=== PATIENT | male | born 1985 | race African-American/Black ===

== ENCOUNTER 2017-03-30 09:20 | Inpatient (IN) | payer OTHER ==
[2017-03-30] MEDS ORDERED: RAPID SEQUENCE INTUBATION KIT NR ONE (09:27)
[2017-03-30] MEDS ORDERED: DEXTROSE 50%-WATER - 25 GM/50 ML VIAL ONE (09:41)
[2017-03-30] MEDS ORDERED: SODIUM CHLORIDE 0.9% 1000 ML INFUS.BAG IV ONE (09:42)
--- NOTE | 2017-03-30 09:54 | PDOC ---
History of Present Illness <Varun Marie - Last Filed: 03/30/17 10:02> <Oral Colmenares - Last Filed: 03/30/17 11:32> <Shannon Bond - Last Filed: 03/30/17 12:14> - History of Present Illness Initial Comments: 03/30/17 09:51 Chief complaint cardiac arrest/altered mental status History of present illness: This is a 31-year-old gentleman known past medical history of diabetes, alcohol abuse depression last seen normal yesterday evening history received from EMS states patient had fallen twice yesterday was drinking in the evening and had to be carried to bed. This was his last seen normal. This morning at approximately 8 AM he was found unresponsive by his girlfriend. 911 was called. Upon arrival patient found to be in PE a arrest and CPR started. 2 rounds of epinephrine given. Patient difficult to intubate in the field. A fingerstick in the field showed a serum glucose of 17 he was given D10. Patient had briefly spontaneous return of circulation followed by a period of asystole and CPR was continued. Upon arrival to the emergency department at 919. Patient with good pulse and blood pressure 80 systolic agonal respirations repeat fingerstick 82. Decision made to intubate patient. <Jose Lpoez - Last Filed: 03/30/17 18:05> - General Chief Complaint: Altered Mental Status Stated Complaint: UNCONSCIOUS Time Seen by Provider: 03/30/17 09:40 Past History <Varun Marie - Last Filed: 03/30/17 10:02> <Oral Colmenares - Last Filed: 03/30/17 11:32> <Shannon Bond - Last Filed: 03/30/17 12:14> - Past Medical History Psychiatric Problems: Yes (depression on zoloft.) Other medical history: alcohol abuse - Suicide/Smoking/Psychosocial Hx Smoking Status: No Smoking History: Current every day smoker Have you smoked in the past 12 months: Yes Number of Cigarettes Smoked Daily: 20 Information on smoking cessation initiated: No Hx Alcohol Use: Yes (lots of it) Drug/Substance Use Hx: No Substance Use Type: Alcohol <Jose Lopez - Last Filed: 03/30/17 18:05> - Past Medical History Allergies/Adverse Reactions: Allergies Allergy/AdvReac Type Severity Reaction Status Date / Time No Known Allergies Allergy Verified 03/30/17 09:38 Home Medications: Ambulatory Orders NK [No Known Home Medication] 11/20/14 Review of Systems - Review of Systems Able to Perform ROS?: No (Unable to perform review ) Comments:: 03/30/17 09:52 Unable to perform review of systems secondary to altered mental status. <Jose Lopez - Last Filed: 03/30/17 18:05> *Physical Exam - Vital Signs Last Vital Signs Temp Pulse Resp BP Pulse Ox 55 L 12 69/53 100 03/30/17 09:20 03/30/17 09:20 03/30/17 09:20 03/30/17 09:20 <Varun Marie - Last Filed: 03/30/17 10:02> - Vital Signs Last Vital Signs Temp Pulse Resp BP Pulse Ox 79 15 72/50 96 03/30/17 11:30 03/30/17 11:30 03/30/17 11:30 03/30/17 11:30 <Oral Colmenares - Last Filed: 03/30/17 11:32> - Vital Signs Last Vital Signs Temp Pulse Resp BP Pulse Ox 55 L 12 69/53 100 03/30/17 09:20 03/30/17 09:35 03/30/17 09:20 03/30/17 09:20 <Shannon Bond - Last Filed: 03/30/17 12:14> - Vital Signs Last Vital Signs Temp Pulse Resp BP Pulse Ox 55 L 12 69/53 100 03/30/17 09:20 03/30/17 09:20 03/30/17 09:20 03/30/17 09:20 - Physical Exam Comments: 03/30/17 09:52 Vitals: Triage Vital signs reviewed General Appearance: Unresponsive thin Head: Atraumatic, Eyes: Fixed and pinpoint Throat: Posterior oropharynx without erythema, mucous membranes moist, Neck: Supple;No Nucal rigidity Chest Wall: Nontender, no trauma Cardiac: Regular rate and rhythym, no murmurs, no rubs, no gallops, Lungs: Coarse breath sounds bilaterally Abdomen: Soft, non distended, normal bowel sounds, non tender to palpation Skin: Warm and dry, no rashes or lesions, no rash, no petechiae Neuro: Intubated, agonal respirations, no significant response to painful stimuli <Jose Lopez - Last Filed: 03/30/17 18:05> Procedures - Intubation Intubation Method: orotracheal Blade used: Mac Tube Size (Fr): 7.0 Medications: Succinylcholine Tube position @ lip (cm): 22 Tube position confirmed by: Direct visualization, CO2 detector, Chest x-ray, Breath sounds Breath Sounds after Intubation: equal Intubation Complications: no complications Post Intubation Xray: Yes <Varun Marie - Last Filed: 03/30/17 10:02> - Consent Consent obtained: Verbal, From Guardians - Central Line Central Line Lumen: triple Central Line Position: internal jugular (R) Complications: none Post Central Line Insertion: sutured, good blood return, position confirmed w/ CXR <Oral Colmenares - Last Filed: 03/30/17 11:32> - Intubation Time of Intubation: 09:35 Intubation Method: nasotracheal Blade used: Mac Tube Size (Fr): 7.0 Medications: Succinylcholine Tube position @ lip (cm): 22 Tube position confirmed by: Direct visualization, CO2 detector, Chest x-ray, Breath sounds Breath Sounds after Intubation: equal Intubation Complications: no complications Post Intubation Xray: Yes <Jose Lopez - Last Filed: 03/30/17 18:05> ED Treatment Course - LABORATORY CBC & Chemistry Diagram: 03/30/17 09:30 03/30/17 09:30 - Medications Given in the ED: ED Medications Discontinued Medications Generic Name Dose Route Start Last Admin Trade Name Freq PRN Reason Stop Dose Admin Sodium Chloride 3,000 ml 03/30/17 09:42 03/30/17 09:56 Normal Saline - IV 03/30/17 09:43 3,000 ml ONCE ONE Administration <Varun Marie - Last Filed: 03/30/17 10:02> - LABORATORY CBC & Chemistry Diagram: 03/30/17 09:30 03/30/17 09:30 - ADDITIONAL ORDERS Additional order review: Laboratory Results 03/30/17 03/30/17 03/30/17 10:30 10:30 10:22 PT with INR INR Puncture Site Right radial ABG pH 6.91 L* ABG pCO2 at Pt Temp 79.4 H* ABG pO2 at Pt Temp 81.9 ABG HCO3 14.9 L* ABG O2 Sat (Measured) 92.0 ABG O2 Content 14.7 L ABG Base Excess -19.4 L* Phillip Test Positive Carboxyhemoglobin 6.2 H Methemoglobin 0.8 O2 Delivery Device Mec.vent Oxygen Flow Rate 100% Vent Mode A/c Vent Rate 12 Mechanical Rate Yes PEEP 5.0 Pressure Support Vent 350 Sodium Potassium Chloride Carbon Dioxide Anion Gap BUN Creatinine Creat Clearance w eGFR Random Glucose Lactic Acid Calcium Albumin Urine Color Straw Urine Appearance Clear Urine pH 6.0 Urine Protein Negative Urine Glucose (UA) Negative Urine Ketones Negative Urine Blood Negative Urine Nitrite Negative Urine Bilirubin Negative Urine Urobilinogen Negative Opiates Screen Negative Methadone Screen Negative Barbiturate Screen Negative Phencyclidine Screen Negative Ur Amphetamines Screen Negative MDMA (Ecstasy) Screen Negative Benzodiazepines Screen Negative Cocaine Screen Negative U Marijuana (THC) Screen Negative 03/30/17 03/30/17 03/30/17 09:30 09:30 09:30 PT with INR 13.30 H INR 1.18 H Puncture Site ABG pH ABG pCO2 at Pt Temp ABG pO2 at Pt Temp ABG HCO3 ABG O2 Sat (Measured) ABG O2 Content ABG Base Excess Phillip Test Carboxyhemoglobin Methemoglobin O2 Delivery Device Oxygen Flow Rate Vent Mode Vent Rate Mechanical Rate PEEP Pressure Support Vent Sodium 140 Potassium 4.6 Chloride 100 Carbon Dioxide 19 L Anion Gap 21 H BUN 9 Creatinine 2.6 H Creat Clearance w eGFR 28.57 Random Glucose 50 L Lactic Acid 12.6 H* Calcium 8.0 L Albumin 3.5 Urine Color Urine Appearance Urine pH Urine Protein Urine Glucose (UA) Urine Ketones Urine Blood Urine Nitrite Urine Bilirubin Urine Urobilinogen Opiates Screen Methadone Screen Barbiturate Screen Phencyclidine Screen Ur Amphetamines Screen MDMA (Ecstasy) Screen Benzodiazepines Screen Cocaine Screen U Marijuana (THC) Screen 03/30/17 09:30 RBC 4.91 MCV 92.3 MCHC 30.7 L RDW 16.2 H MPV 8.4 Neutrophils % No Result Required. Lymphocytes % No Result Required. - Medications Given in the ED: ED Medications Discontinued Medications Generic Name Dose Route Start Last Admin Trade Name Freq PRN Reason Stop Dose Admin Vancomycin HCl 1,000 mg/ 250 mls @ 250 mls/hr 03/30/17 10:08 03/30/17 11:29 Dextrose IVPB 03/30/17 11:07 250 mls/hr ONCE ONE Administration Protocol Piperacillin Sod/Tazobactam Sod 4.5 gm 03/30/17 10:08 03/30/17 10:28 Zosyn 4.5gm Ivpb (Pre-Docked) IVPB 03/30/17 10:09 4.5 gm ONCE ONE Administration Sodium Bicarbonate 4.2 meq 03/30/17 10:50 03/30/17 10:57 Sodium Bicarbonate 4.2% - IVPUSH 03/30/17 10:51 4.2 meq ONCE ONE Administration Sodium Chloride 3,000 ml 03/30/17 09:42 03/30/17 09:56 Normal Saline - IV 03/30/17 09:43 3,000 ml ONCE ONE Administration <Oral Colmenares - Last Filed: 03/30/17 11:32> - LABORATORY CBC & Chemistry Diagram: 03/30/17 09:30 03/30/17 09:30 - Medications Given in the ED: ED Medications Discontinued Medications Generic Name Dose Route Start Last Admin Trade Name Yawq PRN Reason Stop Dose Admin Sodium Chloride 3,000 ml 03/30/17 09:42 03/30/17 09:56 Normal Saline - IV 03/30/17 09:43 3,000 ml ONCE ONE Administration <Shannon Bond - Last Filed: 03/30/17 12:14> - LABORATORY CBC & Chemistry Diagram: 03/30/17 09:30 03/30/17 09:30 - RADIOLOGY Radiology Studies Ordered: Category Date Time Status HEAD CT WITHOUT CONTRAST [CT] Stat CT Scan 03/30/17 09:41 Ordered CXRPORT [CHEST X-RAY PORTABLE*] [RAD] Stat Radiology 03/30/17 09:41 Ordered <Jose Lopez - Last Filed: 03/30/17 18:05> Medical Decision Making - Medical Decision Making 03/30/17 10:00 Discussed case with ICU attending- Kajal at 10:00 Case accepted to ICU. 03/30/17 10:[address] Turk, covering for Daljit Abrams. Awaiting call back. 03/30/17 10:10 Burke returned the page and the patient's case was discussed. 03/30/17 10:14 Patient to be admitted under Burke service. 03/30/17 11:06 Central Line placed by Resident- Oral Colmenares 03/30/17 11:10 Kajal garza overhead. Patient's case updated. 03/30/17 11:37 CXR reviewed and patient re-evaluated. 03/30/17 11:43 Updated present family on patient's current clinical condition. 03/30/17 12:14 Patient transported from ER to ICU bed. <Shannon Bond - Last Filed: 03/30/17 12:14> - Critical Care Time Total Critical Care Time (minutes): 65 Critical Care Statement: The care of this patient involved high complexity decision making to prevent further life threatening deterioration of the patient 's condition and/or to evaluate & treat vital organ system(s) failure or risk of failure. - Medical Decision Making 03/30/17 09:54 31 years old last seen normal last night history of alcohol abuse diabetes depression found in cardiac arrest this morning. CPR initiated in the field upon arrival to the emergency Department patient with ROSC. Intubated in the emergency department Plan head CT chest x-ray labs ICU admission Reevaluation: No acute findings on head CT Patient persistently hypotensive despite 3 L normal saline decision made to place central line and start patient on norepinephrine. Chest x-ray with evidence of right lower lobe infiltrate. Given the possibility of aspiration pneumonia and patient started vancomycin and Zosyn After being intubated for CBG demonstrate marked acidosis. Vent rate increased 1 amp bicarbonate given Patient to be transferred to ICU for definitive management. <Jose Lopez - Last Filed: 03/30/17 18:05> *DC/Admit/Observation/Transfer <Varun Marie - Last Filed: 03/30/17 10:02> <Oral Colmenares - Last Filed: 03/30/17 11:32> - Attestations Scribe Attestion: 03/30/17 10:12 Documentation prepared by Shannon Bond, acting as certified medical assistant for Jose Lopez MD <Shannon Bond - Last Filed: 03/30/17 12:14> - Discharge Dispostion Admit: Yes <Jose Lopez - Last Filed: 03/30/17 18:05> Diagnosis at time of Disposition: Altered mental status Qualifiers: Altered mental status type: unspecified Qualified Code(s): R41.82 - Altered mental status, unspecified - Referrals
[2017-03-30 09:57] LABS: MCH 28.3 pg (25.7-33.7); MCHC 30.7 g/dl (32.0-35.9); MEAN CELL VOLUME 92.3 fl (80-96); MEAN PLT VOLUME 8.4 fl (7.5-11.1); PLATELET COUNT 130 K/MM3 (134-434); RDW 16.2 % (11.9-15.9); WHITE BLOOD COUNT 12.8 K/mm3 (4.0-10.0)
[2017-03-30] MEDS ORDERED: VANCOMYCIN 1,000 MG in DEXTROSE 5%-WATER - 250 ML IVPB ONE (10:08)
[2017-03-30] MEDS ORDERED: PIPERACILLIN/TAZOB 4.5 GM/100 ML PRE-DOCKED IVPB ONE (10:08)
[2017-03-30 10:13] LABS: INR 1.18 (0.82-1.09); PROTHROMBIN TIME (PATIENT) 13.3 SEC (9.98-11.88)
[2017-03-30] MEDS: MIDAZOLAM 100 MG in SODIUM CHLORIDE 100 ML IVPB SCH ×2 (10:15→23:47)
[2017-03-30] MEDS ORDERED: VANCOMYCIN 1 GRAM (PRE-DOCKED) 250 ML IVPB ONE (10:24)
[2017-03-30] MEDS ORDERED: PIPERACILLIN/TAZOB 3.375 GM 50 ML IVPB ONE (10:24)
[2017-03-30] MEDS ORDERED: PIPERACILLIN/TAZOB 4.5 GM 100 ML IVPB ONE (10:28)
[2017-03-30] MEDS ORDERED: MIDAZOLAM HCL 2 MG/2 ML SINGLE DOSE VIAL ONE (10:29)
[2017-03-30] MEDS ORDERED: MIDAZOLAM HCL 2 MG/2 ML SINGLE DOSE VIAL IVPUSH ONE (10:30)
[2017-03-30 10:34] LABS: ARTERIAL BLOOD GAS BASE EXCESS -19.4 meq/l (-2-2); ARTERIAL BLOOD GAS PO2 81.9 mmHg (80-100)
[2017-03-30 10:36] LABS: URINE APPEARANCE CLEAR; URINE BILIRUBIN NEGATIVE (NEGATIVE); URINE BLOOD NEGATIVE (NEGATIVE); URINE COLOR STRAW; URINE GLUCOSE (UA) NEGATIVE (NEGATIVE); URINE KETONE NEGATIVE (NEGATIVE); URINE NITRITE NEGATIVE (NEGATIVE); URINE PROTEIN NEGATIVE (NEGATIVE); URINE UROBILINOGEN NEGATIVE mg/dL (0.2-1.0)
[2017-03-30 10:40] LABS: METHEMOGLOBIN 0.8 % (0.4-1.5)
[2017-03-30 10:41] LABS: ALLENS TEST POSITIVE; PT. ON O2? YES
[2017-03-30 10:42] LABS: LPM/O2% 100%; MECH. VENT. YES; TYPE OF O2 MEC.VENT
[2017-03-30 10:43] LABS: VENT RATE 12; VT/PRESS 350
[2017-03-30 10:44] LABS: ARTERIAL BLOOD GAS pH 6.91 (7.35-7.45)
[2017-03-30 10:45] LABS: ARTERIAL BLOOD GAS HCO3 14.9 meq/L (22-26)
[2017-03-30] MEDS ORDERED: SODIUM BICARBONATE 4.2% 5 MEQ/10 ML DISP.SYRIN IVPUSH ONE (10:50)
[2017-03-30 10:58] LABS: ART PUNCT SITE RIGHT RADIAL
[2017-03-30] MEDS ORDERED: NOREPINEPHRINE BITARTRATE 4 MG/4 ML ML IV ONE ×3 (10:59→23:00)
[2017-03-30] MEDS: NOREPINEPHRINE BITARTRATE 4,000 MCG in DEXTROSE 5%-WATER - 496 ML IV SCH (11:09)
[2017-03-30 11:20] LABS: ALBUMIN 3.5 g/dl (3.4-5.0); ANION GAP 21 (8-16); CO2 19 mmol/L (21-32); CREATININE 2.6 mg/dL (0.7-1.3); GLUCOSE,RANDOM 50 mg/dL (74-106)
[2017-03-30 11:21] LABS: URINE MARIJUANA THC NEGATIVE ng/ml (CUTOFF=50)
[2017-03-30 11:37] LABS: ALK PHOS 100 U/L (45-117); BILIRUBIN,TOTAL 0.6 mg/dL (0.2-1.0); CPK 688 IU/L (39-308); TOT PROT 7.7 g/dl (6.4-8.2)
[2017-03-30 11:42] LABS: PLATELET ESTIMATE ADEQUATE (NORMAL); TOTAL CELLS COUNTED 100
[2017-03-30 11:43] LABS: METAMYELOCYTE 2 % (0-2); MYELOCYTE 2 % (0-2); NUCLEATED RED BLOOD CELL 1 % (0-0)
[2017-03-30 11:50] LABS: SGOT/AST 2615 U/L (15-37); SGPT/ALT 1775 U/L (12-78); TROPONIN I 1.47 ng/ml (0.00-0.05)
--- NOTE | 2017-03-30 12:53 | CONSULT ---
Consult Consult Specialty:: PULM/CCM Referred by:: ER Reason for Consultation:: cardiac arrest - History of Present Illness Chief Complaint: found unresponsive History of Present Illness: 31 M, diabetes, alcohol abuse, and depression. According to EMS reports, they were called after the patient was found unresponsive by his girlfriend around 8 AM. Patient was apparently out drinking the night before and had fallen twice and had to be carried to his bed. This was the last he was seen. Upon EMS arrival, the patient found to be in PEA arrest and CPR started. Documented 2 rounds of epinephrine given. Apparently he was a difficult intubation in the field and could not be intubated. A fingerstick in the field revealed a serum glucose of 17 and he was given D10. Patient apparently had a brief ROSC followed by asystole and CPR was continued. Patient arrived to the ER around 9:19 AM with a pulse and SBP of 80 mmHg. Repeat fingerstick at that time was 82. He was subsequently intubated in the ER. Now seen in the ICU. Intubated and unresponsive. AC Mode of vent, 100% FiO2. 10 mcq NE infusing for hemodynamic support. CXR: Bibasilar atelectasis CT Head: no acute pathology - History Source History Provided By: Medical Record Limitations to Obtaining History: Clinical Condition - Alcohol/Substance Use Hx Alcohol Use: Yes (lots of it) - Smoking History Smoking history: Current every day smoker Have you smoked in the past 12 months: Yes Aproximately how many cigarettes per day: 20 Home Medications - Allergies Allergies/Adverse Reactions: Allergies Allergy/AdvReac Type Severity Reaction Status Date / Time No Known Allergies Allergy Verified 03/30/17 09:38 - Home Medications Home Medications: Ambulatory Orders NK [No Known Home Medication] 11/20/14 Review of Systems Unable to obtain ROS, reason: cannot provide Physical Exam Vital Signs: Vital Signs Temperature 90.3 F L 03/30/17 11:57 Pulse Rate 85 03/30/17 11:57 Respiratory Rate 14 03/30/17 11:57 Blood Pressure 85/40 03/30/17 11:57 O2 Sat by Pulse Oximetry (%) 97 03/30/17 11:57 Constitutional: Yes: Thin Eyes: Yes: Other (pinpoint fixed pupils). No: Sclera Icterus Neck: Yes: Supple, Trachea Midline Cardiovascular: Yes: Regular Rate and Rhythm Respiratory: Yes: CTA Bilaterally, Mechanically Ventilated Gastrointestinal: Yes: Soft Musculoskeletal: Yes: WNL Extremities: Yes: WNL Edema: No Peripheral Pulses WNL: Yes Integumentary: Yes: WNL Neurological: Yes: Unresponsive Imaging - Results Chest X-ray: Report Reviewed, Image Reviewed Cat Scan: Report Reviewed, Image Reviewed Problem List - Problems (1) Cardiac arrest Code(s): I46.9 - CARDIAC ARREST, CAUSE UNSPECIFIED (2) Alcohol intoxication Code(s): F10.929 - ALCOHOL USE, UNSPECIFIED WITH INTOXICATION, UNSPECIFIED (3) Atelectasis of both lungs Code(s): J98.11 - ATELECTASIS (4) Pneumonitis due to food and vomit Code(s): J69.0 - PNEUMONITIS DUE TO INHALATION OF FOOD AND VOMIT (5) Seizure Code(s): R56.9 - UNSPECIFIED CONVULSIONS Assessment/Plan Repeat ABG after vent setting adjustments Check CVP IVF resuscitation Follow blood sugar Noted Zosyn was given Versed NE for hemodynamic support Collect sputum Unfortunately, due to a likely very prolonged time for ROSC and evidence of early seizure activity -> Outcome appears grave. TTE in AM As the patient's temperature is 32.4, there is no indication for TTM. Goal should be a temperature between [address] Rdz Critical care time spent in reviewing chart, evaluating patient and formulating plan - 40 minutes.
--- NOTE | 2017-03-30 12:53 | HP ---
Admitting History and Physical - Smoking History Smoking history: Current every day smoker Have you smoked in the past 12 months: Yes Aproximately how many cigarettes per day: 20 - Alcohol/Substance Use Hx Alcohol Use: Yes (lots of it) <Destin Turk - Last Filed: 03/30/17 12:53> Home Medications <Destin Turk - Last Filed: 03/30/17 12:53> <Poncho Rdz - Last Filed: 03/30/17 12:58> - Allergies Allergies/Adverse Reactions: Allergies Allergy/AdvReac Type Severity Reaction Status Date / Time No Known Allergies Allergy Verified 03/30/17 09:38 - Home Medications Home Medications: Ambulatory Orders NK [No Known Home Medication] 11/20/14 Physical Examination Vital Signs: Vital Signs Temperature 90.3 F L 03/30/17 11:57 Pulse Rate 85 03/30/17 11:57 Respiratory Rate 14 03/30/17 11:57 Blood Pressure 85/40 03/30/17 11:57 O2 Sat by Pulse Oximetry (%) 97 03/30/17 11:57 <Destin Turk - Last Filed: 03/30/17 12:53> Vital Signs: Vital Signs Temperature 90.3 F L 03/30/17 11:57 Pulse Rate 85 03/30/17 11:57 Respiratory Rate 18 03/30/17 12:54 Blood Pressure 85/40 03/30/17 11:57 O2 Sat by Pulse Oximetry (%) 97 03/30/17 11:57 <Poncho Rdz - Last Filed: 03/30/17 12:58> Problem List - Problems (1) Cardiac arrest Code(s): I46.9 - CARDIAC ARREST, CAUSE UNSPECIFIED (2) Alcohol intoxication Code(s): F10.929 - ALCOHOL USE, UNSPECIFIED WITH INTOXICATION, UNSPECIFIED (3) Atelectasis of both lungs Code(s): J98.11 - ATELECTASIS (4) Pneumonitis due to food and vomit Code(s): J69.0 - PNEUMONITIS DUE TO INHALATION OF FOOD AND VOMIT (5) Seizure Code(s): R56.9 - UNSPECIFIED CONVULSIONS <Poncho Rdz - Last Filed: 03/30/17 12:58>
[2017-03-30] MEDS: DOPAMINE 400 MG/D5W - 250 ML IVPB SCH (12:55)
[2017-03-30] MEDS ORDERED: ONDANSETRON 4 MG/2 ML VIAL IVPUSH PRN (12:56)
[2017-03-30] MEDS ORDERED: morphine CARPU-JECT 8 MG/1 ML DISP.SYRIN IVPUSH PRN (12:56)
[2017-03-30] MEDS ORDERED: LORazepam 2 MG/ML SDV VIAL ONE (12:58)
[2017-03-30] MEDS: DEXTROSE 10%-WATER - 1,000 ML IV SCH (13:00)
[2017-03-30] MEDS: LORazepam 2 MG/ML SDV VIAL IVPUSH PRN ×2 (13:10→17:30)
[2017-03-30 14:08] LABS: ARTERIAL BLD GAS O2 SATURATION 95.2 % (90-98.9); ARTERIAL BLOOD GAS BASE EXCESS -16.2 meq/l (-2-2); ARTERIAL BLOOD GAS HCO3 14.3 meq/L (22-26); ARTERIAL BLOOD GAS PO2 87.7 mmHg (80-100)
[2017-03-30 14:10] LABS: ALLENS TEST POSITIVE; ART PUNCT SITE RIGHT RADIAL; LPM/O2% 100%; PT. ON O2? YES; TYPE OF O2 MEC.VENT
[2017-03-30 14:11] LABS: MECH. VENT. YES; VENT RATE 16; VT/PRESS 450
[2017-03-30 14:13] LABS: ARTERIAL BLOOD GAS pH 7.05 (7.35-7.45)
[2017-03-30 14:35] LABS: URINE LEUK ESTERASE Negative (NEGATIVE)
[2017-03-30 15:20] VITALS: BMI 22.2
[2017-03-30] MEDS: PANTOPRAZOLE SODIUM 40 MG VIAL IVPUSH SCH (15:48)
--- NOTE | 2017-03-30 16:06 | PN ---
Progress Note (short form) - Note Progress Note: ID consult s/p code difficult intubation possible aspiration ESTELA etoh use vanco/zosyn in ED decreased zosyn dose due to estela f/u cultures overall prognosis is poor Problem List - Problems (1) Cardiac arrest Code(s): I46.9 - CARDIAC ARREST, CAUSE UNSPECIFIED (2) Alcohol intoxication Code(s): F10.929 - ALCOHOL USE, UNSPECIFIED WITH INTOXICATION, UNSPECIFIED (3) Pneumonitis due to food and vomit Code(s): J69.0 - PNEUMONITIS DUE TO INHALATION OF FOOD AND VOMIT
[2017-03-30] MEDS ORDERED: PIPERACILLIN/TAZOB 3.375 GM/50 ML PRE-DOCKED IVPB SCH (16:15)
[2017-03-30 16:16] LABS: ARTERIAL BLD GAS O2 SATURATION 87.4 % (90-98.9); ARTERIAL BLOOD GAS BASE EXCESS -15.1 meq/l (-2-2); ARTERIAL BLOOD GAS HCO3 14.5 meq/L (22-26); ARTERIAL BLOOD GAS PO2 60.3 mmHg (80-100)
[2017-03-30 16:18] LABS: ALLENS TEST POSITIVE; ART PUNCT SITE RIGHT RADIAL; LPM/O2% 100%; PT. ON O2? YES
[2017-03-30 16:19] LABS: MECH. VENT. YES; TYPE OF O2 MEC.VENT; VENT RATE 22; VT/PRESS 500
[2017-03-30] MEDS ORDERED: PROPOFOL 100 ML ONE ×2 (17:00→22:59)
--- NOTE | 2017-03-30 17:32 | CON.CARD ---
Consult Consult Specialty:: Cardiology Referred by:: Dr. Turk Reason for Consultation:: S/p CARDIAC ARREST - History of Present Illness Chief Complaint: S/p Cardiac arrest and CPR History of Present Illness: 31 year-old man with a PMHx of diabetes, alcohol abuse, and depression admitted 03/29/2017 after cardiac arrest and CPR. The patient was drunk and fell one night before admission. He was found unresponsive by his girlfriend. PEA arrest and CPR started as per EMS. Documented 2 rounds of epinephrine given. He had severe hypoglycemia with FS of 17 and D10W given. He was difficult to intubate in the field. He was intubated in ED. The patient was found to have severe acidosis, hypotension, ESTELA and elevated cardiac markers. He is current sedated and on Levophed and dopamine. Tele shows sinus tachycardia. CXR: Bibasilar atelectasis CT Head: no acute pathology - Alcohol/Substance Use Hx Alcohol Use: Yes (lots of it) - Smoking History Smoking history: Current every day smoker Have you smoked in the past 12 months: Yes Aproximately how many cigarettes per day: 20 Home Medications - Allergies Allergies/Adverse Reactions: Allergies Allergy/AdvReac Type Severity Reaction Status Date / Time No Known Allergies Allergy Verified 03/30/17 09:38 - Home Medications Home Medications: Ambulatory Orders NK [No Known Home Medication] 11/20/14 Review of Systems - Review of Systems Cardiovascular: reports: Other (S/p PEA and CPR) Respiratory: reports: Other (Intubated) Neurological: reports: Other (Sedated) - Risk Factors Known Risk Factors: Yes: Diabetes Mellitus Vital Signs: Vital Signs Temperature 91.4 F L 03/30/17 14:00 Pulse Rate 96 H 03/30/17 14:00 Respiratory Rate 22 03/30/17 15:46 Blood Pressure 148/88 03/30/17 14:00 O2 Sat by Pulse Oximetry (%) 97 03/30/17 12:30 Constitutional: Yes: Well Nourished, Other (Sedated and intubated.) HENT: Yes: Atraumatic, Normocephalic Neck: Yes: Supple, Trachea Midline Respiratory: Yes: Regular, Other (Coarse vent breath sound.) Gastrointestinal: Yes: Normal Bowel Sounds, Soft Cardiovascular: Yes: Regular Rate and Rhythm, Tachycardia JVD: No Carotid Bruit: No PMI: Non-Displaced Heart Sounds: Yes: S1, S2 Edema: No Peripheral Pulses WNL: Yes Neurological: Yes: Seizure, Unresponsive - Other Data Labs, Other Data: CBC, BMP 03/30/17 16:00 INR, PTT INR 1.18 (0.82-1.09) H 03/30/17 09:30 Imaging - Results EKG: Pending Assessment/Plan 31 year-old man with a PMHx of diabetes, alcohol abuse, and depression admitted 03/29/2017 after cardiac arrest and CPR. He had severe hypoglycemia with FS of 17 and D10W given. He was difficult to intubate in the field. He was intubated in ED. The patient was found to have severe acidosis, hypotension, ESTELA and elevated cardiac markers. He is current sedated and on Levophed and dopamine. Tele shows sinus tachycardia. Cardiac arrest of unclear etiology. Tele monitor for possible cardiac arrhythmia. Obtain echocardiogram to evaluate cardiac dimension and function. Obtain 12-lead ECG. Continue hemodynamic support. Correct metabolic abnormalities as per ICU team. We will follow with you.
[2017-03-30 17:38] LABS: TROPONIN I 7.43 ng/ml (0.00-0.05)
[2017-03-30] MEDS ORDERED: PIPERACILLIN/TAZOB 4.5 GM/100 ML PREMIX BAG IVPB SCH (18:00)
[2017-03-30] MEDS ORDERED: PIPERACILLIN/TAZOB 4.5 GM 100 ML IVPB SCH (18:00)
[2017-03-30] MEDS: PROPOFOL 100 ML IVPB SCH ×2 (18:00→23:43)
[2017-03-30 18:08] LABS: ARTERIAL BLD GAS O2 SATURATION 84.8 % (90-98.9); ARTERIAL BLOOD GAS BASE EXCESS -13.6 meq/l (-2-2); ARTERIAL BLOOD GAS HCO3 13.8 meq/L (22-26); ARTERIAL BLOOD GAS PO2 50.5 mmHg (80-100)
[2017-03-30 18:09] LABS: ALLENS TEST POSITIVE; ART PUNCT SITE RIGHT RADIAL; LPM/O2% 100%; MECH. VENT. YES; PT. ON O2? YES; TYPE OF O2 MEC.VENT; VENT RATE 28; VT/PRESS 550
[2017-03-30 18:10] LABS: ARTERIAL BLOOD GAS pH 7.19 (7.35-7.45)
[2017-03-30 18:17] LABS: MCH 28.1 pg (25.7-33.7); MEAN CELL VOLUME 87.8 fl (80-96); MEAN PLT VOLUME 8.5 fl (7.5-11.1); PLATELET COUNT 104 K/MM3 (134-434); WHITE BLOOD COUNT 13.3 K/mm3 (4.0-10.0)
--- NOTE | 2017-03-30 18:20 | CONS ---
DATE OF CONSULTATION: 03/30/2017 This is a 31-year-old male with a history of alcohol use and depression. He apparently yesterday evening was drinking, had to be carried to bed. At 8 a.m., he was found unresponsive by his girlfriend, 911 was called. He was found to be in PEA arrest and CPR was started. He was difficult to intubate in the field. A fingerstick showed a glucose of 17. He was given D10. He had a brief return of circulation, followed by a period of asystole. He was brought to the emergency room and had a pulse and blood pressure of 80. He was not intubated. Decision was to make intubated in the ER. He was intubated in the emergency room. Asked to see him for possible aspiration, as he was a difficult intubation in the field. He is now in the ICU. He remains unresponsive. He is on pressors. He received a dose of vancomycin and Zosyn in the emergency room. Per his family, the past medical history is known for history of alcohol use and depression. He is currently not working. He was taking Zoloft at home. He has no known drug allergies. SOCIAL HISTORY: He lives with his girlfriend. Unemployed. He smokes. REVIEW OF SYSTEMS: Per the family member who was present, was that he was well yesterday evening and he had no complaints of fevers, chills, or any chest pain or any other symptoms. PHYSICAL EXAMINATION: General: He is unresponsive, he is cold. Vital Signs: Temperature is 91.4 rectally. Pulse is 96. Blood pressure is 148/88. Respiratory rate is 16. He is saturating 100%. He is unresponsive. Currently he is on Levophed for blood pressure control. He is on Ativan and Versed and dopamine. HEENT: He is orally intubated. He is normocephalic. Lungs: Diminished breath sounds at the bases. Heart: Regular rate and rhythm. Abdomen: Firm, nontender. Extremities: Without edema. White count is 12.8, hemoglobin 13.9, platelets of 130. BUN 9, creatinine 2.6, lactic acid of 12.6. Troponin 1.47. Urinalysis is negative. His alcohol level was 193 and his urine toxicology is negative. Cultures are pending. Chest x-ray reveals a question of an increased atelectasis and changes at the bases, right greater than left. In summary, this is an unfortunate 31-year-old young man status post arrest at home, history of alcohol use, questionable of aspiration pneumonia. He is in acute renal failure as well. He was given a dose of vancomycin and started on Zosyn. I would adjust his Zosyn doses for his acute kidney injury, and continue him on antibiotics while we are fluid resuscitating him and waiting to see what mental status is left. It is unclear how long the patient was asystolic prior to resuscitation. KINGSTON CLAYTON M.D. [id number]
[2017-03-30 18:48] LABS: INR 1.8 (0.82-1.09); PROTHROMBIN TIME (PATIENT) 20.3 SEC (9.98-11.88)
[2017-03-30 18:55] LABS: ALBUMIN 2.5 g/dl (3.4-5.0); BILIRUBIN,TOTAL 0.8 mg/dL (0.2-1.0); CO2 17 mmol/L (21-32); GLUCOSE,RANDOM 189 mg/dL (74-106); TOT PROT 5.6 g/dl (6.4-8.2)
[2017-03-30 19:09] LABS: ALK PHOS 119 U/L (45-117)
[2017-03-30 19:16] LABS: ANION GAP 11 (8-16)
[2017-03-30] MEDS ORDERED: CALCIUM GLUCONATE 10% - 1,000 MG/10 ML VIAL IVPB ONE ×2 (19:30→20:00)
[2017-03-30 19:47] LABS: SGOT/AST 6516 U/L (15-37); SGPT/ALT 3676 U/L (12-78)
[2017-03-30] MEDS: PIPERACILLIN/TAZOB 3.375 GM 50 ML IVPB SCH (19:48)
[2017-03-30 19:49] LABS: CALCIUM 5.2 mg/dL (8.5-10.1)
--- NOTE | 2017-03-30 20:13 | CON.NEP ---
Consult Consult Specialty:: Nephrology Referred by:: Dr Turk - History of Present Illness Chief Complaint: s/p code, renal failure History of Present Illness: seen in ICU s/p being found unresponsive found with cardiac arrest by ems pea s/p code fingerstick 17 at first difficult intubation possible aspiration given vanco/zosyn in ED zosyn dose adjusted by ID due to renal function cultures done PMhx Prior Chronic Renal Insufficiency Etoh use DM - History Source History Provided By: Family Member, Medical Record Limitations to Obtaining History: Intubated - Past Medical History Renal/: Yes: Renal Inusuff Psych: Yes: Depression Endocrine: Yes: Diabetes Mellitus - Alcohol/Substance Use Hx Alcohol Use: Yes (lots of it) - Smoking History Smoking history: Current every day smoker Have you smoked in the past 12 months: Yes Aproximately how many cigarettes per day: 20 Home Medications - Allergies Allergies/Adverse Reactions: Allergies Allergy/AdvReac Type Severity Reaction Status Date / Time No Known Allergies Allergy Verified 03/30/17 09:38 - Home Medications Home Medications: Ambulatory Orders NK [No Known Home Medication] 11/20/14 Nephrology Consult - Height Height: 5 ft 7 in - Weight Weight: 141 lb 15.643 oz - BMI Body Mass Index (BMI): 22.2 - Lab Results CBC,BMP: CBC, BMP 03/30/17 17:45 03/30/17 17:45 Anion Gap: Anion Gap Anion Gap 11 (8-16) 03/30/17 17:45 - Physical Examination Vital Signs: Vital Signs Temperature 92 F L 03/30/17 17:00 Pulse Rate 93 H 03/30/17 18:00 Respiratory Rate 28 H 03/30/17 19:11 Blood Pressure 174/102 03/30/17 18:00 O2 Sat by Pulse Oximetry (%) 97 03/30/17 12:30 Constitutional: Yes: Well Nourished Cardiovascular: Yes: Regular Rate and Rhythm Respiratory: Yes: Mechanically Ventilated Gastrointestinal: Yes: Soft Assessment/Plan s/p cardiac arrest hypotensive dependent on pressors severe metabolic acidosis hyperkalemia last pH 7.19 on iv bicarb anoxic and hypoglycemic brain injury acute resp failure on vent non-oliguric so far Plan - continue pressors IVF IV bicarb Kayexalate Per rectum will need ngt for med and nutrition
[2017-03-30] MEDS ORDERED: SODIUM POLYSTYRENE SULFONATE 15 GM/60 ML BOTTLE RC ONE (21:00)
[2017-03-30 23:50] LABS: ANION GAP 9 (8-16); CO2 19 mmol/L (21-32); GLUCOSE,RANDOM 200 mg/dL (74-106)
[2017-03-30 23:51] LABS: CREATININE 2.4 mg/dL (0.7-1.3)
[2017-03-30 23:52] LABS: CALCIUM 6.4 mg/dL (8.5-10.1)
[2017-03-31] MEDS ORDERED: SODIUM POLYSTYRENE SULFONATE 15 GM/60 ML BOTTLE RC ONE (00:15)
[2017-03-31] MEDS ORDERED: PT OWN MED DRAWER 7, Y5N ONE ×2 (00:21→19:11)
[2017-03-31] MEDS: PIPERACILLIN/TAZOB 3.375 GM 50 ML IVPB SCH ×3 (01:11→19:15)
[2017-03-31] MEDS ORDERED: NOREPINEPHRINE BITARTRATE 4 MG/4 ML ML IV ONE (02:02)
[2017-03-31] MEDS: LORazepam 2 MG/ML SDV VIAL IVPUSH PRN ×2 (02:28→12:45)
[2017-03-31] MEDS: NOREPINEPHRINE BITARTRATE 4,000 MCG in DEXTROSE 5%-WATER - 496 ML IV SCH ×2 (02:29→13:15)
[2017-03-31 06:45] LABS: ALBUMIN 2.4 g/dl (3.4-5.0); ANION GAP 9 (8-16); BILIRUBIN,TOTAL 1.3 mg/dL (0.2-1.0); CO2 19 mmol/L (21-32); CREATININE 3.1 mg/dL (0.7-1.3); GLUCOSE,RANDOM 136 mg/dL (74-106); TOT PROT 5.3 g/dl (6.4-8.2)
[2017-03-31 07:04] LABS: ALK PHOS 80 U/L (45-117)
--- NOTE | 2017-03-31 07:47 | PN ---
Progress Note, Physician Chief Complaint: ID Chart reviewed Intubated post cardiac arrest Empiric therapy for ? sepsis ( Vancomycin and Pip Tazo day 1 Rx) - Current Medication List Current Medications: Active Medications Midazolam HCl 100 mg/ Sodium (Chloride) 100 mls @ 1 mls/hr IVPB TITR SEN; 1 MG/ HR PRN Reason: Protocol Last Admin: 03/30/17 23:47 Dose: 5 mls/hr Norepinephrine Bitartrate 4, (000 mcg/ Dextrose) 500 mls @ 37.5 mls/hr IV TITR SEN; 5 MCG/MIN PRN Reason: Protocol Last Admin: 03/31/17 02:29 Dose: 120 mls/hr Dextrose (D10w -) 1,000 mls @ 100 mls/hr IV ASDIR SEN Last Admin: 03/30/17 13:00 Dose: Not Given Dopamine HCl/Dextrose (Dopamine 400 Mg/D5w -) 250 mls @ 11.056 mls/hr IVPB TITR SEN; 5 MCG/KG/MIN PRN Reason: Protocol Last Admin: 03/30/17 12:55 Dose: 11.056 mls/hr Piperacillin/Tazobactam/Dextrose (Zosyn 3.375gm Ivpb (Premix)) 50 mls @ 100 mls /hr IVPB Q8H-IV SEN Last Admin: 03/31/17 01:11 Dose: 100 mls/hr Propofol (Diprivan -) 100 mls @ 1.932 mls/hr IVPB TITR SEN; 5 MCG/KG/MIN PRN Reason: Protocol Last Admin: 03/30/17 23:43 Dose: 1.932 mls/hr Lorazepam (Ativan Injection -) 2 mg IVPUSH Q4H PRN PRN Reason: ANXIETY Last Admin: 03/31/17 02:28 Dose: 2 mg Morphine Sulfate (Morphine Sulfate) 2 mg IVPUSH Q4H PRN PRN Reason: PAIN Ondansetron HCl (Zofran Injection) 4 mg IVPUSH Q6H PRN PRN Reason: NAUSEA Pantoprazole Sodium (Protonix Iv) 40 mg IVPUSH DAILY SEN Last Admin: 03/30/17 15:48 Dose: 40 mg - Objective Vital Signs: Vital Signs Temperature 96.6 F L 03/31/17 06:35 Pulse Rate 118 H 03/31/17 02:45 Respiratory Rate 26 H 03/31/17 06:35 Blood Pressure 149/96 03/31/17 06:35 O2 Sat by Pulse Oximetry (%) 97 03/30/17 12:30 Constitutional: Yes: Other (Unresponsive) Cardiovascular: Yes: S1, S2 Respiratory: Yes: WNL, Regular, CTA Bilaterally Gastrointestinal: Yes: WNL, Normal Bowel Sounds, Soft. No: Tenderness Extremities: No: Cold, Cool, Cyanosis Edema: No Labs: CBC, BMP 03/30/17 17:45 INR, PTT INR 1.80 (0.82-1.09) H D 03/30/17 17:45 Problem List - Problems (1) Alcohol intoxication Code(s): F10.929 - ALCOHOL USE, UNSPECIFIED WITH INTOXICATION, UNSPECIFIED (2) Cardiac arrest Code(s): I46.9 - CARDIAC ARREST, CAUSE UNSPECIFIED (3) Sepsis Code(s): A41.9 - SEPSIS, UNSPECIFIED ORGANISM Assessment/Plan Laboratory Tests 03/30/17 03/30/17 03/30/17 11:58 16:00 16:00 WBC Hgb Plt Count BUN Creatinine Lactic Acid 5.0 H* Calcium Troponin I 7.43 H* D Alcohol, Quantitative 193.0 H* 03/30/17 03/30/17 17:45 23:00 WBC 13.3 H Hgb 12.8 Plt Count 104 L BUN 16 D Creatinine 2.4 H Lactic Acid Calcium 6.4 L* D Troponin I Alcohol, Quantitative Assessment Post cardiac arrest Respiratory failure Alcohol intoxication Acute renal failure Lactic acidosis Sepsis considered and treated Plan Empiric antibiotic Cultures pending Roland MEDRANO
--- NOTE | 2017-03-31 07:57 | HP ---
Admitting History and Physical - Primary Care Physician PCP: Destin Turk - Admission Chief Complaint: FOUND UNRESPONSIVE/CARDIAC ARREST History of Present Illness: History of present illness: This is a 31-year-old gentleman known past medical history of diabetes, alcohol abuse depression last seen normal yesterday evening history received from EMS states patient had fallen twice yesterday was drinking in the evening and had to be carried to bed. This was his last seen normal. This morning at approximately 8 AM he was found unresponsive by his girlfriend. 911 was called. Upon arrival patient found to be in PE a arrest and CPR started. 2 rounds of epinephrine given. Patient difficult to intubate in the field. A fingerstick in the field showed a serum glucose of 17 he was given D10. Patient had briefly spontaneous return of circulation followed by a period of asystole and CPR was continued. Upon arrival to the emergency department at 919. Patient with good pulse and blood pressure 80 systolic agonal respirations repeat fingerstick 82. Decision made to intubate patient. History Source: Medical Record - Past Medical History Renal/: Yes: Renal Inusuff Psych: Yes: Depression Endocrine: Yes: Diabetes Mellitus - Smoking History Smoking history: Current every day smoker Have you smoked in the past 12 months: Yes Aproximately how many cigarettes per day: 20 - Alcohol/Substance Use Hx Alcohol Use: Yes (lots of it) Home Medications - Allergies Allergies/Adverse Reactions: Allergies Allergy/AdvReac Type Severity Reaction Status Date / Time No Known Allergies Allergy Verified 03/30/17 09:38 - Home Medications Home Medications: Ambulatory Orders NK [No Known Home Medication] 11/20/14 Review of Systems Findings/Remarks: PATIENT UNRESPONSIVE IN ICU INTUBATED - Review of Systems Constitutional: reports: Other Eyes: reports: Other Neck: reports: No Symptoms Cardiovascular: reports: Other Respiratory: reports: SOB Genitourinary: reports: No Symptoms Neurological: reports: Weakness Endocrine: reports: No Symptoms Hematology/Lymphatic: reports: No Symptoms Psychiatric: reports: Other Physical Examination Vital Signs: Vital Signs Temperature 96.6 F L 03/31/17 06:35 Pulse Rate 118 H 03/31/17 02:45 Respiratory Rate 26 H 03/31/17 06:35 Blood Pressure 149/96 03/31/17 06:35 O2 Sat by Pulse Oximetry (%) 97 03/30/17 12:30 Findings/Remarks: UNRESPONSIVE/INTUBATED Constitutional: Yes: Severe Distress Eyes: Yes: Other (PINPOINT PUPILS) HENT: Yes: Other Neck: Yes: Other Cardiovascular: Yes: Tachycardia Respiratory: Yes: Mechanically Ventilated, Rhonchi Gastrointestinal: Yes: WNL Renal/: Yes: Other Musculoskeletal: Yes: Muscle Weakness Extremities: Yes: Other Edema: No Peripheral Pulses WNL: Yes Integumentary: Yes: Other Wound/Incision: Yes: Other Neurological: Yes: Unresponsive Labs: CBC, BMP 03/30/17 17:45 Imaging - Results Cat Scan: Report Reviewed Problem List - Problems (1) Alcohol intoxication Code(s): F10.929 - ALCOHOL USE, UNSPECIFIED WITH INTOXICATION, UNSPECIFIED (2) Altered mental status Code(s): R41.82 - ALTERED MENTAL STATUS, UNSPECIFIED Qualifiers: Altered mental status type: unspecified Qualified Code(s): R41.82 - Altered mental status, unspecified; R41.82 - Altered mental status, unspecified (3) Cardiac arrest Code(s): I46.9 - CARDIAC ARREST, CAUSE UNSPECIFIED (4) Pneumonitis due to food and vomit Code(s): J69.0 - PNEUMONITIS DUE TO INHALATION OF FOOD AND VOMIT (5) Seizure Code(s): R56.9 - UNSPECIFIED CONVULSIONS (6) Sepsis Code(s): A41.9 - SEPSIS, UNSPECIFIED ORGANISM Qualifiers: Sepsis type: sepsis due to unspecified organism Qualified Code(s): A41.9 - Sepsis, unspecified organism; A41.9 - Sepsis, unspecified organism; A41.9 - Sepsis, unspecified organism Assessment/Plan INTUBATION AIRWAY SUPPORT IV ABX NEURO EVALUATION FOR BRAIN ACTIVITY POOR OVERALL PROGNOSIS UNKNOWN TIME OF BEING UNCONCIOUS MAY BE SEVERAL HOURS DISCUSSED WITH HIS MOTHER OVER THE PHONE
[2017-03-31 08:23] LABS: SGOT/AST 9723 U/L (15-37); SGPT/ALT 3964 U/L (12-78)
[2017-03-31 08:26] LABS: CALCIUM 6.6 mg/dL (8.5-10.1)
[2017-03-31 08:38] LABS: ALLENS TEST POSITIVE; ARTERIAL BLOOD GAS BASE EXCESS -7.3 meq/l (-2-2); ARTERIAL BLOOD GAS HCO3 15.7 meq/L (22-26); ARTERIAL BLOOD GAS pH 7.39 (7.35-7.45)
[2017-03-31 08:39] LABS: ART PUNCT SITE LEFT BRACHIAL; LPM/O2% 100%; MECH. VENT. YES; PT. ON O2? YES; TYPE OF O2 MECH VENT; VENT RATE 28; VT/PRESS 550
[2017-03-31] MEDS ORDERED: CALCIUM GLUCONATE 10% - 1,000 MG/10 ML VIAL ONE (10:02)
[2017-03-31] MEDS: PANTOPRAZOLE SODIUM 40 MG VIAL IVPUSH SCH (10:33)
[2017-03-31] MEDS: MIDAZOLAM 100 MG in SODIUM CHLORIDE 100 ML IVPB SCH (11:43)
[2017-03-31] MEDS: PROPOFOL 100 ML IVPB SCH (11:44)
[2017-03-31] MEDS ORDERED: SODIUM POLYSTYRENE SULFONATE 15 GM/60 ML BOTTLE PO ONE (12:00)
[2017-03-31] MEDS ORDERED: CALCIUM GLUCONATE 10% - 1,000 MG/10 ML VIAL IVPB ONE (12:45)
--- NOTE | 2017-03-31 13:06 | PN ---
Teaching Attending Note Name of Resident: Bryce Rodas ATTENDING PHYSICIAN STATEMENT I saw and evaluated the patient. I reviewed the resident's note and discussed the case with the resident. I agree with the resident's findings and plan as documented. SUBJECTIVE: Patient seen and examined in the ICU. Intubated and fully sedated. AC Mode of vent. Remains on 12 mcq NE and 5 mg Dopamine for hemodynamic support. Intake & Output 03/28/17 03/29/17 03/30/17 03/31/17 23:59 23:59 23:59 23:59 Intake Total 50 954 Output Total 1999 Balance -1950 954 Weight 141 lb 15.643 oz Last Vital Signs Temp Pulse Resp BP Pulse Ox 96.8 F L 96 H 26 H 132/92 97 03/31/17 10:00 03/31/17 12:00 03/31/17 12:00 03/31/17 12:00 03/31/17 09:00 Active Medications Midazolam HCl 100 mg/ Sodium (Chloride) 100 mls @ 1 mls/hr IVPB TITR SEN; 1 MG/ HR PRN Reason: Protocol Last Admin: 03/31/17 11:43 Dose: 5 mls/hr Norepinephrine Bitartrate 4, (000 mcg/ Dextrose) 500 mls @ 37.5 mls/hr IV TITR SEN; 5 MCG/MIN PRN Reason: Protocol Last Admin: 03/31/17 02:29 Dose: 120 mls/hr Dextrose (D10w -) 1,000 mls @ 100 mls/hr IV ASDIR SEN Last Admin: 03/30/17 13:00 Dose: Not Given Dopamine HCl/Dextrose (Dopamine 400 Mg/D5w -) 250 mls @ 11.056 mls/hr IVPB TITR SEN; 5 MCG/KG/MIN PRN Reason: Protocol Last Admin: 03/30/17 12:55 Dose: 11.056 mls/hr Piperacillin/Tazobactam/Dextrose (Zosyn 3.375gm Ivpb (Premix)) 50 mls @ 100 mls /hr IVPB Q8H-IV SEN Last Admin: 03/31/17 10:31 Dose: 100 mls/hr Propofol (Diprivan -) 100 mls @ 1.932 mls/hr IVPB TITR SEN; 5 MCG/KG/MIN PRN Reason: Protocol Last Admin: 03/31/17 11:44 Dose: 19.32 mls/hr Dextrose/Sodium Chloride (D5-Ns -) 1,000 mls @ 125 mls/hr IV ASDIR SEN Lorazepam (Ativan Injection -) 2 mg IVPUSH Q4H PRN PRN Reason: ANXIETY Last Admin: 03/31/17 02:28 Dose: 2 mg Morphine Sulfate (Morphine Sulfate) 2 mg IVPUSH Q4H PRN PRN Reason: PAIN Ondansetron HCl (Zofran Injection) 4 mg IVPUSH Q6H PRN PRN Reason: NAUSEA Pantoprazole Sodium (Protonix Iv) 40 mg IVPUSH DAILY SEN Last Admin: 03/31/17 10:33 Dose: 40 mg Thiamine HCl (Vitamin B1 Injection -) 200 mg IVPB DAILY SEN Constitutional: Yes: Intubated, sedated Eyes: Yes: Other (pinpoint fixed pupils). No: Sclera Icterus Neck: Yes: Supple, Trachea Midline Cardiovascular: Yes: Regular Rate and Rhythm Respiratory: Yes: CTA Bilaterally, Mechanically Ventilated Gastrointestinal: Yes: Soft Musculoskeletal: Yes: WNL Extremities: Yes: WNL Edema: No Peripheral Pulses WNL: Yes Integumentary: Yes: WNL Neurological: Yes: Unresponsive Laboratory Results - last 24 hr 03/30/17 03/30/17 03/30/17 09:25 10:30 12:30 WBC Corrected WBC (auto) RBC Hgb Hct MCV MCH MCHC RDW Plt Count MPV Add Manual Diff Differential Comment Platelet Estimate Platelet Comment Normal RBC Morphology RBC Morphology PT with INR INR Puncture Site ABG pH ABG pCO2 at Pt Temp ABG pO2 at Pt Temp ABG HCO3 ABG O2 Sat (Measured) ABG O2 Content ABG Base Excess Phillip Test O2 Delivery Device Oxygen Flow Rate Vent Mode Vent Rate Mechanical Rate PEEP Pressure Support Vent Sodium Potassium Chloride Carbon Dioxide Anion Gap BUN Creatinine Creat Clearance w eGFR POC Glucometer 82.96772 74.01967 Random Glucose Lactic Acid Calcium Total Bilirubin AST ALT Alkaline Phosphatase Creatine Kinase Creatine Kinase Index CK-MB (CK-2) Troponin I Total Protein Albumin Urine Color Straw Urine Appearance Clear Urine pH 6.0 Ur Specific [place] <= 1.005 Urine Protein Negative Urine Glucose (UA) Negative Urine Ketones Negative Urine Blood Negative Urine Nitrite Negative Urine Bilirubin Negative Urine Urobilinogen Negative Ur Leukocyte Esterase Negative Blood Type Antibody Screen 03/30/17 03/30/17 03/30/17 14:02 14:28 15:50 WBC Corrected WBC (auto) RBC Hgb Hct MCV MCH MCHC RDW Plt Count MPV Add Manual Diff Differential Comment Platelet Estimate Platelet Comment Normal RBC Morphology RBC Morphology PT with INR INR Puncture Site Right radial Right radial ABG pH 7.05 L* D 7.10 L* ABG pCO2 at Pt Temp 53.6 H D 49.6 H ABG pO2 at Pt Temp 87.7 60.3 L D ABG HCO3 14.3 L* 14.5 L* ABG O2 Sat (Measured) 95.2 87.4 L ABG O2 Content 16.3 15.4 ABG Base Excess -16.2 L* -15.1 L* Phillip Test Positive Positive O2 Delivery Device Mec.vent Mec.vent Oxygen Flow Rate 100% 100% Vent Mode A/c A/c Vent Rate 16 22 Mechanical Rate Yes Yes PEEP 5.0 5.0 Pressure Support Vent 450 500 Sodium Potassium Chloride Carbon Dioxide Anion Gap BUN Creatinine Creat Clearance w eGFR POC Glucometer 134.29221 Random Glucose Lactic Acid Calcium Total Bilirubin AST ALT Alkaline Phosphatase Creatine Kinase Creatine Kinase Index CK-MB (CK-2) Troponin I Total Protein Albumin Urine Color Urine Appearance Urine pH Ur Specific [place] Urine Protein Urine Glucose (UA) Urine Ketones Urine Blood Urine Nitrite Urine Bilirubin Urine Urobilinogen Ur Leukocyte Esterase Blood Type Antibody Screen 03/30/17 03/30/17 03/30/17 16:00 16:00 16:00 WBC Cancelled Corrected WBC (auto) Cancelled RBC Cancelled Hgb Cancelled Hct Cancelled MCV Cancelled MCH Cancelled MCHC Cancelled RDW Cancelled Plt Count Cancelled MPV Cancelled Add Manual Diff Cancelled Differential Comment Cancelled Platelet Estimate Cancelled Platelet Comment Cancelled Normal RBC Morphology Cancelled RBC Morphology Cancelled PT with INR INR Puncture Site ABG pH ABG pCO2 at Pt Temp ABG pO2 at Pt Temp ABG HCO3 ABG O2 Sat (Measured) ABG O2 Content ABG Base Excess Phillip Test O2 Delivery Device Oxygen Flow Rate Vent Mode Vent Rate Mechanical Rate PEEP Pressure Support Vent Sodium Cancelled Potassium Cancelled Chloride Cancelled Carbon Dioxide Cancelled Anion Gap Cancelled BUN Cancelled Creatinine Cancelled Creat Clearance w eGFR Cancelled POC Glucometer Random Glucose Cancelled Lactic Acid 5.0 H* Calcium Cancelled Total Bilirubin Cancelled AST Cancelled ALT Cancelled Alkaline Phosphatase Cancelled Creatine Kinase Creatine Kinase Index CK-MB (CK-2) Troponin I Total Protein Cancelled Albumin Cancelled Urine Color Urine Appearance Urine pH Ur Specific [place] Urine Protein Urine Glucose (UA) Urine Ketones Urine Blood Urine Nitrite Urine Bilirubin Urine Urobilinogen Ur Leukocyte Esterase Blood Type Antibody Screen 03/30/17 03/30/17 03/30/17 16:00 17:45 17:45 WBC 13.3 H Corrected WBC (auto) RBC 4.55 Hgb 12.8 Hct 40.0 MCV 87.8 MCH 28.1 MCHC 32.0 RDW 15.0 Plt Count 104 L MPV 8.5 Add Manual Diff Differential Comment Platelet Estimate Platelet Comment Normal RBC Morphology RBC Morphology PT with INR INR Puncture Site ABG pH ABG pCO2 at Pt Temp ABG pO2 at Pt Temp ABG HCO3 ABG O2 Sat (Measured) ABG O2 Content ABG Base Excess Phillip Test O2 Delivery Device Oxygen Flow Rate Vent Mode Vent Rate Mechanical Rate PEEP Pressure Support Vent Sodium Potassium Chloride Carbon Dioxide Anion Gap BUN Creatinine Creat Clearance w eGFR POC Glucometer Random Glucose Lactic Acid Calcium Total Bilirubin AST ALT Alkaline Phosphatase Creatine Kinase 3240 H Creatine Kinase Index 2.5 CK-MB (CK-2) 82.971 H Troponin I 7.43 H* D Total Protein Albumin Urine Color Urine Appearance Urine pH Ur Specific [place] Urine Protein Urine Glucose (UA) Urine Ketones Urine Blood Urine Nitrite Urine Bilirubin Urine Urobilinogen Ur Leukocyte Esterase Blood Type A POSITIVE Antibody Screen Negative 03/30/17 03/30/17 03/30/17 17:45 17:45 17:50 WBC Corrected WBC (auto) RBC Hgb Hct MCV MCH MCHC RDW Plt Count MPV Add Manual Diff Differential Comment Platelet Estimate Platelet Comment Normal RBC Morphology RBC Morphology PT with INR 20.30 H INR 1.80 H D Puncture Site Right radial ABG pH 7.19 L* ABG pCO2 at Pt Temp 37.7 D ABG pO2 at Pt Temp 50.5 L ABG HCO3 13.8 L* ABG O2 Sat (Measured) 84.8 L ABG O2 Content 15.4 ABG Base Excess -13.6 L* Phillip Test Positive O2 Delivery Device Mec.vent Oxygen Flow Rate 100% Vent Mode A/c Vent Rate 28 Mechanical Rate Yes PEEP 8.0 Pressure Support Vent 550 Sodium 137 Potassium 6.1 H* D Chloride 109 H Carbon Dioxide 17 L Anion Gap 11 BUN 13 D Creatinine 2.0 H D Creat Clearance w eGFR 38.67 POC Glucometer Random Glucose 189 H D Lactic Acid Calcium 5.2 L* D Total Bilirubin 0.8 D AST 6516 H ALT 3676 H D Alkaline Phosphatase 119 H Creatine Kinase Creatine Kinase Index CK-MB (CK-2) Troponin I Total Protein 5.6 L D Albumin 2.5 L D Urine Color Urine Appearance Urine pH Ur Specific [place] Urine Protein Urine Glucose (UA) Urine Ketones Urine Blood Urine Nitrite Urine Bilirubin Urine Urobilinogen Ur Leukocyte Esterase Blood Type Antibody Screen 03/30/17 03/31/17 03/31/17 23:00 05:00 08:35 WBC Corrected WBC (auto) RBC Hgb Hct MCV MCH MCHC RDW Plt Count MPV Add Manual Diff Differential Comment Platelet Estimate Platelet Comment Normal RBC Morphology RBC Morphology PT with INR INR Puncture Site Left brachial ABG pH 7.39 D ABG pCO2 at Pt Temp 26.3 L D ABG pO2 at Pt Temp 485.0 H* ABG HCO3 15.7 L ABG O2 Sat (Measured) 100.0 H* ABG O2 Content 19.9 ABG Base Excess -7.3 L Phillip Test Positive O2 Delivery Device Mec vent Oxygen Flow Rate 100% Vent Mode A/c Vent Rate 28 Mechanical Rate Yes PEEP 10.0 Pressure Support Vent 550 Sodium 138 138 Potassium 5.0 5.6 H Chloride 110 H 110 H Carbon Dioxide 19 L 19 L Anion Gap 9 9 BUN 16 D 16 Creatinine 2.4 H 3.1 H D Creat Clearance w eGFR 23.32 POC Glucometer Random Glucose 200 H 136 H D Lactic Acid Calcium 6.4 L* D 6.6 L* Total Bilirubin 1.3 H D AST 9723 H ALT 3964 H Alkaline Phosphatase 80 D Creatine Kinase Creatine Kinase Index CK-MB (CK-2) Troponin I Total Protein 5.3 L Albumin 2.4 L Urine Color Urine Appearance Urine pH Ur Specific [place] Urine Protein Urine Glucose (UA) Urine Ketones Urine Blood Urine Nitrite Urine Bilirubin Urine Urobilinogen Ur Leukocyte Esterase Blood Type Antibody Screen Problem List - Problems (1) Cardiac arrest Code(s): I46.9 - CARDIAC ARREST, CAUSE UNSPECIFIED (2) Alcohol intoxication Code(s): F10.929 - ALCOHOL USE, UNSPECIFIED WITH INTOXICATION, UNSPECIFIED (3) Atelectasis of both lungs Code(s): J98.11 - ATELECTASIS (4) Pneumonitis due to food and vomit Code(s): J69.0 - PNEUMONITIS DUE TO INHALATION OF FOOD AND VOMIT (5) Seizure Code(s): R56.9 - UNSPECIFIED CONVULSIONS Assessment/Plan Taper FiO2 IVF Glycemic control ABX per ID Versed / propofol NE/Dopamine for hemodynamic support Follow cultures TTE Neurology evaluation TTM protocol Dr Rdz Critical care time spent in reviewing chart, evaluating patient and formulating plan - 40 minutes. Problem List - Problems (1) Cardiac arrest Code(s): I46.9 - CARDIAC ARREST, CAUSE UNSPECIFIED (2) Alcohol intoxication Code(s): F10.929 - ALCOHOL USE, UNSPECIFIED WITH INTOXICATION, UNSPECIFIED (3) Atelectasis of both lungs Code(s): J98.11 - ATELECTASIS (4) Pneumonitis due to food and vomit Code(s): J69.0 - PNEUMONITIS DUE TO INHALATION OF FOOD AND VOMIT (5) Seizure Code(s): R56.9 - UNSPECIFIED CONVULSIONS
--- NOTE | 2017-03-31 13:08 | PN ---
Progress Note, Physician History of Present Illness: Pt seen and examined at bedside. He remains in the ICU. He remains intubated. His father is at bedside and care was discussed with him. Pt had gone to a constitution party where he was drinking and taking drugs such as percocet. They are not sure what else he took. He was found to be cold and pulseless by his girlfriend who had started CPR. It is not clear for how long he was pulseless. - Current Medication List Current Medications: Active Medications Midazolam HCl 100 mg/ Sodium (Chloride) 100 mls @ 1 mls/hr IVPB TITR SEN; 1 MG/ HR PRN Reason: Protocol Last Admin: 03/31/17 11:43 Dose: 5 mls/hr Norepinephrine Bitartrate 4, (000 mcg/ Dextrose) 500 mls @ 37.5 mls/hr IV TITR SEN; 5 MCG/MIN PRN Reason: Protocol Last Admin: 03/31/17 02:29 Dose: 120 mls/hr Dextrose (D10w -) 1,000 mls @ 100 mls/hr IV ASDIR SEN Last Admin: 03/30/17 13:00 Dose: Not Given Dopamine HCl/Dextrose (Dopamine 400 Mg/D5w -) 250 mls @ 11.056 mls/hr IVPB TITR SEN; 5 MCG/KG/MIN PRN Reason: Protocol Last Admin: 03/30/17 12:55 Dose: 11.056 mls/hr Piperacillin/Tazobactam/Dextrose (Zosyn 3.375gm Ivpb (Premix)) 50 mls @ 100 mls /hr IVPB Q8H-IV SEN Last Admin: 03/31/17 10:31 Dose: 100 mls/hr Propofol (Diprivan -) 100 mls @ 1.932 mls/hr IVPB TITR SEN; 5 MCG/KG/MIN PRN Reason: Protocol Last Admin: 03/31/17 11:44 Dose: 19.32 mls/hr Dextrose/Sodium Chloride (D5-Ns -) 1,000 mls @ 125 mls/hr IV ASDIR SEN Lorazepam (Ativan Injection -) 2 mg IVPUSH Q4H PRN PRN Reason: ANXIETY Last Admin: 03/31/17 02:28 Dose: 2 mg Morphine Sulfate (Morphine Sulfate) 2 mg IVPUSH Q4H PRN PRN Reason: PAIN Ondansetron HCl (Zofran Injection) 4 mg IVPUSH Q6H PRN PRN Reason: NAUSEA Pantoprazole Sodium (Protonix Iv) 40 mg IVPUSH DAILY SEN Last Admin: 03/31/17 10:33 Dose: 40 mg Thiamine HCl (Vitamin B1 Injection -) 200 mg IVPB DAILY [facility] - Objective Vital Signs: Vital Signs Temperature 96.8 F L 03/31/17 10:00 Pulse Rate 96 H 03/31/17 12:00 Respiratory Rate 26 H 03/31/17 12:00 Blood Pressure 132/92 03/31/17 12:00 O2 Sat by Pulse Oximetry (%) 97 03/31/17 09:00 Constitutional: Yes: Calm Eyes: Yes: Conjunctiva Clear HENT: Yes: Atraumatic Neck: Yes: Supple Cardiovascular: Yes: S1, S2 Respiratory: Yes: Mechanically Ventilated Gastrointestinal: Yes: Soft Genitourinary: Yes: Bhatti Present Musculoskeletal: Yes: Muscle Weakness Edema: No Integumentary: Yes: Tattoos Neurological: Yes: Other (sedated) Labs: CBC, BMP 03/30/17 17:45 03/31/17 05:00 INR, PTT INR 1.80 (0.82-1.09) H D 03/30/17 17:45 - ....Imaging Chest X-ray: Report Reviewed Assessment/Plan Current Medications Generic Name Dose Route Start Last Admin Trade Name Freq PRN Reason Stop Dose Admin Midazolam HCl 100 mg/ Sodium 100 mls @ 1 mls/hr 03/30/17 10:30 03/31/17 11:43 Chloride IVPB 5 mls/hr TITR SEN Administration Protocol 1 MG/HR Norepinephrine Bitartrate 4, 500 mls @ 37.5 mls/hr 03/30/17 11:00 03/31/17 02: 29 000 mcg/ Dextrose IV 120 mls/hr TITR SEN Administration Protocol 5 MCG/MIN Dextrose 1,000 mls @ 100 mls/hr 03/30/17 12:00 03/30/17 13:00 D10w - IV Not Given ASDIR SEN Dopamine HCl/Dextrose 250 mls @ 11.056 mls/hr 03/30/17 13:15 03/30/17 12:55 Dopamine 400 Mg/D5w - IVPB 11.056 mls/hr TITR SEN Administration Protocol 5 MCG/KG/MIN Piperacillin/Tazobactam/Dextrose 50 mls @ 100 mls/hr 03/30/17 18:00 03/31/17 10 :31 Zosyn 3.375gm Ivpb (Premix) IVPB 100 mls/hr Q8H-IV SEN Administration Propofol 100 mls @ 1.932 mls/hr 03/30/17 18:00 03/31/17 11:44 Diprivan - IVPB 19.32 mls/hr TITR SEN Administration Protocol 5 MCG/KG/MIN Dextrose/Sodium Chloride 1,000 mls @ 125 mls/hr 03/31/17 09:15 D5-Ns - IV ASDIR SEN Lorazepam 2 mg 03/30/17 13:03 03/31/17 02:28 Ativan Injection - IVPUSH 2 mg Q4H PRN Administration ANXIETY Morphine Sulfate 2 mg 03/30/17 12:56 Morphine Sulfate IVPUSH Q4H PRN PAIN Ondansetron HCl 4 mg 03/30/17 12:56 Zofran Injection IVPUSH Q6H PRN NAUSEA Pantoprazole Sodium 40 mg 03/30/17 13:00 03/31/17 10:33 Protonix Iv IVPUSH 40 mg DAILY SEN Administration Thiamine HCl 200 mg 04/01/17 10:00 Vitamin B1 Injection - IVPB DAILY [facility] Laboratory Tests 03/30/17 03/30/17 10:30 11:58 Urine Color Straw Urine Appearance Clear Urine pH 6.0 Ur Specific [place] <= 1.005 Urine Protein Negative Urine Glucose (UA) Negative Urine Ketones Negative Urine Blood Negative Urine Nitrite Negative Urine Bilirubin Negative Urine Urobilinogen Negative Ur Leukocyte Esterase Negative Alcohol, Quantitative 193.0 H* Impression 1. cardiac arrest 2. respiratory failure 3. ESTELA 4. hyperkalemia 5. multi-drug abuse 6. rhabdo Plan - cont to monitor renal function, which is worsening - likely developing atn - monitor potassium levels - consider changing fluids to 1/2 ns - neuro evaluation - monitor urine output - discussed care at length with pts father - repeat ck level - vent support - monitor bp closely - taper pressors to a map of 65 - will follow Dr Solis
[2017-03-31] MEDS: DEXTROSE 5%-NORMAL SALINE 1,000 ML IV SCH (13:15)
[2017-03-31] MEDS ORDERED: THIAMINE HCL 200 MG/2 ML VIAL IVPB SCH (13:15)
[2017-03-31] MEDS: DEXTROSE 10%-WATER - 1,000 ML IV SCH (13:15)
[2017-03-31] MEDS ORDERED: INSULIN REGULAR HUMAN 100 UNITS/ML *VIAL IVPUSH ONE (13:16)
[2017-03-31] MEDS: DOPAMINE 400 MG/D5W - 250 ML IVPB SCH (13:16)
[2017-03-31] MEDS ORDERED: DEXTROSE 50%-WATER - 25 GM/50 ML VIAL IVPUSH ONE (13:17)
--- NOTE | 2017-03-31 13:26 | PN ---
Physical Exam: SUBJECTIVE: Patient seen and examined at bed side. Patient intubated, on ventilator support, Sedated. On pressor support NE 12, and Dopamine 5. Family at bed side. IO removed. will start him on thiamine. Continue with hypothermia protocol till 24hr are done. Taper pressor support. Replace electrolytes OBJECTIVE: Vital Signs Period Temp Pulse Resp BP Sys/[place] Pulse Ox Last 24 Hr 91 F-99.9 F 93-133 14-28 94-174/63-102 97 GENERAL: intubated sedated. NECK: et in situ, LUNGS: B/l air entry present, no wheez, no crackels. . HEART: Regular rate and rhythm, S1, S2 without murmur, rub or gallop. ABDOMEN: Soft, nontender, nondistended, normoactive bowel sounds, no guarding, EXTREMITIES: no edema. SKIN: Warm, dry, Neurological: unresponsive. Laboratory Results - last 24 hr 03/30/17 03/30/17 03/30/17 10:30 12:30 14:02 WBC Corrected WBC (auto) RBC Hgb Hct MCV MCH MCHC RDW Plt Count MPV Add Manual Diff Differential Comment Platelet Estimate Platelet Comment Normal RBC Morphology RBC Morphology PT with INR INR Puncture Site Right radial ABG pH 7.05 L* D ABG pCO2 at Pt Temp 53.6 H D ABG pO2 at Pt Temp 87.7 ABG HCO3 14.3 L* ABG O2 Sat (Measured) 95.2 ABG O2 Content 16.3 ABG Base Excess -16.2 L* Phillip Test Positive O2 Delivery Device [facility].vent Oxygen Flow Rate 100% Vent Mode A/c Vent Rate 16 Mechanical Rate Yes PEEP 5.0 Pressure Support Vent 450 Sodium Potassium Chloride Carbon Dioxide Anion Gap BUN Creatinine Creat Clearance w eGFR POC Glucometer [id number] Random Glucose Lactic Acid Calcium Total Bilirubin AST ALT Alkaline Phosphatase Creatine Kinase Creatine Kinase Index CK-MB (CK-2) Troponin I Total Protein Albumin Urine Color Straw Urine Appearance Clear Urine pH 6.0 Ur Specific [place] <= 1.005 Urine Protein Negative Urine Glucose (UA) Negative Urine Ketones Negative Urine Blood Negative Urine Nitrite Negative Urine Bilirubin Negative Urine Urobilinogen Negative Ur Leukocyte Esterase Negative Blood Type Antibody Screen 03/30/17 03/30/17 03/30/17 14:28 15:50 16:00 WBC Cancelled Corrected WBC (auto) Cancelled RBC Cancelled Hgb Cancelled Hct Cancelled MCV Cancelled MCH Cancelled MCHC Cancelled RDW Cancelled Plt Count Cancelled MPV Cancelled Add Manual Diff Cancelled Differential Comment Cancelled Platelet Estimate Cancelled Platelet Comment Cancelled Normal RBC Morphology Cancelled RBC Morphology Cancelled PT with INR INR Puncture Site Right radial ABG pH 7.10 L* ABG pCO2 at Pt Temp 49.6 H ABG pO2 at Pt Temp 60.3 L D ABG HCO3 14.5 L* ABG O2 Sat (Measured) 87.4 L ABG O2 Content 15.4 ABG Base Excess -15.1 L* Phillip Test Positive O2 Delivery Device [facility].vent Oxygen Flow Rate 100% Vent Mode A/c Vent Rate 22 Mechanical Rate Yes PEEP 5.0 Pressure Support Vent 500 Sodium Potassium Chloride Carbon Dioxide Anion Gap BUN Creatinine Creat Clearance w eGFR POC Glucometer 134.07515 Random Glucose Lactic Acid Calcium Total Bilirubin AST ALT Alkaline Phosphatase Creatine Kinase Creatine Kinase Index CK-MB (CK-2) Troponin I Total Protein Albumin Urine Color Urine Appearance Urine pH Ur Specific [place] Urine Protein Urine Glucose (UA) Urine Ketones Urine Blood Urine Nitrite Urine Bilirubin Urine Urobilinogen Ur Leukocyte Esterase Blood Type Antibody Screen 03/30/17 03/30/17 03/30/17 16:00 16:00 16:00 WBC Corrected WBC (auto) RBC Hgb Hct MCV MCH MCHC RDW Plt Count MPV Add Manual Diff Differential Comment Platelet Estimate Platelet Comment Normal RBC Morphology RBC Morphology PT with INR INR Puncture Site ABG pH ABG pCO2 at Pt Temp ABG pO2 at Pt Temp ABG HCO3 ABG O2 Sat (Measured) ABG O2 Content ABG Base Excess Phillip Test O2 Delivery Device Oxygen Flow Rate Vent Mode Vent Rate Mechanical Rate PEEP Pressure Support Vent Sodium Cancelled Potassium Cancelled Chloride Cancelled Carbon Dioxide Cancelled Anion Gap Cancelled BUN Cancelled Creatinine Cancelled Creat Clearance w eGFR Cancelled POC Glucometer Random Glucose Cancelled Lactic Acid 5.0 H* Calcium Cancelled Total Bilirubin Cancelled AST Cancelled ALT Cancelled Alkaline Phosphatase Cancelled Creatine Kinase 3240 H Creatine Kinase Index 2.5 CK-MB (CK-2) 82.971 H Troponin I 7.43 H* D Total Protein Cancelled Albumin Cancelled Urine Color Urine Appearance Urine pH Ur Specific [place] Urine Protein Urine Glucose (UA) Urine Ketones Urine Blood Urine Nitrite Urine Bilirubin Urine Urobilinogen Ur Leukocyte Esterase Blood Type Antibody Screen 03/30/17 03/30/17 03/30/17 17:45 17:45 17:45 WBC 13.3 H Corrected WBC (auto) RBC 4.55 Hgb 12.8 Hct 40.0 MCV 87.8 MCH 28.1 MCHC 32.0 RDW 15.0 Plt Count 104 L MPV 8.5 Add Manual Diff Differential Comment Platelet Estimate Platelet Comment Normal RBC Morphology RBC Morphology PT with INR 20.30 H INR 1.80 H D Puncture Site ABG pH ABG pCO2 at Pt Temp ABG pO2 at Pt Temp ABG HCO3 ABG O2 Sat (Measured) ABG O2 Content ABG Base Excess Phillip Test O2 Delivery Device Oxygen Flow Rate Vent Mode Vent Rate Mechanical Rate PEEP Pressure Support Vent Sodium Potassium Chloride Carbon Dioxide Anion Gap BUN Creatinine Creat Clearance w eGFR POC Glucometer Random Glucose Lactic Acid Calcium Total Bilirubin AST ALT Alkaline Phosphatase Creatine Kinase Creatine Kinase Index CK-MB (CK-2) Troponin I Total Protein Albumin Urine Color Urine Appearance Urine pH Ur Specific [place] Urine Protein Urine Glucose (UA) Urine Ketones Urine Blood Urine Nitrite Urine Bilirubin Urine Urobilinogen Ur Leukocyte Esterase Blood Type A POSITIVE Antibody Screen Negative 03/30/17 03/30/17 03/30/17 17:45 17:50 23:00 WBC Corrected WBC (auto) RBC Hgb Hct MCV MCH MCHC RDW Plt Count MPV Add Manual Diff Differential Comment Platelet Estimate Platelet Comment Normal RBC Morphology RBC Morphology PT with INR INR Puncture Site Right radial ABG pH 7.19 L* ABG pCO2 at Pt Temp 37.7 D ABG pO2 at Pt Temp 50.5 L ABG HCO3 13.8 L* ABG O2 Sat (Measured) 84.8 L ABG O2 Content 15.4 ABG Base Excess -13.6 L* Phillip Test Positive O2 Delivery Device [facility].vent Oxygen Flow Rate 100% Vent Mode A/c Vent Rate 28 Mechanical Rate Yes PEEP 8.0 Pressure Support Vent 550 Sodium 137 138 Potassium 6.1 H* D 5.0 Chloride 109 H 110 H Carbon Dioxide 17 L 19 L Anion Gap 11 9 BUN 13 D 16 D Creatinine 2.0 H D 2.4 H Creat Clearance w eGFR 38.67 POC Glucometer Random Glucose 189 H D 200 H Lactic Acid Calcium 5.2 L* D 6.4 L* D Total Bilirubin 0.8 D AST 6516 H ALT 3676 H D Alkaline Phosphatase 119 H Creatine Kinase Creatine Kinase Index CK-MB (CK-2) Troponin I Total Protein 5.6 L D Albumin 2.5 L D Urine Color Urine Appearance Urine pH Ur Specific [place] Urine Protein Urine Glucose (UA) Urine Ketones Urine Blood Urine Nitrite Urine Bilirubin Urine Urobilinogen Ur Leukocyte Esterase Blood Type Antibody Screen 03/31/17 03/31/17 05:00 08:35 WBC Corrected WBC (auto) RBC Hgb Hct MCV MCH MCHC RDW Plt Count MPV Add Manual Diff Differential Comment Platelet Estimate Platelet Comment Normal RBC Morphology RBC Morphology PT with INR INR Puncture Site Left brachial ABG pH 7.39 D ABG pCO2 at Pt Temp 26.3 L D ABG pO2 at Pt Temp 485.0 H* ABG HCO3 15.7 L ABG O2 Sat (Measured) 100.0 H* ABG O2 Content 19.9 ABG Base Excess -7.3 L Phillip Test Positive O2 Delivery Device Mech vent Oxygen Flow Rate 100% Vent Mode A/c Vent Rate 28 Mechanical Rate Yes PEEP 10.0 Pressure Support Vent 550 Sodium 138 Potassium 5.6 H Chloride 110 H Carbon Dioxide 19 L Anion Gap 9 BUN 16 Creatinine 3.1 H D Creat Clearance w eGFR 23.32 POC Glucometer Random Glucose 136 H D Lactic Acid Calcium 6.6 L* Total Bilirubin 1.3 H D AST 9723 H ALT 3964 H Alkaline Phosphatase 80 D Creatine Kinase Creatine Kinase Index CK-MB (CK-2) Troponin I Total Protein 5.3 L Albumin 2.4 L Urine Color Urine Appearance Urine pH Ur Specific [place] Urine Protein Urine Glucose (UA) Urine Ketones Urine Blood Urine Nitrite Urine Bilirubin Urine Urobilinogen Ur Leukocyte Esterase Blood Type Antibody Screen Active Medications Generic Name Dose Route Start Last Admin Trade Name Lena PRN Reason Stop Dose Admin Dextrose 25 gm 03/31/17 13:17 D50w (Vial) - IVPUSH 03/31/17 13:18 NOW ONE Midazolam HCl 100 mg/ Sodium 100 mls @ 1 mls/hr 03/30/17 10:30 03/31/17 11:43 Chloride IVPB 5 mls/hr TITR SEN Administration Protocol 1 MG/HR Norepinephrine Bitartrate 4, 500 mls @ 37.5 mls/hr 03/30/17 11:00 03/31/17 13: 15 000 mcg/ Dextrose IV Not Given TITR SEN Protocol 5 MCG/MIN Dextrose 1,000 mls @ 100 mls/hr 03/30/17 12:00 03/31/17 13:15 D10w - IV Not Given ASDIR SEN Dopamine HCl/Dextrose 250 mls @ 11.056 mls/hr 03/30/17 13:15 03/31/17 13:16 Dopamine 400 Mg/D5w - IVPB 11.056 mls/hr TITR SEN Administration Protocol 5 MCG/KG/MIN Piperacillin/Tazobactam/Dextrose 50 mls @ 100 mls/hr 03/30/17 18:00 03/31/17 10 :31 Zosyn 3.375gm Ivpb (Premix) IVPB 100 mls/hr Q8H-IV SEN Administration Propofol 100 mls @ 1.932 mls/hr 03/30/17 18:00 03/31/17 11:44 Diprivan - IVPB 19.32 mls/hr TITR SEN Administration Protocol 5 MCG/KG/MIN Dextrose/Sodium Chloride 1,000 mls @ 125 mls/hr 03/31/17 09:15 03/31/17 13:15 D5-Ns - IV Not Given ASDIR SEN Insulin Human Regular 10 units 03/31/17 13:16 Novolin R Vial *For Ivpush Or Iv Drip Only* IVPUSH 03/31/17 13:17 ONCE ONE Lorazepam 2 mg 03/30/17 13:03 03/31/17 12:45 Ativan Injection - IVPUSH 2 mg Q4H PRN Administration ANXIETY Morphine Sulfate 2 mg 03/30/17 12:56 Morphine Sulfate IVPUSH Q4H PRN PAIN Ondansetron HCl 4 mg 03/30/17 12:56 Zofran Injection IVPUSH Q6H PRN NAUSEA Pantoprazole Sodium 40 mg 03/30/17 13:00 03/31/17 10:33 Protonix Iv IVPUSH 40 mg DAILY SEN Administration Thiamine HCl 200 mg 03/31/17 13:15 Vitamin B1 Injection - IVPB DAILY SEN ASSESSMENT/PLAN: 1. cardiac arrest on pressor support get ECHO monitor vitals monitor intake/ output glycemic control. Neuro evaluation 2. respiratory failure could be from aspiration pneumonitis on ventilator support taper fio2 patient sedated. with propofol and midazolam antibiotics as per ID 3. ESTELA could be prerenal monitor creatnine 4. hyperkalemia monitor potassium kaxylate and insulin with d50 given monitor potassium 5. Alcohal intoxication on ativan prn started on thiamine 6. rhabdo on IV fluid repeat ck electrolyte correct hyperkalemia and hypocalcemia ( cagluconate given) Nutrition: NPO for now GI pro: on protonix DVT pro heparin sq Dispo: in icu. Visit type - Emergency Visit Emergency Visit: Yes ED Registration Date: 03/30/17 Care time: The patient presented to the Emergency Department on the above date and was hospitalized for further evaluation of their emergent condition. - New Patient This patient is new to me today: Yes Date on this admission: 03/31/17 - Critical Care Critical Care patient: Yes Total Critical Care Time (in minutes): 45 Critical Care Statement: The care of this patient involved high complexity decision making to prevent further life threatening deterioration of the patient 's condition and/or to evaluate & treat vital organ system(s) failure or risk of failure.
--- NOTE | 2017-03-31 13:43 | PN ---
Progress Note, Physician Chief Complaint: Cardiac arrest History of Present Illness: Cardiac arrest - Current Medication List Current Medications: Active Medications Midazolam HCl 100 mg/ Sodium (Chloride) 100 mls @ 1 mls/hr IVPB TITR SEN; 1 MG/ HR PRN Reason: Protocol Last Admin: 03/31/17 11:43 Dose: 5 mls/hr Norepinephrine Bitartrate 4, (000 mcg/ Dextrose) 500 mls @ 37.5 mls/hr IV TITR SEN; 5 MCG/MIN PRN Reason: Protocol Last Admin: 03/31/17 13:15 Dose: Not Given Dextrose (D10w -) 1,000 mls @ 100 mls/hr IV ASDIR SEN Last Admin: 03/31/17 13:15 Dose: Not Given Dopamine HCl/Dextrose (Dopamine 400 Mg/D5w -) 250 mls @ 11.056 mls/hr IVPB TITR SEN; 5 MCG/KG/MIN PRN Reason: Protocol Last Admin: 03/31/17 13:16 Dose: 11.056 mls/hr Piperacillin/Tazobactam/Dextrose (Zosyn 3.375gm Ivpb (Premix)) 50 mls @ 100 mls /hr IVPB Q8H-IV SEN Last Admin: 03/31/17 10:31 Dose: 100 mls/hr Propofol (Diprivan -) 100 mls @ 1.932 mls/hr IVPB TITR SEN; 5 MCG/KG/MIN PRN Reason: Protocol Last Admin: 03/31/17 11:44 Dose: 19.32 mls/hr Dextrose/Sodium Chloride (D5-Ns -) 1,000 mls @ 125 mls/hr IV ASDIR SEN Last Admin: 03/31/17 13:15 Dose: Not Given Lorazepam (Ativan Injection -) 2 mg IVPUSH Q4H PRN PRN Reason: ANXIETY Last Admin: 03/31/17 12:45 Dose: 2 mg Morphine Sulfate (Morphine Sulfate) 2 mg IVPUSH Q4H PRN PRN Reason: PAIN Ondansetron HCl (Zofran Injection) 4 mg IVPUSH Q6H PRN PRN Reason: NAUSEA Pantoprazole Sodium (Protonix Iv) 40 mg IVPUSH DAILY SEN Last Admin: 03/31/17 10:33 Dose: 40 mg Thiamine HCl (Vitamin B1 Injection -) 200 mg IVPB DAILY SEN - Objective Vital Signs: Vital Signs Temperature 96.8 F L 03/31/17 10:00 Pulse Rate 96 H 03/31/17 12:00 Respiratory Rate 26 H 03/31/17 12:00 Blood Pressure 132/92 03/31/17 12:00 O2 Sat by Pulse Oximetry (%) 97 03/31/17 09:00 Constitutional: Yes: No Distress, Other (Sedated) HENT: Yes: Atraumatic, Normocephalic Neck: Yes: Other (Intubated) Cardiovascular: Yes: Regular Rate and Rhythm, Tachycardia Respiratory: Yes: Other (Intubated) Gastrointestinal: Yes: Normal Bowel Sounds, Soft ...Rectal Exam: Yes: Deferred Musculoskeletal: Yes: WNL Extremities: Yes: WNL Edema: No Edema: LUE: 2+, RUE: 2+, LLE: 2+, RLE: 2+ Peripheral Pulses WNL: Yes Labs: CBC, BMP 03/30/17 17:45 03/31/17 05:00 INR, PTT INR 1.80 (0.82-1.09) H D 03/30/17 17:45 Assessment/Plan The patient remains intubated and sedated. Hemodynamically stable. In sinus rhythm. Continue present care. Watch for alcohol withdrawal symptoms, and treat accordingly. Echocardiogram is pending. We will follow results.
[2017-03-31] MEDS ORDERED: DEXTROSE 50%-WATER 25 GM/50 ML DISP.SYRIN ONE (14:25)
--- NOTE | 2017-03-31 14:50 | EKG ---
Test Reason : Blood Pressure : / mmHG Vent. Rate : 076 BPM Atrial Rate : 076 BPM P-R Int : 134 ms QRS Dur : 098 ms QT Int : 442 ms P-R-T Axes : 074 049 042 degrees QTc Int : 497 ms NORMAL SINUS RHYTHM PROLONGED QT ABNORMAL ECG NO PREVIOUS ECGS AVAILABLE Confirmed by MARY BLANKENSHIP MD ([id number]) on 03/31/2017 2:49:53 PM Referred By: Confirmed By:MARY BLANKENSHIP MD
[2017-03-31] MEDS ORDERED: VANCOMYCIN 1,000 MG in DEXTROSE 5%-WATER - 250 ML IVPB ONE (15:30)
[2017-03-31 17:41] LABS: ALBUMIN 2.5 g/dl (3.4-5.0); ANION GAP 16 (8-16); BILIRUBIN,TOTAL 1.5 mg/dL (0.2-1.0); CALCIUM 7.3 mg/dL (8.5-10.1); CO2 17 mmol/L (21-32); CREATININE 3.8 mg/dL (0.7-1.3); GLUCOSE,RANDOM 98 mg/dL (74-106); TOT PROT 5.3 g/dl (6.4-8.2)
--- NOTE | 2017-03-31 17:42 | PN ---
Progress Note, Physician Chief Complaint: SEEN WITH FAMILY BEDSIDE PATIENT INTUBATED AND SEDATED - Current Medication List Current Medications: Active Medications Heparin Sodium (Porcine) (Heparin -) 5,000 unit SQ TID SEN Midazolam HCl 100 mg/ Sodium (Chloride) 100 mls @ 1 mls/hr IVPB TITR SEN; 1 MG/ HR PRN Reason: Protocol Last Admin: 03/31/17 11:43 Dose: 5 mls/hr Norepinephrine Bitartrate 4, (000 mcg/ Dextrose) 500 mls @ 37.5 mls/hr IV TITR SEN; 5 MCG/MIN PRN Reason: Protocol Last Admin: 03/31/17 13:15 Dose: Not Given Dextrose (D10w -) 1,000 mls @ 100 mls/hr IV ASDIR SEN Last Admin: 03/31/17 13:15 Dose: Not Given Dopamine HCl/Dextrose (Dopamine 400 Mg/D5w -) 250 mls @ 11.056 mls/hr IVPB TITR SEN; 5 MCG/KG/MIN PRN Reason: Protocol Last Admin: 03/31/17 13:16 Dose: 11.056 mls/hr Piperacillin/Tazobactam/Dextrose (Zosyn 3.375gm Ivpb (Premix)) 50 mls @ 100 mls /hr IVPB Q8H-IV SEN Last Admin: 03/31/17 10:31 Dose: 100 mls/hr Propofol (Diprivan -) 100 mls @ 1.932 mls/hr IVPB TITR SEN; 5 MCG/KG/MIN PRN Reason: Protocol Last Admin: 03/31/17 11:44 Dose: 19.32 mls/hr Dextrose/Sodium Chloride (D5-Ns -) 1,000 mls @ 125 mls/hr IV ASDIR SEN Last Admin: 03/31/17 13:15 Dose: Not Given Lorazepam (Ativan Injection -) 2 mg IVPUSH Q4H PRN PRN Reason: ANXIETY Last Admin: 03/31/17 12:45 Dose: 2 mg Morphine Sulfate (Morphine Sulfate) 2 mg IVPUSH Q4H PRN PRN Reason: PAIN Ondansetron HCl (Zofran Injection) 4 mg IVPUSH Q6H PRN PRN Reason: NAUSEA Pantoprazole Sodium (Protonix Iv) 40 mg IVPUSH DAILY SEN Last Admin: 03/31/17 10:33 Dose: 40 mg Thiamine HCl (Vitamin B1 Injection -) 200 mg IVPB DAILY SEN - Objective Vital Signs: Vital Signs Temperature 96.8 F L 03/31/17 10:00 Pulse Rate 97 H 03/31/17 15:09 Respiratory Rate 28 H 03/31/17 17:22 Blood Pressure 150/83 03/31/17 15:09 O2 Sat by Pulse Oximetry (%) 97 03/31/17 14:18 Constitutional: Yes: Severe Distress Eyes: Yes: Other Cardiovascular: Yes: Regular Rate and Rhythm Respiratory: Yes: Mechanically Ventilated Gastrointestinal: Yes: WNL Genitourinary: Yes: Bhatti Present Musculoskeletal: Yes: Muscle Weakness Edema: Yes Integumentary: Yes: Other Neurological: Yes: Unresponsive, Other ...Motor Strength: LUE, LLE, RUE, RLE Labs: CBC, BMP 03/30/17 17:45 INR, PTT INR 1.80 (0.82-1.09) H D 03/30/17 17:45 Problem List - Problems (1) Alcohol intoxication Code(s): F10.929 - ALCOHOL USE, UNSPECIFIED WITH INTOXICATION, UNSPECIFIED (2) Altered mental status Code(s): R41.82 - ALTERED MENTAL STATUS, UNSPECIFIED Qualifiers: Altered mental status type: unspecified Qualified Code(s): R41.82 - Altered mental status, unspecified; R41.82 - Altered mental status, unspecified (3) Cardiac arrest Code(s): I46.9 - CARDIAC ARREST, CAUSE UNSPECIFIED (4) Pneumonitis due to food and vomit Code(s): J69.0 - PNEUMONITIS DUE TO INHALATION OF FOOD AND VOMIT (5) Seizure Code(s): R56.9 - UNSPECIFIED CONVULSIONS (6) Sepsis Code(s): A41.9 - SEPSIS, UNSPECIFIED ORGANISM Qualifiers: Sepsis type: sepsis due to unspecified organism Qualified Code(s): A41.9 - Sepsis, unspecified organism; A41.9 - Sepsis, unspecified organism; A41.9 - Sepsis, unspecified organism Assessment/Plan WORKUP CONTINUED FOR RULE OUT OF ANOXIC ENCEPHALOPATHY INTUBATED ON VENT SEDATED NEUROLOGY EVAL PENDING WILL NEED APNEA TEST POOR PROGNOSIS D/W FAMILY BEDSIDE LONG HISTORY OF ETOH ABUSE, UNKNOWN FOR HOW MANY HOURS PATIENT WAS UNRESPONSIVE
[2017-03-31 17:54] LABS: ALK PHOS 63 U/L (45-117); SGPT/ALT 3290 U/L (12-78)
[2017-03-31 17:55] LABS: SGOT/AST 8708 U/L (15-37)
[2017-03-31] MEDS: HEPARIN NA (PORCINE) 5,000 UNITS/ML 1ML VIAL SQ SCH ×2 (19:15→22:14)
[2017-04-01] MEDS: PIPERACILLIN/TAZOB 3.375 GM 50 ML IVPB SCH ×2 (02:18→11:06)
[2017-04-01] MEDS: PROPOFOL 100 ML IVPB SCH ×3 (02:18→21:48)
[2017-04-01 06:12] LABS: BASOPHIL 0.5 % (0-2.0); EOSINOPHIL 0.1 % (0-4.5); MCH 28.9 pg (25.7-33.7); MCHC 34.3 g/dl (32.0-35.9); MEAN CELL VOLUME 84.4 fl (80-96); NEUTROPHILS 89.7 % (42.8-82.8); RDW 14.5 % (11.9-15.9); WHITE BLOOD COUNT 9.7 K/mm3 (4.0-10.0)
[2017-04-01] MEDS: HEPARIN NA (PORCINE) 5,000 UNITS/ML 1ML VIAL SQ SCH ×3 (06:14→21:51)
[2017-04-01 06:49] LABS: ALBUMIN 2.3 g/dl (3.4-5.0); ANION GAP 12 (8-16); BILIRUBIN,TOTAL 1.3 mg/dL (0.2-1.0); CALCIUM 7.2 mg/dL (8.5-10.1); CO2 17 mmol/L (21-32); CREATININE 5.2 mg/dL (0.7-1.3); GLUCOSE,RANDOM 110 mg/dL (74-106); TOT PROT 5.1 g/dl (6.4-8.2)
[2017-04-01 07:03] LABS: ALK PHOS 57 U/L (45-117)
[2017-04-01 07:26] LABS: ALLENS TEST POSITIVE; ARTERIAL BLD GAS O2 SATURATION 98.8 % (90-98.9); ARTERIAL BLOOD GAS BASE EXCESS -8.1 meq/l (-2-2); ARTERIAL BLOOD GAS HCO3 14.8 meq/L (22-26)
[2017-04-01 07:26] LABS: SGOT/AST 5535 U/L (15-37); SGPT/ALT 2937 U/L (12-78)
[2017-04-01 07:27] LABS: ART PUNCT SITE RIGHT RADIAL; LPM/O2% 60%; MECH. VENT. ESPRIT; PT. ON O2? YES; TYPE OF O2 MEC.VENT; VENT RATE 28; VT/PRESS 550
[2017-04-01 07:34] LABS: MEAN PLT VOLUME 9.3 fl (7.5-11.1); PLATELET COMMENT2 NO CLOTTING DETECTED; PLATELET COUNT 62 K/MM3 (134-434); PLATELET ESTIMATE MOD DECREASED (NORMAL)
[2017-04-01] MEDS: LORazepam 2 MG/ML SDV VIAL IVPUSH PRN ×4 (09:16→21:51)
[2017-04-01] MEDS ORDERED: PHENYTOIN SODIUM 100 MG/2 ML VIAL IVPB SCH (10:00)
[2017-04-01] MEDS ORDERED: THIAMINE HCL 200 MG/2 ML VIAL IVPB SCH (10:00)
[2017-04-01] MEDS: NOREPINEPHRINE BITARTRATE 4,000 MCG in DEXTROSE 5%-WATER - 496 ML IV SCH (10:35)
--- NOTE | 2017-04-01 10:53 | CON.GI ---
Consult Consult Specialty:: GI Referred by:: Dr. Turk Reason for Consultation:: Abnormal liver chemistries - History of Present Illness Chief Complaint: Patient intubated: cannot give CC History of Present Illness: History obtained from chart. 31 M, EDILMA this past Friday when they were called after the patient was found unresponsive by his girlfriend around 8 AM Friday morning. Patient had apparently been out drinking the night before and had fallen twice and had to be carried to his bed. Upon EMS arrival, the patient found to be hypoglycemic in PEA arrest and CPR started. Documented 2 rounds of epinephrine given. Apparently he was a difficult intubation in the field and could not be intubated. Fingerstick in the field revealed a serum glucose of 17 and he was given D10. Patient arrived to the ER around 9:19 AM Friday with a pulse and SBP of 80 mmHg. Repeat fingerstick at that time was 82. He was subsequently intubated in the ER and admitted to the ICU. He has been hypotensive on pressors (now off pressors) and has been having continued seizures. He has a history of percocet use, zoloft for deprerssion and has used cocaine as well. Called to evaluate abnormal liver chemistries now. In ER: blood alcohol level was 193, AST: 2615 ALT: 1775, CPK 3240. There are no previous LFTs for comparison. There is no known hepatitis history / travel history that can currently be obtained from the patient. No tylenol level for review. No abdominal imaging as of yet. 03/31 it appears as though transaminases peaked at AST: 9723 and ALT: 3964 - History Source History Provided By: Medical Record Limitations to Obtaining History: Intubated - Past Medical History Renal/: Yes: Renal Inusuff Psych: Yes: Depression Endocrine: Yes: Diabetes Mellitus (? this history is per the chart but patient not on treatment as an outpatient) - Alcohol/Substance Use Hx Alcohol Use: Yes (lots of it) - Smoking History Smoking history: Current every day smoker Have you smoked in the past 12 months: Yes Aproximately how many cigarettes per day: 20 - Social History Usual Living Arrangement: With Significant Other Place of : [facility] History of Recent Travel: No Home Medications - Allergies Allergies/Adverse Reactions: Allergies Allergy/AdvReac Type Severity Reaction Status Date / Time No Known Allergies Allergy Verified 03/30/17 09:38 - Home Medications Home Medications: Ambulatory Orders NK [No Known Home Medication] 11/20/14 Family Disease History - Family Disease History Family History: Unable to Obtain Review of Systems Unable to obtain ROS, reason: Patient intubated Physical Exam-GI Vital Signs: Vital Signs Temperature 98.8 F 04/01/17 10:00 Pulse Rate 111 H 04/01/17 10:00 Respiratory Rate 28 H 04/01/17 10:00 Blood Pressure 124/60 04/01/17 10:00 O2 Sat by Pulse Oximetry (%) 97 03/31/17 21:00 Constitutional: Yes: Calm Eyes: No: Sclera Icterus Cardiovascular: Yes: Tachycardia. No: Murmur Respiratory: Yes: Diminished (at bases bilaterally, poor insp. effort) Gastrointestinal Inspection: No: Distention ...Auscultate: Yes: Normoactive Bowel Sounds ...Palpate: No: Guarding, Tenderness (No grimacing upon palpation), Tenderness, Rebound ...Percussion: No: Tympanitic Edema: No (No LE edema) Neurological: Yes: Other (Intubated, sedated) Labs: CBC, BMP 04/01/17 05:00 04/01/17 05:00 INR, PTT INR 1.80 (0.82-1.09) H D 03/30/17 17:45 03/30/17 03/30/17 10:30 11:58 Opiates Screen Negative Methadone Screen Negative Barbiturate Screen Negative Phencyclidine Screen Negative Ur Amphetamines Screen Negative MDMA (Ecstasy) Screen Negative Benzodiazepines Screen Negative Cocaine Screen Negative U Marijuana (THC) Screen Negative Alcohol, Quantitative 193.0 H* Problem List - Problems (1) Transaminitis Assessment/Plan: From history, liver chemistry abnormality likely reflecting ischemic hepatopathy from prolonged hypoxia / hypotension along with component of rhabdomyolysis. Cannot exclude concomitant underlying liver pathology. Benign abdominal exam Continue supportive measures Avoid hepatotoxic agents Avoid vasoconstriction as feasible Ordered: Hepatitis A/B/C serologies, CPK. Treatment of rhabdo per PMD Ordered: Abdominal US along with doppler of portal vein Monitor liver chemistries Suspect poor porgnosis with slim chances for meaningful recovery and quality of life. Critical care/neuro following Code(s): R74.0 - NONSPEC ELEV OF LEVELS OF TRANSAMNS & LACTIC ACID DEHYDRGNSE
[2017-04-01] MEDS: PANTOPRAZOLE SODIUM 40 MG VIAL IVPUSH SCH (10:56)
[2017-04-01] MEDS ORDERED: FOSPHENYTOIN SODIUM 1,000 MG in SODIUM CHLORIDE 100 ML IVPB ONE (11:00)
--- NOTE | 2017-04-01 11:38 | PN ---
Progress Note (short form) - Note Progress Note: s/p code difficult intubation possible aspiration ESTELA etoh use seizing unresponsive Vital Signs Period Temp Pulse Resp BP Sys/Keating Pulse Ox Last 24 Hr 96.7 F-99.1 F 82-119 22-28 124-155/60-97 97-100 cor-rrr lungs decreased bs at bases abd soft,nt ext no edema CBC, BMP 04/01/17 05:00 04/01/17 05:00 Laboratory Tests 04/01/17 05:00 Calcium 7.2 L Total Bilirubin 1.3 H AST 5535 H ALT 2937 H Alkaline Phosphatase 57 Microbiology 03/30/17 16:30 Sputum - Endotrachea Suction/Ventilator Gram Stain - Final 03/30/17 16:30 Sputum - Endotrachea Suction/Ventilator Sputum Culture - Preliminary NORMAL RESPIRATORY BRUCE 03/30/17 09:30 Blood - Peripheral Venous Blood Culture - Preliminary NO GROWTH OBTAINED AFTER 48 HOURS, INCUBATION TO CONTINUE FOR 3 DAYS. 03/30/17 09:30 Blood - Peripheral Venous Blood Culture - Preliminary Staphylococcus Coagulase Neg 03/30/17 18:56 Stool Clostridium difficile Antigen (CINDY) - Final 03/30/17 18:56 Stool Clostridium difficile Toxin Assay - Final 03/30/17 10:30 Urine - Urine - Catheterized Urine Culture - Final NO GROWTH OBTAINED a/p doing poorly s/p code-off pressors possible aspiration probable shock liver rhabdomyolysis blood culture is contaminant continue zosyn for now d/w ICU service overall prognosis is poor Problem List - Problems (1) Cardiac arrest Code(s): I46.9 - CARDIAC ARREST, CAUSE UNSPECIFIED (2) Alcohol intoxication Code(s): F10.929 - ALCOHOL USE, UNSPECIFIED WITH INTOXICATION, UNSPECIFIED (3) Pneumonitis due to food and vomit Code(s): J69.0 - PNEUMONITIS DUE TO INHALATION OF FOOD AND VOMIT
--- NOTE | 2017-04-01 11:53 | CONSULT ---
Consult - text type - Consultation Consultation Note: NEUROLOGY CONSULTATION is greatly appreciated: Events reviewed and discussed with Dr. Rdz. Patient examined. This 31 yo RH m man with h/o DM and Alcoholism was apparently drinking heavily with family on Friday night and was noted to have fallen twice. He had to be carried to bed and was found unresponsive on Friday AM by his . EMS found him in cardiorespiratory arrest with BG= 17 mg%. Apparently he did have some response to D50. Could not be intubated in the field due to "clenched jaw." Later, tongue biting was noted. On arrival to ER his core temp was [address] of head (reviewed): Probable, diffuse, brain edema with small ventricles and effacement of the gyral/sulcal markings. CXRays with bibasilar infiltrates c/w aspiration pneumonia. In the ICU: Intubated. Attempts to reduce versed and propofol unmask seizure activity. Laboratories are sig for severe hepatocellular dysfunction and progressive renal failure (ATN +/- hepatorenal syndrome?). GAYLE: Intubated. bleeding from the mouth. Neck supple. Cor reg. NEURO: Unresponsive to name and sternal pressure. + shallow spontaneous respirations. PE 2mm R and probably sluggishly reactive. No corneals. Full horizontal EOM's to doll's head. Flaccid tetraplegia but reflexes are preserved. Silent plantars. No withdrawal to pain. IMP: Severe B/L cerebral dysfunction with brainstem function intact. Consistent with prolonged hypoxic and/or hypoglycemic encephalopathy. Possibly complicated by status epilepticus and hepatorenal failure. SUGGEST: Load with Cerebyx (fosphenytoin) 1000 PE over 1 hr then 200 PE slow IV q 12 hrs. Phenytoin levels sent stat each 6 AM until stable. Follow, lytes, Ca++, Mg++ and Ammonia levels. Once loaded on fosphenytoin, can again attempt slow taper of versed and propofol. Will follow with you. Prognosis guarded. Thank you very much, Elmo Vogel MD
[2017-04-01] MEDS: DEXTROSE 5%-NORMAL SALINE 1,000 ML IV SCH (12:00)
--- NOTE | 2017-04-01 12:19 | PN ---
Teaching Attending Note Name of Resident: Bryce Rodas ATTENDING PHYSICIAN STATEMENT I saw and evaluated the patient. I reviewed the resident's note and discussed the case with the resident. I agree with the resident's findings and plan as documented. SUBJECTIVE: Patient seen and examined in the ICU. Intubated. When sedation was lowered today to assess mental status, he developed seizure activity. Currently off pressors. AC Mode of vent 50% FiO2. CXR: Improving infiltrates / ETT in place. Intake & Output 03/29/17 03/30/17 03/31/17 04/01/17 23:59 23:59 23:59 23:59 Intake Total 50 3607.4 1845.5 Output Total 2000 1000 300 Balance -1950 2607.4 1545.5 Weight 141 lb 15.643 oz 146 lb 6.191 oz Last Vital Signs Temp Pulse Resp BP Pulse Ox 98.8 F 114 H 28 H 124/60 100 04/01/17 10:00 04/01/17 11:25 04/01/17 11:23 04/01/17 10:00 04/01/17 11:25 Active Medications Heparin Sodium (Porcine) (Heparin -) 5,000 unit SQ TID SEN Last Admin: 04/01/17 06:14 Dose: 5,000 unit Midazolam HCl 100 mg/ Sodium (Chloride) 100 mls @ 1 mls/hr IVPB TITR SEN; 1 MG/ HR PRN Reason: Protocol Last Admin: 03/31/17 11:43 Dose: 5 mls/hr Norepinephrine Bitartrate 4, (000 mcg/ Dextrose) 500 mls @ 37.5 mls/hr IV TITR SEN; 5 MCG/MIN PRN Reason: Protocol Last Admin: 03/31/17 13:15 Dose: Not Given Dextrose (D10w -) 1,000 mls @ 100 mls/hr IV ASDIR SEN Last Admin: 03/31/17 13:15 Dose: Not Given Dopamine HCl/Dextrose (Dopamine 400 Mg/D5w -) 250 mls @ 11.056 mls/hr IVPB TITR SEN; 5 MCG/KG/MIN PRN Reason: Protocol Last Admin: 03/31/17 13:16 Dose: 11.056 mls/hr Piperacillin/Tazobactam/Dextrose (Zosyn 3.375gm Ivpb (Premix)) 50 mls @ 100 mls /hr IVPB Q8H-IV SEN Last Admin: 04/01/17 11:06 Dose: 100 mls/hr Propofol (Diprivan -) 100 mls @ 1.932 mls/hr IVPB TITR SEN; 5 MCG/KG/MIN PRN Reason: Protocol Last Admin: 04/01/17 11:09 Dose: 19.32 mls/hr Dextrose/Sodium Chloride (D5-Ns -) 1,000 mls @ 125 mls/hr IV ASDIR SEN Last Admin: 03/31/17 13:15 Dose: Not Given Lorazepam (Ativan Injection -) 2 mg IVPUSH Q4H PRN PRN Reason: ANXIETY Last Admin: 04/01/17 09:16 Dose: 2 mg Morphine Sulfate (Morphine Sulfate) 2 mg IVPUSH Q4H PRN PRN Reason: PAIN Ondansetron HCl (Zofran Injection) 4 mg IVPUSH Q6H PRN PRN Reason: NAUSEA Pantoprazole Sodium (Protonix Iv) 40 mg IVPUSH DAILY SEN Last Admin: 04/01/17 10:56 Dose: 40 mg Phenytoin Sodium (Dilantin Injection -) 200 mg IVPB Q12H SEN Thiamine HCl (Vitamin B1 Injection -) 200 mg IVPB DAILY SEN Last Admin: 04/01/17 10:56 Dose: 200 mg Constitutional: Yes: Intubated, sedated Eyes: Yes: Fixed pupils. No: Sclera Icterus Neck: Yes: Supple, Trachea Midline Cardiovascular: Yes: Regular Rate and Rhythm Respiratory: Yes: CTA Bilaterally, Mechanically Ventilated Gastrointestinal: Yes: Soft Musculoskeletal: Yes: WNL Extremities: Yes: WNL Edema: No Peripheral Pulses WNL: Yes Integumentary: Yes: WNL Neurological: Yes: Unresponsive Laboratory Results - last 24 hr 03/31/17 03/31/17 04/01/17 14:21 16:16 05:00 WBC 9.7 RBC 4.23 Hgb 12.2 Hct 35.7 MCV 84.4 MCH 28.9 MCHC 34.3 RDW 14.5 Plt Count 62 L D MPV 9.3 Neutrophils % 89.7 H Lymphocytes % 4.7 L Monocytes % 5.0 Eosinophils % 0.1 Basophils % 0.5 Platelet Estimate Mod decreased Platelet Comment No clotting detected Puncture Site ABG pH ABG pCO2 at Pt Temp ABG pO2 at Pt Temp ABG HCO3 ABG O2 Sat (Measured) ABG O2 Content ABG Base Excess Phillip Test O2 Delivery Device Oxygen Flow Rate Vent Mode Vent Rate Mechanical Rate PEEP Pressure Support Vent Sodium 141 Potassium 4.8 Chloride 108 H Carbon Dioxide 17 L Anion Gap 16 BUN 20 H D Creatinine 3.8 H D Creat Clearance w eGFR 18.44 POC Glucometer 138.53592 Random Glucose 98 D Calcium 7.3 L Total Bilirubin 1.5 H AST 8708 H ALT 3290 H Alkaline Phosphatase 63 D Total Protein 5.3 L Albumin 2.5 L 04/01/17 04/01/17 05:00 07:20 WBC RBC Hgb Hct MCV MCH MCHC RDW Plt Count MPV Neutrophils % Lymphocytes % Monocytes % Eosinophils % Basophils % Platelet Estimate Platelet Comment Puncture Site Right radial ABG pH 7.40 ABG pCO2 at Pt Temp 24.2 L ABG pO2 at Pt Temp 118.0 H D ABG HCO3 14.8 L* ABG O2 Sat (Measured) 98.8 ABG O2 Content 16.3 ABG Base Excess -8.1 L Phillip Test Positive O2 Delivery Device Mec.vent Oxygen Flow Rate 60% Vent Mode A/c Vent Rate 28 Mechanical Rate Esprit PEEP 8.0 Pressure Support Vent 550 Sodium 141 Potassium 4.7 Chloride 112 H Carbon Dioxide 17 L Anion Gap 12 BUN 29 H D Creatinine 5.2 H D Creat Clearance w eGFR 12.84 POC Glucometer Random Glucose 110 H Calcium 7.2 L Total Bilirubin 1.3 H AST 5535 H ALT 2937 H Alkaline Phosphatase 57 Total Protein 5.1 L Albumin 2.3 L Problem List - Problems (1) Cardiac arrest Code(s): I46.9 - CARDIAC ARREST, CAUSE UNSPECIFIED (2) Alcohol intoxication Code(s): F10.929 - ALCOHOL USE, UNSPECIFIED WITH INTOXICATION, UNSPECIFIED (3) Atelectasis of both lungs Code(s): J98.11 - ATELECTASIS (4) Pneumonitis due to food and vomit Code(s): J69.0 - PNEUMONITIS DUE TO INHALATION OF FOOD AND VOMIT (5) Seizure Code(s): R56.9 - UNSPECIFIED CONVULSIONS Assessment/Plan Taper FiO2 as tolerated Decrease RR to 24 IVF Glycemic control Eneteral feeds ABX per ID Titrate Versed / propofol AEDs started Overall prognosis appears poor for meaningful recovery. Dr Rdz Critical care time spent in reviewing chart, evaluating patient and formulating plan - 40 minutes. Problem List - Problems (1) Cardiac arrest Code(s): I46.9 - CARDIAC ARREST, CAUSE UNSPECIFIED (2) Alcohol intoxication Code(s): F10.929 - ALCOHOL USE, UNSPECIFIED WITH INTOXICATION, UNSPECIFIED (3) Atelectasis of both lungs Code(s): J98.11 - ATELECTASIS (4) Pneumonitis due to food and vomit Code(s): J69.0 - PNEUMONITIS DUE TO INHALATION OF FOOD AND VOMIT (5) Seizure Code(s): R56.9 - UNSPECIFIED CONVULSIONS
[2017-04-01] MEDS: MIDAZOLAM 100 MG in SODIUM CHLORIDE 100 ML IVPB SCH (12:26)
[2017-04-01] MEDS ORDERED: cefTRIAXone 2 GM/100 ML BAG (PRE-DOCKED) IVPB SCH (12:30)
--- NOTE | 2017-04-01 13:25 | PN ---
Progress Note, Physician History of Present Illness: The patient remains intubated and sedated. - Current Medication List Current Medications: Active Medications Heparin Sodium (Porcine) (Heparin -) 5,000 unit SQ TID SEN Last Admin: 04/01/17 06:14 Dose: 5,000 unit Midazolam HCl 100 mg/ Sodium (Chloride) 100 mls @ 1 mls/hr IVPB TITR SEN; 1 MG/ HR PRN Reason: Protocol Last Admin: 04/01/17 12:26 Dose: 10 mls/hr Norepinephrine Bitartrate 4, (000 mcg/ Dextrose) 500 mls @ 37.5 mls/hr IV TITR SEN; 5 MCG/MIN PRN Reason: Protocol Last Admin: 03/31/17 13:15 Dose: Not Given Dextrose (D10w -) 1,000 mls @ 100 mls/hr IV ASDIR SEN Last Admin: 03/31/17 13:15 Dose: Not Given Dopamine HCl/Dextrose (Dopamine 400 Mg/D5w -) 250 mls @ 11.056 mls/hr IVPB TITR SEN; 5 MCG/KG/MIN PRN Reason: Protocol Last Admin: 03/31/17 13:16 Dose: 11.056 mls/hr Propofol (Diprivan -) 100 mls @ 1.932 mls/hr IVPB TITR SEN; 5 MCG/KG/MIN PRN Reason: Protocol Last Admin: 04/01/17 11:09 Dose: 19.32 mls/hr Dextrose/Sodium Chloride (D5-Ns -) 1,000 mls @ 125 mls/hr IV ASDIR SEN Last Admin: 03/31/17 13:15 Dose: Not Given Clindamycin Phosphate (Cleocin 600 Mg Premix Ivpb -) 50 mls @ 100 mls/hr IVPB Q8H-IV SEN Ceftriaxone Sodium 2 gm/ (Dextrose) 100 mls @ 2,000 mls/hr IVPB DAILY SEN Lorazepam (Ativan Injection -) 2 mg IVPUSH Q4H PRN PRN Reason: ANXIETY Last Admin: 04/01/17 09:16 Dose: 2 mg Morphine Sulfate (Morphine Sulfate) 2 mg IVPUSH Q4H PRN PRN Reason: PAIN Ondansetron HCl (Zofran Injection) 4 mg IVPUSH Q6H PRN PRN Reason: NAUSEA Pantoprazole Sodium (Protonix Iv) 40 mg IVPUSH DAILY [facility] Last Admin: 04/01/17 10:56 Dose: 40 mg Phenytoin Sodium (Dilantin Injection -) 200 mg IVPB Q12H [facility] Last Admin: 04/01/17 12:26 Dose: 200 mg Thiamine HCl (Vitamin B1 Injection -) 200 mg IVPB DAILY [facility] Last Admin: 04/01/17 10:56 Dose: 200 mg - Objective Vital Signs: Vital Signs Temperature 98.8 F 04/01/17 10:00 Pulse Rate 104 H 04/01/17 12:00 Respiratory Rate 28 H 04/01/17 12:00 Blood Pressure 126/81 04/01/17 12:00 O2 Sat by Pulse Oximetry (%) 100 04/01/17 11:25 Constitutional: Yes: No Distress, Thin Eyes: Yes: Other (Sedated) HENT: Yes: WNL, Atraumatic, Normocephalic Neck: Yes: Other (Intubated, no JVD/bruits.) Cardiovascular: Yes: WNL, Regular Rate and Rhythm Respiratory: Yes: Mechanically Ventilated Gastrointestinal: Yes: WNL, Normal Bowel Sounds, Soft ...Rectal Exam: Yes: Deferred Extremities: Yes: WNL Edema: No Peripheral Pulses WNL: Yes Neurological: Yes: Other (Sedated) Labs: CBC, BMP 04/01/17 05:00 04/01/17 05:00 INR, PTT INR 1.80 (0.82-1.09) H D 03/30/17 17:45 Assessment/Plan The patient has been stable from the cardiac standpoint. He has been maintaining sinus rhythm. The echocardiogram was completely normal. Both ventricles are functioning normally. No evidence of right ventricular strain. Continue supportive care. There is no need for further cardiac workup nor testing in this setting. Please do not hesitate to call us PRN.
[2017-04-01] MEDS ORDERED: LORazepam 2 MG/ML SDV VIAL IVPUSH ONE (13:48)
[2017-04-01] MEDS: DEXTROSE 10%-WATER - 1,000 ML IV SCH (13:56)
[2017-04-01] MEDS: DOPAMINE 400 MG/D5W - 250 ML IVPB SCH (13:56)
[2017-04-01] MEDS: CEFTRIAXONE 2 GM in DEXTROSE 5%-WATER - 100 ML IVPB SCH (13:57)
--- NOTE | 2017-04-01 14:11 | PN ---
Progress Note, Physician History of Present Illness: Pt seen and examined at bedside. He remains in the ICU. Pt remains intubated. His is at bedside and care was discussed with her. She says he took 30 mg of percocet along with a dose of zoloft. He was also drinking heavily that night. - Current Medication List Current Medications: Active Medications Heparin Sodium (Porcine) (Heparin -) 5,000 unit SQ TID SEN Last Admin: 04/01/17 06:14 Dose: 5,000 unit Midazolam HCl 100 mg/ Sodium (Chloride) 100 mls @ 1 mls/hr IVPB TITR SEN; 1 MG/ HR PRN Reason: Protocol Last Admin: 04/01/17 12:26 Dose: 10 mls/hr Norepinephrine Bitartrate 4, (000 mcg/ Dextrose) 500 mls @ 37.5 mls/hr IV TITR SEN; 5 MCG/MIN PRN Reason: Protocol Last Admin: 03/31/17 13:15 Dose: Not Given Dextrose (D10w -) 1,000 mls @ 100 mls/hr IV ASDIR SEN Last Admin: 04/01/17 13:56 Dose: Not Given Dopamine HCl/Dextrose (Dopamine 400 Mg/D5w -) 250 mls @ 11.056 mls/hr IVPB TITR SEN; 5 MCG/KG/MIN PRN Reason: Protocol Last Admin: 04/01/17 13:56 Dose: 11.056 mls/hr Propofol (Diprivan -) 100 mls @ 1.932 mls/hr IVPB TITR SEN; 5 MCG/KG/MIN PRN Reason: Protocol Last Admin: 04/01/17 11:09 Dose: 19.32 mls/hr Dextrose/Sodium Chloride (D5-Ns -) 1,000 mls @ 125 mls/hr IV ASDIR SEN Last Admin: 03/31/17 13:15 Dose: Not Given Clindamycin Phosphate (Cleocin 600 Mg Premix Ivpb -) 50 mls @ 100 mls/hr IVPB Q8H-IV SEN Ceftriaxone Sodium 2 gm/ (Dextrose) 100 mls @ 2,000 mls/hr IVPB DAILY SEN Last Admin: 04/01/17 13:57 Dose: 2,000 mls/hr Lorazepam (Ativan Injection -) 2 mg IVPUSH Q4H PRN PRN Reason: ANXIETY Last Admin: 04/01/17 13:55 Dose: 2 mg Lorazepam (Ativan Injection -) 2 mg IVPUSH ONCE ONE Stop: 04/01/17 13:49 Morphine Sulfate (Morphine Sulfate) 2 mg IVPUSH Q4H PRN PRN Reason: PAIN Ondansetron HCl (Zofran Injection) 4 mg IVPUSH Q6H PRN PRN Reason: NAUSEA Pantoprazole Sodium (Protonix Iv) 40 mg IVPUSH DAILY [facility] Last Admin: 04/01/17 10:56 Dose: 40 mg Phenytoin Sodium (Dilantin Injection -) 200 mg IVPB Q12H [facility] Last Admin: 04/01/17 12:26 Dose: 200 mg Thiamine HCl (Vitamin B1 Injection -) 200 mg IVPB DAILY [facility] Last Admin: 04/01/17 10:56 Dose: 200 mg - Objective Vital Signs: Vital Signs Temperature 98.8 F 04/01/17 10:00 Pulse Rate 105 H 04/01/17 13:56 Respiratory Rate 28 H 04/01/17 13:15 Blood Pressure 80/40 04/01/17 13:56 O2 Sat by Pulse Oximetry (%) 100 04/01/17 11:25 Constitutional: Yes: Calm Eyes: Yes: Conjunctiva Clear HENT: Yes: Atraumatic Cardiovascular: Yes: S1, S2 Respiratory: Yes: Mechanically Ventilated Gastrointestinal: Yes: Soft Genitourinary: Yes: Bhatti Present Musculoskeletal: Yes: Muscle Weakness Edema: No Neurological: Yes: Lethargy Labs: CBC, BMP 04/01/17 05:00 04/01/17 05:00 INR, PTT INR 1.80 (0.82-1.09) H D 03/30/17 17:45 - ....Imaging Chest X-ray: Report Reviewed Problem List - Problems (1) Alcohol intoxication Code(s): F10.929 - ALCOHOL USE, UNSPECIFIED WITH INTOXICATION, UNSPECIFIED (2) Cardiac arrest Code(s): I46.9 - CARDIAC ARREST, CAUSE UNSPECIFIED (3) Seizure Code(s): R56.9 - UNSPECIFIED CONVULSIONS (4) Transaminitis Code(s): R74.0 - NONSPEC ELEV OF LEVELS OF TRANSAMNS & LACTIC ACID DEHYDRGNSE (5) Rhabdomyolysis Code(s): M62.82 - RHABDOMYOLYSIS (6) ESTELA (acute kidney injury) Code(s): N17.9 - ACUTE KIDNEY FAILURE, UNSPECIFIED Assessment/Plan Current Medications Generic Name Dose Route Start Last Admin Trade Name Freq PRN Reason Stop Dose Admin Heparin Sodium (Porcine) 5,000 unit 03/31/17 18:00 04/01/17 06:14 Heparin - SQ 5,000 unit TID SEN Administration Midazolam HCl 100 mg/ Sodium 100 mls @ 1 mls/hr 03/30/17 10:30 04/01/17 12:26 Chloride IVPB 10 mls/hr TITR SEN Administration Protocol 1 MG/HR Norepinephrine Bitartrate 4, 500 mls @ 37.5 mls/hr 03/30/17 11:00 03/31/17 13: 15 000 mcg/ Dextrose IV Not Given TITR SEN Protocol 5 MCG/MIN Dextrose 1,000 mls @ 100 mls/hr 03/30/17 12:00 04/01/17 13:56 D10w - IV Not Given ASDIR SEN Dopamine HCl/Dextrose 250 mls @ 11.056 mls/hr 03/30/17 13:15 04/01/17 13:56 Dopamine 400 Mg/D5w - IVPB 11.056 mls/hr TITR SEN Administration Protocol 5 MCG/KG/MIN Propofol 100 mls @ 1.932 mls/hr 03/30/17 18:00 04/01/17 11:09 Diprivan - IVPB 19.32 mls/hr TITR SEN Administration Protocol 5 MCG/KG/MIN Dextrose/Sodium Chloride 1,000 mls @ 125 mls/hr 03/31/17 09:15 03/31/17 13:15 D5-Ns - IV Not Given ASDIR SEN Clindamycin Phosphate 50 mls @ 100 mls/hr 04/01/17 18:00 Cleocin 600 Mg Premix Ivpb - IVPB Q8H-IV SEN Ceftriaxone Sodium 2 gm/ 100 mls @ 2,000 mls/hr 04/01/17 13:00 04/01/17 13:57 Dextrose IVPB 2,000 mls/hr DAILY SEN Administration Lorazepam 2 mg 03/30/17 13:03 04/01/17 13:55 Ativan Injection - IVPUSH 2 mg Q4H PRN Administration ANXIETY Morphine Sulfate 2 mg 03/30/17 12:56 Morphine Sulfate IVPUSH Q4H PRN PAIN Ondansetron HCl 4 mg 03/30/17 12:56 Zofran Injection IVPUSH Q6H PRN NAUSEA Pantoprazole Sodium 40 mg 03/30/17 13:00 04/01/17 10:56 Protonix Iv IVPUSH 40 mg DAILY SEN Administration Phenytoin Sodium 200 mg 04/01/17 10:00 04/01/17 12:26 Dilantin Injection - IVPB 200 mg Q12H SEN Administration Thiamine HCl 200 mg 03/31/17 13:15 04/01/17 10:56 Vitamin B1 Injection - IVPB 200 mg DAILY SEN Administration Impression 1. cardiac arrest 2. respiratory failure 3. ESTELA 4. hyperkalemia 5. multi-drug abuse 6. rhabdo 7. seizure Plan - renal function is worsening - monitor lytes - cont fluids - monitor urine output - likely atn from prolonged hypotension during arrest - spoke to pts she says he was pulseless for at least 15 min after she found him - monitor potassium levels - neuro evaluation appreciated - monitor cpk level - vent support - monitor bp closely - taper pressors to a map of 65 - will follow Dr Solis
--- NOTE | 2017-04-01 15:44 | PN ---
Progress Note, Physician Chief Complaint: sedated/intubated family bedside - Current Medication List Current Medications: Active Medications Heparin Sodium (Porcine) (Heparin -) 5,000 unit SQ TID SEN Last Admin: 04/01/17 06:14 Dose: 5,000 unit Midazolam HCl 100 mg/ Sodium (Chloride) 100 mls @ 1 mls/hr IVPB TITR SEN; 1 MG/ HR PRN Reason: Protocol Last Admin: 04/01/17 12:26 Dose: 10 mls/hr Norepinephrine Bitartrate 4, (000 mcg/ Dextrose) 500 mls @ 37.5 mls/hr IV TITR SEN; 5 MCG/MIN PRN Reason: Protocol Last Admin: 03/31/17 13:15 Dose: Not Given Dextrose (D10w -) 1,000 mls @ 100 mls/hr IV ASDIR SEN Last Admin: 04/01/17 13:56 Dose: Not Given Dopamine HCl/Dextrose (Dopamine 400 Mg/D5w -) 250 mls @ 11.056 mls/hr IVPB TITR SEN; 5 MCG/KG/MIN PRN Reason: Protocol Last Admin: 04/01/17 13:56 Dose: 11.056 mls/hr Propofol (Diprivan -) 100 mls @ 1.932 mls/hr IVPB TITR SEN; 5 MCG/KG/MIN PRN Reason: Protocol Last Admin: 04/01/17 11:09 Dose: 19.32 mls/hr Dextrose/Sodium Chloride (D5-Ns -) 1,000 mls @ 125 mls/hr IV ASDIR SEN Last Admin: 03/31/17 13:15 Dose: Not Given Clindamycin Phosphate (Cleocin 600 Mg Premix Ivpb -) 50 mls @ 100 mls/hr IVPB Q8H-IV SEN Ceftriaxone Sodium 2 gm/ (Dextrose) 100 mls @ 2,000 mls/hr IVPB DAILY SEN Last Admin: 04/01/17 13:57 Dose: 2,000 mls/hr Lorazepam (Ativan Injection -) 2 mg IVPUSH Q4H PRN PRN Reason: ANXIETY Last Admin: 04/01/17 13:55 Dose: 2 mg Morphine Sulfate (Morphine Sulfate) 2 mg IVPUSH Q4H PRN PRN Reason: PAIN Ondansetron HCl (Zofran Injection) 4 mg IVPUSH Q6H PRN PRN Reason: NAUSEA Pantoprazole Sodium (Protonix Iv) 40 mg IVPUSH DAILY [facility] Last Admin: 04/01/17 10:56 Dose: 40 mg Phenytoin Sodium (Dilantin Injection -) 200 mg IVPB Q12H [facility] Last Admin: 04/01/17 12:26 Dose: 200 mg Thiamine HCl (Vitamin B1 Injection -) 200 mg IVPB DAILY [facility] Last Admin: 04/01/17 10:56 Dose: 200 mg - Objective Vital Signs: Vital Signs Temperature 98.8 F 04/01/17 10:00 Pulse Rate 105 H 04/01/17 13:56 Respiratory Rate 28 H 04/01/17 13:15 Blood Pressure 80/40 04/01/17 13:56 O2 Sat by Pulse Oximetry (%) 100 04/01/17 11:25 Constitutional: Yes: Severe Distress Eyes: Yes: Other HENT: Yes: Other Neck: Yes: Other Cardiovascular: Yes: Regular Rate and Rhythm Respiratory: Yes: Diminished, Mechanically Ventilated Genitourinary: Yes: Bhatti Present Musculoskeletal: Yes: Muscle Weakness Extremities: Yes: Other Edema: Yes Edema: LLE: Trace, RLE: Trace Peripheral Pulses WNL: Yes Integumentary: Yes: Other Wound/Incision: Yes: Clean/Dry Neurological: Yes: Pre-Existing Deficit ...Motor Strength: LLE, RLE Psychiatric: Yes: Other Labs: CBC, BMP 04/01/17 05:00 04/01/17 05:00 INR, PTT INR 1.80 (0.82-1.09) H D 03/30/17 17:45 Problem List - Problems (1) Alcohol intoxication Code(s): F10.929 - ALCOHOL USE, UNSPECIFIED WITH INTOXICATION, UNSPECIFIED (2) Altered mental status Code(s): R41.82 - ALTERED MENTAL STATUS, UNSPECIFIED Qualifiers: Altered mental status type: unspecified Qualified Code(s): R41.82 - Altered mental status, unspecified; R41.82 - Altered mental status, unspecified (3) Cardiac arrest Code(s): I46.9 - CARDIAC ARREST, CAUSE UNSPECIFIED (4) Pneumonitis due to food and vomit Code(s): J69.0 - PNEUMONITIS DUE TO INHALATION OF FOOD AND VOMIT (5) Seizure Code(s): R56.9 - UNSPECIFIED CONVULSIONS (6) Sepsis Code(s): A41.9 - SEPSIS, UNSPECIFIED ORGANISM Qualifiers: Sepsis type: sepsis due to unspecified organism Qualified Code(s): A41.9 - Sepsis, unspecified organism; A41.9 - Sepsis, unspecified organism; A41.9 - Sepsis, unspecified organism Assessment/Plan DISCUSSED WITH MOTHER MRS. WATERS WHO STATED HER SON THE PATIENT HAS BEEN A LONG TIME ABUSER OF ETOH AND WAS RECENTLY DISCHARGED FROM DETOX PROGRAM. PATIENT HAS ATTENDED MULTIPLE STINTS OF DETOX REHAB IN PAST 10 YEARS. PATIENT IS INTUBATED, SEDATED, PULMONARY AND GI EVAL TRANSAMINITIS IMPROVING. IV ABX ASPIRATION LIKELY FULL CODE
[2017-04-01] MEDS ORDERED: LORazepam 2 MG/ML SDV VIAL IM ONE ×2 (16:22→17:35)
[2017-04-01] MEDS ORDERED: LORazepam 2 MG/ML SDV VIAL ONE (16:45)
[2017-04-01] MEDS: PHENYTOIN SODIUM 100 MG/2 ML VIAL IVPB SCH (17:30)
[2017-04-01] MEDS ORDERED: FOSPHENYTOIN SODIUM 500 MG in SODIUM CHLORIDE 100 ML IVPB ONE (17:50)
[2017-04-01] MEDS: CLINDAMYCIN 600MG PREMIX IVPB 50 ML IVPB SCH (18:00)
--- NOTE | 2017-04-01 18:37 | PN ---
Progress Note (short form) - Note Progress Note: NEUROLOGY FOLLOW-UP: Events reviewed and discussed with mother, sister and Resident physicians. Pt remains unresponsive with recurrent, brief, jerk-like seizures. On midazolam 10 ml/hr. Pt received Fosphenytoin 1000PE and phenytoin 200mg so far with additional 200 mg being infused now. Exam unchanged. IMP: Status epilepticus due to multiple brain insults likely including ischemia , prolonged hypoglycemia and ongoing hepatic and renal failure. SUGGEST: Complete Dilantin infusion. Stat phenytoin level, BMP, Ca++, Mg++, CMP, Ammonia level (30 mins after Dilantin infusion). Empirically infuse additional 500 PE of fosphenytoin after levels are sent. Can increase midazolam infusion to 12 mg/hr. May need EEG monitoring and addition of levetiracetam if seizures persist. Grave prognosis explained to family. Thank you very much, Elmo Vogel MD
[2017-04-01 19:22] LABS: ALBUMIN 2.1 g/dl (3.4-5.0); ANION GAP 13 (8-16); BILIRUBIN,TOTAL 0.9 mg/dL (0.2-1.0); CO2 16 mmol/L (21-32); CREATININE 6.2 mg/dL (0.7-1.3); GLUCOSE,RANDOM 151 mg/dL (74-106); MAGNESIUM 1.5 mg/dL (1.8-2.4); TOT PROT 4.9 g/dl (6.4-8.2)
[2017-04-01 19:36] LABS: ALK PHOS 44 U/L (45-117)
[2017-04-01 19:39] LABS: SGOT/AST 2965 U/L (15-37); SGPT/ALT 2273 U/L (12-78)
[2017-04-01 19:41] LABS: CALCIUM 6.7 mg/dL (8.5-10.1)
[2017-04-01] MEDS: THIAMINE HCL 200 MG/2 ML VIAL IVPB SCH (21:51)
[2017-04-02] MEDS: PHENYTOIN SODIUM 100 MG/2 ML VIAL IVPB SCH ×3 (01:12→17:58)
[2017-04-02] MEDS: CLINDAMYCIN 600MG PREMIX IVPB 50 ML IVPB SCH ×3 (01:14→17:58)
[2017-04-02] MEDS: DEXTROSE 5%-NORMAL SALINE 1,000 ML IV SCH ×4 (02:00→14:32)
[2017-04-02] MEDS: HEPARIN NA (PORCINE) 5,000 UNITS/ML 1ML VIAL SQ SCH ×3 (06:04→20:59)
[2017-04-02] MEDS: THIAMINE HCL 200 MG/2 ML VIAL IVPB SCH ×3 (06:04→20:59)
[2017-04-02 06:11] LABS: BASOPHIL 0.7 % (0-2.0); MCH 28.8 pg (25.7-33.7); MCHC 33.9 g/dl (32.0-35.9); MEAN CELL VOLUME 85.1 fl (80-96); NEUTROPHILS 84.2 % (42.8-82.8); PLATELET COUNT 76 K/MM3 (134-434); RDW 15.5 % (11.9-15.9)
[2017-04-02 06:40] LABS: ANION GAP 13 (8-16); CO2 15 mmol/L (21-32); CREATININE 6.9 mg/dL (0.7-1.3); GLUCOSE,RANDOM 166 mg/dL (74-106)
[2017-04-02 06:59] LABS: CALCIUM 6.7 mg/dL (8.5-10.1)
[2017-04-02] MEDS: NOREPINEPHRINE BITARTRATE 4,000 MCG in DEXTROSE 5%-WATER - 496 ML IV SCH (07:00)
--- NOTE | 2017-04-02 07:49 | PN ---
Progress Note (short form) - Note Progress Note: ID Clindamycin Ceftriaxone day 3 therapy Unsresponsive on the vent Selected Entries 04/02/17 04/02/17 06:05 07:38 Temperature 99.1 F Pulse Rate 83 Respiratory 28 H Rate Blood Pressure 137/77 Microbiology 03/30/17 18:56 Stool Clostridium difficile Antigen (CINDY) - Final 03/30/17 18:56 Stool Clostridium difficile Toxin Assay - Final 03/30/17 16:30 Sputum - Endotrachea Suction/Ventilator Gram Stain - Final 03/30/17 10:30 Urine - Urine - Catheterized Urine Culture - Final NO GROWTH OBTAINED 03/31/17 16:16 Blood - Peripheral Venous Blood Culture - Preliminary NO GROWTH OBTAINED AFTER 24 HOURS, INCUBATION TO CONTINUE FOR 4 DAYS. 03/31/17 16:16 Blood - Peripheral Venous Blood Culture - Preliminary NO GROWTH OBTAINED AFTER 24 HOURS, INCUBATION TO CONTINUE FOR 4 DAYS. 03/30/17 16:30 Sputum - Endotrachea Suction/Ventilator Sputum Culture - Preliminary NORMAL RESPIRATORY BRUCE Laboratory Tests 03/30/17 04/01/17 04/02/17 11:58 17:00 05:50 WBC 12.0 H Hgb 11.2 L Hct 33.0 L Plt Count 76 L D BUN Creatinine Total Bilirubin 0.9 D Alkaline Phosphatase 44 L D Alcohol, Quantitative 193.0 H* 04/02/17 05:50 WBC Hgb Hct Plt Count BUN 40 H Creatinine 6.9 H Total Bilirubin Alkaline Phosphatase Alcohol, Quantitative Assessment Cardiac arrest Alcohol intoxication ? Aspiration though cultures negative and chest xray with no clear infiltrate Acute renal failure Shock liver Hypoxic brain injury Status epilepticus Plan Continue current antibiotic through today HIV test Roland MEDRANO Problem List - Problems (1) Alcohol intoxication Code(s): F10.929 - ALCOHOL USE, UNSPECIFIED WITH INTOXICATION, UNSPECIFIED (2) Cardiac arrest Code(s): I46.9 - CARDIAC ARREST, CAUSE UNSPECIFIED (3) Sepsis Code(s): A41.9 - SEPSIS, UNSPECIFIED ORGANISM Qualifiers: Sepsis type: sepsis due to unspecified organism Qualified Code(s): A41.9 - Sepsis, unspecified organism; A41.9 - Sepsis, unspecified organism; A41.9 - Sepsis, unspecified organism
[2017-04-02 07:52] LABS: MAGNESIUM 1.5 mg/dL (1.8-2.4)
[2017-04-02] MEDS ORDERED: MAGNESIUM SULF 50% (8.12 MEQ/2 ML-1 GM VIAL) IVPB ONE (09:00)
[2017-04-02] MEDS: CEFTRIAXONE 2 GM in DEXTROSE 5%-WATER - 100 ML IVPB SCH (09:12)
[2017-04-02] MEDS: PANTOPRAZOLE SODIUM 40 MG VIAL IVPUSH SCH (09:14)
[2017-04-02] MEDS: MIDAZOLAM 100 MG in SODIUM CHLORIDE 100 ML IVPB SCH (10:21)
[2017-04-02] MEDS: DEXTROSE 10%-WATER - 1,000 ML IV SCH (11:16)
--- NOTE | 2017-04-02 11:26 | PN ---
Progress Note, Physician Chief Complaint: intubated unresponsive family bedside neurology exam was poor and family labile and sad - Current Medication List Current Medications: Active Medications Heparin Sodium (Porcine) (Heparin -) 5,000 unit SQ TID SEN Last Admin: 04/02/17 06:04 Dose: 5,000 unit Midazolam HCl 100 mg/ Sodium (Chloride) 100 mls @ 1 mls/hr IVPB TITR SEN; 1 MG/ HR PRN Reason: Protocol Last Admin: 04/02/17 10:21 Dose: 10 mls/hr Norepinephrine Bitartrate 4, (000 mcg/ Dextrose) 500 mls @ 37.5 mls/hr IV TITR SEN; 5 MCG/MIN PRN Reason: Protocol Last Admin: 04/02/17 07:00 Dose: Not Given Dextrose (D10w -) 1,000 mls @ 100 mls/hr IV ASDIR SEN Last Admin: 04/02/17 11:16 Dose: Not Given Dopamine HCl/Dextrose (Dopamine 400 Mg/D5w -) 250 mls @ 11.056 mls/hr IVPB TITR SNE; 5 MCG/KG/MIN PRN Reason: Protocol Last Titration: 04/02/17 06:54 Dose: 5 mcg/kg/min Propofol (Diprivan -) 100 mls @ 1.932 mls/hr IVPB TITR SEN; 5 MCG/KG/MIN PRN Reason: Protocol Last Titration: 04/02/17 00:00 Dose: 50 mcg/kg/min Dextrose/Sodium Chloride (D5-Ns -) 1,000 mls @ 125 mls/hr IV ASDIR SEN Last Admin: 04/02/17 09:15 Dose: Not Given Clindamycin Phosphate (Cleocin 600 Mg Premix Ivpb -) 50 mls @ 100 mls/hr IVPB Q8H-IV ESN Last Admin: 04/02/17 09:04 Dose: 100 mls/hr Ceftriaxone Sodium 2 gm/ (Dextrose) 100 mls @ 2,000 mls/hr IVPB DAILY [facility] Last Admin: 04/02/17 09:12 Dose: 2,000 mls/hr Lorazepam (Ativan Injection -) 2 mg IVPUSH Q4H PRN PRN Reason: ANXIETY Last Admin: 04/01/17 21:51 Dose: 2 mg Magnesium Sulfate (Magnesium Sulfate) 2 gm IVPB ONCE ONE Stop: 04/02/17 09:01 Morphine Sulfate (Morphine Sulfate) 2 mg IVPUSH Q4H PRN PRN Reason: PAIN Ondansetron HCl (Zofran Injection) 4 mg IVPUSH Q6H PRN PRN Reason: NAUSEA Pantoprazole Sodium (Protonix Iv) 40 mg IVPUSH DAILY [facility] Last Admin: 04/02/17 09:14 Dose: 40 mg Phenytoin Sodium (Dilantin Injection -) 200 mg IVPB Q8H-IV [facility] Last Admin: 04/02/17 09:07 Dose: 200 mg Thiamine HCl (Vitamin B1 Injection -) 200 mg IVPB TID [facility] Last Admin: 04/02/17 06:04 Dose: 200 mg - Objective Vital Signs: Vital Signs Temperature 98.9 F 04/02/17 10:00 Pulse Rate 88 04/02/17 10:00 Respiratory Rate 29 H 04/02/17 10:00 Blood Pressure 96/54 04/02/17 10:00 O2 Sat by Pulse Oximetry (%) 100 04/02/17 09:00 Constitutional: Yes: Severe Distress Eyes: Yes: Other HENT: Yes: Other Neck: Yes: Other Cardiovascular: Yes: S1, S2 Respiratory: Yes: Diminished, Mechanically Ventilated Gastrointestinal: Yes: WNL Genitourinary: Yes: Bhatti Present Musculoskeletal: Yes: Muscle Weakness Extremities: Yes: Other Edema: Yes Edema: LLE: 1+, RLE: 1+ Peripheral Pulses WNL: Yes Integumentary: Yes: WNL Wound/Incision: Yes: Clean/Dry Neurological: Yes: Unresponsive ...Motor Strength: LUE, LLE, RUE, RLE (unresponsive to physical and verbal stimuli) Psychiatric: Yes: Other Labs: CBC, BMP 04/02/17 05:50 04/02/17 05:50 INR, PTT INR 1.80 (0.82-1.09) H D 03/30/17 17:45 Problem List - Problems (1) Alcohol intoxication Code(s): F10.929 - ALCOHOL USE, UNSPECIFIED WITH INTOXICATION, UNSPECIFIED (2) Altered mental status Code(s): R41.82 - ALTERED MENTAL STATUS, UNSPECIFIED Qualifiers: Altered mental status type: unspecified Qualified Code(s): R41.82 - Altered mental status, unspecified; R41.82 - Altered mental status, unspecified (3) Cardiac arrest Code(s): I46.9 - CARDIAC ARREST, CAUSE UNSPECIFIED (4) Pneumonitis due to food and vomit Code(s): J69.0 - PNEUMONITIS DUE TO INHALATION OF FOOD AND VOMIT (5) Seizure Code(s): R56.9 - UNSPECIFIED CONVULSIONS (6) Sepsis Code(s): A41.9 - SEPSIS, UNSPECIFIED ORGANISM Qualifiers: Sepsis type: sepsis due to unspecified organism Qualified Code(s): A41.9 - Sepsis, unspecified organism; A41.9 - Sepsis, unspecified organism; A41.9 - Sepsis, unspecified organism (7) Anoxia Code(s): R09.02 - HYPOXEMIA Assessment/Plan POOR PROGNOSIS PER NEUROLOGY AND ICU TEAM ALREADY DISCUSSED WITH THE FAMILY. ANY ARRANGEMENTS NEED WAS DISCUSSED WITH FAMIL DISCUSSED WITH FAMILY FOR 30 MINUTES THEY ARE THINKING OF ORGAN DONATION CONTINUE VENT SUPPORT FOR NOW. COMFORT MEASURES
[2017-04-02] MEDS: PROPOFOL 100 ML IVPB SCH ×3 (12:14→18:03)
[2017-04-02] MEDS: LORazepam 2 MG/ML SDV VIAL IVPUSH PRN (12:17)
--- NOTE | 2017-04-02 13:08 | PN ---
Progress Note, Physician History of Present Illness: Pt seen and examined at bedside. He remains in the ICU. He remains intubated. Pt was having seizures overnight. Case discussed with family at length. - Current Medication List Current Medications: Active Medications Heparin Sodium (Porcine) (Heparin -) 5,000 unit SQ TID SEN Last Admin: 04/02/17 06:04 Dose: 5,000 unit Midazolam HCl 100 mg/ Sodium (Chloride) 100 mls @ 1 mls/hr IVPB TITR SEN; 1 MG/ HR PRN Reason: Protocol Last Admin: 04/02/17 10:21 Dose: 10 mls/hr Dextrose (D10w -) 1,000 mls @ 100 mls/hr IV ASDIR SEN Last Admin: 04/02/17 11:16 Dose: Not Given Dopamine HCl/Dextrose (Dopamine 400 Mg/D5w -) 250 mls @ 11.056 mls/hr IVPB TITR SEN; 5 MCG/KG/MIN PRN Reason: Protocol Last Titration: 04/02/17 06:54 Dose: 5 mcg/kg/min Propofol (Diprivan -) 100 mls @ 1.932 mls/hr IVPB TITR SEN; 5 MCG/KG/MIN PRN Reason: Protocol Last Admin: 04/02/17 12:14 Dose: 19.3 mls/hr Dextrose/Sodium Chloride (D5-Ns -) 1,000 mls @ 125 mls/hr IV ASDIR SEN Last Admin: 04/02/17 09:15 Dose: Not Given Clindamycin Phosphate (Cleocin 600 Mg Premix Ivpb -) 50 mls @ 100 mls/hr IVPB Q8H-IV [facility] Last Admin: 04/02/17 09:04 Dose: 100 mls/hr Ceftriaxone Sodium 2 gm/ (Dextrose) 100 mls @ 2,000 mls/hr IVPB DAILY [facility] Last Admin: 04/02/17 09:12 Dose: 2,000 mls/hr Norepinephrine Bitartrate 16, (000 mcg/ Dextrose) 1,016 mls @ 19.05 mls/hr IV TITR SEN; 5 MCG/MIN PRN Reason: Protocol Lorazepam (Ativan Injection -) 2 mg IVPUSH Q4H PRN PRN Reason: ANXIETY Last Admin: 04/02/17 12:17 Dose: 2 mg Morphine Sulfate (Morphine Sulfate) 2 mg IVPUSH Q4H PRN PRN Reason: PAIN Ondansetron HCl (Zofran Injection) 4 mg IVPUSH Q6H PRN PRN Reason: NAUSEA Pantoprazole Sodium (Protonix Iv) 40 mg IVPUSH DAILY [facility] Last Admin: 04/02/17 09:14 Dose: 40 mg Phenytoin Sodium (Dilantin Injection -) 200 mg IVPB Q8H-IV [facility] Last Admin: 04/02/17 09:07 Dose: 200 mg Thiamine HCl (Vitamin B1 Injection -) 200 mg IVPB TID [facility] Last Admin: 04/02/17 06:04 Dose: 200 mg - Objective Vital Signs: Vital Signs Temperature 98.9 F 04/02/17 12:00 Pulse Rate 87 04/02/17 12:00 Respiratory Rate 28 H 04/02/17 12:00 Blood Pressure 95/59 04/02/17 12:00 O2 Sat by Pulse Oximetry (%) 100 04/02/17 09:00 Neck: Yes: Supple Cardiovascular: Yes: S1, S2 Respiratory: Yes: Mechanically Ventilated Gastrointestinal: Yes: Soft Genitourinary: Yes: Bhatti Present Musculoskeletal: Yes: Muscle Weakness Edema: Yes Edema: LUE: Trace, RUE: Trace, LLE: Trace, RLE: Trace Neurological: Yes: Lethargy, Seizure Labs: CBC, BMP 04/02/17 05:50 04/02/17 05:50 INR, PTT INR 1.80 (0.82-1.09) H D 03/30/17 17:45 - ....Imaging Chest X-ray: Report Reviewed Problem List - Problems (1) Alcohol intoxication Code(s): F10.929 - ALCOHOL USE, UNSPECIFIED WITH INTOXICATION, UNSPECIFIED (2) Cardiac arrest Code(s): I46.9 - CARDIAC ARREST, CAUSE UNSPECIFIED (3) Seizure Code(s): R56.9 - UNSPECIFIED CONVULSIONS (4) Transaminitis Code(s): R74.0 - NONSPEC ELEV OF LEVELS OF TRANSAMNS & LACTIC ACID DEHYDRGNSE (5) Rhabdomyolysis Code(s): M62.82 - RHABDOMYOLYSIS (6) ESTELA (acute kidney injury) Code(s): N17.9 - ACUTE KIDNEY FAILURE, UNSPECIFIED Assessment/Plan Current Medications Generic Name Dose Route Start Last Admin Trade Name Freq PRN Reason Stop Dose Admin Heparin Sodium (Porcine) 5,000 unit 03/31/17 18:00 04/02/17 06:04 Heparin - SQ 5,000 unit TID SEN Administration Midazolam HCl 100 mg/ Sodium 100 mls @ 1 mls/hr 03/30/17 10:30 04/02/17 10:21 Chloride IVPB 10 mls/hr TITR SEN Administration Protocol 1 MG/HR Dextrose 1,000 mls @ 100 mls/hr 03/30/17 12:00 04/02/17 11:16 D10w - IV Not Given ASDIR SEN Dopamine HCl/Dextrose 250 mls @ 11.056 mls/hr 03/30/17 13:15 04/02/17 06:54 Dopamine 400 Mg/D5w - IVPB 5 mcg/kg/min TITR SEN Titration Protocol 5 MCG/KG/MIN Propofol 100 mls @ 1.932 mls/hr 03/30/17 18:00 04/02/17 12:14 Diprivan - IVPB 19.3 mls/hr TITR SEN Administration Protocol 5 MCG/KG/MIN Dextrose/Sodium Chloride 1,000 mls @ 125 mls/hr 03/31/17 09:15 04/02/17 09:15 D5-Ns - IV Not Given ASDIR SEN Clindamycin Phosphate 50 mls @ 100 mls/hr 04/01/17 18:00 04/02/17 09:04 Cleocin 600 Mg Premix Ivpb - IVPB 100 mls/hr Q8H-IV SEN Administration Ceftriaxone Sodium 2 gm/ 100 mls @ 2,000 mls/hr 04/01/17 13:00 04/02/17 09:12 Dextrose IVPB 2,000 mls/hr DAILY [facility]EN Administration Norepinephrine Bitartrate 16, 1,016 mls @ 19.05 mls/hr 04/02/17 12:45 000 mcg/ Dextrose IV TITR SEN Protocol 5 MCG/MIN Lorazepam 2 mg 03/30/17 13:03 04/02/17 12:17 Ativan Injection - IVPUSH 2 mg Q4H PRN Administration ANXIETY Morphine Sulfate 2 mg 03/30/17 12:56 Morphine Sulfate IVPUSH Q4H PRN PAIN Ondansetron HCl 4 mg 03/30/17 12:56 Zofran Injection IVPUSH Q6H PRN NAUSEA Pantoprazole Sodium 40 mg 03/30/17 13:00 04/02/17 09:14 Protonix Iv IVPUSH 40 mg DAILY SEN Administration Phenytoin Sodium 200 mg 04/01/17 16:15 04/02/17 09:07 Dilantin Injection - IVPB 200 mg Q8H-IV SEN Administration Thiamine HCl 200 mg 04/01/17 22:00 04/02/17 06:04 Vitamin B1 Injection - IVPB 200 mg TID SEN Administration Impression 1. cardiac arrest 2. respiratory failure 3. ESTELA 4. hyperkalemia 5. multi-drug abuse 6. rhabdo 7. seizure Plan - renal function is worse and urine output is decreasing - neurology input appreciated - discussed case with all family members at length - family will discuss GOC with ICU team - replace lytes - pressors for a map of 65 - likely atn from prolonged hypotension during arrest - spoke to pts she says he was pulseless for at least 15 min after she found him - monitor cpk level - vent support - monitor bp closely - will follow Dr Solis
[2017-04-02] MEDS: DEXTROSE 5% IV SCH (13:13)
[2017-04-02] MEDS: WATER IV SCH (13:13)
[2017-04-02] MEDS: NOREPINEPHRINE BITARTRATE IV SCH (13:13)
--- NOTE | 2017-04-02 13:54 | PN ---
Physical Exam: SUBJECTIVE: Patient seen and examined OBJECTIVE: Vital Signs Period Temp Pulse Resp BP Sys/[place] Pulse Ox Last 24 Hr 97.7 F-99.1 F 81-105 28-30 80-154/40-88 90-100 GENERAL: The patient is awake, alert, and fully oriented, in no acute distress. HEAD: Normal with no signs of trauma. EYES: PERRL, extraocular movements intact, sclera anicteric, conjunctiva clear. No ptosis. ENT: Ears normal, nares patent, oropharynx clear without exudates, moist mucous membranes. NECK: Trachea midline, full range of motion, supple. LUNGS: Breath sounds equal, clear to auscultation bilaterally, no wheezes, no crackles, no accessory muscle use. HEART: Regular rate and rhythm, S1, S2 without murmur, rub or gallop. ABDOMEN: Soft, nontender, nondistended, normoactive bowel sounds, no guarding, no rebound, no hepatosplenomegaly, no masses. EXTREMITIES: 2+ pulses, warm, well-perfused, no edema. NEUROLOGICAL: Cranial nerves II through XII grossly intact. Normal speech, gait not observed. PSYCH: Normal mood, normal affect. SKIN: Warm, dry, normal turgor, no rashes or lesions noted Laboratory Results - last 24 hr 04/01/17 04/01/17 04/01/17 13:00 13:00 17:00 WBC RBC Hgb Hct MCV MCH MCHC RDW Plt Count MPV Neutrophils % Lymphocytes % Monocytes % Eosinophils % Basophils % Sodium Potassium Chloride Carbon Dioxide Anion Gap BUN Creatinine Creat Clearance w eGFR Random Glucose Calcium Magnesium Total Bilirubin AST ALT Alkaline Phosphatase Ammonia Creatine Kinase 7386 H Creatine Kinase Index 0.7 CK-MB (CK-2) 55.730 H Total Protein Albumin Phenytoin 12.0 Hepatitis C Antibody 0.1 04/01/17 04/02/17 04/02/17 17:00 05:50 05:50 WBC 12.0 H RBC 3.88 L Hgb 11.2 L Hct 33.0 L MCV 85.1 MCH 28.8 MCHC 33.9 RDW 15.5 Plt Count 76 L D MPV 10.0 Neutrophils % 84.2 H Lymphocytes % 6.7 L D Monocytes % 7.4 Eosinophils % 1.0 D Basophils % 0.7 Sodium 142 140 Potassium 4.5 4.5 Chloride 113 H 112 H Carbon Dioxide 16 L 15 L Anion Gap 13 13 BUN 35 H D 40 H Creatinine 6.2 H 6.9 H Creat Clearance w eGFR 10.48 Random Glucose 151 H D 166 H Calcium 6.7 L* 6.7 L* Magnesium 1.5 L 1.5 L Total Bilirubin 0.9 D AST 2965 H ALT 2273 H D Alkaline Phosphatase 44 L D Ammonia Creatine Kinase Creatine Kinase Index CK-MB (CK-2) Total Protein 4.9 L Albumin 2.1 L Phenytoin Hepatitis C Antibody 04/02/17 04/02/17 05:50 05:50 WBC RBC Hgb Hct MCV MCH MCHC RDW Plt Count MPV Neutrophils % Lymphocytes % Monocytes % Eosinophils % Basophils % Sodium Potassium Chloride Carbon Dioxide Anion Gap BUN Creatinine Creat Clearance w eGFR Random Glucose Calcium Magnesium Total Bilirubin AST ALT Alkaline Phosphatase Ammonia 30.85 Creatine Kinase Creatine Kinase Index CK-MB (CK-2) Total Protein Albumin Phenytoin 14.6 D Hepatitis C Antibody Active Medications Generic Name Dose Route Start Last Admin Trade Name Freq PRN Reason Stop Dose Admin Heparin Sodium (Porcine) 5,000 unit 03/31/17 18:00 04/02/17 06:04 Heparin - SQ 5,000 unit TID SEN Administration Midazolam HCl 100 mg/ Sodium 100 mls @ 1 mls/hr 03/30/17 10:30 04/02/17 10:21 Chloride IVPB 10 mls/hr TITR SEN Administration Protocol 1 MG/HR Dopamine HCl/Dextrose 250 mls @ 11.056 mls/hr 03/30/17 13:15 04/02/17 06:54 Dopamine 400 Mg/D5w - IVPB 5 mcg/kg/min TITR SEN Titration Protocol 5 MCG/KG/MIN Propofol 100 mls @ 1.932 mls/hr 03/30/17 18:00 04/02/17 12:14 Diprivan - IVPB 19.3 mls/hr TITR SEN Administration Protocol 5 MCG/KG/MIN Dextrose/Sodium Chloride 1,000 mls @ 125 mls/hr 03/31/17 09:15 04/02/17 09:15 D5-Ns - IV Not Given ASDIR SEN Clindamycin Phosphate 50 mls @ 100 mls/hr 04/01/17 18:00 04/02/17 09:04 Cleocin 600 Mg Premix Ivpb - IVPB 100 mls/hr Q8H-IV SEN Administration Ceftriaxone Sodium 2 gm/ 100 mls @ 2,000 mls/hr 04/01/17 13:00 04/02/17 09:12 Dextrose IVPB 2,000 mls/hr DAILY [facility] Administration Norepinephrine Bitartrate 16, 1,016 mls @ 19.05 mls/hr 04/02/17 12:45 04/02/17 13:13 000 mcg/ Dextrose IV 26.67 mls/hr TITR SEN Administration Protocol 5 MCG/MIN Dextrose/Sodium Chloride 1,000 mls @ 125 mls/hr 04/02/17 14:00 D5-Ns - IV ASDIR SEN Levetiracetam 500 mg 04/02/17 13:45 Keppra Injection - IVPB BID SEN Lorazepam 2 mg 03/30/17 13:03 04/02/17 12:17 Ativan Injection - IVPUSH 2 mg Q4H PRN Administration ANXIETY Morphine Sulfate 2 mg 03/30/17 12:56 Morphine Sulfate IVPUSH Q4H PRN PAIN Ondansetron HCl 4 mg 03/30/17 12:56 Zofran Injection IVPUSH Q6H PRN NAUSEA Pantoprazole Sodium 40 mg 03/30/17 13:00 04/02/17 09:14 Protonix Iv IVPUSH 40 mg DAILY SEN Administration Phenytoin Sodium 200 mg 04/01/17 16:15 04/02/17 09:07 Dilantin Injection - IVPB 200 mg Q8H-IV SEN Administration Thiamine HCl 200 mg 04/01/17 22:00 04/02/17 06:04 Vitamin B1 Injection - IVPB 200 mg TID SEN Administration ASSESSMENT/PLAN: 1. cardiac arrest 2. respiratory failure 3. ESTELA 4. hyperkalemia 5. multi-drug abuse 6. rhabdo 7. seizure Plan - renal function is worse and urine output is decreasing - discussed case with all family members at length - replace lytes - on pressors keep map> 65 - monittor vitals - monitor intake output - on ventilator support fio2 65, RR decreased to 20 - on proppofol, midazolam drip. - on phenyoin for seizure - started on keppra, as patient still have myoclonus. - on heparin sq tid -Family at bed side, patinet condition discussed, they agreed for DNR initially but later on they said they need time to think. Visit type - Emergency Visit Emergency Visit: Yes ED Registration Date: 03/30/17 Care time: The patient presented to the Emergency Department on the above date and was hospitalized for further evaluation of their emergent condition. - New Patient This patient is new to me today: Yes Date on this admission: 04/02/17 - Critical Care Critical Care patient: Yes Total Critical Care Time (in minutes): 45 Critical Care Statement: The care of this patient involved high complexity decision making to prevent further life threatening deterioration of the patient 's condition and/or to evaluate & treat vital organ system(s) failure or risk of failure.
[2017-04-02] MEDS ORDERED: levETIRAcetam 500 MG/5 ML INJECTION VIAL IVPB ONE (14:00)
[2017-04-02] MEDS: levETIRAcetam 500 MG/5 ML INJECTION VIAL IVPB SCH ×2 (14:16→20:59)
[2017-04-02] MEDS: DOPAMINE 400 MG/D5W - 250 ML IVPB SCH ×2 (14:16→18:04)
--- NOTE | 2017-04-02 14:54 | PN ---
GI Progress Note Subjective: No acute events overnight per nursing Remains intubated on vent - Objective Vital Signs: Vital Signs Temperature 98.9 F 04/02/17 12:00 Pulse Rate 86 04/02/17 13:13 Respiratory Rate 28 H 04/02/17 14:25 Blood Pressure 88/53 04/02/17 13:13 O2 Sat by Pulse Oximetry (%) 100 04/02/17 09:00 Constitutional: Calm Eyes: No: Sclera Icterus Cardiovascular: Yes: Regular Rate and Rhythm. No: Murmur Respiratory: Yes: Diminished (at bases b/l) Gastrointestinal Inspection: No: Scars ...Auscultate: Yes: Normoactive Bowel Sounds ...Palpate: No: Hepatomegaly, Splenomegaly, Tenderness Labs: CBC, BMP 04/02/17 05:50 04/02/17 05:50 INR, PTT INR 1.80 (0.82-1.09) H D 03/30/17 17:45 Laboratory Tests 04/01/17 13:00 Creatine Kinase 7386 H - ....Imaging Ultrasound: Report Reviewed (Ascites, fatty infiltration of liver,patent portal vein, echogenic right kidney) Problem List - Problems (1) Transaminitis Assessment/Plan: Continued improving trend Suspect multifactorial: ischemic hepatopathy compounded by rhabdo Continue supportive measures Eval of rhabdo per PMD/Renal Avoid hepatotoxic agents Code(s): R74.0 - NONSPEC ELEV OF LEVELS OF TRANSAMNS & LACTIC ACID DEHYDRGNSE
--- NOTE | 2017-04-02 15:07 | PN ---
Teaching Attending Note Name of Resident: Bryce Rodas ATTENDING PHYSICIAN STATEMENT I saw and evaluated the patient. I reviewed the resident's note and discussed the case with the resident. I agree with the resident's findings and plan as documented. SUBJECTIVE: Pt seen and examined in the ICU. Remains intubated, sedated with seizure like activity. On levophed and dopamine gtts. OBJECTIVE: Last Vital Signs Temp Pulse Resp BP Pulse Ox 98.3 F 88 18 93/51 100 04/02/17 14:51 04/02/17 14:51 04/02/17 14:51 04/02/17 14:51 04/02/17 09:00 Intake & Output 03/30/17 03/31/17 04/01/17 04/02/17 23:59 23:59 23:59 23:59 Intake Total 50 3607.4 4335.7 4330 Output Total 2000 1000 300 500 Balance -1950 2607.4 4035.7 3830 Weight 141 lb 15.643 oz 146 lb 6.191 oz 155 lb 13.869 oz Gen: intubated, sedated Heart: RRR Lung: decreased breath sounds at the bases Abd: soft, nontender Ext: trace UE edema CBC, BMP 04/02/17 05:50 04/02/17 05:50 Active Medications Heparin Sodium (Porcine) (Heparin -) 5,000 unit SQ TID SEN Last Admin: 04/02/17 14:31 Dose: 5,000 unit Midazolam HCl 100 mg/ Sodium (Chloride) 100 mls @ 1 mls/hr IVPB TITR SEN; 1 MG/ HR PRN Reason: Protocol Last Admin: 04/02/17 10:21 Dose: 10 mls/hr Dopamine HCl/Dextrose (Dopamine 400 Mg/D5w -) 250 mls @ 11.056 mls/hr IVPB TITR SEN; 5 MCG/KG/MIN PRN Reason: Protocol Last Admin: 04/02/17 14:16 Dose: Not Given Propofol (Diprivan -) 100 mls @ 1.932 mls/hr IVPB TITR SEN; 5 MCG/KG/MIN PRN Reason: Protocol Last Admin: 04/02/17 12:14 Dose: 19.3 mls/hr Dextrose/Sodium Chloride (D5-Ns -) 1,000 mls @ 125 mls/hr IV ASDIR S[facility] Last Admin: 04/02/17 14:19 Dose: 125 mls/hr Clindamycin Phosphate (Cleocin 600 Mg Premix Ivpb -) 50 mls @ 100 mls/hr IVPB Q8H-IV [facility] Last Admin: 04/02/17 09:04 Dose: 100 mls/hr Ceftriaxone Sodium 2 gm/ (Dextrose) 100 mls @ 2,000 mls/hr IVPB DAILY [facility] Last Admin: 04/02/17 09:12 Dose: 2,000 mls/hr Norepinephrine Bitartrate 16, (000 mcg/ Dextrose) 1,016 mls @ 19.05 mls/hr IV TITR SEN; 5 MCG/MIN PRN Reason: Protocol Last Admin: 04/02/17 13:13 Dose: 26.67 mls/hr Dextrose/Sodium Chloride (D5-Ns -) 1,000 mls @ 125 mls/hr IV ASDIR [facility] Last Admin: 04/02/17 14:32 Dose: Not Given Levetiracetam (Keppra Injection -) 500 mg IVPB BID [facility] Last Admin: 04/02/17 14:16 Dose: 500 mg Lorazepam (Ativan Injection -) 2 mg IVPUSH Q4H PRN PRN Reason: ANXIETY Last Admin: 04/02/17 12:17 Dose: 2 mg Morphine Sulfate (Morphine Sulfate) 2 mg IVPUSH Q4H PRN PRN Reason: PAIN Ondansetron HCl (Zofran Injection) 4 mg IVPUSH Q6H PRN PRN Reason: NAUSEA Pantoprazole Sodium (Protonix Iv) 40 mg IVPUSH DAILY [facility] Last Admin: 04/02/17 09:14 Dose: 40 mg Phenytoin Sodium (Dilantin Injection -) 200 mg IVPB Q8H-IV [facility] Last Admin: 04/02/17 09:07 Dose: 200 mg Thiamine HCl (Vitamin B1 Injection -) 200 mg IVPB TID [facility] Last Admin: 04/02/17 14:28 Dose: 200 mg ASSESSMENT AND PLAN: s/p Cardiopulmonary Arrest Pneumonia Septic Shock Multiorgan Failure Acute Kidney Injury Elevated LFTs likely ischemic injury +Troponins Rhabdomyolysis Seizures Likely Anoxic Encephalopathy - continue antibiotics - continue dilantin, versed gtt - add keppra - EEG - IVF to keep CVP 8-12 - titrate pressors to maintain MAP >65 - monitor urine output, creatinine - monitor ABG - enteral feeds - not a candidate for weaning at this time - DVT/GI prophylaxis - discussed at length with multiple family members condition and poor prognosis for meaningful recovery, they understand and are leaning towards DNR and compassionate extubation but were not ready to sign today - continue ICU monitoring critical care time spent in reviewing chart, evaluating plan and formulating plan 45 min
--- NOTE | 2017-04-02 17:37 | PN ---
Progress Note (short form) - Note Progress Note: NEUROLOGY FOLLOW-UP: Patient examined and discussed with RN,mother, father and this morning. No seizures noted overnight after additional 500 PE of fosphenytoin given. No change in versed dose (10 mg/hr). Dilantin level this morning is 14.6 mg %. Hepatocellular function improving slightly but renal function continues to worsen. Hypocalcemia and hypomagnesemia again noted. Ammonia 30 mg%. Dropping platelet count and coagulopathy noted. EXAM: No response to pain. rare, stertorous, diaphragmatic contractions. Pupils 5 mm unreactive to light. Absent corneals. No EOM's to Doll's head Flaccid, areflexic, tetraplegia IMP: Seizures under better control, but the exam has deteriorated with loss of previously present brainstem functions (without increased sedation). SUGGEST: Continue cerebyx 200 PE q 12 hrs. Follow dilantin level if seizures recur. Correct Ca++ and Mg++ if necessary. CT of head (C-) if desired. Deterioration in neuro status (and hence, prognosis) was explained to his family. Thank you very much, Elmo Vogel MD
[2017-04-02] MEDS ORDERED: NOREPINEPHRINE BITARTRATE 4 MG/4 ML ML IV ONE (23:59)
[2017-04-03] MEDS: PHENYTOIN SODIUM 100 MG/2 ML VIAL IVPB SCH ×3 (02:15→18:01)
[2017-04-03] MEDS: CLINDAMYCIN 600MG PREMIX IVPB 50 ML IVPB SCH ×3 (02:30→18:01)
[2017-04-03] MEDS: HEPARIN NA (PORCINE) 5,000 UNITS/ML 1ML VIAL SQ SCH ×3 (06:42→21:55)
[2017-04-03] MEDS: THIAMINE HCL 200 MG/2 ML VIAL IVPB SCH ×3 (06:43→21:55)
[2017-04-03 07:10] LABS: BASOPHIL 0.7 % (0-2.0); EOSINOPHIL 2.1 % (0-4.5); MCH 28.1 pg (25.7-33.7); MEAN CELL VOLUME 85.1 fl (80-96); MEAN PLT VOLUME 9.7 fl (7.5-11.1); NEUTROPHILS 77.4 % (42.8-82.8); PLATELET COUNT 70 K/MM3 (134-434); RDW 15.4 % (11.9-15.9); WHITE BLOOD COUNT 12.2 K/mm3 (4.0-10.0)
--- NOTE | 2017-04-03 07:29 | PN ---
Progress Note, Physician Chief Complaint: ID Remains unresponsive including pain stimuli Clindamycin and Ceftriaxone day 5 after arrest Temps low grade only for first time - Current Medication List Current Medications: Active Medications Heparin Sodium (Porcine) (Heparin -) 5,000 unit SQ TID [facility] Last Admin: 04/03/17 06:42 Dose: 5,000 unit Midazolam HCl 100 mg/ Sodium (Chloride) 100 mls @ 1 mls/hr IVPB TITR SEN; 1 MG/ HR PRN Reason: Protocol Last Admin: 04/02/17 10:21 Dose: 10 mls/hr Dopamine HCl/Dextrose (Dopamine 400 Mg/D5w -) 250 mls @ 11.056 mls/hr IVPB TITR SEN; 5 MCG/KG/MIN PRN Reason: Protocol Last Admin: 04/02/17 18:04 Dose: 11.056 mls/hr Propofol (Diprivan -) 100 mls @ 1.932 mls/hr IVPB TITR SEN; 5 MCG/KG/MIN PRN Reason: Protocol Last Admin: 04/02/17 18:03 Dose: Not Given Dextrose/Sodium Chloride (D5-Ns -) 1,000 mls @ 125 mls/hr IV ASDIR [facility] Last Admin: 04/02/17 14:19 Dose: 125 mls/hr Clindamycin Phosphate (Cleocin 600 Mg Premix Ivpb -) 50 mls @ 100 mls/hr IVPB Q8H-IV [facility] Last Admin: 04/03/17 02:30 Dose: 100 mls/hr Ceftriaxone Sodium 2 gm/ (Dextrose) 100 mls @ 2,000 mls/hr IVPB DAILY [facility] Last Admin: 04/02/17 09:12 Dose: 2,000 mls/hr Norepinephrine Bitartrate 16, (000 mcg/ Dextrose) 1,016 mls @ 19.05 mls/hr IV TITR SEN; 5 MCG/MIN PRN Reason: Protocol Last Titration: 04/02/17 20:59 Dose: 10 mcg/min Dextrose/Sodium Chloride (D5-Ns -) 1,000 mls @ 125 mls/hr IV ASDIR [facility] Last Admin: 04/02/17 14:32 Dose: Not Given Levetiracetam (Keppra Injection -) 500 mg IVPB BID [facility] Last Admin: 04/02/17 20:59 Dose: 500 mg Lorazepam (Ativan Injection -) 2 mg IVPUSH Q4H PRN PRN Reason: ANXIETY Last Admin: 04/02/17 12:17 Dose: 2 mg Morphine Sulfate (Morphine Sulfate) 2 mg IVPUSH Q4H PRN PRN Reason: PAIN Ondansetron HCl (Zofran Injection) 4 mg IVPUSH Q6H PRN PRN Reason: NAUSEA Pantoprazole Sodium (Protonix Iv) 40 mg IVPUSH DAILY [facility] Last Admin: 04/02/17 09:14 Dose: 40 mg Phenytoin Sodium (Dilantin Injection -) 200 mg IVPB Q8H-IV [facility] Last Admin: 04/03/17 02:15 Dose: 200 mg Thiamine HCl (Vitamin B1 Injection -) 200 mg IVPB TID [facility] Last Admin: 04/03/17 06:43 Dose: 200 mg - Objective Vital Signs: Vital Signs Temperature 99.7 F H 04/03/17 06:00 Pulse Rate 88 04/03/17 06:00 Respiratory Rate 22 04/03/17 06:00 Blood Pressure 103/55 04/03/17 06:00 O2 Sat by Pulse Oximetry (%) 100 04/02/17 19:50 Constitutional: Yes: Other (INtubated) Cardiovascular: Yes: Regular Rate and Rhythm, S1, S2 Respiratory: Yes: WNL, Regular, CTA Bilaterally Gastrointestinal: Yes: Soft. No: Tenderness Extremities: No: Cold, Cool, Cyanosis Edema: No Labs: CBC, BMP 04/03/17 05:30 INR, PTT INR 1.80 (0.82-1.09) H D 03/30/17 17:45 Problem List - Problems (1) Alcohol intoxication Code(s): F10.929 - ALCOHOL USE, UNSPECIFIED WITH INTOXICATION, UNSPECIFIED (2) Cardiac arrest Code(s): I46.9 - CARDIAC ARREST, CAUSE UNSPECIFIED (3) Sepsis Code(s): A41.9 - SEPSIS, UNSPECIFIED ORGANISM Qualifiers: Sepsis type: sepsis due to unspecified organism Qualified Code(s): A41.9 - Sepsis, unspecified organism; A41.9 - Sepsis, unspecified organism; A41.9 - Sepsis, unspecified organism Assessment/Plan Microbiology 03/30/17 18:56 Stool Clostridium difficile Antigen (CINDY) - Final 03/30/17 18:56 Stool Clostridium difficile Toxin Assay - Final 03/30/17 16:30 Sputum - Endotrachea Suction/Ventilator Gram Stain - Final 03/30/17 16:30 Sputum - Endotrachea Suction/Ventilator Sputum Culture - Final NORMAL RESPIRATORY BRUCE 03/30/17 10:30 Urine - Urine - Catheterized Urine Culture - Final NO GROWTH OBTAINED 03/31/17 16:16 Blood - Peripheral Venous Blood Culture - Preliminary NO GROWTH OBTAINED AFTER 48 HOURS, INCUBATION TO CONTINUE FOR 3 DAYS. 03/31/17 16:16 Blood - Peripheral Venous Blood Culture - Preliminary NO GROWTH OBTAINED AFTER 48 HOURS, INCUBATION TO CONTINUE FOR 3 DAYS. 03/30/17 09:30 Blood - Peripheral Venous Blood Culture - Preliminary Staphylococcus Coagulase Neg 03/30/17 09:30 Blood - Peripheral Venous Blood Culture - Preliminary NO GROWTH OBTAINED AFTER 72 HOURS, INCUBATION TO CONTINUE FOR 2 DAYS. Laboratory Tests 03/30/17 03/30/17 04/01/17 11:58 17:45 17:00 WBC Plt Count INR 1.80 H D BUN Creatinine AST 2965 H ALT 2273 H D Alkaline Phosphatase 44 L D Alcohol, Quantitative 193.0 H* 04/02/17 04/03/17 05:50 05:30 WBC 12.2 H Plt Count 70 L INR BUN 40 H Creatinine 6.9 H AST ALT Alkaline Phosphatase Alcohol, Quantitative Assessment Cardiopulmonary arrest Coma with loss brain stem function per neurology Multiorgan failure Alcohol abuse overdose Plan See no indication for antibiotic at this time based on chest xray and culstures End of life decisions re family to follow for this obviously tragic circumstance Roland MEDRANO
[2017-04-03 07:33] LABS: ARTERIAL BLOOD GAS PO2 80.1 mmHg (80-100)
[2017-04-03 07:34] LABS: ALLENS TEST POSITIVE; ART PUNCT SITE RIGHT RADIAL
[2017-04-03 07:35] LABS: LPM/O2% 60; MECH. VENT. YES; PT. ON O2? YES; TYPE OF O2 VENT
[2017-04-03 07:36] LABS: VENT RATE 20; VT/PRESS 550
[2017-04-03 07:38] LABS: ARTERIAL BLOOD GAS BASE EXCESS -13.2 meq/l (-2-2); ARTERIAL BLOOD GAS pH 7.23 (7.35-7.45)
[2017-04-03 07:39] LABS: ARTERIAL BLOOD GAS HCO3 13.1 meq/L (22-26)
[2017-04-03 07:49] LABS: ALBUMIN 1.8 g/dl (3.4-5.0); ANION GAP 13 (8-16); CO2 16 mmol/L (21-32); GLUCOSE,RANDOM 161 mg/dL (74-106)
[2017-04-03 07:57] LABS: ALK PHOS 35 U/L (45-117); BILIRUBIN,TOTAL 1.1 mg/dL (0.2-1.0); TOT PROT 4.6 g/dl (6.4-8.2)
[2017-04-03] MEDS: DEXTROSE 5%-NORMAL SALINE 1,000 ML IV SCH (08:12)
[2017-04-03 08:18] LABS: SGOT/AST 858 U/L (15-37); SGPT/ALT 1274 U/L (12-78)
[2017-04-03] MEDS ORDERED: BENZOIN/ALOE VERA/STORAX/TOLU 58 ML BOTTLE ONE (08:47)
[2017-04-03 08:53] LABS: CALCIUM 6.5 mg/dL (8.5-10.1)
[2017-04-03] MEDS ORDERED: PT OWN MED DRAWER 7, Y5N ONE (09:34)
[2017-04-03] MEDS: CEFTRIAXONE 2 GM in DEXTROSE 5%-WATER - 100 ML IVPB SCH (09:36)
[2017-04-03] MEDS: levETIRAcetam 500 MG/5 ML INJECTION VIAL IVPB SCH ×2 (09:37→21:55)
[2017-04-03] MEDS: PANTOPRAZOLE SODIUM 40 MG VIAL IVPUSH SCH (09:40)
--- NOTE | 2017-04-03 11:20 | PN ---
Teaching Attending Note Name of Resident: Bryce Rodas ATTENDING PHYSICIAN STATEMENT I saw and evaluated the patient. I reviewed the resident's note and discussed the case with the resident. I agree with the resident's findings and plan as documented. SUBJECTIVE: Patient seen and examined in the ICU. Remains intubated. Worsening of Neuro status. Escalating doses of NE for hemodynamic support (currently on 10 meq). AC Mode of vent. Intake & Output 03/31/17 04/01/17 04/02/17 04/03/17 23:59 23:59 23:59 23:59 Intake Total 3607.4 4335.7 7004 3012 Output Total 1000 300 700 100 Balance 2607.4 4035.7 6304 2912 Weight 146 lb 6.191 oz 155 lb 13.869 oz 163 lb 12.855 oz Last Vital Signs Temp Pulse Resp BP Pulse Ox 99.7 F H 85 20 112/63 100 04/03/17 10:00 04/03/17 10:00 04/03/17 10:00 04/03/17 10:00 04/02/17 19:50 Active Medications Heparin Sodium (Porcine) (Heparin -) 5,000 unit SQ TID [facility] Last Admin: 04/03/17 06:42 Dose: 5,000 unit Midazolam HCl 100 mg/ Sodium (Chloride) 100 mls @ 1 mls/hr IVPB TITR SEN; 1 MG/ HR PRN Reason: Protocol Last Admin: 04/02/17 10:21 Dose: 10 mls/hr Dopamine HCl/Dextrose (Dopamine 400 Mg/D5w -) 250 mls @ 11.056 mls/hr IVPB TITR [facility]EN; 5 MCG/KG/MIN PRN Reason: Protocol Last Admin: 04/02/17 18:04 Dose: 11.056 mls/hr Propofol (Diprivan -) 100 mls @ 1.932 mls/hr IVPB TITR S[facility]; 5 MCG/KG/MIN PRN Reason: Protocol Last Admin: 04/02/17 18:03 Dose: Not Given Clindamycin Phosphate (Cleocin 600 Mg Premix Ivpb -) 50 mls @ 100 mls/hr IVPB Q8H-IV [facility] Last Admin: 04/03/17 09:36 Dose: 100 mls/hr Ceftriaxone Sodium 2 gm/ (Dextrose) 100 mls @ 2,000 mls/hr IVPB DAILY [facility] Last Admin: 04/03/17 09:36 Dose: 2,000 mls/hr Norepinephrine Bitartrate 16, (000 mcg/ Dextrose) 1,016 mls @ 19.05 mls/hr IV TITR SEN; 5 MCG/MIN PRN Reason: Protocol Last Titration: 04/03/17 09:13 Dose: 8 mcg/min Dextrose/Sodium Chloride (D5-Ns -) 1,000 mls @ 125 mls/hr IV ASDIR [facility] Last Admin: 04/03/17 08:12 Dose: 125 mls/hr Levetiracetam (Keppra Injection -) 500 mg IVPB BID [facility] Last Admin: 04/03/17 09:37 Dose: 500 mg Lorazepam (Ativan Injection -) 2 mg IVPUSH Q4H PRN PRN Reason: ANXIETY Last Admin: 04/02/17 12:17 Dose: 2 mg Morphine Sulfate (Morphine Sulfate) 2 mg IVPUSH Q4H PRN PRN Reason: PAIN Ondansetron HCl (Zofran Injection) 4 mg IVPUSH Q6H PRN PRN Reason: NAUSEA Pantoprazole Sodium (Protonix Iv) 40 mg IVPUSH DAILY [facility] Last Admin: 04/03/17 09:40 Dose: 40 mg Phenytoin Sodium (Dilantin Injection -) 200 mg IVPB Q8H-IV [facility] Last Admin: 04/03/17 09:48 Dose: 200 mg Thiamine HCl (Vitamin B1 Injection -) 200 mg IVPB TID [facility] Last Admin: 04/03/17 06:43 Dose: 200 mg Gen: intubated, sedated Heart: RRR Lung: decreased breath sounds at the bases Abd: soft, nontender Ext: trace UE edema Laboratory Results - last 24 hr 04/02/17 04/03/17 04/03/17 05:50 05:30 05:30 WBC 12.2 H RBC 3.51 L Hgb 9.9 L D Hct 29.9 L MCV 85.1 MCH 28.1 MCHC 33.0 RDW 15.4 Plt Count 70 L MPV 9.7 Neutrophils % 77.4 Lymphocytes % 7.4 L Monocytes % 12.4 H Eosinophils % 2.1 D Basophils % 0.7 Puncture Site ABG pH ABG pCO2 at Pt Temp ABG pO2 at Pt Temp ABG HCO3 ABG O2 Sat (Measured) ABG O2 Content ABG Base Excess Phillip Test O2 Delivery Device Oxygen Flow Rate Vent Mode Vent Rate Mechanical Rate PEEP Pressure Support Vent Sodium 139 Potassium 4.8 Chloride 110 H Carbon Dioxide 16 L Anion Gap 13 BUN 48 H Creatinine 8.0 H* Creat Clearance w eGFR 7.81 Random Glucose 161 H Calcium 6.5 L* Total Bilirubin 1.1 H D AST 858 H D ALT 1274 H D Alkaline Phosphatase 35 L D Total Protein 4.6 L Albumin 1.8 L Hepatitis A Ab Total Negative Hep Bs Antigen Negative Hep Bs Antibody Reactive Hep B Core Total Ab Negative 04/03/17 07:22 WBC RBC Hgb Hct MCV MCH MCHC RDW Plt Count MPV Neutrophils % Lymphocytes % Monocytes % Eosinophils % Basophils % Puncture Site Right radial ABG pH 7.23 L* D ABG pCO2 at Pt Temp 32.9 L D ABG pO2 at Pt Temp 80.1 D ABG HCO3 13.1 L* ABG O2 Sat (Measured) 95.0 ABG O2 Content 13.3 L ABG Base Excess -13.2 L* Phillip Test Positive O2 Delivery Device Vent Oxygen Flow Rate 60 Vent Mode A/c Vent Rate 20 Mechanical Rate Yes PEEP 7.0 Pressure Support Vent 550 Sodium Potassium Chloride Carbon Dioxide Anion Gap BUN Creatinine Creat Clearance w eGFR Random Glucose Calcium Total Bilirubin AST ALT Alkaline Phosphatase Total Protein Albumin Hepatitis A Ab Total Hep Bs Antigen Hep Bs Antibody Hep B Core Total Ab ASSESSMENT AND PLAN: S/P Prolonged Cardiopulmonary Arrest Anoxic Brain Injury Pneumonia Septic Shock Multiorgan Failure Acute Kidney Injury Elevated LFTs likely ischemic injury +Troponins Rhabdomyolysis Seizures Likely Anoxic Encephalopathy - ABX per ID - continue dilantin, versed gtt - Keppra - EEG - IVF to keep CVP 8-12 - titrate pressors to maintain MAP >65 - monitor urine output, creatinine - enteral feeds - not a candidate for weaning at this time - DVT/GI prophylaxis - continue ICU monitoring Dr Rdz Critical Care Time spent in reviewing chart, evaluating plan and formulating plan 45 min Problem List - Problems (1) Cardiac arrest Code(s): I46.9 - CARDIAC ARREST, CAUSE UNSPECIFIED (2) Alcohol intoxication Code(s): F10.929 - ALCOHOL USE, UNSPECIFIED WITH INTOXICATION, UNSPECIFIED (3) Atelectasis of both lungs Code(s): J98.11 - ATELECTASIS (4) Pneumonitis due to food and vomit Code(s): J69.0 - PNEUMONITIS DUE TO INHALATION OF FOOD AND VOMIT (5) Seizure Code(s): R56.9 - UNSPECIFIED CONVULSIONS
--- NOTE | 2017-04-03 11:38 | PN ---
Progress Note, Physician Chief Complaint: STILL UNRESPONSIVE CHART AND NOTES REVIEWED INTUBATED FAMILY BEDSIDE - Current Medication List Current Medications: Active Medications Heparin Sodium (Porcine) (Heparin -) 5,000 unit SQ TID [facility] Last Admin: 04/03/17 06:42 Dose: 5,000 unit Midazolam HCl 100 mg/ Sodium (Chloride) 100 mls @ 1 mls/hr IVPB TITR [facility]; 1 MG/ HR PRN Reason: Protocol Last Admin: 04/02/17 10:21 Dose: 10 mls/hr Dopamine HCl/Dextrose (Dopamine 400 Mg/D5w -) 250 mls @ 11.056 mls/hr IVPB TITR [facility]; 5 MCG/KG/MIN PRN Reason: Protocol Last Admin: 04/02/17 18:04 Dose: 11.056 mls/hr Propofol (Diprivan -) 100 mls @ 1.932 mls/hr IVPB TITR [facility]; 5 MCG/KG/MIN PRN Reason: Protocol Last Admin: 04/02/17 18:03 Dose: Not Given Clindamycin Phosphate (Cleocin 600 Mg Premix Ivpb -) 50 mls @ 100 mls/hr IVPB Q8H-IV [facility] Last Admin: 04/03/17 09:36 Dose: 100 mls/hr Ceftriaxone Sodium 2 gm/ (Dextrose) 100 mls @ 2,000 mls/hr IVPB DAILY [facility] Last Admin: 04/03/17 09:36 Dose: 2,000 mls/hr Norepinephrine Bitartrate 16, (000 mcg/ Dextrose) 1,016 mls @ 19.05 mls/hr IV TITR SEN; 5 MCG/MIN PRN Reason: Protocol Last Titration: 04/03/17 09:13 Dose: 8 mcg/min Dextrose/Sodium Chloride (D5-Ns -) 1,000 mls @ 125 mls/hr IV ASDIR [facility] Last Admin: 04/03/17 08:12 Dose: 125 mls/hr Levetiracetam (Keppra Injection -) 500 mg IVPB BID [facility] Last Admin: 04/03/17 09:37 Dose: 500 mg Lorazepam (Ativan Injection -) 2 mg IVPUSH Q4H PRN PRN Reason: ANXIETY Last Admin: 04/02/17 12:17 Dose: 2 mg Morphine Sulfate (Morphine Sulfate) 2 mg IVPUSH Q4H PRN PRN Reason: PAIN Ondansetron HCl (Zofran Injection) 4 mg IVPUSH Q6H PRN PRN Reason: NAUSEA Pantoprazole Sodium (Protonix Iv) 40 mg IVPUSH DAILY [facility] Last Admin: 04/03/17 09:40 Dose: 40 mg Phenytoin Sodium (Dilantin Injection -) 200 mg IVPB Q8H-IV [facility] Last Admin: 04/03/17 09:48 Dose: 200 mg Thiamine HCl (Vitamin B1 Injection -) 200 mg IVPB TID [facility] Last Admin: 04/03/17 06:43 Dose: 200 mg - Objective Vital Signs: Vital Signs Temperature 99.7 F H 04/03/17 10:00 Pulse Rate 85 04/03/17 10:00 Respiratory Rate 20 04/03/17 10:00 Blood Pressure 112/63 04/03/17 10:00 O2 Sat by Pulse Oximetry (%) 100 04/02/17 19:50 Constitutional: Yes: Severe Distress Eyes: Yes: Other Cardiovascular: Yes: Regular Rate and Rhythm Respiratory: Yes: Intubated, Mechanically Ventilated Gastrointestinal: Yes: WNL Genitourinary: Yes: Bhatti Present Musculoskeletal: Yes: Muscle Weakness Extremities: Yes: Other Edema: Yes Peripheral Pulses WNL: Yes Integumentary: Yes: Other Wound/Incision: Yes: Clean/Dry Neurological: Yes: Unresponsive Labs: CBC, BMP 04/03/17 05:30 04/03/17 05:30 INR, PTT INR 1.80 (0.82-1.09) H D 03/30/17 17:45 Problem List - Problems (1) Alcohol intoxication Code(s): F10.929 - ALCOHOL USE, UNSPECIFIED WITH INTOXICATION, UNSPECIFIED (2) Altered mental status Code(s): R41.82 - ALTERED MENTAL STATUS, UNSPECIFIED Qualifiers: Altered mental status type: unspecified Qualified Code(s): R41.82 - Altered mental status, unspecified; R41.82 - Altered mental status, unspecified (3) Cardiac arrest Code(s): I46.9 - CARDIAC ARREST, CAUSE UNSPECIFIED (4) Pneumonitis due to food and vomit Code(s): J69.0 - PNEUMONITIS DUE TO INHALATION OF FOOD AND VOMIT (5) Seizure Code(s): R56.9 - UNSPECIFIED CONVULSIONS (6) Sepsis Code(s): A41.9 - SEPSIS, UNSPECIFIED ORGANISM Qualifiers: Sepsis type: sepsis due to unspecified organism Qualified Code(s): A41.9 - Sepsis, unspecified organism; A41.9 - Sepsis, unspecified organism; A41.9 - Sepsis, unspecified organism (7) Anoxia Code(s): R09.02 - HYPOXEMIA Assessment/Plan ADVANCED DIRECTIVES DISCUSSED WITH SIGNIFICANT OTHER AND MOTHER NEUROLOGY EVAL APPRECIATED FAMILY WAITING ON NEUROLOGY BEFORE MAKING DECISION POOR OVER PROGNOSIS FOR GOOD QUALITY OF LIFE PALLIAITVE CARE CONSULT RESP SUPPORT IV ABX
--- NOTE | 2017-04-03 11:58 | PN ---
Physical Exam: SUBJECTIVE: Patient seen and examined intubated, fio2 60 on presser support NE 10, dopa 5. Urine output 700 OBJECTIVE: Vital Signs Period Temp Pulse Resp BP Sys/Keating Pulse Ox Last 24 Hr 98.2 F-99.8 F 67-88 18-28 87-112/51-64 100 GENERAL: intubated sedated. NECK: et in situ, LUNGS: B/l air entry present, no wheez, no crackels. . HEART: Regular rate and rhythm, S1, S2 normal ABDOMEN: Soft, nontender, nondistended, normoactive bowel sounds, no guarding, EXTREMITIES: no edema. SKIN: Warm, dry, Neurological: unresponsive. Laboratory Results - last 24 hr 04/02/17 04/03/17 04/03/17 05:50 05:30 05:30 WBC 12.2 H RBC 3.51 L Hgb 9.9 L D Hct 29.9 L MCV 85.1 MCH 28.1 MCHC 33.0 RDW 15.4 Plt Count 70 L MPV 9.7 Neutrophils % 77.4 Lymphocytes % 7.4 L Monocytes % 12.4 H Eosinophils % 2.1 D Basophils % 0.7 Puncture Site ABG pH ABG pCO2 at Pt Temp ABG pO2 at Pt Temp ABG HCO3 ABG O2 Sat (Measured) ABG O2 Content ABG Base Excess Phillip Test O2 Delivery Device Oxygen Flow Rate Vent Mode Vent Rate Mechanical Rate PEEP Pressure Support Vent Sodium 139 Potassium 4.8 Chloride 110 H Carbon Dioxide 16 L Anion Gap 13 BUN 48 H Creatinine 8.0 H* Creat Clearance w eGFR 7.81 Random Glucose 161 H Calcium 6.5 L* Total Bilirubin 1.1 H D AST 858 H D ALT 1274 H D Alkaline Phosphatase 35 L D Total Protein 4.6 L Albumin 1.8 L Hepatitis A Ab Total Negative Hep Bs Antigen Negative Hep Bs Antibody Reactive Hep B Core Total Ab Negative 04/03/17 07:22 WBC RBC Hgb Hct MCV MCH MCHC RDW Plt Count MPV Neutrophils % Lymphocytes % Monocytes % Eosinophils % Basophils % Puncture Site Right radial ABG pH 7.23 L* D ABG pCO2 at Pt Temp 32.9 L D ABG pO2 at Pt Temp 80.1 D ABG HCO3 13.1 L* ABG O2 Sat (Measured) 95.0 ABG O2 Content 13.3 L ABG Base Excess -13.2 L* Phillip Test Positive O2 Delivery Device Vent Oxygen Flow Rate 60 Vent Mode A/c Vent Rate 20 Mechanical Rate Yes PEEP 7.0 Pressure Support Vent 550 Sodium Potassium Chloride Carbon Dioxide Anion Gap BUN Creatinine Creat Clearance w eGFR Random Glucose Calcium Total Bilirubin AST ALT Alkaline Phosphatase Total Protein Albumin Hepatitis A Ab Total Hep Bs Antigen Hep Bs Antibody Hep B Core Total Ab Active Medications Generic Name Dose Route Start Last Admin Trade Name Freq PRN Reason Stop Dose Admin Heparin Sodium (Porcine) 5,000 unit 03/31/17 18:00 04/03/17 06:42 Heparin - SQ 5,000 unit TID SEN Administration Midazolam HCl 100 mg/ Sodium 100 mls @ 1 mls/hr 03/30/17 10:30 04/02/17 10:21 Chloride IVPB 10 mls/hr TITR SEN Administration Protocol 1 MG/HR Dopamine HCl/Dextrose 250 mls @ 11.056 mls/hr 03/30/17 13:15 04/02/17 18:04 Dopamine 400 Mg/D5w - IVPB 11.056 mls/hr TITR SEN Administration Protocol 5 MCG/KG/MIN Propofol 100 mls @ 1.932 mls/hr 03/30/17 18:00 04/02/17 18:03 Diprivan - IVPB Not Given TITR SEN Protocol 5 MCG/KG/MIN Clindamycin Phosphate 50 mls @ 100 mls/hr 04/01/17 18:00 04/03/17 09:36 Cleocin 600 Mg Premix Ivpb - IVPB 100 mls/hr Q8H-IV SEN Administration Ceftriaxone Sodium 2 gm/ 100 mls @ 2,000 mls/hr 04/01/17 13:00 04/03/17 09:36 Dextrose IVPB 2,000 mls/hr DAILY SEN Administration Norepinephrine Bitartrate 16, 1,016 mls @ 19.05 mls/hr 04/02/17 12:45 04/03/17 09:13 000 mcg/ Dextrose IV 8 mcg/min TITR SEN Titration Protocol 5 MCG/MIN Dextrose/Sodium Chloride 1,000 mls @ 125 mls/hr 04/02/17 14:00 04/03/17 08:12 D5-Ns - IV 125 mls/hr ASDIR SEN Administration Levetiracetam 500 mg 04/02/17 13:45 04/03/17 09:37 Keppra Injection - IVPB 500 mg BID SEN Administration Lorazepam 2 mg 03/30/17 13:03 04/02/17 12:17 Ativan Injection - IVPUSH 2 mg Q4H PRN Administration ANXIETY Morphine Sulfate 2 mg 03/30/17 12:56 Morphine Sulfate IVPUSH Q4H PRN PAIN Ondansetron HCl 4 mg 03/30/17 12:56 Zofran Injection IVPUSH Q6H PRN NAUSEA Pantoprazole Sodium 40 mg 03/30/17 13:00 04/03/17 09:40 Protonix Iv IVPUSH 40 mg DAILY SEN Administration Phenytoin Sodium 200 mg 04/01/17 16:15 04/03/17 09:48 Dilantin Injection - IVPB 200 mg Q8H-IV SEN Administration Thiamine HCl 200 mg 04/01/17 22:00 04/03/17 06:43 Vitamin B1 Injection - IVPB 200 mg TID SEN Administration ASSESSMENT/PLAN: 1. cardiac arrest 2. respiratory failure 3. ESTELA 4. hyperkalemia 5. multi-drug abuse 6. rhabdo 7. seizure Plan - urine output 700 - replace lytes - on pressors NE 10 and dopa 5 keep map> 65 - monittor vitals - monitor intake output, keep cvp around 10-12 - on ventilator support fio2 60, RR decreased to 20 - on proppofol, midazolam drip. - on phenyoin and keppra for seizure - on heparin sq tid - on thiamine Visit type - Emergency Visit Emergency Visit: Yes ED Registration Date: 03/30/17 Care time: The patient presented to the Emergency Department on the above date and was hospitalized for further evaluation of their emergent condition. - New Patient This patient is new to me today: No - Critical Care Critical Care patient: Yes Total Critical Care Time (in minutes): 45 Critical Care Statement: The care of this patient involved high complexity decision making to prevent further life threatening deterioration of the patient 's condition and/or to evaluate & treat vital organ system(s) failure or risk of failure.
[2017-04-03] MEDS: PROPOFOL 100 ML IVPB SCH ×2 (12:06→17:00)
--- NOTE | 2017-04-03 12:25 | PN ---
Progress Note (short form) - Note Progress Note: NEUROLOGY f/U: Events reviewed and discussed with RN. No seizures noted on DPH 200 mg q 12 hrs Even with decreasing midazolam (now 1 mg/hr). Still on Propofol. LFT's continue to improve as renal function worsens. CK elevated (7386 IU) No spontanous respiration. Pupils sluggishly reactive No corneals N response to pain. IMP: Severe B/L cerebral and brainstem dysfunction. SUGGEST: Continue dilantin 200 q12 hrs. Taper and D/C midazolam and observe. Taper and D/C propofol and observe. Prognosis grave. Thank you very much, Elmo Vogel MD
--- NOTE | 2017-04-03 12:49 | PN ---
Progress Note, Physician History of Present Illness: Pt seen and examined at bedside. He remains in the ICU. He remains on pressors and is intubated. - Current Medication List Current Medications: Active Medications Heparin Sodium (Porcine) (Heparin -) 5,000 unit SQ TID SEN Last Admin: 04/03/17 06:42 Dose: 5,000 unit Midazolam HCl 100 mg/ Sodium (Chloride) 100 mls @ 1 mls/hr IVPB TITR SEN; 1 MG/ HR PRN Reason: Protocol Last Admin: 04/02/17 10:21 Dose: 10 mls/hr Dopamine HCl/Dextrose (Dopamine 400 Mg/D5w -) 250 mls @ 11.056 mls/hr IVPB TITR SEN; 5 MCG/KG/MIN PRN Reason: Protocol Last Admin: 04/02/17 18:04 Dose: 11.056 mls/hr Propofol (Diprivan -) 100 mls @ 1.932 mls/hr IVPB TITR SEN; 5 MCG/KG/MIN PRN Reason: Protocol Last Admin: 04/03/17 12:06 Dose: 19.3 mls/hr Clindamycin Phosphate (Cleocin 600 Mg Premix Ivpb -) 50 mls @ 100 mls/hr IVPB Q8H-IV SEN Last Admin: 04/03/17 09:36 Dose: 100 mls/hr Ceftriaxone Sodium 2 gm/ (Dextrose) 100 mls @ 2,000 mls/hr IVPB DAILY SEN Last Admin: 04/03/17 09:36 Dose: 2,000 mls/hr Norepinephrine Bitartrate 16, (000 mcg/ Dextrose) 1,016 mls @ 19.05 mls/hr IV TITR SEN; 5 MCG/MIN PRN Reason: Protocol Last Titration: 04/03/17 09:13 Dose: 8 mcg/min Dextrose/Sodium Chloride (D5-Ns -) 1,000 mls @ 125 mls/hr IV ASDIR SEN Last Admin: 04/03/17 08:12 Dose: 125 mls/hr Levetiracetam (Keppra Injection -) 500 mg IVPB BID SEN Last Admin: 04/03/17 09:37 Dose: 500 mg Lorazepam (Ativan Injection -) 2 mg IVPUSH Q4H PRN PRN Reason: ANXIETY Last Admin: 04/02/17 12:17 Dose: 2 mg Morphine Sulfate (Morphine Sulfate) 2 mg IVPUSH Q4H PRN PRN Reason: PAIN Ondansetron HCl (Zofran Injection) 4 mg IVPUSH Q6H PRN PRN Reason: NAUSEA Pantoprazole Sodium (Protonix Iv) 40 mg IVPUSH DAILY [facility] Last Admin: 04/03/17 09:40 Dose: 40 mg Phenytoin Sodium (Dilantin Injection -) 200 mg IVPB Q8H-IV [facility] Last Admin: 04/03/17 09:48 Dose: 200 mg Thiamine HCl (Vitamin B1 Injection -) 200 mg IVPB TID [facility] Last Admin: 04/03/17 06:43 Dose: 200 mg - Objective Vital Signs: Vital Signs Temperature 99.5 F 04/03/17 12:00 Pulse Rate 85 04/03/17 12:00 Respiratory Rate 20 04/03/17 12:00 Blood Pressure 106/62 04/03/17 12:00 O2 Sat by Pulse Oximetry (%) 98 04/03/17 10:00 Constitutional: Yes: Calm HENT: Yes: Atraumatic Cardiovascular: Yes: S1, S2 Respiratory: Yes: Mechanically Ventilated Gastrointestinal: Yes: Soft Genitourinary: Yes: Bhatti Present Musculoskeletal: Yes: Muscle Weakness Edema: Yes Integumentary: Yes: Tattoos Neurological: Yes: Lethargy Labs: CBC, BMP 04/03/17 05:30 04/03/17 05:30 INR, PTT INR 1.80 (0.82-1.09) H D 03/30/17 17:45 - ....Imaging Chest X-ray: Report Reviewed Problem List - Problems (1) Alcohol intoxication Code(s): F10.929 - ALCOHOL USE, UNSPECIFIED WITH INTOXICATION, UNSPECIFIED (2) Cardiac arrest Code(s): I46.9 - CARDIAC ARREST, CAUSE UNSPECIFIED (3) Seizure Code(s): R56.9 - UNSPECIFIED CONVULSIONS (4) Transaminitis Code(s): R74.0 - NONSPEC ELEV OF LEVELS OF TRANSAMNS & LACTIC ACID DEHYDRGNSE (5) Rhabdomyolysis Code(s): M62.82 - RHABDOMYOLYSIS (6) ESTELA (acute kidney injury) Code(s): N17.9 - ACUTE KIDNEY FAILURE, UNSPECIFIED Assessment/Plan Current Medications Generic Name Dose Route Start Last Admin Trade Name Freq PRN Reason Stop Dose Admin Heparin Sodium (Porcine) 5,000 unit 03/31/17 18:00 04/03/17 06:42 Heparin - SQ 5,000 unit TID SEN Administration Midazolam HCl 100 mg/ Sodium 100 mls @ 1 mls/hr 03/30/17 10:30 04/02/17 10:21 Chloride IVPB 10 mls/hr TITR SEN Administration Protocol 1 MG/HR Dopamine HCl/Dextrose 250 mls @ 11.056 mls/hr 03/30/17 13:15 04/02/17 18:04 Dopamine 400 Mg/D5w - IVPB 11.056 mls/hr TITR SEN Administration Protocol 5 MCG/KG/MIN Propofol 100 mls @ 1.932 mls/hr 03/30/17 18:00 04/03/17 12:06 Diprivan - IVPB 19.3 mls/hr TITR SEN Administration Protocol 5 MCG/KG/MIN Clindamycin Phosphate 50 mls @ 100 mls/hr 04/01/17 18:00 04/03/17 09:36 Cleocin 600 Mg Premix Ivpb - IVPB 100 mls/hr Q8H-IV SEN Administration Ceftriaxone Sodium 2 gm/ 100 mls @ 2,000 mls/hr 04/01/17 13:00 04/03/17 09:36 Dextrose IVPB 2,000 mls/hr DAILY SEN Administration Norepinephrine Bitartrate 16, 1,016 mls @ 19.05 mls/hr 04/02/17 12:45 04/03/17 09:13 000 mcg/ Dextrose IV 8 mcg/min TITR SEN Titration Protocol 5 MCG/MIN Dextrose/Sodium Chloride 1,000 mls @ 125 mls/hr 04/02/17 14:00 04/03/17 08:12 D5-Ns - IV 125 mls/hr ASDIR SEN Administration Levetiracetam 500 mg 04/02/17 13:45 04/03/17 09:37 Keppra Injection - IVPB 500 mg BID SEN Administration Lorazepam 2 mg 03/30/17 13:03 04/02/17 12:17 Ativan Injection - IVPUSH 2 mg Q4H PRN Administration ANXIETY Morphine Sulfate 2 mg 03/30/17 12:56 Morphine Sulfate IVPUSH Q4H PRN PAIN Ondansetron HCl 4 mg 03/30/17 12:56 Zofran Injection IVPUSH Q6H PRN NAUSEA Pantoprazole Sodium 40 mg 03/30/17 13:00 04/03/17 09:40 Protonix Iv IVPUSH 40 mg DAILY SEN Administration Phenytoin Sodium 200 mg 04/01/17 16:15 04/03/17 09:48 Dilantin Injection - IVPB 200 mg Q8H-IV SEN Administration Thiamine HCl 200 mg 04/01/17 22:00 04/03/17 06:43 Vitamin B1 Injection - IVPB 200 mg TID SEN Administration Impression 1. cardiac arrest 2. respiratory failure 3. ESTELA 4. hyperkalemia 5. multi-drug abuse 6. rhabdo 7. seizure Plan - renal function worsening - spoke to family and discussed HD however they would like to hold off for now as they have not made a decision as far as GOC - can stop fluids - monitor urine output - monitor volume status - discussed with ICU team - pressors for a map of 65 - likely atn from prolonged hypotension during arrest - monitor cpk level - vent support - monitor bp closely - will follow Dr Solis
[2017-04-03] MEDS: DOPAMINE 400 MG/D5W - 250 ML IVPB SCH ×2 (13:15→18:40)
[2017-04-03] MEDS: MIDAZOLAM 100 MG in SODIUM CHLORIDE 100 ML IVPB SCH ×2 (16:30→18:35)
[2017-04-03] MEDS ORDERED: NOREPINEPHRINE BITARTRATE 4 MG/4 ML ML IV ONE (18:14)
[2017-04-03] MEDS: DEXTROSE 5% IV SCH (18:22)
[2017-04-03] MEDS: WATER IV SCH (18:22)
[2017-04-03] MEDS: NOREPINEPHRINE BITARTRATE IV SCH (18:22)
[2017-04-04] MEDS: PHENYTOIN SODIUM 100 MG/2 ML VIAL IVPB SCH ×3 (01:00→18:01)
[2017-04-04] MEDS: CLINDAMYCIN 600MG PREMIX IVPB 50 ML IVPB SCH (02:30)
[2017-04-04] MEDS: THIAMINE HCL 200 MG/2 ML VIAL IVPB SCH ×3 (06:20→21:46)
[2017-04-04] MEDS: HEPARIN NA (PORCINE) 5,000 UNITS/ML 1ML VIAL SQ SCH ×3 (06:20→21:46)
--- NOTE | 2017-04-04 07:12 | PN ---
Progress Note, Physician Chief Complaint: ID Overall still comatose with brain stem dysfunction Prognosis poor per neurology Day 5 antibiotics Clinda and Ceftriaxone but no documented infection - Current Medication List Current Medications: Active Medications Heparin Sodium (Porcine) (Heparin -) 5,000 unit SQ TID [facility] Last Admin: 04/04/17 06:20 Dose: 5,000 unit Midazolam HCl 100 mg/ Sodium (Chloride) 100 mls @ 1 mls/hr IVPB TITR SEN; 1 MG/ HR PRN Reason: Protocol Last Titration: 04/04/17 06:00 Dose: 10 mg/hr Dopamine HCl/Dextrose (Dopamine 400 Mg/D5w -) 250 mls @ 11.056 mls/hr IVPB TITR SEN; 5 MCG/KG/MIN PRN Reason: Protocol Last Titration: 04/04/17 00:00 Dose: 0 mcg/kg/min Propofol (Diprivan -) 100 mls @ 1.932 mls/hr IVPB TITR SEN; 5 MCG/KG/MIN PRN Reason: Protocol Last Titration: 04/03/17 15:20 Dose: 0 mcg/kg/min Norepinephrine Bitartrate 16, (000 mcg/ Dextrose) 1,016 mls @ 19.05 mls/hr IV TITR SEN; 5 MCG/MIN PRN Reason: Protocol Last Titration: 04/04/17 06:00 Dose: 2 mcg/min Levetiracetam (Keppra Injection -) 500 mg IVPB BID [facility] Last Admin: 04/03/17 21:55 Dose: 500 mg Lorazepam (Ativan Injection -) 2 mg IVPUSH Q4H PRN PRN Reason: ANXIETY Last Admin: 04/02/17 12:17 Dose: 2 mg Morphine Sulfate (Morphine Sulfate) 2 mg IVPUSH Q4H PRN PRN Reason: PAIN Ondansetron HCl (Zofran Injection) 4 mg IVPUSH Q6H PRN PRN Reason: NAUSEA Pantoprazole Sodium (Protonix Iv) 40 mg IVPUSH DAILY [facility] Last Admin: 04/03/17 09:40 Dose: 40 mg Phenytoin Sodium (Dilantin Injection -) 200 mg IVPB Q8H-IV SEN Last Admin: 04/04/17 01:00 Dose: 200 mg Thiamine HCl (Vitamin B1 Injection -) 200 mg IVPB TID [facility] Last Admin: 04/04/17 06:20 Dose: 200 mg - Objective Vital Signs: Vital Signs Temperature 99.7 F H 04/04/17 06:00 Pulse Rate 90 04/04/17 06:00 Respiratory Rate 20 04/04/17 06:00 Blood Pressure 131/71 04/04/17 06:00 O2 Sat by Pulse Oximetry (%) 94 L 04/03/17 20:11 Constitutional: Yes: Other (unrsponsive) Cardiovascular: Yes: S1, S2 Respiratory: Yes: WNL, Regular, CTA Bilaterally Gastrointestinal: Yes: WNL, Normal Bowel Sounds, Soft. No: Tenderness Extremities: No: Cold, Cool, Cyanosis Edema: No Labs: CBC, BMP 04/03/17 05:30 04/03/17 05:30 INR, PTT INR 1.80 (0.82-1.09) H D 03/30/17 17:45 Problem List - Problems (1) Alcohol intoxication Code(s): F10.929 - ALCOHOL USE, UNSPECIFIED WITH INTOXICATION, UNSPECIFIED (2) Cardiac arrest Code(s): I46.9 - CARDIAC ARREST, CAUSE UNSPECIFIED (3) Sepsis Code(s): A41.9 - SEPSIS, UNSPECIFIED ORGANISM Qualifiers: Sepsis type: sepsis due to unspecified organism Qualified Code(s): A41.9 - Sepsis, unspecified organism; A41.9 - Sepsis, unspecified organism; A41.9 - Sepsis, unspecified organism Assessment/Plan Microbiology 03/30/17 18:56 Stool Clostridium difficile Antigen (CINDY) - Final 03/30/17 18:56 Stool Clostridium difficile Toxin Assay - Final 03/30/17 16:30 Sputum - Endotrachea Suction/Ventilator Gram Stain - Final 03/30/17 16:30 Sputum - Endotrachea Suction/Ventilator Sputum Culture - Final NORMAL RESPIRATORY BRUCE 03/30/17 10:30 Urine - Urine - Catheterized Urine Culture - Final NO GROWTH OBTAINED 03/30/17 09:30 Blood - Peripheral Venous Blood Culture - Final Staphylococcus Epidermidis 03/31/17 16:16 Blood - Peripheral Venous Blood Culture - Preliminary NO GROWTH OBTAINED AFTER 72 HOURS, INCUBATION TO CONTINUE FOR 2 DAYS. 03/31/17 16:16 Blood - Peripheral Venous Blood Culture - Preliminary NO GROWTH OBTAINED AFTER 72 HOURS, INCUBATION TO CONTINUE FOR 2 DAYS. 03/30/17 09:30 Blood - Peripheral Venous Blood Culture - Preliminary NO GROWTH OBTAINED AFTER 96 HOURS, INCUBATION TO CONTINUE FOR 1 DAYS. Laboratory Tests 04/03/17 04/03/17 05:30 05:30 WBC 12.2 H Hgb 9.9 L D Hct 29.9 L Plt Count 70 L Neutrophils % 77.4 Lymphocytes % 7.4 L Monocytes % 12.4 H Eosinophils % 2.1 D BUN 48 H Creatinine 8.0 H* Creat Clearance w eGFR 7.81 Calcium 6.5 L* Total Bilirubin 1.1 H D AST 858 H D ALT 1274 H D Alkaline Phosphatase 35 L D Assessment S/P cardiac arrest Brains stem dysfunction anoxic encephalopathy Multiorgan failure Alcohol intoxication overdose Acute reanl failure Plan At this point will stop antibiotics Prognosis poor Issue of dialysis under consideration Roland MEDRANO
[2017-04-04 07:35] LABS: MCH 27.7 pg (25.7-33.7); MCHC 32.7 g/dl (32.0-35.9); MEAN CELL VOLUME 84.6 fl (80-96); PLATELET COUNT 84 K/MM3 (134-434); RDW 15.9 % (11.9-15.9); WHITE BLOOD COUNT 15.7 K/mm3 (4.0-10.0)
[2017-04-04 07:59] LABS: ALBUMIN 2.1 g/dl (3.4-5.0); ANION GAP 18 (8-16); BILIRUBIN,TOTAL 1.1 mg/dL (0.2-1.0); CALCIUM 7.2 mg/dL (8.5-10.1); CO2 11 mmol/L (21-32); GLUCOSE,RANDOM 177 mg/dL (74-106); TOT PROT 5.4 g/dl (6.4-8.2)
[2017-04-04 08:04] LABS: ALK PHOS 47 U/L (45-117)
[2017-04-04 08:12] LABS: SGOT/AST 505 U/L (15-37); SGPT/ALT 997 U/L (12-78)
[2017-04-04 08:14] LABS: CREATININE 9.4 mg/dL (0.7-1.3)
[2017-04-04] MEDS ORDERED: PT OWN MED DRAWER 7, Y5N ONE (09:40)
[2017-04-04] MEDS ORDERED: SODIUM POLYSTYRENE SULFONATE 15 GM/60 ML BOTTLE PO ONE (09:45)
[2017-04-04] MEDS ORDERED: DEXTROSE 50%-WATER - 25 GM/50 ML VIAL IVPUSH ONE (09:45)
[2017-04-04] MEDS ORDERED: INSULIN REGULAR HUMAN 100 UNITS/ML *VIAL IVPUSH ONE (09:45)
[2017-04-04] MEDS ORDERED: INSULIN (NOVOLOG) ASPART 100 UNITS/ML 10ML VIAL ONE (09:54)
[2017-04-04] MEDS ORDERED: DEXTROSE 50%-WATER 25 GM/50 ML DISP.SYRIN ONE (09:54)
[2017-04-04] MEDS ORDERED: INSULIN REGULAR HUMAN 100 UNITS/ML *VIAL ONE (09:59)
[2017-04-04] MEDS ORDERED: CALCIUM GLUCONATE 10% - 1,000 MG/10 ML VIAL IVPB ONE (10:00)
[2017-04-04 10:04] LABS: ARTERIAL BLD GAS O2 SATURATION 99.1 % (90-98.9); ARTERIAL BLOOD GAS HCO3 10.7 meq/L (22-26); ARTERIAL BLOOD GAS pH 7.25 (7.35-7.45)
[2017-04-04 10:07] LABS: ALLENS TEST POSITIVE; ART PUNCT SITE RIGHT RADIAL; LPM/O2% 60; MECH. VENT. Y; PT. ON O2? YES; TYPE OF O2 MECH VENT
[2017-04-04 10:08] LABS: VENT RATE 20; VT/PRESS 550
[2017-04-04] MEDS: PANTOPRAZOLE SODIUM 40 MG VIAL IVPUSH SCH (10:15)
[2017-04-04] MEDS: levETIRAcetam 500 MG/5 ML INJECTION VIAL IVPB SCH ×2 (10:15→21:46)
[2017-04-04] MEDS: MIDAZOLAM 100 MG in SODIUM CHLORIDE 100 ML IVPB SCH (10:30)
[2017-04-04 10:44] LABS: ANION GAP 16 (8-16); CALCIUM 7.1 mg/dL (8.5-10.1); CO2 12 mmol/L (21-32); GLUCOSE,RANDOM 196 mg/dL (74-106)
--- NOTE | 2017-04-04 11:07 | PN ---
Teaching Attending Note Name of Resident: Bryce Rodas ATTENDING PHYSICIAN STATEMENT I saw and evaluated the patient. I reviewed the resident's note and discussed the case with the resident. I agree with the resident's findings and plan as documented. SUBJECTIVE: Patient seen and examined in the ICU. Remains intubated. No improvement in Neuro status. Remains on NE for hemodynamic support (currently on 2 meq). AC Mode of vent. CXR: no improvement Intake & Output 04/01/17 04/02/17 04/03/17 04/04/17 23:59 23:59 23:59 23:59 Intake Total 4335.7 7004 5149 1170 Output Total 300 700 300 100 Balance 4035.7 6304 4849 1070 Weight 146 lb 6.191 oz 155 lb 13.869 oz 163 lb 12.855 oz 171 lb 15.369 oz Last Vital Signs Temp Pulse Resp BP Pulse Ox 99.4 F 93 H 21 127/69 99 04/04/17 08:00 04/04/17 09:25 04/04/17 09:20 04/04/17 08:00 04/04/17 09:25 Active Medications Heparin Sodium (Porcine) (Heparin -) 5,000 unit SQ TID [facility] Last Admin: 04/04/17 06:20 Dose: 5,000 unit Midazolam HCl 100 mg/ Sodium (Chloride) 100 mls @ 1 mls/hr IVPB TITR SEN; 1 MG/ HR PRN Reason: Protocol Last Titration: 04/04/17 06:00 Dose: 10 mg/hr Dopamine HCl/Dextrose (Dopamine 400 Mg/D5w -) 250 mls @ 11.056 mls/hr IVPB TITR SEN; 5 MCG/KG/MIN PRN Reason: Protocol Last Titration: 04/04/17 00:00 Dose: 0 mcg/kg/min Propofol (Diprivan -) 100 mls @ 1.932 mls/hr IVPB TITR SEN; 5 MCG/KG/MIN PRN Reason: Protocol Last Admin: 04/03/17 17:00 Dose: Not Given Norepinephrine Bitartrate 16, (000 mcg/ Dextrose) 1,016 mls @ 19.05 mls/hr IV TITR SEN; 5 MCG/MIN PRN Reason: Protocol Last Titration: 04/04/17 06:00 Dose: 2 mcg/min Levetiracetam (Keppra Injection -) 500 mg IVPB BID [facility] Last Admin: 04/04/17 10:15 Dose: 500 mg Lorazepam (Ativan Injection -) 2 mg IVPUSH Q4H PRN PRN Reason: ANXIETY Last Admin: 04/02/17 12:17 Dose: 2 mg Morphine Sulfate (Morphine Sulfate) 2 mg IVPUSH Q4H PRN PRN Reason: PAIN Ondansetron HCl (Zofran Injection) 4 mg IVPUSH Q6H PRN PRN Reason: NAUSEA Pantoprazole Sodium (Protonix Iv) 40 mg IVPUSH DAILY [facility] Last Admin: 04/04/17 10:15 Dose: 40 mg Phenytoin Sodium (Dilantin Injection -) 200 mg IVPB Q8H-IV [facility] Last Admin: 04/04/17 10:15 Dose: 200 mg Thiamine HCl (Vitamin B1 Injection -) 200 mg IVPB TID [facility] Last Admin: 04/04/17 06:20 Dose: 200 mg Gen: intubated, sedated Heart: RRR Lung: decreased breath sounds at the bases Abd: soft, nontender Ext: trace UE edema Laboratory Results - last 24 hr 04/02/17 04/04/17 04/04/17 05:50 07:00 07:00 WBC 15.7 H RBC 3.68 L Hgb 10.2 L Hct 31.1 L MCV 84.6 MCH 27.7 MCHC 32.7 RDW 15.9 Plt Count 84 L MPV 10.0 Neutrophils % No Result Required. Lymphocytes % No Result Required. Monocytes % Software Engineering Supervisor Eosinophils % Software Engineering Supervisor Basophils % Software Engineering Supervisor Puncture Site ABG pH ABG pCO2 at Pt Temp ABG pO2 at Pt Temp ABG HCO3 ABG O2 Sat (Measured) ABG O2 Content ABG Base Excess Phillip Test O2 Delivery Device Oxygen Flow Rate Vent Mode Vent Rate Mechanical Rate PEEP Pressure Support Vent Sodium 137 Potassium 5.7 H Chloride 108 H Carbon Dioxide 11 L D Anion Gap 18 H BUN 57 H Creatinine 9.4 H* Creat Clearance w eGFR 6.48 Random Glucose 177 H Calcium 7.2 L Total Bilirubin 1.1 H AST 505 H D ALT 997 H D Alkaline Phosphatase 47 D Total Protein 5.4 L Albumin 2.1 L EKTA Screen Negative 04/04/17 04/04/17 09:50 10:04 WBC RBC Hgb Hct MCV MCH MCHC RDW Plt Count MPV Neutrophils % Lymphocytes % Monocytes % Eosinophils % Basophils % Puncture Site Right radial ABG pH 7.25 L ABG pCO2 at Pt Temp 25.4 L D ABG pO2 at Pt Temp 149.0 H D ABG HCO3 10.7 L* ABG O2 Sat (Measured) 99.1 H ABG O2 Content 14.4 L ABG Base Excess -15.0 L* Phillip Test Positive O2 Delivery Device Mech vent Oxygen Flow Rate 60 Vent Mode A/c Vent Rate 20 Mechanical Rate Y PEEP 7.0 Pressure Support Vent 550 Sodium 137 Potassium 5.8 H Chloride 109 H Carbon Dioxide 12 L Anion Gap 16 BUN 66 H Creatinine Creat Clearance w eGFR Random Glucose 196 H Calcium 7.1 L Total Bilirubin AST ALT Alkaline Phosphatase Total Protein Albumin EKTA Screen ASSESSMENT AND PLAN: S/P Prolonged Cardiopulmonary Arrest Anoxic Brain Injury Pneumonia Septic Shock Multiorgan Failure Acute Kidney Injury Elevated LFTs likely ischemic injury +Troponins Rhabdomyolysis Seizures Likely Anoxic Encephalopathy - ABX per ID - continue dilantin, versed gtt - Keppra - IVF to keep CVP 8-12 - titrate pressors to maintain MAP >65 - monitor urine output, creatinine - enteral feeds - Not a candidate for weaning at this time - DVT/GI prophylaxis - DNR - Further family discussions for [facility] Dr Rdz Critical Care Time spent in reviewing chart, evaluating plan and formulating plan 45 min Problem List - Problems (1) Cardiac arrest Code(s): I46.9 - CARDIAC ARREST, CAUSE UNSPECIFIED (2) Alcohol intoxication Code(s): F10.929 - ALCOHOL USE, UNSPECIFIED WITH INTOXICATION, UNSPECIFIED (3) Atelectasis of both lungs Code(s): J98.11 - ATELECTASIS (4) Pneumonitis due to food and vomit Code(s): J69.0 - PNEUMONITIS DUE TO INHALATION OF FOOD AND VOMIT (5) Seizure Code(s): R56.9 - UNSPECIFIED CONVULSIONS
--- NOTE | 2017-04-04 11:15 | PN ---
Physical Exam: SUBJECTIVE: Patient seen and examined patinet intubated on ventilator support. on presser support. on midazolam drip. urine output decreased. creatinine increasing. OBJECTIVE: Vital Signs Period Temp Pulse Resp BP Sys/Keating Pulse Ox Last 24 Hr 99.4 F-100.4 F 77-95 16-22 86-131/45-74 92-99 GENERAL: intubated on ventilator support. NECK: et in situ, LUNGS: B/l air entry present, no wheez, no crackels. . HEART: Regular rate and rhythm, S1, S2 normal ABDOMEN: Soft, nontender, nondistended, normoactive bowel sounds, no guarding, SKIN: Warm, dry, Neurological: unresponsive. Laboratory Results - last 24 hr 04/02/17 04/04/17 04/04/17 05:50 07:00 07:00 WBC 15.7 H RBC 3.68 L Hgb 10.2 L Hct 31.1 L MCV 84.6 MCH 27.7 MCHC 32.7 RDW 15.9 Plt Count 84 L MPV 10.0 Neutrophils % No Result Required. Lymphocytes % No Result Required. Monocytes % [employer] Eosinophils % [employer] Manager Basophils % [employer] Manager Puncture Site ABG pH ABG pCO2 at Pt Temp ABG pO2 at Pt Temp ABG HCO3 ABG O2 Sat (Measured) ABG O2 Content ABG Base Excess Phillip Test O2 Delivery Device Oxygen Flow Rate Vent Mode Vent Rate Mechanical Rate PEEP Pressure Support Vent Sodium 137 Potassium 5.7 H Chloride 108 H Carbon Dioxide 11 L D Anion Gap 18 H BUN 57 H Creatinine 9.4 H* Creat Clearance w eGFR 6.48 Random Glucose 177 H Calcium 7.2 L Total Bilirubin 1.1 H AST 505 H D ALT 997 H D Alkaline Phosphatase 47 D Total Protein 5.4 L Albumin 2.1 L EKTA Screen Negative 04/04/17 04/04/17 09:50 10:04 WBC RBC Hgb Hct MCV MCH MCHC RDW Plt Count MPV Neutrophils % Lymphocytes % Monocytes % Eosinophils % Basophils % Puncture Site Right radial ABG pH 7.25 L ABG pCO2 at Pt Temp 25.4 L D ABG pO2 at Pt Temp 149.0 H D ABG HCO3 10.7 L* ABG O2 Sat (Measured) 99.1 H ABG O2 Content 14.4 L ABG Base Excess -15.0 L* Phillip Test Positive O2 Delivery Device Mech vent Oxygen Flow Rate 60 Vent Mode A/c Vent Rate 20 Mechanical Rate Y PEEP 7.0 Pressure Support Vent 550 Sodium 137 Potassium 5.8 H Chloride 109 H Carbon Dioxide 12 L Anion Gap 16 BUN 66 H Creatinine Creat Clearance w eGFR Random Glucose 196 H Calcium 7.1 L Total Bilirubin AST ALT Alkaline Phosphatase Total Protein Albumin EKTA Screen Active Medications Generic Name Dose Route Start Last Admin Trade Name Freq PRN Reason Stop Dose Admin Heparin Sodium (Porcine) 5,000 unit 03/31/17 18:00 04/04/17 06:20 Heparin - SQ 5,000 unit TID SEN Administration Midazolam HCl 100 mg/ Sodium 100 mls @ 1 mls/hr 03/30/17 10:30 04/04/17 06:00 Chloride IVPB 10 mg/hr TITR SEN Titration Protocol 1 MG/HR Dopamine HCl/Dextrose 250 mls @ 11.056 mls/hr 03/30/17 13:15 04/04/17 00:00 Dopamine 400 Mg/D5w - IVPB 0 mcg/kg/min TITR SEN Titration Protocol 5 MCG/KG/MIN Propofol 100 mls @ 1.932 mls/hr 03/30/17 18:00 04/03/17 17:00 Diprivan - IVPB Not Given TITR SEN Protocol 5 MCG/KG/MIN Norepinephrine Bitartrate 16, 1,016 mls @ 19.05 mls/hr 04/02/17 12:45 04/04/17 06:00 000 mcg/ Dextrose IV 2 mcg/min TITR SEN Titration Protocol 5 MCG/MIN Levetiracetam 500 mg 04/02/17 13:45 04/04/17 10:15 Keppra Injection - IVPB 500 mg BID SEN Administration Lorazepam 2 mg 03/30/17 13:03 04/02/17 12:17 Ativan Injection - IVPUSH 2 mg Q4H PRN Administration ANXIETY Morphine Sulfate 2 mg 03/30/17 12:56 Morphine Sulfate IVPUSH Q4H PRN PAIN Ondansetron HCl 4 mg 03/30/17 12:56 Zofran Injection IVPUSH Q6H PRN NAUSEA Pantoprazole Sodium 40 mg 03/30/17 13:00 04/04/17 10:15 Protonix Iv IVPUSH 40 mg DAILY SEN Administration Phenytoin Sodium 200 mg 04/01/17 16:15 04/04/17 10:15 Dilantin Injection - IVPB 200 mg Q8H-IV SEN Administration Thiamine HCl 200 mg 04/01/17 22:00 04/04/17 06:20 Vitamin B1 Injection - IVPB 200 mg TID SEN Administration ASSESSMENT/PLAN: ASSESSMENT/PLAN: 1. cardiac arrest 2. respiratory failure 3. ESTELA 4. hyperkalemia 5. multi-drug abuse 6. rhabdo 7. seizure Plan - urine output 100, creatinine increasing. - insulin 10unit, calcium gluconate and kaxylate given. Repeat bmp after treatment - on pressors NE keep map> 65 - monittor vitals - monitor intake output, keep cvp around 10-12 - on ventilator support fio2 60, RR 20 - on midazolam drip. - on phenyoin and keppra for seizure - on heparin sq tid - on thiamine - on protonix for gi prophylaxis - heparin 5000 sq for dvt prophylaxis Visit type - Emergency Visit Emergency Visit: Yes ED Registration Date: 03/30/17 Care time: The patient presented to the Emergency Department on the above date and was hospitalized for further evaluation of their emergent condition. - New Patient This patient is new to me today: No - Critical Care Critical Care patient: Yes Total Critical Care Time (in minutes): 45 Critical Care Statement: The care of this patient involved high complexity decision making to prevent further life threatening deterioration of the patient 's condition and/or to evaluate & treat vital organ system(s) failure or risk of failure.
[2017-04-04 11:17] LABS: CREATININE 9.7 mg/dL (0.7-1.3)
--- NOTE | 2017-04-04 12:17 | PN ---
Progress Note, Physician Chief Complaint: FAMILY BEDSIDE PATIENT INTUBATED ON VENT SUPPORT - Current Medication List Current Medications: Active Medications Heparin Sodium (Porcine) (Heparin -) 5,000 unit SQ TID [facility] Last Admin: 04/04/17 06:20 Dose: 5,000 unit Midazolam HCl 100 mg/ Sodium (Chloride) 100 mls @ 1 mls/hr IVPB TITR SEN; 1 MG/ HR PRN Reason: Protocol Last Titration: 04/04/17 12:16 Dose: 0 mg/hr Dopamine HCl/Dextrose (Dopamine 400 Mg/D5w -) 250 mls @ 11.056 mls/hr IVPB TITR SEN; 5 MCG/KG/MIN PRN Reason: Protocol Last Titration: 04/04/17 00:00 Dose: 0 mcg/kg/min Propofol (Diprivan -) 100 mls @ 1.932 mls/hr IVPB TITR SEN; 5 MCG/KG/MIN PRN Reason: Protocol Last Admin: 04/03/17 17:00 Dose: Not Given Norepinephrine Bitartrate 16, (000 mcg/ Dextrose) 1,016 mls @ 19.05 mls/hr IV TITR SEN; 5 MCG/MIN PRN Reason: Protocol Last Titration: 04/04/17 06:00 Dose: 2 mcg/min Levetiracetam (Keppra Injection -) 500 mg IVPB BID [facility] Last Admin: 04/04/17 10:15 Dose: 500 mg Morphine Sulfate (Morphine Sulfate) 2 mg IVPUSH Q4H PRN PRN Reason: PAIN Ondansetron HCl (Zofran Injection) 4 mg IVPUSH Q6H PRN PRN Reason: NAUSEA Pantoprazole Sodium (Protonix Iv) 40 mg IVPUSH DAILY [facility] Last Admin: 04/04/17 10:15 Dose: 40 mg Phenytoin Sodium (Dilantin Injection -) 200 mg IVPB Q8H-IV [facility] Last Admin: 04/04/17 10:15 Dose: 200 mg Thiamine HCl (Vitamin B1 Injection -) 200 mg IVPB TID [facility] Last Admin: 04/04/17 06:20 Dose: 200 mg - Objective Vital Signs: Vital Signs Temperature 99.5 F 04/04/17 10:00 Pulse Rate 91 H 04/04/17 12:00 Respiratory Rate 21 04/04/17 12:00 Blood Pressure 112/60 04/04/17 12:00 O2 Sat by Pulse Oximetry (%) 97 04/04/17 10:00 Constitutional: Yes: Severe Distress Eyes: Yes: Other HENT: Yes: Other Neck: Yes: Other Cardiovascular: Yes: S1 Respiratory: Yes: Intubated, Mechanically Ventilated Gastrointestinal: Yes: Other Genitourinary: Yes: Bhatti Present Musculoskeletal: Yes: Muscle Weakness Edema: Yes Integumentary: Yes: Other Wound/Incision: Yes: Open to air Neurological: Yes: Unresponsive ...Motor Strength: LLE, RLE Labs: CBC, BMP 04/04/17 07:00 04/04/17 10:04 INR, PTT INR 1.80 (0.82-1.09) H D 03/30/17 17:45 Problem List - Problems (1) Alcohol intoxication Code(s): F10.929 - ALCOHOL USE, UNSPECIFIED WITH INTOXICATION, UNSPECIFIED (2) Altered mental status Code(s): R41.82 - ALTERED MENTAL STATUS, UNSPECIFIED Qualifiers: Altered mental status type: unspecified Qualified Code(s): R41.82 - Altered mental status, unspecified; R41.82 - Altered mental status, unspecified (3) Cardiac arrest Code(s): I46.9 - CARDIAC ARREST, CAUSE UNSPECIFIED (4) Pneumonitis due to food and vomit Code(s): J69.0 - PNEUMONITIS DUE TO INHALATION OF FOOD AND VOMIT (5) Seizure Code(s): R56.9 - UNSPECIFIED CONVULSIONS (6) Sepsis Code(s): A41.9 - SEPSIS, UNSPECIFIED ORGANISM Qualifiers: Sepsis type: sepsis due to unspecified organism Qualified Code(s): A41.9 - Sepsis, unspecified organism; A41.9 - Sepsis, unspecified organism; A41.9 - Sepsis, unspecified organism (7) Anoxia Code(s): R09.02 - HYPOXEMIA Assessment/Plan ADVANCED DIRECTIVES DISCUSSED WITH SIGNIFICANT OTHER AND MOTHER NEUROLOGY EVAL APPRECIATED FAMILY WAITING ON NEUROLOGY BEFORE MAKING DECISION POOR OVER PROGNOSIS FOR GOOD QUALITY OF LIFE PALLIAITVE CARE CONSULT RESP SUPPORT IV ABX
[2017-04-04 12:29] LABS: PLATELET ESTIMATE DECREASED (NORMAL); TOTAL CELLS COUNTED 100
[2017-04-04 13:37] LABS: ANION GAP 15 (8-16); CALCIUM 7.1 mg/dL (8.5-10.1); CO2 14 mmol/L (21-32); GLUCOSE,RANDOM 193 mg/dL (74-106)
[2017-04-04 13:44] LABS: CREATININE 9.9 mg/dL (0.7-1.3)
--- NOTE | 2017-04-04 14:26 | CONSULT ---
Consult - text type - Consultation Consultation Note: Neurology - History of Present Illness Chief complaint cardiac arrest/altered mental status History of present illness: This is a 31-year-old gentleman known past medical history of diabetes, alcohol abuse depression last seen normal evening before admission history received from EMS states patient had fallen twice yesterday was drinking in the evening and had to be carried to bed. On morning of admission at approximately 8 AM he was found unresponsive by his girlfriend. 911 was called. Upon arrival patient found to be in PE a arrest and CPR started. 2 rounds of epinephrine given. Patient difficult to intubate in the field. A fingerstick in the field showed a serum glucose of 17 he was given D10. Patient had briefly spontaneous return of circulation followed by a period of asystole and CPR was continued. patient was resuscitated. admitted to the hospital and was seen by neurologist Dr. Vogel. Clinically, his absence of any higher cortical functioning but does have a gag and pupillary reflex. he does not respond to pain and Babinski was negative. He remains on cardiac pressure support. He is not overbreathing ventilator and is on close monitoring in the ICU. I had an extensive conversation with the family regarding poor prognosis. We discussed his ongoing multiorgan along with no significant improvement. They do believe the visualized spontaneous movement of his mouth. He is getting an EEG at the bedside during my evaluation. Past History - Past Medical History Psychiatric Problems: Yes (depression on zoloft.) Other medical history: alcohol abuse - Suicide/Smoking/Psychosocial Hx Smoking Status: No Smoking History: Current every day smoker Have you smoked in the past 12 months: Yes Number of Cigarettes Smoked Daily: 20 Information on smoking cessation initiated: No Hx Alcohol Use: Yes (lots of it) Drug/Substance Use Hx: No Substance Use Type: Alcohol - Past Medical History Allergies/Adverse Reactions: Allergies Allergy/AdvReac Type Severity Reaction Status Date / Time No Known Allergies Allergy Verified 03/30/17 09:38 Home Medications: Ambulatory Orders NK [No Known Home Medication] Review of Systems - Review of Systems Able to Perform ROS?: No (Unable to perform review ) Unable to perform review of systems secondary to altered mental status. *Physical Exam Vital Signs Period Temp Pulse Resp BP Sys/Keating Pulse Ox Last 24 Hr 99.4 F-100.4 F 77-95 20-22 101-131/50-74 92-99 General Appearance: Unresponsive thin, intuabted and not overbreathing vent Head: Atraumatic, Eyes: Fixed and pinpoint Throat: Posterior oropharynx without erythema, mucous membranes moist, Neck: Supple;No Nucal rigidity Chest Wall: Nontender, no trauma Cardiac: Regular rate and rhythym, no murmurs, no rubs, no gallops, Lungs: Coarse breath sounds bilaterally Abdomen: Soft, non distended, normal bowel sounds, non tender to palpation Skin: Warm and dry, no rashes or lesions, no rash, no petechiae Neuro: Intubated, agonal respirations, no significant response to painful stimuli, pupil response intact, no gag noted, corneal intact, CBCD WBC 15.7 K/mm3 (4.0-10.0) H 04/04/17 07:00 RBC 3.68 M/mm3 (4.00-5.60) L 04/04/17 07:00 Hgb 10.2 GM/dL (11.7-16.9) L 04/04/17 07:00 Hct 31.1 % (35.4-49) L 04/04/17 07:00 MCV 84.6 fl (80-96) 04/04/17 07:00 MCHC 32.7 g/dl (32.0-35.9) 04/04/17 07:00 RDW 15.9 % (11.9-15.9) 04/04/17 07:00 Plt Count 84 K/MM3 (134-434) L 04/04/17 07:00 MPV 10.0 fl (7.5-11.1) 04/04/17 07:00 CMP Sodium 138 mmol/L (136-145) 04/04/17 12:50 Potassium 5.4 mmol/L (3.5-5.1) H 04/04/17 12:50 Chloride 109 mmol/L (98-107) H 04/04/17 12:50 Carbon Dioxide 14 mmol/L (21-32) L 04/04/17 12:50 Anion Gap 15 (8-16) 04/04/17 12:50 BUN 62 mg/dL (7-18) H 04/04/17 12:50 Creatinine 9.9 mg/dL (0.7-1.3) H* 04/04/17 12:50 Creat Clearance w eGFR 6.48 (>60) 04/04/17 07:00 Calcium 7.1 mg/dL (8.5-10.1) L 04/04/17 12:50 Total Bilirubin 1.1 mg/dL (0.2-1.0) H 04/04/17 07:00 AST 505 U/L (15-37) H D 04/04/17 07:00 ALT 997 U/L (12-78) H D 04/04/17 07:00 Alkaline Phosphatase 47 U/L (45-117) D 04/04/17 07:00 Total Protein 5.4 g/dl (6.4-8.2) L 04/04/17 07:00 Albumin 2.1 g/dl (3.4-5.0) L 04/04/17 07:00 Medical Decision Making 31-year-old gentleman known past medical history of diabetes, alcohol abuse depression last seen normal evening before admission history received from EMS states patient had fallen twice yesterday was drinking in the evening and had to be carried to bed. On morning of admission at approximately 8 AM he was found unresponsive by his girlfriend. 911 was called. Upon arrival patient found to be in PE a arrest and CPR started. 2 rounds of epinephrine given. Patient difficult to intubate in the field. A fingerstick in the field showed a serum glucose of 17 he was given D10. Patient had briefly spontaneous return of circulation followed by a period of asystole and CPR was continued. patient was resuscitated. admitted to the hospital and was seen by neurologist Dr. Vogel. Clinically, his absence of any higher cortical functioning but does have a gag and pupillary reflex. he does not respond to pain and Babinski was negative. He remains on cardiac pressure support. He is not overbreathing ventilator and is on close monitoring in the ICU. We discussed his ongoing multiorgan along with no significant improvement. He is getting an EEG at the bedside during my evaluation. Recommend follow up regarding result Medical care depends on family wishes If further measures needed, Hemodialysis can be considered, renal to manage I had an extensive conversation with the family regarding poor prognosis. They are to speak further regarding goals of care Critical care time 40mins including conversation with family
[2017-04-04] MEDS ORDERED: LIDOCAINE HCL 1%, 10 MG/ML (20ML VIAL) ONE (14:51)
--- NOTE | 2017-04-04 15:09 | PN ---
Progress Note, Physician History of Present Illness: Pt seen and examined at bedside. He remain in the ICU. Pt is getting and EEG. - Current Medication List Current Medications: Active Medications Heparin Sodium (Porcine) (Heparin -) 5,000 unit SQ TID [facility] Last Admin: 04/04/17 14:35 Dose: 5,000 unit Midazolam HCl 100 mg/ Sodium (Chloride) 100 mls @ 1 mls/hr IVPB TITR SEN; 1 MG/ HR PRN Reason: Protocol Last Titration: 04/04/17 12:16 Dose: 0 mg/hr Dopamine HCl/Dextrose (Dopamine 400 Mg/D5w -) 250 mls @ 11.056 mls/hr IVPB TITR SEN; 5 MCG/KG/MIN PRN Reason: Protocol Last Titration: 04/04/17 00:00 Dose: 0 mcg/kg/min Propofol (Diprivan -) 100 mls @ 1.932 mls/hr IVPB TITR SEN; 5 MCG/KG/MIN PRN Reason: Protocol Last Admin: 04/03/17 17:00 Dose: Not Given Norepinephrine Bitartrate 16, (000 mcg/ Dextrose) 1,016 mls @ 19.05 mls/hr IV TITR SEN; 5 MCG/MIN PRN Reason: Protocol Last Titration: 04/04/17 06:00 Dose: 2 mcg/min Levetiracetam (Keppra Injection -) 500 mg IVPB BID [facility] Last Admin: 04/04/17 10:15 Dose: 500 mg Morphine Sulfate (Morphine Sulfate) 2 mg IVPUSH Q4H PRN PRN Reason: PAIN Ondansetron HCl (Zofran Injection) 4 mg IVPUSH Q6H PRN PRN Reason: NAUSEA Pantoprazole Sodium (Protonix Iv) 40 mg IVPUSH DAILY [facility] Last Admin: 04/04/17 10:15 Dose: 40 mg Phenytoin Sodium (Dilantin Injection -) 200 mg IVPB Q8H-IV [facility] Last Admin: 04/04/17 10:15 Dose: 200 mg Thiamine HCl (Vitamin B1 Injection -) 200 mg IVPB TID [facility] Last Admin: 04/04/17 14:35 Dose: 200 mg - Objective Vital Signs: Vital Signs Temperature 97.8 F 04/04/17 14:00 Pulse Rate 86 04/04/17 14:00 Respiratory Rate 20 04/04/17 14:15 Blood Pressure 125/57 04/04/17 14:00 O2 Sat by Pulse Oximetry (%) 97 04/04/17 10:00 Constitutional: Yes: Calm Neck: Yes: Supple Cardiovascular: Yes: S1, S2 Respiratory: Yes: Mechanically Ventilated Gastrointestinal: Yes: Soft Genitourinary: Yes: Bhatti Present Musculoskeletal: Yes: Muscle Weakness Edema: Yes Edema: LUE: 1+, RUE: 1+, LLE: 1+, RLE: 1+ Integumentary: Yes: Tattoos Neurological: Yes: Lethargy Labs: CBC, BMP 04/04/17 07:00 04/04/17 12:50 INR, PTT INR 1.80 (0.82-1.09) H D 03/30/17 17:45 - ....Imaging Chest X-ray: Report Reviewed Problem List - Problems (1) Alcohol intoxication Code(s): F10.929 - ALCOHOL USE, UNSPECIFIED WITH INTOXICATION, UNSPECIFIED (2) Cardiac arrest Code(s): I46.9 - CARDIAC ARREST, CAUSE UNSPECIFIED (3) Seizure Code(s): R56.9 - UNSPECIFIED CONVULSIONS (4) Transaminitis Code(s): R74.0 - NONSPEC ELEV OF LEVELS OF TRANSAMNS & LACTIC ACID DEHYDRGNSE (5) Rhabdomyolysis Code(s): M62.82 - RHABDOMYOLYSIS (6) ESTELA (acute kidney injury) Code(s): N17.9 - ACUTE KIDNEY FAILURE, UNSPECIFIED Assessment/Plan Current Medications Generic Name Dose Route Start Last Admin Trade Name Freq PRN Reason Stop Dose Admin Heparin Sodium (Porcine) 5,000 unit 03/31/17 18:00 04/04/17 14:35 Heparin - SQ 5,000 unit TID SEN Administration Midazolam HCl 100 mg/ Sodium 100 mls @ 1 mls/hr 03/30/17 10:30 04/04/17 12:16 Chloride IVPB 0 mg/hr TITR SEN Titration Protocol 1 MG/HR Dopamine HCl/Dextrose 250 mls @ 11.056 mls/hr 03/30/17 13:15 04/04/17 00:00 Dopamine 400 Mg/D5w - IVPB 0 mcg/kg/min TITR SEN Titration Protocol 5 MCG/KG/MIN Propofol 100 mls @ 1.932 mls/hr 03/30/17 18:00 04/03/17 17:00 Diprivan - IVPB Not Given TITR SEN Protocol 5 MCG/KG/MIN Norepinephrine Bitartrate 16, 1,016 mls @ 19.05 mls/hr 04/02/17 12:45 04/04/17 06:00 000 mcg/ Dextrose IV 2 mcg/min TITR SEN Titration Protocol 5 MCG/MIN Levetiracetam 500 mg 04/02/17 13:45 04/04/17 10:15 Keppra Injection - IVPB 500 mg BID SEN Administration Morphine Sulfate 2 mg 03/30/17 12:56 Morphine Sulfate IVPUSH Q4H PRN PAIN Ondansetron HCl 4 mg 03/30/17 12:56 Zofran Injection IVPUSH Q6H PRN NAUSEA Pantoprazole Sodium 40 mg 03/30/17 13:00 04/04/17 10:15 Protonix Iv IVPUSH 40 mg DAILY SEN Administration Phenytoin Sodium 200 mg 04/01/17 16:15 04/04/17 10:15 Dilantin Injection - IVPB 200 mg Q8H-IV SEN Administration Thiamine HCl 200 mg 04/01/17 22:00 04/04/17 14:35 Vitamin B1 Injection - IVPB 200 mg TID SEN Administration Impression 1. cardiac arrest 2. respiratory failure 3. ESTELA 4. hyperkalemia 5. multi-drug abuse 6. rhabdo 7. seizure Plan - labs reviewed and pts renal function continues to worsen - pt is oliguric - second neurology opinion appreciated - discussed HD with family and they would to proceed. Pts modesta Pickard and his mother are in agreement - follow up EEG - follow up neuro - monitor bp - family understand risks of HD and HD catheter, explained in detail - discussed with ICU team - pressors for a map of 65 - likely atn from prolonged hypotension during arrest - monitor cpk level - vent support - monitor bp closely - will follow Dr Solis
--- NOTE | 2017-04-04 15:11 | PROC ---
Central Line Insertion Indication: Other (HD access) Risks and Benefits Explained: Yes Consent on Chart: Yes Central Line: Dialysis Cath, Dual Lumen Anesthesia: 1% Lidocaine Sterile Technique: Yes Ultrasound Guided Assistance: Yes Position: Right Femoral Post Insertion: Yes: Other Sterile Dressing Applied: Yes
--- NOTE | 2017-04-04 15:28 | PROC ---
Procedure Note Procedure: Placed a central line in R femoral vein. US was used to locate the femoral artery and vein. Field was cleaned and prepped with chlorohexidine for 2 min. Region was anesthetized using lidocaine. Femoral vein was accessed using seldinger technique. Dual lumen Shiley catheter was placed and secured with biopatch and sutures. No complications. Central Line Insertion Indication: Other (dialysis) Risks and Benefits Explained: Yes Consent on Chart: Yes Central Line: Dialysis Cath, Dual Lumen Anesthesia: 1% Lidocaine Sterile Technique: Yes Ultrasound Guided Assistance: Yes Position: Right Femoral
[2017-04-04 16:29] LABS: C-ANCA <1:20 titer (Neg:<1:20); MYELOPEROXIDASE ANTIBODY <9.0 U/mL (0.0-9.0); P-ANCA <1:20 titer (Neg:<1:20); PROTEINASE-3 ANTIBODY <3.5 U/mL (0.0-3.5)
[2017-04-04] MEDS ORDERED: NOREPINEPHRINE BITARTRATE 4 MG/4 ML ML IV ONE (17:20)
[2017-04-04] MEDS: ALBUMIN HUMAN 25% 12.5 GM/50 ML VIAL IVPB SCH ×2 (17:27→17:28)
[2017-04-04] MEDS: DEXTROSE 5% IV SCH (19:24)
[2017-04-04] MEDS: WATER IV SCH (19:24)
[2017-04-04] MEDS: NOREPINEPHRINE BITARTRATE IV SCH (19:24)
[2017-04-04] MEDS: SCOPOLAMINE HYDROBROMIDE 1 PATCH PATCH.TD72 TD SCH (21:46)
[2017-04-04 21:50] LABS: ANION GAP 14 (8-16); CO2 19 mmol/L (21-32); GLUCOSE,RANDOM 154 mg/dL (74-106)
[2017-04-04 22:01] LABS: CREATININE 7.7 mg/dL (0.7-1.3)
[2017-04-05] MEDS: PHENYTOIN SODIUM 100 MG/2 ML VIAL IVPB SCH ×3 (01:10→19:43)
[2017-04-05 06:27] LABS: BASOPHIL 0.4 % (0-2.0); EOSINOPHIL 1.3 % (0-4.5); MCH 28.8 pg (25.7-33.7); MCHC 35.1 g/dl (32.0-35.9); MEAN PLT VOLUME 9.7 fl (7.5-11.1); NEUTROPHILS 74.5 % (42.8-82.8); PLATELET COUNT 79 K/MM3 (134-434); RDW 14.7 % (11.9-15.9); WHITE BLOOD COUNT 11.5 K/mm3 (4.0-10.0)
[2017-04-05] MEDS: THIAMINE HCL 200 MG/2 ML VIAL IVPB SCH ×3 (06:32→23:15)
[2017-04-05] MEDS: HEPARIN NA (PORCINE) 5,000 UNITS/ML 1ML VIAL SQ SCH ×3 (06:32→23:15)
--- NOTE | 2017-04-05 06:44 | PN ---
Progress Note, Physician Chief Complaint: ID Spontaneous movements or extremities per nursing staff Dialysis yesterday Intubated Diarrhea noted - Current Medication List Current Medications: Active Medications Heparin Sodium (Porcine) (Heparin -) 5,000 unit SQ TID [facility] Last Admin: 04/05/17 06:32 Dose: 5,000 unit Levetiracetam (Keppra Injection -) 500 mg IVPB BID [facility] Last Admin: 04/04/17 21:46 Dose: 500 mg Morphine Sulfate (Morphine Sulfate) 2 mg IVPUSH Q4H PRN PRN Reason: PAIN Ondansetron HCl (Zofran Injection) 4 mg IVPUSH Q6H PRN PRN Reason: NAUSEA Pantoprazole Sodium (Protonix Iv) 40 mg IVPUSH DAILY [facility] Last Admin: 04/04/17 10:15 Dose: 40 mg Phenytoin Sodium (Dilantin Injection -) 200 mg IVPB Q8H-IV [facility] Last Admin: 04/05/17 01:10 Dose: 200 mg Scopolamine HBr (Transderm-Scop -) 1 patch TD Q72H [facility] Last Admin: 04/04/17 21:46 Dose: 1 patch Thiamine HCl (Vitamin B1 Injection -) 200 mg IVPB TID [facility] Last Admin: 04/05/17 06:32 Dose: 200 mg - Objective Vital Signs: Vital Signs Temperature 98.4 F 04/05/17 06:00 Pulse Rate 77 04/05/17 06:00 Respiratory Rate 20 04/05/17 06:00 Blood Pressure 148/84 04/05/17 06:00 O2 Sat by Pulse Oximetry (%) 100 04/04/17 21:00 Constitutional: Yes: Other (INtubated) Cardiovascular: Yes: Regular Rate and Rhythm, S1, S2. No: Murmur Respiratory: Yes: WNL, Regular, CTA Bilaterally. No: Rhonchi Gastrointestinal: Yes: Soft. No: Tenderness, Tenderness, Rebound Extremities: No: Cold, Cool, Cyanosis Edema: No Labs: INR, PTT INR 1.80 (0.82-1.09) H D 03/30/17 17:45 Problem List - Problems (1) Alcohol intoxication Code(s): F10.929 - ALCOHOL USE, UNSPECIFIED WITH INTOXICATION, UNSPECIFIED (2) Cardiac arrest Code(s): I46.9 - CARDIAC ARREST, CAUSE UNSPECIFIED (3) Sepsis Code(s): A41.9 - SEPSIS, UNSPECIFIED ORGANISM Qualifiers: Sepsis type: sepsis due to unspecified organism Qualified Code(s): A41.9 - Sepsis, unspecified organism; A41.9 - Sepsis, unspecified organism; A41.9 - Sepsis, unspecified organism Assessment/Plan Microbiology 03/31/17 16:16 Blood - Peripheral Venous Blood Culture - Preliminary NO GROWTH OBTAINED AFTER 96 HOURS, INCUBATION TO CONTINUE FOR 1 DAYS. 03/31/17 16:16 Blood - Peripheral Venous Blood Culture - Preliminary NO GROWTH OBTAINED AFTER 96 HOURS, INCUBATION TO CONTINUE FOR 1 DAYS. Laboratory Tests 04/03/17 04/04/17 04/04/17 05:30 07:00 09:50 WBC 12.2 H 15.7 H Hgb 10.2 L Hct 31.1 L Plt Count 84 L ABG pH 7.25 L ABG pCO2 at Pt Temp 25.4 L D ABG pO2 at Pt Temp 149.0 H D Oxygen Flow Rate 60 Vent Rate 20 BUN Creatinine 04/04/17 04/05/17 04/05/17 20:30 06:10 06:10 WBC Pending Hgb Pending Hct Pending Plt Count Pending ABG pH ABG pCO2 at Pt Temp ABG pO2 at Pt Temp Oxygen Flow Rate Vent Rate BUN 52 H Pending Creatinine 7.7 H* D Pending Assessment Anoxic encephalopathy Cardiac arrest Alcohol intoxication Acute renal failure Now off antibiotics Dialysis with groin line Plan Observe off antibiotics Elevated WBC noted Send stool cof C diff toxin Reculture if WBC continues to rise (blood urine sputum) Roland MEDRANO
[2017-04-05 06:52] LABS: ALBUMIN 2.1 g/dl (3.4-5.0); ANION GAP 16 (8-16); BILIRUBIN,TOTAL 0.8 mg/dL (0.2-1.0); CO2 19 mmol/L (21-32); GLUCOSE,RANDOM 192 mg/dL (74-106); PHOSPHOROUS 7.2 mg/dL (2.5-4.9); SGOT/AST 274 U/L (15-37); TOT PROT 5.3 g/dl (6.4-8.2)
[2017-04-05 06:58] LABS: ALK PHOS 105 U/L (45-117)
--- NOTE | 2017-04-05 08:00 | PN ---
Progress Note (short form) - Note Progress Note: PULM/CCM SUBJECTIVE: Patient seen and examined in the ICU. -no events overnight -remains unresponsive -off pressors Vital Signs Temp 98.4 F 04/05/17 06:00 Pulse 77 04/05/17 06:00 Resp 20 04/05/17 07:43 BP 148/84 04/05/17 06:00 Pulse Ox 100 04/04/17 21:00 Intake & Output 04/04/17 04/04/17 04/05/17 11:59 23:59 11:59 Intake Total 1170 1412 Output Total 100 200 Balance 1070 1412 -200 Weight 78 kg 76 kg Intake: IV 270 142 Versed - 100 mg In Normal 100 50 Saline - 100 ml @ 1 MG/ HR 1 mls/hr IVPB TITR [facility] Rx#:[id number] Dopamine 400 mg/D5w - 250 50 0 ml @ 5 MCG/KG/MIN 11.056 mls/hr IVPB TITR [facility] Rx# :[id number] Diprivan - 100 ml @ 5 MCG 0 /KG/MIN 1.932 mls/hr IVPB TITR [facility] Rx#:[id number] Levophed - 16,000 Mcg In 120 92 D5w - 1,000 ml @ 5 MCG/ MIN 19.05 mls/hr IV TITR [facility] Rx#:[id number] IVPB 300 400 Tube Feeding 480 720 Tube Irrigant 120 150 Output: Urine 100 200 Bhatti 100 200 Other: Voiding Method Indwelling Catheter Indwelling Catheter Indwelling Catheter Bowel Movement Yes Yes Yes: Flexiseal # Bowel Movements 1 1 Weight Measurement Method [facility] Active Medications Heparin Sodium (Porcine) (Heparin -) 5,000 unit SQ TID [facility] Last Admin: 04/05/17 06:32 Dose: 5,000 unit Levetiracetam (Keppra Injection -) 500 mg IVPB BID [facility] Last Admin: 04/04/17 21:46 Dose: 500 mg Morphine Sulfate (Morphine Sulfate) 2 mg IVPUSH Q4H PRN PRN Reason: PAIN Ondansetron HCl (Zofran Injection) 4 mg IVPUSH Q6H PRN PRN Reason: NAUSEA Pantoprazole Sodium (Protonix Iv) 40 mg IVPUSH DAILY [facility] Last Admin: 04/04/17 10:15 Dose: 40 mg Phenytoin Sodium (Dilantin Injection -) 200 mg IVPB Q8H-IV [facility] Last Admin: 04/05/17 01:10 Dose: 200 mg Scopolamine HBr (Transderm-Scop -) 1 patch TD Q72H [facility] Last Admin: 04/04/17 21:46 Dose: 1 patch Thiamine HCl (Vitamin B1 Injection -) 200 mg IVPB TID [facility] Last Admin: 04/05/17 06:32 Dose: 200 mg Gen: intubated, off sedation with no response to noxious stimuli Heart: RRR Lung: decreased breath sounds at the bases Abd: soft, nontender Ext: moderate dependent edema, + pulses x 4 Neuro: PERRL at 4mm, weak cough and gag, corneal intact CXR pending CBCD WBC 11.5 K/mm3 (4.0-10.0) H 04/05/17 06:10 RBC 3.26 M/mm3 (4.00-5.60) L 04/05/17 06:10 Hgb 9.4 GM/dL (11.7-16.9) L 04/05/17 06:10 Hct 26.8 % (35.4-49) L 04/05/17 06:10 MCV 82.0 fl (80-96) 04/05/17 06:10 MCHC 35.1 g/dl (32.0-35.9) 04/05/17 06:10 RDW 14.7 % (11.9-15.9) 04/05/17 06:10 Plt Count 79 K/MM3 (134-434) L 04/05/17 06:10 MPV 9.7 fl (7.5-11.1) 04/05/17 06:10 CMP Sodium 142 mmol/L (136-145) 04/04/17 20:30 Potassium 3.9 mmol/L (3.5-5.1) D 04/04/17 20:30 Chloride 109 mmol/L (98-107) H 04/04/17 20:30 Carbon Dioxide 19 mmol/L (21-32) L D 04/04/17 20:30 Anion Gap 14 (8-16) 04/04/17 20:30 BUN 52 mg/dL (7-18) H 04/04/17 20:30 Creatinine 7.7 mg/dL (0.7-1.3) H* D 04/04/17 20:30 Creat Clearance w eGFR 6.48 (>60) 04/04/17 07:00 Calcium 7.0 mg/dL (8.5-10.1) L 04/04/17 20:30 Total Bilirubin 1.1 mg/dL (0.2-1.0) H 04/04/17 07:00 AST 505 U/L (15-37) H D 04/04/17 07:00 ALT 997 U/L (12-78) H D 04/04/17 07:00 Alkaline Phosphatase 47 U/L (45-117) D 04/04/17 07:00 Total Protein 5.4 g/dl (6.4-8.2) L 04/04/17 07:00 Albumin 2.1 g/dl (3.4-5.0) L 04/04/17 07:00 ASSESSMENT AND PLAN: S/P Prolonged Cardiopulmonary Arrest Anoxic Brain Injury Pneumonia Septic Shock Multiorgan Failure Acute Kidney Injury Elevated LFTs likely ischemic injury +Troponins Rhabdomyolysis Seizures Likely Anoxic Encephalopathy - ABX per ID - continue dilantin, and Keppra for AE - titrate pressors to maintain MAP >65 - monitor urine output, creatinine, HD cath in place - enteral feeds - Not a candidate for weaning at this time - DVT/GI prophylaxis - DNR - Further family discussions for GOC, trach? Edil Handley [facility] Critical Care Time spent in reviewing chart, evaluating plan and formulating plan 35 min Problem List - Problems (1) Cardiac arrest Code(s): I46.9 - CARDIAC ARREST, CAUSE UNSPECIFIED (2) Alcohol intoxication Code(s): F10.929 - ALCOHOL USE, UNSPECIFIED WITH INTOXICATION, UNSPECIFIED (3) Atelectasis of both lungs Code(s): J98.11 - ATELECTASIS (4) Pneumonitis due to food and vomit Code(s): J69.0 - PNEUMONITIS DUE TO INHALATION OF FOOD AND VOMIT (5) Seizure Code(s): R56.9 - UNSPECIFIED CONVULSIONS
[2017-04-05 08:05] LABS: CALCIUM 6.7 mg/dL (8.5-10.1); CREATININE 8.4 mg/dL (0.7-1.3); SGPT/ALT 742 U/L (12-78)
[2017-04-05] MEDS: ALBUMIN HUMAN 25% 12.5 GM/50 ML VIAL IVPB SCH ×4 (10:15→11:45)
--- NOTE | 2017-04-05 10:57 | PN ---
Progress Note (short form) - Note Progress Note: cc Cardiac arrest and unreponsiveness HPI 31 year old male history of diabetes, alcohol abuse and depression. He caem to hospital after cardiac arrest and CPR was started and There was delay in intubation in field. Patient has had seizures and on dialntin 200 mg q 8 hour and keppra 500 mg iv bid. There isno seizures over night. His sedation is off since yesterday afternoon. Patient had EEG done , results are pending. He also have developed liver and renal faiilure and he reamin intubated.Previously seen by Dr Elmo ibanez and Dr Burton and both mentioned prognosis guarded to grave. Medication - Phosphenytoin 200 mg q 8 hour and keppra 500 mg iv bid Medical History as above Neurological Examination BP maintained without pressor Not breathing above vent No response to verbal stimuli pupils is reactive, gag reflex is present on deep suctioning corneal reflex is present wincing to painful stimuli Ct scan reviwed eeg pending Assessment-- 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 There is no seizures over night. Plan prognosis is guarded - continue AED at same dose -continue supportive care - would follow up on EEG -Discussed case with critical care team Thanking you so much Sim Crowley MD Neurologist -
[2017-04-05] MEDS: PANTOPRAZOLE SODIUM 40 MG VIAL IVPUSH SCH (11:06)
[2017-04-05] MEDS: levETIRAcetam 500 MG/5 ML INJECTION VIAL IVPB SCH ×2 (11:07→23:15)
--- NOTE | 2017-04-05 11:12 | PN ---
Progress Note, Physician History of Present Illness: on vent - Current Medication List Current Medications: Active Medications Albumin Human (Albumin Human 25%) 12.5 gm IVPB Q30M [facility] Stop: 04/05/17 11:46 Heparin Sodium (Porcine) (Heparin -) 5,000 unit SQ TID [facility] Last Admin: 04/05/17 06:32 Dose: 5,000 unit Levetiracetam (Keppra Injection -) 500 mg IVPB BID [facility] Last Admin: 04/05/17 11:07 Dose: 500 mg Morphine Sulfate (Morphine Sulfate) 2 mg IVPUSH Q4H PRN PRN Reason: PAIN Ondansetron HCl (Zofran Injection) 4 mg IVPUSH Q6H PRN PRN Reason: NAUSEA Pantoprazole Sodium (Protonix Iv) 40 mg IVPUSH DAILY [facility] Last Admin: 04/05/17 11:06 Dose: 40 mg Phenytoin Sodium (Dilantin Injection -) 200 mg IVPB Q8H-IV [facility] Last Admin: 04/05/17 10:46 Dose: 200 mg Scopolamine HBr (Transderm-Scop -) 1 patch TD Q72H [facility] Last Admin: 04/04/17 21:46 Dose: 1 patch Thiamine HCl (Vitamin B1 Injection -) 200 mg IVPB TID [facility] Last Admin: 04/05/17 06:32 Dose: 200 mg - Objective Vital Signs: Vital Signs Temperature 98.2 F 04/05/17 10:00 Pulse Rate 79 04/05/17 10:00 Respiratory Rate 20 04/05/17 10:00 Blood Pressure 154/82 04/05/17 10:00 O2 Sat by Pulse Oximetry (%) 100 04/05/17 10:00 Cardiovascular: Yes: S1, S2 Respiratory: Yes: Mechanically Ventilated Gastrointestinal: Yes: Normal Bowel Sounds, Soft Neurological: Yes: Unresponsive Labs: CBC, BMP 04/05/17 06:10 04/05/17 06:10 INR, PTT INR 1.80 (0.82-1.09) H D 03/30/17 17:45 Problem List - Problems (1) Anoxia Assessment/Plan: neuro on case Assessment-- 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 There is no seizures over night. Plan prognosis is guarded - continue AED at same dose -continue supportive care - would follow up on EEG Code(s): R09.02 - HYPOXEMIA (2) Respiratory failure after trauma Assessment/Plan: ABG Results ABG pH 7.25 (7.35-7.45) L 04/04/17 09:50 ABG pCO2 at Pt Temp 25.4 mmHg (35-45) L D 04/04/17 09:50 ABG pO2 at Pt Temp 149.0 mmHg (80-100) H D 04/04/17 09:50 ABG HCO3 10.7 meq/L (22-26) L* 04/04/17 09:50 ABG O2 Sat (Measured) 99.1 % (90-98.9) H 04/04/17 09:50 ABG O2 Content 14.4 % vol (15-22) L 04/04/17 09:50 ABG Base Excess -15.0 meq/l (-2-2) L* 04/04/17 09:50 ON VENT Code(s): J96.90 - RESPIRATORY FAILURE, UNSP, UNSP W HYPOXIA OR HYPERCAPNIA (3) Renal failure Assessment/Plan: DIALYSIS PER RENAL Code(s): N19 - UNSPECIFIED KIDNEY FAILURE Qualifiers: Renal failure chronicity: acute (4) Abnormal LFTs Assessment/Plan: TRENDING DOWN Code(s): R79.89 - OTHER SPECIFIED ABNORMAL FINDINGS OF BLOOD CHEMISTRY
--- NOTE | 2017-04-05 16:43 | PN ---
Progress Note, Physician History of Present Illness: Pt seen and examined at bedside. He remains in the ICU. Pt remains intubated. - Current Medication List Current Medications: Active Medications Heparin Sodium (Porcine) (Heparin -) 5,000 unit SQ TID [facility] Last Admin: 04/05/17 15:02 Dose: 5,000 unit Levetiracetam (Keppra Injection -) 500 mg IVPB BID [facility] Last Admin: 04/05/17 11:07 Dose: 500 mg Morphine Sulfate (Morphine Sulfate) 2 mg IVPUSH Q4H PRN PRN Reason: PAIN Ondansetron HCl (Zofran Injection) 4 mg IVPUSH Q6H PRN PRN Reason: NAUSEA Pantoprazole Sodium (Protonix Iv) 40 mg IVPUSH DAILY [facility] Last Admin: 04/05/17 11:06 Dose: 40 mg Phenytoin Sodium (Dilantin Injection -) 200 mg IVPB Q8H-IV [facility] Last Admin: 04/05/17 10:46 Dose: 200 mg Scopolamine HBr (Transderm-Scop -) 1 patch TD Q72H [facility] Last Admin: 04/04/17 21:46 Dose: 1 patch Thiamine HCl (Vitamin B1 Injection -) 200 mg IVPB TID [facility] Last Admin: 04/05/17 15:03 Dose: 200 mg - Objective Vital Signs: Vital Signs Temperature 98.8 F 04/05/17 14:00 Pulse Rate 99 H 04/05/17 14:00 Respiratory Rate 20 04/05/17 14:57 Blood Pressure 145/75 04/05/17 14:00 O2 Sat by Pulse Oximetry (%) 100 04/05/17 10:00 Constitutional: Yes: Calm Eyes: Yes: Conjunctiva Clear HENT: Yes: Atraumatic Neck: Yes: Supple Cardiovascular: Yes: S1, S2 Respiratory: Yes: Mechanically Ventilated Gastrointestinal: Yes: Soft Genitourinary: Yes: Bhatti Present Musculoskeletal: Yes: Muscle Weakness Edema: Yes Integumentary: Yes: Tattoos Neurological: Yes: Lethargy Labs: CBC, BMP 04/05/17 06:10 04/05/17 06:10 INR, PTT INR 1.80 (0.82-1.09) H D 03/30/17 17:45 Problem List - Problems (1) Alcohol intoxication Code(s): F10.929 - ALCOHOL USE, UNSPECIFIED WITH INTOXICATION, UNSPECIFIED (2) Cardiac arrest Code(s): I46.9 - CARDIAC ARREST, CAUSE UNSPECIFIED (3) Seizure Code(s): R56.9 - UNSPECIFIED CONVULSIONS (4) Transaminitis Code(s): R74.0 - NONSPEC ELEV OF LEVELS OF TRANSAMNS & LACTIC ACID DEHYDRGNSE (5) Rhabdomyolysis Code(s): M62.82 - RHABDOMYOLYSIS (6) ESTELA (acute kidney injury) Code(s): N17.9 - ACUTE KIDNEY FAILURE, UNSPECIFIED Assessment/Plan Current Medications Generic Name Dose Route Start Last Admin Trade Name Freq PRN Reason Stop Dose Admin Heparin Sodium (Porcine) 5,000 unit 03/31/17 18:00 04/05/17 15:02 Heparin - SQ 5,000 unit TID [facility] Administration Levetiracetam 500 mg 04/02/17 13:45 04/05/17 11:07 Keppra Injection - IVPB 500 mg BID [facility] Administration Morphine Sulfate 2 mg 03/30/17 12:56 Morphine Sulfate IVPUSH Q4H PRN PAIN Ondansetron HCl 4 mg 03/30/17 12:56 Zofran Injection IVPUSH Q6H PRN NAUSEA Pantoprazole Sodium 40 mg 03/30/17 13:00 04/05/17 11:06 Protonix Iv IVPUSH 40 mg DAILY [facility] Administration Phenytoin Sodium 200 mg 04/01/17 16:15 04/05/17 10:46 Dilantin Injection - IVPB 200 mg Q8H-IV [facility] Administration Scopolamine HBr 1 patch 04/04/17 22:00 04/04/17 21:46 Transderm-Scop - TD 1 patch Q72H [facility] Administration Thiamine HCl 200 mg 04/01/17 22:00 04/05/17 15:03 Vitamin B1 Injection - IVPB 200 mg TID [facility] Administration Impression 1. cardiac arrest 2. respiratory failure 3. ESTELA 4. hyperkalemia 5. multi-drug abuse 6. rhabdo 7. seizure Plan - HD today - repeat labs in am - tube feeds - can add free water - vent support - neuro follow up - bp is improved and pt is off of pressors - monitor urine output - follow up EEG results - discussed with ICU team - likely atn from prolonged hypotension during arrest - monitor cpk level - vent support - will follow Dr Solis
[2017-04-05] MEDS ORDERED: PROPOFOL 20 ML ONE (18:55)
[2017-04-05] MEDS ORDERED: SUCCINYLCHOLINE CHLORIDE 200 MG/10 ML VIAL ONE (18:55)
[2017-04-05] MEDS ORDERED: PROPOFOL 100 ML ONE (19:06)
--- NOTE | 2017-04-05 19:12 | RAPID ---
Physical Examination Vital Signs: Vital Signs Temperature 98.8 F 04/05/17 14:00 Pulse Rate 82 04/05/17 16:00 Respiratory Rate 20 04/05/17 17:34 Blood Pressure 157/79 04/05/17 16:00 O2 Sat by Pulse Oximetry (%) 98 04/05/17 17:34 Labs: CBC, BMP 04/05/17 06:10 04/05/17 06:10 Rapid Response - Rapid Response Assessment: Rapid response called. Reported patient dislodged ET tube during dialysis after coughing. PE: Gen: Pt sedated; ET tube higher up than original position Lungs: Poor air entry auscultated b/l Cardiac: Tachycardic, regular rhythm. No murmurs Ext: No edema noted. Pulses 2+ strong A/P: Pt's ET tube was removed and pt was mechanically vented via AMBU bag. Pt was then intubated by ICU HUMAN RESOURCES CLERK with size 8 ET tube. End-tidal CO2 detector used for confirmation. Equal breath sounds ausculated with good air entry. Stat CXR placed. Pt is now with new ET tube with saturation 98% on AC ventilator.
[2017-04-05] MEDS: PROPOFOL 100 ML IVPB SCH (20:00)
[2017-04-05] MEDS ORDERED: SUCCINYLCHOLINE CHLORIDE 200 MG/10 ML VIAL IVPUSH ONE (20:09)
[2017-04-05] MEDS ORDERED: PROPOFOL 200 MG/20 ML VIAL IVPUSH ONE (20:11)
--- NOTE | 2017-04-05 20:14 | PROC ---
Intubation - Intubation Reason for Intubation: Respiratory Failure, Airway Protection Time of Intubation: 19:00 Intubation Method: orotracheal Blade used: Mac Tube Size (cm): 8.0 Tube position confirmed by: Direct visualization, CO2 detector, Breath sounds Breath Sounds after Intubation: equal Post Intubation Xray: Yes
[2017-04-06] MEDS: PHENYTOIN SODIUM 100 MG/2 ML VIAL IVPB SCH ×3 (02:44→18:02)
[2017-04-06] MEDS ORDERED: ACETAMINOPHEN 650 MG/20.3 ML ORAL SOLUTION (CUPS) NGT ONE (04:00)
[2017-04-06] MEDS ORDERED: morphine SULFATE 4 MG/ML VIAL IVPUSH PRN (04:07)
[2017-04-06] MEDS ORDERED: ROCURONIUM BROMIDE 50 MG/5 ML VIAL IVPUSH ONE (04:15)
[2017-04-06] MEDS ORDERED: ACETAMINOPHEN 1000 MG/100 ML VIAL (NON FORMULARY) IVPB ONE (04:16)
[2017-04-06] MEDS: THIAMINE HCL 200 MG/2 ML VIAL IVPB SCH ×3 (06:15→22:25)
[2017-04-06] MEDS: HEPARIN NA (PORCINE) 5,000 UNITS/ML 1ML VIAL SQ SCH ×3 (06:15→22:27)
[2017-04-06 06:25] LABS: MCH 28.9 pg (25.7-33.7); MCHC 35.3 g/dl (32.0-35.9); MEAN PLT VOLUME 9.7 fl (7.5-11.1); PLATELET COUNT 75 K/MM3 (134-434); RDW 14.1 % (11.9-15.9); WHITE BLOOD COUNT 10.2 K/mm3 (4.0-10.0)
[2017-04-06 06:51] LABS: ALBUMIN 1.9 g/dl (3.4-5.0); ANION GAP 14 (8-16); BILIRUBIN,TOTAL 0.7 mg/dL (0.2-1.0); CALCIUM 7.1 mg/dL (8.5-10.1); CO2 23 mmol/L (21-32); CREATININE 6.4 mg/dL (0.7-1.3); GLUCOSE,RANDOM 93 mg/dL (74-106); SGOT/AST 139 U/L (15-37); TOT PROT 5.1 g/dl (6.4-8.2)
[2017-04-06 06:52] LABS: ALK PHOS 114 U/L (45-117)
[2017-04-06 07:17] LABS: SGPT/ALT 491 U/L (12-78)
--- NOTE | 2017-04-06 07:20 | PN ---
Progress Note, Physician Chief Complaint: ID According to nurses opens his eyes and moving extremities Apparently bit his tongue but no seizures noted. Off antibiotics but noting fever 100.8 & tachcardic Has been off antibiotics Rectal tube Groin dialysis catheter - Current Medication List Current Medications: Active Medications Heparin Sodium (Porcine) (Heparin -) 5,000 unit SQ TID [facility] Last Admin: 04/06/17 06:15 Dose: Not Given Propofol (Diprivan -) 100 mls @ 2.28 mls/hr IVPB TITR [facility]; 5 MCG/KG/MIN PRN Reason: Protocol Last Titration: 04/06/17 05:00 Dose: 60 mcg/kg/min Levetiracetam (Keppra Injection -) 500 mg IVPB BID [facility] Last Admin: 04/05/17 23:15 Dose: 500 mg Morphine Sulfate (Morphine Sulfate) 2 mg IVPUSH Q4H PRN PRN Reason: PAIN Ondansetron HCl (Zofran Injection) 4 mg IVPUSH Q6H PRN PRN Reason: NAUSEA Pantoprazole Sodium (Protonix Iv) 40 mg IVPUSH DAILY [facility] Last Admin: 04/05/17 11:06 Dose: 40 mg Phenytoin Sodium (Dilantin Injection -) 200 mg IVPB Q8H-IV [facility] Last Admin: 04/06/17 02:44 Dose: 200 mg Scopolamine HBr (Transderm-Scop -) 1 patch TD Q72H [facility] Last Admin: 04/04/17 21:46 Dose: 1 patch Thiamine HCl (Vitamin B1 Injection -) 200 mg IVPB TID [facility] Last Admin: 04/06/17 06:15 Dose: 200 mg - Objective Vital Signs: Vital Signs Temperature 100.2 F H 04/06/17 06:00 Pulse Rate 102 H 04/06/17 06:00 Respiratory Rate 20 04/06/17 06:00 Blood Pressure 141/80 04/06/17 06:00 O2 Sat by Pulse Oximetry (%) 99 04/05/17 20:40 Constitutional: Yes: Other (INtubated) Cardiovascular: Yes: Tachycardia, S1, S2 Respiratory: Yes: WNL, Regular, CTA Bilaterally, Rhonchi. No: Rales Gastrointestinal: Yes: Soft. No: Melena, Tenderness Extremities: No: Cold, Cool, Cyanosis Edema: No Labs: CBC, BMP 04/06/17 05:20 INR, PTT INR 1.80 (0.82-1.09) H D 03/30/17 17:45 Problem List - Problems (1) Alcohol intoxication Code(s): F10.929 - ALCOHOL USE, UNSPECIFIED WITH INTOXICATION, UNSPECIFIED (2) Cardiac arrest Code(s): I46.9 - CARDIAC ARREST, CAUSE UNSPECIFIED (3) Sepsis Code(s): A41.9 - SEPSIS, UNSPECIFIED ORGANISM Qualifiers: Sepsis type: sepsis due to unspecified organism Qualified Code(s): A41.9 - Sepsis, unspecified organism; A41.9 - Sepsis, unspecified organism; A41.9 - Sepsis, unspecified organism (4) Fever Code(s): R50.9 - FEVER, UNSPECIFIED Assessment/Plan Microbiology 03/31/17 16:16 Blood - Peripheral Venous Blood Culture - Final NO GROWTH AFTER 5 DAYS INCUBATION 03/31/17 16:16 Blood - Peripheral Venous Blood Culture - Final NO GROWTH AFTER 5 DAYS INCUBATION 03/30/17 18:56 Stool Clostridium difficile Antigen (CINDY) - Final 03/30/17 18:56 Stool Clostridium difficile Toxin Assay - Final 03/30/17 16:30 Sputum - Endotrachea Suction/Ventilator Gram Stain - Final 03/30/17 16:30 Sputum - Endotrachea Suction/Ventilator Sputum Culture - Final NORMAL RESPIRATORY BRUCE 03/30/17 10:30 Urine - Urine - Catheterized Urine Culture - Final NO GROWTH OBTAINED 03/30/17 09:30 Blood - Peripheral Venous Blood Culture - Final Staphylococcus Epidermidis 03/30/17 09:30 Blood - Peripheral Venous Blood Culture - Final NO GROWTH AFTER 5 DAYS INCUBATION Laboratory Tests 04/06/17 04/06/17 05:20 05:20 WBC 10.2 H Hgb 8.4 L D Hct 23.7 L Plt Count 75 L Total Bilirubin Pending AST Pending ALT Pending Assessment 1 S/P cardiac arrest 2. Alcohol intoxication/overdose 3. Rhadomyolysis with acute renal failure on dialysis acutely 4. Seizures 5. Anoxic brain damage though seems to be waking up 6. Fever obviously with multiple possible sources would be concerned in particular about groin catheter and CVP Plan Panculture but hold off on antibiotics unless over 101 IF over 101 vancomcyin 1.25 grs x 1 dose and Zosyn 2.25 grs q 12H Critical care time spent 35 minutes [place] MD
[2017-04-06 08:19] LABS: ARTERIAL BLD GAS O2 SATURATION 98.2 % (90-98.9); ARTERIAL BLOOD GAS BASE EXCESS 3.3 meq/l (-2-2); ARTERIAL BLOOD GAS HCO3 25.7 meq/L (22-26); ARTERIAL BLOOD GAS PO2 94.2 mmHg (80-100); ARTERIAL BLOOD GAS pH 7.53 (7.35-7.45)
[2017-04-06] MEDS: levETIRAcetam 500 MG/5 ML INJECTION VIAL IVPB SCH ×2 (10:24→22:15)
[2017-04-06] MEDS: PANTOPRAZOLE SODIUM 40 MG VIAL IVPUSH SCH (10:24)
[2017-04-06 10:46] LABS: MYELOCYTE 1 % (0-2); TOTAL CELLS COUNTED 100
[2017-04-06 10:47] LABS: PLATELET ESTIMATE DECREASED (NORMAL)
--- NOTE | 2017-04-06 12:14 | PN ---
Progress Note, Physician History of Present Illness: on vent -bit tongue and Et tube -bleeding from mouth - Current Medication List Current Medications: Active Medications Heparin Sodium (Porcine) (Heparin -) 5,000 unit SQ TID [facility] Last Admin: 04/06/17 06:15 Dose: Not Given Propofol (Diprivan -) 100 mls @ 2.28 mls/hr IVPB TITR [facility]; 5 MCG/KG/MIN PRN Reason: Protocol Last Titration: 04/06/17 05:00 Dose: 60 mcg/kg/min Levetiracetam (Keppra Injection -) 500 mg IVPB BID [facility] Last Admin: 04/06/17 10:24 Dose: 500 mg Morphine Sulfate (Morphine Sulfate) 2 mg IVPUSH Q4H PRN PRN Reason: PAIN Ondansetron HCl (Zofran Injection) 4 mg IVPUSH Q6H PRN PRN Reason: NAUSEA Pantoprazole Sodium (Protonix Iv) 40 mg IVPUSH DAILY [facility] Last Admin: 04/06/17 10:24 Dose: 40 mg Phenytoin Sodium (Dilantin Injection -) 200 mg IVPB Q8H-IV [facility] Last Admin: 04/06/17 10:25 Dose: 200 mg Scopolamine HBr (Transderm-Scop -) 1 patch TD Q72H [facility] Last Admin: 04/04/17 21:46 Dose: 1 patch Thiamine HCl (Vitamin B1 Injection -) 200 mg IVPB TID [facility] Last Admin: 04/06/17 06:15 Dose: 200 mg - Objective Vital Signs: Vital Signs Temperature 100.7 F H 04/06/17 10:00 Pulse Rate 104 H 04/06/17 10:38 Respiratory Rate 20 04/06/17 10:38 Blood Pressure 135/74 04/06/17 10:53 O2 Sat by Pulse Oximetry (%) 97 04/06/17 10:38 HENT: Yes: Other (mouth with guase and ET tube difficult to asses) Cardiovascular: Yes: S1, S2 Respiratory: Yes: Mechanically Ventilated Gastrointestinal: Yes: Normal Bowel Sounds, Soft Labs: CBC, BMP 04/06/17 05:20 04/06/17 05:20 INR, PTT INR 1.80 (0.82-1.09) H D 03/30/17 17:45 Problem List - Problems (1) Anoxia Assessment/Plan: neuro on case Assessment-- 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 There is no seizures over night. Plan prognosis is guarded - continue AED at same dose -continue supportive care - would follow up on EEG Code(s): R09.02 - HYPOXEMIA (2) Respiratory failure after trauma Assessment/Plan: ABG Results ABG pH 7.25 (7.35-7.45) L 04/04/17 09:50 ABG pCO2 at Pt Temp 25.4 mmHg (35-45) L D 04/04/17 09:50 ABG pO2 at Pt Temp 149.0 mmHg (80-100) H D 04/04/17 09:50 ABG HCO3 10.7 meq/L (22-26) L* 04/04/17 09:50 ABG O2 Sat (Measured) 99.1 % (90-98.9) H 04/04/17 09:50 ABG O2 Content 14.4 % vol (15-22) L 04/04/17 09:50 ABG Base Excess -15.0 meq/l (-2-2) L* 04/04/17 09:50 ON VENT Code(s): J96.90 - RESPIRATORY FAILURE, UNSP, UNSP W HYPOXIA OR HYPERCAPNIA (3) Renal failure Assessment/Plan: DIALYSIS PER RENAL Code(s): N19 - UNSPECIFIED KIDNEY FAILURE Qualifiers: Renal failure chronicity: acute (4) Abnormal LFTs Assessment/Plan: TRENDING DOWN Code(s): R79.89 - OTHER SPECIFIED ABNORMAL FINDINGS OF BLOOD CHEMISTRY (5) Oral bleeding Assessment/Plan: TONGUE LACERATION ENT CONSULT CHECK LABS Code(s): K13.79 - OTHER LESIONS OF ORAL MUCOSA
[2017-04-06] MEDS ORDERED: POTASSIUM CHLORIDE ORAL LIQUID 20 MEQ/15 ML NGT ONE (13:00)
[2017-04-06] MEDS ORDERED: POTASSIUM CHLORIDE 30 MEQ in SODIUM CHLORIDE 300 ML IVPB ONE (14:00)
--- NOTE | 2017-04-06 14:07 | PN ---
Progress Note, Physician History of Present Illness: Pt seen and examined at bedside. He remains in the ICU. ET tube was changed yesterday. He tolerated HD last night. - Current Medication List Current Medications: Active Medications Heparin Sodium (Porcine) (Heparin -) 5,000 unit SQ TID [facility] Last Admin: 04/06/17 06:15 Dose: Not Given Propofol (Diprivan -) 100 mls @ 2.28 mls/hr IVPB TITR SEN; 5 MCG/KG/MIN PRN Reason: Protocol Last Titration: 04/06/17 05:00 Dose: 60 mcg/kg/min Potassium Chloride 30 meq/ (Sodium Chloride) 315 mls @ 105 mls/hr IVPB ONCE ONE Stop: 04/06/17 16:59 Levetiracetam (Keppra Injection -) 500 mg IVPB BID [facility] Last Admin: 04/06/17 10:24 Dose: 500 mg Morphine Sulfate (Morphine Sulfate) 2 mg IVPUSH Q4H PRN PRN Reason: PAIN Ondansetron HCl (Zofran Injection) 4 mg IVPUSH Q6H PRN PRN Reason: NAUSEA Pantoprazole Sodium (Protonix Iv) 40 mg IVPUSH DAILY [facility] Last Admin: 04/06/17 10:24 Dose: 40 mg Phenytoin Sodium (Dilantin Injection -) 200 mg IVPB Q8H-IV [facility] Last Admin: 04/06/17 10:25 Dose: 200 mg Scopolamine HBr (Transderm-Scop -) 1 patch TD Q72H [facility] Last Admin: 04/04/17 21:46 Dose: 1 patch Thiamine HCl (Vitamin B1 Injection -) 200 mg IVPB TID [facility] Last Admin: 04/06/17 06:15 Dose: 200 mg - Objective Vital Signs: Vital Signs Temperature 100.7 F H 04/06/17 10:00 Pulse Rate 102 H 04/06/17 12:00 Respiratory Rate 20 04/06/17 12:56 Blood Pressure 128/72 04/06/17 12:00 O2 Sat by Pulse Oximetry (%) 97 04/06/17 10:38 Constitutional: Yes: Calm Neck: Yes: Supple Cardiovascular: Yes: S1, S2 Respiratory: Yes: Mechanically Ventilated Gastrointestinal: Yes: Soft Genitourinary: Yes: Bhatti Present Musculoskeletal: Yes: Muscle Weakness Edema: Yes Edema: LUE: Trace, RUE: Trace, LLE: Trace, RLE: Trace Integumentary: Yes: Tattoos Neurological: Yes: Lethargy Labs: CBC, BMP 04/06/17 05:20 04/06/17 05:20 INR, PTT INR 1.80 (0.82-1.09) H D 03/30/17 17:45 - ....Imaging Chest X-ray: Report Reviewed Problem List - Problems (1) Alcohol intoxication Code(s): F10.929 - ALCOHOL USE, UNSPECIFIED WITH INTOXICATION, UNSPECIFIED (2) Cardiac arrest Code(s): I46.9 - CARDIAC ARREST, CAUSE UNSPECIFIED (3) Seizure Code(s): R56.9 - UNSPECIFIED CONVULSIONS (4) Transaminitis Code(s): R74.0 - NONSPEC ELEV OF LEVELS OF TRANSAMNS & LACTIC ACID DEHYDRGNSE (5) Rhabdomyolysis Code(s): M62.82 - RHABDOMYOLYSIS (6) ESTELA (acute kidney injury) Code(s): N17.9 - ACUTE KIDNEY FAILURE, UNSPECIFIED Assessment/Plan Current Medications Generic Name Dose Route Start Last Admin Trade Name Freq PRN Reason Stop Dose Admin Heparin Sodium (Porcine) 5,000 unit 03/31/17 18:00 04/06/17 06:15 Heparin - SQ Not Given TID SEN Propofol 100 mls @ 2.28 mls/hr 04/05/17 20:45 04/06/17 05:00 Diprivan - IVPB 60 mcg/kg/min TITR SEN Titration Protocol 5 MCG/KG/MIN Potassium Chloride 30 meq/ 315 mls @ 105 mls/hr 04/06/17 14:00 Sodium Chloride IVPB 04/06/17 16:59 ONCE ONE Levetiracetam 500 mg 04/02/17 13:45 04/06/17 10:24 Keppra Injection - IVPB 500 mg BID SEN Administration Morphine Sulfate 2 mg 03/30/17 12:56 Morphine Sulfate IVPUSH Q4H PRN PAIN Ondansetron HCl 4 mg 03/30/17 12:56 Zofran Injection IVPUSH Q6H PRN NAUSEA Pantoprazole Sodium 40 mg 03/30/17 13:00 04/06/17 10:24 Protonix Iv IVPUSH 40 mg DAILY SEN Administration Phenytoin Sodium 200 mg 04/01/17 16:15 04/06/17 10:25 Dilantin Injection - IVPB 200 mg Q8H-IV [facility] Administration Scopolamine HBr 1 patch 04/04/17 22:00 04/04/17 21:46 Transderm-Scop - TD 1 patch Q72H SEN Administration Thiamine HCl 200 mg 04/01/17 22:00 04/06/17 06:15 Vitamin B1 Injection - IVPB 200 mg TID SEN Administration Impression 1. cardiac arrest 2. respiratory failure 3. ESTELA 4. hyperkalemia 5. multi-drug abuse 6. rhabdo 7. seizure Plan - replace potassium - vent support - neuro follow up - HD in am - remove HD catheter tomorrow after dialysis - family meeting for GOC - check mag levels - monitor urine output - bp is stable - follow up EEG results - discussed with ICU team - likely atn from prolonged hypotension during arrest - monitor cpk level - will follow Dr Solis
[2017-04-06 16:32] LABS: MCH 27.6 pg (25.7-33.7); MCHC 33.4 g/dl (32.0-35.9); MEAN CELL VOLUME 82.7 fl (80-96); MEAN PLT VOLUME 9.3 fl (7.5-11.1); PLATELET COUNT 88 K/MM3 (134-434); WHITE BLOOD COUNT 11.8 K/mm3 (4.0-10.0)
[2017-04-06 16:44] LABS: INR 1.23 (0.82-1.09); PROTHROMBIN TIME (PATIENT) 13.9 SEC (9.98-11.88)
[2017-04-06 16:46] LABS: ACTIVATED PTT 26.6 SECONDS (26.9-34.4)
--- NOTE | 2017-04-06 16:46 | PN ---
Progress Note (short form) - Note Progress Note: cc Cardiac arrest and unreponsiveness HPI 31 year old male history of diabetes, alcohol abuse and depression. He caem to hospital after cardiac arrest and CPR was started and There was delay in intubation in field. Patient has had seizures and on dialntin 200 mg q 8 hour and keppra 500 mg iv bid. Patient had EEG done , results are pending. He also have developed liver and renal faiilure and he reamin intubated.Previously seen by Dr Elmo ibanez and Dr Burton and both mentioned prognosis guarded to grave. He was put on sedation again as he was biting his et tube. 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 He has his brain stem function intact and was responding to pain when he was off sedation yesterday Plan over prognosis is guarded - continue AED at same dose -continue supportive care - would follow up on EEG -Discussed case with critical care team Thanking you so much Sim Crowley MD Neurologist -
--- NOTE | 2017-04-06 16:51 | PN ---
Progress Note (short form) - Note Progress Note: PULM/CCM Pt Seen & examined in the ICU, self extubated yesterday & re-intubated, moving around more, remains off all pressors. ACTIVE MEDS Heparin Sodium (Porcine) (Heparin -) 5,000 unit SQ TID [facility] Last Admin: 04/06/17 15:17 Dose: Not Given Propofol (Diprivan -) 100 mls @ 2.28 mls/hr IVPB TITR SEN; 5 MCG/KG/MIN PRN Reason: Protocol Last Titration: 04/06/17 05:00 Dose: 60 mcg/kg/min Potassium Chloride 30 meq/ (Sodium Chloride) 315 mls @ 105 mls/hr IVPB ONCE ONE Stop: 04/06/17 16:59 Last Admin: 04/06/17 15:16 Dose: 105 mls/hr Levetiracetam (Keppra Injection -) 500 mg IVPB BID [facility] Last Admin: 04/06/17 10:24 Dose: 500 mg Morphine Sulfate (Morphine Sulfate) 2 mg IVPUSH Q4H PRN PRN Reason: PAIN Ondansetron HCl (Zofran Injection) 4 mg IVPUSH Q6H PRN PRN Reason: NAUSEA Pantoprazole Sodium (Protonix Iv) 40 mg IVPUSH DAILY [facility] Last Admin: 04/06/17 10:24 Dose: 40 mg Phenytoin Sodium (Dilantin Injection -) 200 mg IVPB Q8H-IV [facility] Last Admin: 04/06/17 10:25 Dose: 200 mg Scopolamine HBr (Transderm-Scop -) 1 patch TD Q72H [facility] Last Admin: 04/04/17 21:46 Dose: 1 patch Thiamine HCl (Vitamin B1 Injection -) 200 mg IVPB TID [facility] Last Admin: 04/06/17 15:16 Dose: 200 mg V/S Period Temp Pulse Resp BP Sys/Ke[place] Pulse Ox Last 24 Hr 99.0 F-100.9 F 73-108 17-21 124-169/66-80 97-99 Intake & Output 04/03/17 04/04/17 04/05/17 04/06/17 23:59 23:59 23:59 22:59 Intake Total 5148 2742 365 761 Output Total 300 100 550 250 Balance 4849 2482 -185 511 Weight 74.3 kg 78 kg 76 kg 72.2 kg GEN: young man sedated & intubated on the Vent HEENT: PERRL, + corneals, oropharynx packed w/ guaze 2/2 tongue trauma, + gag PULM: CTAB CV: nml S1 S2 RR, unable to appreciate any G/m/R ABD: +BS S/S N/T N/D X4Q NEURO: sedated on the vent but wincing to painful stimuli CBC, BMP 04/06/17 05:20 MICRO 04/06/17 09:45 Sputum - Endotrachea Suction/Ventilator Gram Stain - Final 03/31/17 16:16 Blood - Peripheral Venous Blood Culture - Final NO GROWTH AFTER 5 DAYS INCUBATION 03/31/17 16:16 Blood - Peripheral Venous Blood Culture - Final NO GROWTH AFTER 5 DAYS INCUBATION 03/30/17 09:30 Blood - Peripheral Venous Blood Culture - Final NO GROWTH AFTER 5 DAYS INCUBATION 03/30/17 09:30 Blood - Peripheral Venous Blood Culture - Final Staphylococcus Epidermidis 03/30/17 16:30 Sputum - Endotrachea Suction/Ventilator Gram Stain - Final 03/30/17 16:30 Sputum - Endotrachea Suction/Ventilator Sputum Culture - Final NORMAL RESPIRATORY BRUCE 03/30/17 18:56 Stool Clostridium difficile Antigen (CINDY) - Final 03/30/17 18:56 Stool Clostridium difficile Toxin Assay - Final 03/30/17 10:30 Urine - Urine - Catheterized Urine Culture - Final NO GROWTH OBTAINED IMAGING: CXR 04/05: ETT ~ 4cm above marshall, R IJ TLC in good position, b/l pleural effusions R > L ASSESS: S/P Prolonged Cardiopulmonary Arrest Anoxic Brain Injury Pneumonia Septic Shock Multiorgan Failure Acute Kidney Injury Elevated LFTs likely ischemic injury +Troponins Rhabdo Szs Likely Anoxic Encephalopathy PLAN: - ABX per ID - continue dilantin, and Keppra for AE - monitor urine output, creatinine, HD cath in place - enteral feeds - Not a candidate for weaning at this time - F/u w/ NEURO - DVT/GI prophylaxis - Cont GOC Discusions - TRACH/PEG/PICC - Pall Care Consult [facility] ICU [id number] PULM/CCM
[2017-04-06 18:04] LABS: BASOPHIL %. 3 % (0-2.0); MYELOCYTE 2 % (0-2); NUCLEATED RED BLOOD CELL 1 % (0-0); PLATELET COMMENT2 FEW LARGE PLTS; PLATELET ESTIMATE DECREASED (NORMAL); SMUDGE CELLS FEW; TOTAL CELLS COUNTED 100
[2017-04-06 18:06] LABS: MICROCYTOSIS 2+; TOXIC GRANULATION FEW
[2017-04-06] MEDS: PROPOFOL 100 ML IVPB SCH ×2 (20:00→23:29)
[2017-04-06] MEDS ORDERED: PROPOFOL 100 ML ONE (20:18)
[2017-04-07] MEDS ORDERED: ACETAMINOPHEN 1000 MG/100 ML VIAL (NON FORMULARY) IVPB ONE (01:15)
[2017-04-07] MEDS: PHENYTOIN SODIUM 100 MG/2 ML VIAL IVPB SCH ×3 (01:17→17:25)
[2017-04-07] MEDS: THIAMINE HCL 200 MG/2 ML VIAL IVPB SCH ×3 (06:04→22:12)
[2017-04-07] MEDS: HEPARIN NA (PORCINE) 5,000 UNITS/ML 1ML VIAL SQ SCH ×2 (06:04→15:34)
[2017-04-07 06:21] LABS: MCH 29.2 pg (25.7-33.7); MCHC 34.9 g/dl (32.0-35.9); MEAN CELL VOLUME 83.8 fl (80-96); MEAN PLT VOLUME 9.8 fl (7.5-11.1); PLATELET COUNT 106 K/MM3 (134-434); RDW 14.3 % (11.9-15.9); WHITE BLOOD COUNT 12.6 K/mm3 (4.0-10.0)
[2017-04-07 06:46] LABS: ALBUMIN 1.9 g/dl (3.4-5.0); ANION GAP 15 (8-16); BILIRUBIN,TOTAL 0.6 mg/dL (0.2-1.0); CALCIUM 7.3 mg/dL (8.5-10.1); CO2 22 mmol/L (21-32); GLUCOSE,RANDOM 76 mg/dL (74-106); SGPT/ALT 370 U/L (12-78); TOT PROT 5.2 g/dl (6.4-8.2)
[2017-04-07 06:51] LABS: ALK PHOS 93 U/L (45-117)
[2017-04-07 06:58] LABS: CREATININE 8.4 mg/dL (0.7-1.3)
[2017-04-07 06:59] LABS: SGOT/AST 96 U/L (15-37)
--- NOTE | 2017-04-07 07:23 | PN ---
Progress Note, Physician Chief Complaint: ID Fevers nearly 101 persist. Have up to now chosen to culture and observe Neurology evaluation noted Had to be reintubated Off pressors Dialysis to start today (again) - Current Medication List Current Medications: Active Medications Fentanyl (Sublimaze Injection -) 100 mcg IVPUSH ONCE PRN PRN Reason: AGITATION Stop: 04/07/17 21:53 Heparin Sodium (Porcine) (Heparin -) 5,000 unit SQ TID [facility] Last Admin: 04/07/17 06:04 Dose: 5,000 unit Propofol (Diprivan -) 100 mls @ 2.28 mls/hr IVPB TITR SEN; 5 MCG/KG/MIN PRN Reason: Protocol Last Admin: 04/06/17 23:29 Dose: 22.8 mls/hr Levetiracetam (Keppra Injection -) 500 mg IVPB BID [facility] Last Admin: 04/06/17 22:15 Dose: 500 mg Morphine Sulfate (Morphine Sulfate) 2 mg IVPUSH Q4H PRN PRN Reason: PAIN Ondansetron HCl (Zofran Injection) 4 mg IVPUSH Q6H PRN PRN Reason: NAUSEA Pantoprazole Sodium (Protonix Iv) 40 mg IVPUSH DAILY [facility] Last Admin: 04/06/17 10:24 Dose: 40 mg Phenytoin Sodium (Dilantin Injection -) 200 mg IVPB Q8H-IV [facility] Last Admin: 04/07/17 01:17 Dose: 200 mg Scopolamine HBr (Transderm-Scop -) 1 patch TD Q72H [facility] Last Admin: 04/04/17 21:46 Dose: 1 patch Thiamine HCl (Vitamin B1 Injection -) 200 mg IVPB TID [facility] Last Admin: 04/07/17 06:04 Dose: 200 mg - Objective Vital Signs: Vital Signs Temperature 100.2 F H 04/07/17 02:00 Pulse Rate 93 H 04/07/17 05:56 Respiratory Rate 20 04/07/17 06:41 Blood Pressure 111/66 04/07/17 05:56 O2 Sat by Pulse Oximetry (%) 97 04/06/17 22:57 Constitutional: Yes: Other (Intubated) Cardiovascular: Yes: Regular Rate and Rhythm, Tachycardia, S1, S2. No: Murmur Respiratory: Yes: WNL, Regular, CTA Bilaterally Gastrointestinal: Yes: WNL, Normal Bowel Sounds, Soft. No: Tenderness Extremities: No: Cold, Cool, Cyanosis Edema: No Labs: CBC, BMP 04/07/17 06:10 04/07/17 06:10 INR, PTT INR 1.23 (0.82-1.09) H D 04/06/17 16:00 Problem List - Problems (1) Alcohol intoxication Code(s): F10.929 - ALCOHOL USE, UNSPECIFIED WITH INTOXICATION, UNSPECIFIED (2) Cardiac arrest Code(s): I46.9 - CARDIAC ARREST, CAUSE UNSPECIFIED (3) Sepsis Code(s): A41.9 - SEPSIS, UNSPECIFIED ORGANISM Qualifiers: Sepsis type: sepsis due to unspecified organism Qualified Code(s): A41.9 - Sepsis, unspecified organism; A41.9 - Sepsis, unspecified organism; A41.9 - Sepsis, unspecified organism (4) Fever Code(s): R50.9 - FEVER, UNSPECIFIED Assessment/Plan Microbiology 04/06/17 09:45 Sputum - Endotrachea Suction/Ventilator Gram Stain - Final Laboratory Tests 04/06/17 04/07/17 16:20 06:10 WBC 12.6 H Hgb 7.7 L Hct 22.2 L Plt Count 106 L D Neutrophils % (Manual) 46 D Band Neuts % (Manual) 13 H D Lymphocytes % (Manual) 22 D Monocytes % (Manual) 13 H D Basophils % (Manual) 3 H Myelocytes % (Man) 2 D Nucleated RBC % 1 H Assessment S/P cardiac arrest Anoxic brain injury though improving neurologic status Rhadomyolysis Acute renal failure on dialysis Alcohol ingestion Fever persist multiple lines groin neck left shift Plan Cultures pending this am Start empiric therapy as outline Vancomycin 1 dose Check vanco level tomorrow Add Zosyn Not sputum has yeast on gram stain Mayhave to consider addition of antifungal therapy in view of lines but wait for cultures Roland MEDRANO Critical care time s spent 38 minutes Roland MEDRANO
[2017-04-07] MEDS ORDERED: VANCOMYCIN 1,250 MG in DEXTROSE 5%-WATER - 250 ML IVPB ONE (08:30)
[2017-04-07 09:48] LABS: BASOPHIL %. 4 % (0-2.0); METAMYELOCYTE 1 % (0-2); PLATELET ESTIMATE DECREASED (NORMAL); TOTAL CELLS COUNTED 100
--- NOTE | 2017-04-07 12:09 | PN ---
Teaching Attending Note Name of Resident: Caroline Duggan ATTENDING PHYSICIAN STATEMENT I saw and evaluated the patient. I reviewed the resident's note and discussed the case with the resident. I agree with the resident's findings and plan as documented. SUBJECTIVE: Pt seen and examined in the ICU. Remains intubated, sedated. Off pressors, being dialyzed now. Vented on volume assist control with 50% FiO2, PEEP 7. OBJECTIVE: Last Vital Signs Temp Pulse Resp BP Pulse Ox 99.0 F 100 H 22 130/72 93 L 04/07/17 10:00 04/07/17 10:30 04/07/17 11:40 04/07/17 10:30 04/07/17 10:00 Intake & Output 04/05/17 04/06/17 04/06/17 04/07/17 00:59 00:59 23:59 23:59 Intake Total 389 Output Total 100 Balance 289 Weight 161 lb 9.581 oz Gen: intubated, sedated Heart: tachycardic, regular Lung: scattered rhonchi Abd: soft, nontender Ext: upper extremity edema CBC, BMP 04/07/17 06:10 04/07/17 06:10 Hepatic Panel Total Bilirubin 0.6 mg/dL (0.2-1.0) 04/07/17 06:10 AST 96 U/L (15-37) H D 04/07/17 06:10 ALT 370 U/L (12-78) H D 04/07/17 06:10 Alkaline Phosphatase 93 U/L (45-117) 04/07/17 06:10 Albumin 1.9 g/dl (3.4-5.0) L 04/07/17 06:10 Active Medications Fentanyl (Sublimaze Injection -) 100 mcg IVPUSH ONCE PRN PRN Reason: AGITATION Stop: 04/07/17 21:53 Heparin Sodium (Porcine) (Heparin -) 5,000 unit SQ TID [facility] Last Admin: 04/07/17 06:04 Dose: 5,000 unit Propofol (Diprivan -) 100 mls @ 2.28 mls/hr IVPB TITR SEN; 5 MCG/KG/MIN PRN Reason: Protocol Last Admin: 04/06/17 23:29 Dose: 22.8 mls/hr Piperacillin/Tazobactam/Dextrose (Zosyn 2.25gm Ivpb (Premix)) 50 mls @ 100 mls/ hr IVPB BID SEN PRN Reason: Protocol Levetiracetam (Keppra Injection -) 500 mg IVPB BID [facility] Last Admin: 04/06/17 22:15 Dose: 500 mg Morphine Sulfate (Morphine Sulfate) 2 mg IVPUSH Q4H PRN PRN Reason: PAIN Ondansetron HCl (Zofran Injection) 4 mg IVPUSH Q6H PRN PRN Reason: NAUSEA Pantoprazole Sodium (Protonix Iv) 40 mg IVPUSH DAILY [facility] Last Admin: 04/06/17 10:24 Dose: 40 mg Phenytoin Sodium (Dilantin Injection -) 200 mg IVPB Q8H-IV [facility] Last Admin: 04/07/17 01:17 Dose: 200 mg Scopolamine HBr (Transderm-Scop -) 1 patch TD Q72H [facility] Last Admin: 04/04/17 21:46 Dose: 1 patch Thiamine HCl (Vitamin B1 Injection -) 200 mg IVPB TID [facility] Last Admin: 04/07/17 06:04 Dose: 200 mg ASSESSMENT AND PLAN: s/p Cardiopulmonary Arrest Acute Hypoxic Respiratory Failure Pneumonia Septic Shock improving Multiorgan Failure Acute Kidney Injury requiring HD Elevated LFTs likely ischemic injury trending down +Troponins Rhabdomyolysis Seizures Likely Anoxic Encephalopathy - continue antibiotics - continue antiepileptics - IVF - HD per renal - monitor urine output, creatinine - enteral feeds - not a candidate for weaning at this time - DVT/GI prophylaxis - continue discussions regarding goals of care, will likely need tracheostomy if they wish to continue aggressive treatment - continue ICU monitoring critical care time spent in reviewing chart, evaluating plan and formulating plan 40 min
[2017-04-07] MEDS: levETIRAcetam 500 MG/5 ML INJECTION VIAL IVPB SCH ×2 (12:36→22:12)
[2017-04-07] MEDS: PIPERACILLIN/TAZOB 2.25 GM 50 ML IVPB SCH ×2 (12:36→22:13)
[2017-04-07] MEDS: PANTOPRAZOLE SODIUM 40 MG VIAL IVPUSH SCH (12:36)
[2017-04-07] MEDS ORDERED: MIDAZOLAM 100 MG in SODIUM CHLORIDE 100 ML IVPB SCH (13:00)
--- NOTE | 2017-04-07 13:16 | PN ---
Progress Note, Physician History of Present Illness: Pt seen and examined at bedside. He remains in the ICU. Pt remains intubated. He tolerated HD today. - Current Medication List Current Medications: Active Medications Fentanyl (Sublimaze Injection -) 100 mcg IVPUSH ONCE PRN PRN Reason: AGITATION Stop: 04/07/17 21:53 Heparin Sodium (Porcine) (Heparin -) 5,000 unit SQ TID [facility] Last Admin: 04/07/17 06:04 Dose: 5,000 unit Propofol (Diprivan -) 100 mls @ 2.28 mls/hr IVPB TITR SEN; 5 MCG/KG/MIN PRN Reason: Protocol Last Admin: 04/06/17 23:29 Dose: 22.8 mls/hr Piperacillin/Tazobactam/Dextrose (Zosyn 2.25gm Ivpb (Premix)) 50 mls @ 100 mls/ hr IVPB BID [facility] PRN Reason: Protocol Last Admin: 04/07/17 12:36 Dose: 100 mls/hr Midazolam HCl 100 mg/ Sodium (Chloride) 100 mls @ 1 mls/hr IVPB TITR SEN; 1 MG/ HR PRN Reason: Protocol Stop: 04/08/17 12:59 Levetiracetam (Keppra Injection -) 500 mg IVPB BID [facility] Last Admin: 04/07/17 12:36 Dose: 500 mg Morphine Sulfate (Morphine Sulfate) 2 mg IVPUSH Q4H PRN PRN Reason: PAIN Ondansetron HCl (Zofran Injection) 4 mg IVPUSH Q6H PRN PRN Reason: NAUSEA Pantoprazole Sodium (Protonix Iv) 40 mg IVPUSH DAILY [facility] Last Admin: 04/07/17 12:36 Dose: 40 mg Phenytoin Sodium (Dilantin Injection -) 200 mg IVPB Q8H-IV [facility] Last Admin: 04/07/17 12:36 Dose: 200 mg Scopolamine HBr (Transderm-Scop -) 1 patch TD Q72H [facility] Last Admin: 04/04/17 21:46 Dose: 1 patch Thiamine HCl (Vitamin B1 Injection -) 200 mg IVPB TID [facility] Last Admin: 04/07/17 06:04 Dose: 200 mg - Objective Vital Signs: Vital Signs Temperature 99.0 F 04/07/17 10:00 Pulse Rate 100 H 04/07/17 10:30 Respiratory Rate 22 11/06/17 11:40 Blood Pressure 130/72 04/07/17 10:30 O2 Sat by Pulse Oximetry (%) 93 L 04/07/17 10:00 Constitutional: Yes: Calm Eyes: Yes: Conjunctiva Clear HENT: Yes: Other (intubated) Cardiovascular: Yes: S1, S2 Respiratory: Yes: Mechanically Ventilated Gastrointestinal: Yes: Soft Genitourinary: Yes: Bhatti Present, Incontinence Musculoskeletal: Yes: Muscle Weakness Edema: Yes Edema: LUE: Trace, RUE: Trace, LLE: Trace, RLE: Trace Integumentary: Yes: Tattoos Neurological: Yes: Lethargy Labs: CBC, BMP 04/07/17 06:10 04/07/17 06:10 INR, PTT INR 1.23 (0.82-1.09) H D 04/06/17 16:00 - ....Imaging Chest X-ray: Report Reviewed (pleural effusions, small) Problem List - Problems (1) Alcohol intoxication Code(s): F10.929 - ALCOHOL USE, UNSPECIFIED WITH INTOXICATION, UNSPECIFIED (2) Cardiac arrest Code(s): I46.9 - CARDIAC ARREST, CAUSE UNSPECIFIED (3) Seizure Code(s): R56.9 - UNSPECIFIED CONVULSIONS (4) Transaminitis Code(s): R74.0 - NONSPEC ELEV OF LEVELS OF TRANSAMNS & LACTIC ACID DEHYDRGNSE (5) Rhabdomyolysis Code(s): M62.82 - RHABDOMYOLYSIS (6) ESTELA (acute kidney injury) Code(s): N17.9 - ACUTE KIDNEY FAILURE, UNSPECIFIED Assessment/Plan Current Medications Generic Name Dose Route Start Last Admin Trade Name Lena PRN Reason Stop Dose Admin Fentanyl 100 mcg 04/06/17 21:54 Sublimaze Injection - IVPUSH 04/07/17 21:53 ONCE PRN AGITATION Heparin Sodium (Porcine) 5,000 unit 03/31/17 18:00 04/07/17 06:04 Heparin - SQ 5,000 unit TID [facility] Administration Propofol 100 mls @ 2.28 mls/hr 04/05/17 20:45 04/06/17 23:29 Diprivan - IVPB 22.8 mls/hr TITR SEN Administration Protocol 5 MCG/KG/MIN Piperacillin/Tazobactam/Dextrose 50 mls @ 100 mls/hr 04/07/17 10:00 04/07/17 12 :36 Zosyn 2.25gm Ivpb (Premix) IVPB 100 mls/hr BID SEN Administration Protocol Midazolam HCl 100 mg/ Sodium 100 mls @ 1 mls/hr 04/07/17 13:00 Chloride IVPB 04/08/17 12:59 TITR SEN Protocol 1 MG/HR Levetiracetam 500 mg 04/02/17 13:45 04/07/17 12:36 Keppra Injection - IVPB 500 mg BID SEN Administration Morphine Sulfate 2 mg 03/30/17 12:56 Morphine Sulfate IVPUSH Q4H PRN PAIN Ondansetron HCl 4 mg 03/30/17 12:56 Zofran Injection IVPUSH Q6H PRN NAUSEA Pantoprazole Sodium 40 mg 03/30/17 13:00 04/07/17 12:36 Protonix Iv IVPUSH 40 mg DAILY [facility]EN Administration Phenytoin Sodium 200 mg 04/01/17 16:15 04/07/17 12:36 Dilantin Injection - IVPB 200 mg Q8H-IV [facility] Administration Scopolamine HBr 1 patch 04/04/17 22:00 04/04/17 21:46 Transderm-Scop - TD 1 patch Q72H SEN Administration Thiamine HCl 200 mg 04/01/17 22:00 04/07/17 06:04 Vitamin B1 Injection - IVPB 200 mg TID SEN Administration Laboratory Tests 04/02/17 05:50 EKTA Screen Negative c-ANCA <1:20 Proteinase 3 (PR3) <3.5 p-ANCA <1:20 Atypical p-ANCA <1:20 Myeloperoxidase Ab <9.0 Impression 1. cardiac arrest 2. respiratory failure 3. ESTELA 4. hyperkalemia resolved 5. multi-drug abuse 6. rhabdo 7. seizure 8. hypokalemia resolved 9. pleural effusions Plan - pt tolerated HD today - remove shiley catheter - monitor bmp and urine output - will need HD access later in the week, will likely dialyze again on Fri - follow up with neurology - family to clarify GOC with family - monitor lytes - check cpk level - vent support - discussed with ICU team - likely atn from prolonged hypotension during arrest - check mag level - will follow Dr Solis
--- NOTE | 2017-04-07 13:35 | PN ---
Physical Exam: SUBJECTIVE: Patient seen and examined at bedside. 24 hr events -As per nurse, pt self extubated on Friday night (04/05/17) and bit his tongue while doing so. Pt was bleeding from the mouth excessively, so foam wedges were placed in his mouth. -Pt was subsequently reintubated -Has been off pressors -Tmax 100.9F at 3pm yesterday, received IV Tylenol Today -Pt underwent HD, tolerated well -HD femoral access removed -currently on vent: RR20, TV 550, Fi02 50%, PEEP 7 OBJECTIVE: Vital Signs Period Temp Pulse Resp BP Sys/Keating Pulse Ox Last 24 Hr 99.0 F-100.9 F 73-107 20-22 107-130/51-88 93-97 GENERAL: The patient is sedated and on the vent, in no acute distress. EYES: reactive pupils, sclera anicteric, conjunctiva clear. ENT: Ears normal, nares patent, oropharynx clear without exudates, moist mucous membranes. NECK: Trachea midline LUNGS: coarse breath sounds HEART: tachycardic rate and rhythm, S1, S2 without murmur, rub or gallop. ABDOMEN: Soft, nontender, nondistended EXTREMITIES: 2+ posterior tibial pulses, no edema. NEUROLOGICAL: unable to assess as pt sedated, however pupils reactive Laboratory Results - last 24 hr 04/06/17 04/06/17 04/07/17 16:00 16:20 06:10 WBC 11.8 H 12.6 H RBC 2.84 L 2.65 L Hgb 7.8 L 7.7 L Hct 23.5 L 22.2 L MCV 82.7 83.8 MCH 27.6 29.2 MCHC 33.4 34.9 RDW 14.0 14.3 Plt Count 88 L 106 L D MPV 9.3 9.8 Total Counted 100 100 Neutrophils % No Result Required. Neutrophils % (Manual) 46 D 68 D Band Neuts % (Manual) 13 H D Lymphocytes % No Result Required. Lymphocytes % (Manual) 22 D 5 L D Monocytes % (Manual) 13 H D 18 H* Eosinophils % (Manual) 1 4 D Basophils % (Manual) 3 H 4 H Myelocytes % (Man) 2 D Nucleated RBC % 1 H Smudge Cells Few Toxic Granulation Few Platelet Estimate Decreased Decreased Platelet Comment Few large plts Microcytosis 2+ PT with INR 13.90 H INR 1.23 H D PTT (Actin FS) 26.6 L Sodium Potassium Chloride Carbon Dioxide Anion Gap BUN Creatinine Creat Clearance w eGFR Random Glucose Calcium Total Bilirubin AST ALT Alkaline Phosphatase Total Protein Albumin Blood Type Antibody Screen Crossmatch 04/07/17 04/07/17 06:10 07:00 WBC RBC Hgb Hct MCV MCH MCHC RDW Plt Count MPV Total Counted Neutrophils % Neutrophils % (Manual) Band Neuts % (Manual) Lymphocytes % Lymphocytes % (Manual) Monocytes % (Manual) Eosinophils % (Manual) Basophils % (Manual) Myelocytes % (Man) Nucleated RBC % Smudge Cells Toxic Granulation Platelet Estimate Platelet Comment Microcytosis PT with INR INR PTT (Actin FS) Sodium 141 Potassium 3.7 D Chloride 104 Carbon Dioxide 22 Anion Gap 15 BUN 70 H D Creatinine 8.4 H* D Creat Clearance w eGFR 7.38 Random Glucose 76 Calcium 7.3 L Total Bilirubin 0.6 AST 96 H D ALT 370 H D Alkaline Phosphatase 93 Total Protein 5.2 L Albumin 1.9 L Blood Type A POSITIVE Antibody Screen Negative Crossmatch See Detail Active Medications Generic Name Dose Route Start Last Admin Trade Name Freq PRN Reason Stop Dose Admin Fentanyl 100 mcg 04/06/17 21:54 Sublimaze Injection - IVPUSH 04/07/17 21:53 ONCE PRN AGITATION Heparin Sodium (Porcine) 5,000 unit 03/31/17 18:00 04/07/17 06:04 Heparin - SQ 5,000 unit TID SEN Administration Propofol 100 mls @ 2.28 mls/hr 04/05/17 20:45 04/06/17 23:29 Diprivan - IVPB 22.8 mls/hr TITR SEN Administration Protocol 5 MCG/KG/MIN Piperacillin/Tazobactam/Dextrose 50 mls @ 100 mls/hr 04/07/17 10:00 04/07/17 12 :36 Zosyn 2.25gm Ivpb (Premix) IVPB 100 mls/hr BID SEN Administration Protocol Midazolam HCl 100 mg/ Sodium 100 mls @ 1 mls/hr 04/07/17 13:00 Chloride IVPB 04/08/17 12:59 TITR SEN Protocol 1 MG/HR Levetiracetam 500 mg 04/02/17 13:45 04/07/17 12:36 Keppra Injection - IVPB 500 mg BID SEN Administration Morphine Sulfate 2 mg 03/30/17 12:56 Morphine Sulfate IVPUSH Q4H PRN PAIN Ondansetron HCl 4 mg 03/30/17 12:56 Zofran Injection IVPUSH Q6H PRN NAUSEA Pantoprazole Sodium 40 mg 03/30/17 13:00 04/07/17 12:36 Protonix Iv IVPUSH 40 mg DAILY SEN Administration Phenytoin Sodium 200 mg 04/01/17 16:15 04/07/17 12:36 Dilantin Injection - IVPB 200 mg Q8H-IV SEN Administration Scopolamine HBr 1 patch 04/04/17 22:00 04/04/17 21:46 Transderm-Scop - TD 1 patch Q72H SEN Administration Thiamine HCl 200 mg 04/01/17 22:00 04/07/17 06:04 Vitamin B1 Injection - IVPB 200 mg TID SEN Administration ASSESSMENT/PLAN: This is a 31 year old M with hx diabetes, alcohol abuse and depression. He was brought to the ED s/p PEA activity, cardiac arrest. CPR was started and pt was intubated in the field. He was transferred to the ICU for continued management. NEURO #anoxic brain injury s/p cardiac arrest -pupils reactive, pt sedated on propofol, on vent -Followed by Dr. Vogel -will F/u official EEG report PULM -pt started on Versed drip, since overbreathing vent -failed weaning trial this AM -Current vent settings 50% FiO2, PEEP 7 -F/u CXR tomorrow AM RENAL #ATN s/p cardiac arrest -completed HD today -BUN/Cr elevated 70/8.4, will f/u BMP after dialysis -pt oliguric -Will F/u BMP, Mg, Phosph (at 5pm and tomorrow) -Continue to f/u UO, creatinine CARDIO -pt no longer in shock -Currently off pressors: -Levo stopped on 04/04/17 -Dopa stopped on 04/05/17 ID -received Vanco, zosyn today -F/u blood cx, urine cx GI -AST, ALT trending down (2/2 ischemic injury) F/E/N -Will monitor electrolytes -Tube feeds PROPHYLAXIS -DVT: 5000 U SQ TID DISPOSITION continued management in ICU as pt is unstable, dependent on vent Visit type - Emergency Visit Emergency Visit: No - New Patient This patient is new to me today: No - Critical Care Critical Care patient: Yes Total Critical Care Time (in minutes): 40 Critical Care Statement: The care of this patient involved high complexity decision making to prevent further life threatening deterioration of the patient 's condition and/or to evaluate & treat vital organ system(s) failure or risk of failure.
--- NOTE | 2017-04-07 15:26 | CONSULT ---
Consult - History of Present Illness History of Present Illness: 31M with history of EtOH abuse and withdrawal seizures presented last week in withdrawal and was intubated. He self-extubated a couple of days ago and had to be reintubated. He was noted to bleed from his mouth and there was concern he had bitten his tongue. Patient getting hemodialysis and has a guarded prognosis after suspected anoxic brain injury. - History Source History Provided By: Medical Record Limitations to Obtaining History: Intubated - Past Medical History Renal/: Yes: Renal Inusuff Psych: Yes: Depression Endocrine: Yes: Diabetes Mellitus (? this history is per the chart but patient not on treatment as an outpatient) - Alcohol/Substance Use Hx Alcohol Use: Yes (lots of it) - Smoking History Smoking history: Current every day smoker Have you smoked in the past 12 months: Yes Aproximately how many cigarettes per day: 20 - Social History Usual Living Arrangement: With Significant Other History of Recent Travel: No Home Medications - Allergies Allergies/Adverse Reactions: Allergies Allergy/AdvReac Type Severity Reaction Status Date / Time No Known Allergies Allergy Verified 03/30/17 09:38 - Home Medications Home Medications: Ambulatory Orders NK [No Known Home Medication] 11/20/14 Physical Exam Vital Signs: Vital Signs Temperature 99.0 F 04/07/17 10:00 Pulse Rate 96 H 04/07/17 12:00 Respiratory Rate 22 04/07/17 14:00 Blood Pressure 124/74 04/07/17 12:00 O2 Sat by Pulse Oximetry (%) 93 L 04/07/17 10:00 Constitutional: Yes: Other (intubated, sedated in ICU. not responsive) HENT: Yes: Other (Pinna: grossly wnl Nose: no active bleeding.+dry blood crusting anteriorly. Mouth: ETT secured in position midline. Limited exam given edema and tube. Perhaps small abrasions to lateral tongue bilateral but, using 2 tongue depressors and suction, there is only dark red bloody mucous secretions suctioned. No active bleeding. No overt lacerations.) Neck: Yes: Other (supple. limited access.) Labs: CBC, BMP 04/07/17 06:10 04/07/17 06:10 Problem List - Problems (1) Respiratory failure after trauma Assessment/Plan: Exam is of course limited by his intubation/sedation, but there is no overt tongue laceration. He may have abraded the sides of his tongue by biting but there is no active bleeding. I do not see anything that requires suturing, nor cautery. He is likely to have bloody mucous secretions given pooling that is likely present in his throat and nose. If significant active bleeding suspected, may call us back for re-evaluation. Of course, there is likely an element of coagulopathy, to which I defer to primary team. Otherwise, care per medical team. Thank you for this consultation. Code(s): J96.90 - RESPIRATORY FAILURE, UNSP, UNSP W HYPOXIA OR HYPERCAPNIA
--- NOTE | 2017-04-07 17:50 | PN ---
Progress Note, Physician Chief Complaint: PATIENT INTUBATED/VENT DEPENDENT UNABLE TO WEAN OFF VENT SUPPORT - Current Medication List Current Medications: Active Medications Fentanyl (Sublimaze Injection -) 100 mcg IVPUSH ONCE PRN PRN Reason: AGITATION Stop: 04/07/17 21:53 Heparin Sodium (Porcine) (Heparin -) 5,000 unit SQ TID [facility] Last Admin: 04/07/17 15:34 Dose: Not Given Propofol (Diprivan -) 100 mls @ 2.28 mls/hr IVPB TITR SEN; 5 MCG/KG/MIN PRN Reason: Protocol Last Admin: 04/06/17 23:29 Dose: 22.8 mls/hr Piperacillin/Tazobactam/Dextrose (Zosyn 2.25gm Ivpb (Premix)) 50 mls @ 100 mls/ hr IVPB BID SEN PRN Reason: Protocol Last Admin: 04/07/17 12:36 Dose: 100 mls/hr Midazolam HCl 100 mg/ Sodium (Chloride) 100 mls @ 1 mls/hr IVPB TITR SEN; 1 MG/ HR PRN Reason: Protocol Stop: 04/08/17 12:59 Last Admin: 04/07/17 15:34 Dose: 8 mls/hr Levetiracetam (Keppra Injection -) 500 mg IVPB BID [facility] Last Admin: 04/07/17 12:36 Dose: 500 mg Morphine Sulfate (Morphine Sulfate) 2 mg IVPUSH Q4H PRN PRN Reason: PAIN Ondansetron HCl (Zofran Injection) 4 mg IVPUSH Q6H PRN PRN Reason: NAUSEA Pantoprazole Sodium (Protonix Iv) 40 mg IVPUSH DAILY [facility] Last Admin: 04/07/17 12:36 Dose: 40 mg Phenytoin Sodium (Dilantin Injection -) 200 mg IVPB Q8H-IV [facility] Last Admin: 04/07/17 17:25 Dose: 200 mg Scopolamine HBr (Transderm-Scop -) 1 patch TD Q72H [facility] Last Admin: 04/04/17 21:46 Dose: 1 patch Thiamine HCl (Vitamin B1 Injection -) 200 mg IVPB TID [facility] Last Admin: 04/07/17 15:33 Dose: 200 mg - Objective Vital Signs: Vital Signs Temperature 99.2 F 04/07/17 14:00 Pulse Rate 99 H 04/07/17 16:00 Respiratory Rate 22 04/07/17 17:05 Blood Pressure 122/72 04/07/17 16:00 O2 Sat by Pulse Oximetry (%) 93 L 04/07/17 10:00 Constitutional: Yes: Severe Distress Eyes: Yes: Other Cardiovascular: Yes: WNL Respiratory: Yes: Intubated, Mechanically Ventilated Gastrointestinal: Yes: WNL Genitourinary: Yes: Bhatti Present Musculoskeletal: Yes: Muscle Weakness Extremities: Yes: Other Edema: Yes Integumentary: Yes: Other Wound/Incision: Yes: Clean/Dry Neurological: Yes: Unresponsive Labs: CBC, BMP 04/07/17 06:10 04/07/17 06:10 INR, PTT INR 1.23 (0.82-1.09) H D 04/06/17 16:00 Problem List - Problems (1) Alcohol intoxication Code(s): F10.929 - ALCOHOL USE, UNSPECIFIED WITH INTOXICATION, UNSPECIFIED (2) Altered mental status Code(s): R41.82 - ALTERED MENTAL STATUS, UNSPECIFIED Qualifiers: Altered mental status type: unspecified Qualified Code(s): R41.82 - Altered mental status, unspecified; R41.82 - Altered mental status, unspecified (3) Cardiac arrest Code(s): I46.9 - CARDIAC ARREST, CAUSE UNSPECIFIED (4) Pneumonitis due to food and vomit Code(s): J69.0 - PNEUMONITIS DUE TO INHALATION OF FOOD AND VOMIT (5) Seizure Code(s): R56.9 - UNSPECIFIED CONVULSIONS (6) Sepsis Code(s): A41.9 - SEPSIS, UNSPECIFIED ORGANISM Qualifiers: Sepsis type: sepsis due to unspecified organism Qualified Code(s): A41.9 - Sepsis, unspecified organism; A41.9 - Sepsis, unspecified organism; A41.9 - Sepsis, unspecified organism (7) Anoxia Code(s): R09.02 - HYPOXEMIA Assessment/Plan MOST LIKELY ANOXIC ENCEPHALOPATHY NEUROLOGY EVAL APPRECIATED NO ACUTE INTERVENTIONS AT THIS TIME POOR OVERALL QUALITY OF LIFE/RECOVERY PALLIATIVE CARE TEAM NOTIFIED TO DISCUSS ADVANCED DIRECTIVES FROM THE FAMILY. I SPOKE TO PATIENT'S MOM (MS WATERS), AND THE PATIENTS SIGNIFICANT OTHER/PARTNER AND THEIR GOALS ARE MIXED AT THIS TIME. WE WILL AWAIT FOR A COLLABORATED FAMILY DECISION ON GOALS AND DIRECTIVES AND PROCEED THIS WEEK TO TRACHEOSTOMY/GTUBE IF THIS IS THEIR DECISION.
[2017-04-07] MEDS: PROPOFOL 100 ML IVPB SCH (20:45)
[2017-04-07] MEDS: SCOPOLAMINE HYDROBROMIDE 1 PATCH PATCH.TD72 TD SCH (22:12)
[2017-04-07 22:18] LABS: ANION GAP 8 (8-16); CALCIUM 7.3 mg/dL (8.5-10.1); CO2 30 mmol/L (21-32); CREATININE 6.2 mg/dL (0.7-1.3); GLUCOSE,RANDOM 90 mg/dL (74-106); PHOSPHOROUS 6.5 mg/dL (2.5-4.9)
[2017-04-07 22:20] LABS: MAGNESIUM 2.3 mg/dL (1.8-2.4)
[2017-04-08] MEDS: PHENYTOIN SODIUM 100 MG/2 ML VIAL IVPB SCH ×3 (02:48→18:05)
[2017-04-08] MEDS ORDERED: HEMOQUE TEST 1 EACH EACH ONE (05:26)
[2017-04-08] MEDS: THIAMINE HCL 200 MG/2 ML VIAL IVPB SCH ×2 (05:54→14:36)
[2017-04-08 07:43] LABS: BASOPHIL 0.6 % (0-2.0); EOSINOPHIL 2.8 % (0-4.5); MCH 30.3 pg (25.7-33.7); MCHC 35.5 g/dl (32.0-35.9); MEAN CELL VOLUME 85.3 fl (80-96); MEAN PLT VOLUME 9.7 fl (7.5-11.1); NEUTROPHILS 75.9 % (42.8-82.8); PLATELET COUNT 134 K/MM3 (134-434); RDW 14.9 % (11.9-15.9); WHITE BLOOD COUNT 17.7 K/mm3 (4.0-10.0)
[2017-04-08 08:30] LABS: ANION GAP 15 (8-16); CALCIUM 7.4 mg/dL (8.5-10.1); CO2 23 mmol/L (21-32); CREATININE 6.9 mg/dL (0.7-1.3); GLUCOSE,RANDOM 94 mg/dL (74-106); PHOSPHOROUS 7.9 mg/dL (2.5-4.9)
[2017-04-08 09:25] LABS: MAGNESIUM 2.3 mg/dL (1.8-2.4)
[2017-04-08] MEDS: levETIRAcetam 500 MG/5 ML INJECTION VIAL IVPB SCH (10:42)
[2017-04-08] MEDS: PANTOPRAZOLE SODIUM 40 MG VIAL IVPUSH SCH (10:42)
[2017-04-08] MEDS: PROPOFOL 100 ML IVPB SCH ×2 (10:45→14:45)
[2017-04-08] MEDS: PIPERACILLIN/TAZOB 2.25 GM 50 ML IVPB SCH ×2 (11:00)
--- NOTE | 2017-04-08 11:20 | PN ---
Teaching Attending Note Name of Resident: Caroline Duggan ATTENDING PHYSICIAN STATEMENT I saw and evaluated the patient. I reviewed the resident's note and discussed the case with the resident. I agree with the resident's findings and plan as documented. SUBJECTIVE: Pt seen and examined in the ICU. Remains intubated, sedated. Low grade temps overnight. No seizure activity noted. OBJECTIVE: Last Vital Signs Temp Pulse Resp BP Pulse Ox 99.3 F 83 22 114/59 100 04/08/17 10:00 04/08/17 10:00 04/08/17 10:00 04/08/17 10:00 04/08/17 09:29 Intake & Output 04/06/17 04/06/17 04/07/17 04/08/17 00:59 23:59 23:59 23:59 Intake Total 1419 380 Output Total 160 50 Balance 1259 330 Weight 161 lb 9.581 oz 157 lb 10.088 oz Gen: intubated, sedated Heart: RRR Lung: distant breath sounds Abd: soft, nontender Ext: +upper extremity edema CBC, BMP 04/08/17 05:30 04/08/17 05:30 Active Medications Propofol (Diprivan -) 100 mls @ 2.28 mls/hr IVPB TITR SEN; 5 MCG/KG/MIN PRN Reason: Protocol Last Admin: 04/08/17 10:45 Dose: 27.36 mls/hr Piperacillin/Tazobactam/Dextrose (Zosyn 2.25gm Ivpb (Premix)) 50 mls @ 100 mls/ hr IVPB BID SEN PRN Reason: Protocol Last Admin: 04/08/17 11:00 Dose: 100 mls/hr Midazolam HCl 100 mg/ Sodium (Chloride) 100 mls @ 1 mls/hr IVPB TITR SEN; 1 MG/ HR PRN Reason: Protocol Stop: 04/08/17 12:59 Last Admin: 04/07/17 15:34 Dose: 8 mls/hr Levetiracetam (Keppra Injection -) 500 mg IVPB BID [facility] Last Admin: 04/08/17 10:42 Dose: 500 mg Morphine Sulfate (Morphine Sulfate) 2 mg IVPUSH Q4H PRN PRN Reason: PAIN Ondansetron HCl (Zofran Injection) 4 mg IVPUSH Q6H PRN PRN Reason: NAUSEA Pantoprazole Sodium (Protonix Iv) 40 mg IVPUSH DAILY [facility] Last Admin: 04/08/17 10:42 Dose: 40 mg Phenytoin Sodium (Dilantin Injection -) 200 mg IVPB Q8H-IV [facility] Last Admin: 04/08/17 02:48 Dose: 200 mg Scopolamine HBr (Transderm-Scop -) 1 patch TD Q72H [facility] Last Admin: 04/07/17 22:12 Dose: 1 patch Thiamine HCl (Vitamin B1 Injection -) 200 mg IVPB TID [facility] Last Admin: 04/08/17 05:54 Dose: 200 mg ASSESSMENT AND PLAN: s/p Cardiopulmonary Arrest Acute Hypoxic Respiratory Failure Pneumonia Septic Shock improving Multiorgan Failure Acute Kidney Injury requiring HD Elevated LFTs likely ischemic injury trending down +Troponins Rhabdomyolysis Seizures Likely Anoxic Encephalopathy - continue antibiotics - continue antiepileptics - HD per renal - monitor urine output, creatinine - daily sedation vacations to assess mental status - insert NGT, resume enteral feeds - not a candidate for weaning at this time - DVT/GI prophylaxis - continue discussions regarding goals of care, will likely need tracheostomy if they wish to continue aggressive treatment - will need ethics input as there are disagreements in goals of care - discussed with fiance at bedside - continue ICU monitoring critical care time spent in reviewing chart, evaluating plan and formulating plan 40 min
--- NOTE | 2017-04-08 11:26 | PN ---
Progress Note, Physician History of Present Illness: remains sedated on vent - Current Medication List Current Medications: Active Medications Propofol (Diprivan -) 100 mls @ 2.28 mls/hr IVPB TITR SEN; 5 MCG/KG/MIN PRN Reason: Protocol Last Admin: 04/08/17 10:45 Dose: 27.36 mls/hr Piperacillin/Tazobactam/Dextrose (Zosyn 2.25gm Ivpb (Premix)) 50 mls @ 100 mls/ hr IVPB BID SEN PRN Reason: Protocol Last Admin: 04/08/17 11:00 Dose: 100 mls/hr Midazolam HCl 100 mg/ Sodium (Chloride) 100 mls @ 1 mls/hr IVPB TITR SEN; 1 MG/ HR PRN Reason: Protocol Stop: 04/08/17 12:59 Last Admin: 04/07/17 15:34 Dose: 8 mls/hr Levetiracetam (Keppra Injection -) 500 mg IVPB BID [facility] Last Admin: 04/08/17 10:42 Dose: 500 mg Morphine Sulfate (Morphine Sulfate) 2 mg IVPUSH Q4H PRN PRN Reason: PAIN Ondansetron HCl (Zofran Injection) 4 mg IVPUSH Q6H PRN PRN Reason: NAUSEA Pantoprazole Sodium (Protonix Iv) 40 mg IVPUSH DAILY [facility] Last Admin: 04/08/17 10:42 Dose: 40 mg Phenytoin Sodium (Dilantin Injection -) 200 mg IVPB Q8H-IV [facility] Last Admin: 04/08/17 02:48 Dose: 200 mg Scopolamine HBr (Transderm-Scop -) 1 patch TD Q72H [facility] Last Admin: 04/07/17 22:12 Dose: 1 patch Thiamine HCl (Vitamin B1 Injection -) 200 mg IVPB TID [facility] Last Admin: 04/08/17 05:54 Dose: 200 mg - Objective Vital Signs: Vital Signs Temperature 99.3 F 04/08/17 10:00 Pulse Rate 83 04/08/17 10:00 Respiratory Rate 22 04/08/17 10:00 Blood Pressure 114/59 04/08/17 10:00 O2 Sat by Pulse Oximetry (%) 100 04/08/17 09:29 Constitutional: Yes: Other (intubated, sedated) HENT: Yes: Other (ETT present midline. Gingivobuccal sulci examined with clear mucoid secretions with flakes of dark blood. No active bleeding.) Labs: CBC, BMP 04/08/17 05:30 04/08/17 05:30 INR, PTT INR 1.23 (0.82-1.09) H D 04/06/17 16:00 Problem List - Problems (1) Respiratory failure after trauma Assessment/Plan: Since gauze packs removed yesterday, no evidence of further active bleeding. - He is likely to have bloody mucous secretions given pooling that is likely present in his throat and nose. If significant active bleeding suspected, may call us back for re-evaluation. - Appropriate sedation advised. He could bite his tongue if he seizes or fights the ETT - There is likely an element of coagulopathy, to which I defer to primary team. - Otherwise, care per medical team. Thank you for this consultation. Code(s): J96.90 - RESPIRATORY FAILURE, UNSP, UNSP W HYPOXIA OR HYPERCAPNIA
--- NOTE | 2017-04-08 12:06 | PN ---
Progress Note (short form) - Note Progress Note: s/p code remains intubated Vital Signs Period Temp Pulse Resp BP Sys/Keating Pulse Ox Last 24 Hr 99.2 F-100.4 F 82-102 20-26 112-131/59-81 93-100 cor-rrr lungs decreased bs at bases abd soft,nt +scrotal edema +rosenthal +cvp CBC, BMP 04/08/17 05:30 04/08/17 05:30 Microbiology 04/06/17 09:45 Blood - Peripheral Venous Blood Culture - Preliminary NO GROWTH OBTAINED AFTER 48 HOURS, INCUBATION TO CONTINUE FOR 3 DAYS. 04/06/17 08:15 Blood - Peripheral Venous Blood Culture - Preliminary NO GROWTH OBTAINED AFTER 48 HOURS, INCUBATION TO CONTINUE FOR 3 DAYS. 04/06/17 09:45 Sputum - Endotrachea Suction/Ventilator Gram Stain - Final 04/06/17 09:45 Sputum - Endotrachea Suction/Ventilator Sputum Culture - Preliminary Yeast Like Organism 04/06/17 09:45 Urine - Urine Rosenthal Urine Culture - Final NO GROWTH OBTAINED vanco trough 21 on zosyn a/p doing poorly s/p code-off pressors respiratory failure renal failure continue zosyn vanco level in am overall prognosis is poor Problem List - Problems (1) Cardiac arrest Code(s): I46.9 - CARDIAC ARREST, CAUSE UNSPECIFIED (2) Alcohol intoxication Code(s): F10.929 - ALCOHOL USE, UNSPECIFIED WITH INTOXICATION, UNSPECIFIED (3) Pneumonitis due to food and vomit Code(s): J69.0 - PNEUMONITIS DUE TO INHALATION OF FOOD AND VOMIT
--- NOTE | 2017-04-08 14:26 | PN ---
Physical Exam: SUBJECTIVE: Patient seen and examined at bedside. 24 hr events -Tmax 100.4F overnight -weaning trial attempted, failed- pt placed back on 100%Fi02 -seen by Dr. Boswell- no sutures, interventions needed at this time concerning oropharyngeal cuts Today -sedated, vented: A/C 12RR, TV500, FiO2 100%, PEEP10 -family at bedside, needs more time to decide goals of care -weaning trials to FiO2 60% attempted OBJECTIVE: Vital Signs Period Temp Pulse Resp BP Sys/Keating Pulse Ox Last 24 Hr 99.3 F-100.4 F 82-102 20-26 112-125/59-74 93-100 GENERAL: The patient is sedated and vented, in no acute distress HEAD: Normal with no signs of trauma. EYES: PERRL, sclera anicteric, conjunctiva clear. NECK: Trachea midline, supple. LUNGS: decreased breath sounds appreciated HEART: Regular rate and rhythm, S1, S2 without murmur, rub or gallop. ABDOMEN: Soft, nontender, nondistended, normoactive bowel sounds, no guarding, no rebound EXTREMITIES: 2+ posterior tibial pulses, without edema NEUROLOGICAL: difficult to assess as pt sedated; poor prognosis Laboratory Results - last 24 hr 04/07/17 04/08/17 04/08/17 21:15 05:30 05:30 WBC RBC Hgb Hct MCV MCH MCHC RDW Plt Count MPV Neutrophils % Lymphocytes % Monocytes % Eosinophils % Basophils % Sodium 142 142 Potassium 4.0 4.4 Chloride 104 104 Carbon Dioxide 30 D 23 D Anion Gap 8 15 BUN 43 H D 49 H Creatinine 6.2 H D 6.9 H Random Glucose 90 94 Calcium 7.3 L 7.4 L Phosphorus 6.5 H 7.9 H D Magnesium 2.3 D 2.3 Creatine Kinase Creatine Kinase Index CK-MB (CK-2) Random Vancomycin 21.949 04/08/17 04/08/17 05:30 05:30 WBC 17.7 H D RBC 2.99 L Hgb 9.0 L D Hct 25.5 L MCV 85.3 MCH 30.3 MCHC 35.5 RDW 14.9 Plt Count 134 D MPV 9.7 Neutrophils % 75.9 Lymphocytes % 6.7 L Monocytes % 14.0 H Eosinophils % 2.8 D Basophils % 0.6 Sodium Potassium Chloride Carbon Dioxide Anion Gap BUN Creatinine Random Glucose Calcium Phosphorus Magnesium Creatine Kinase 323 H Creatine Kinase Index 0.5 CK-MB (CK-2) 1.674 Random Vancomycin Active Medications Generic Name Dose Route Start Last Admin Trade Name Lena PRN Reason Stop Dose Admin Propofol 100 mls @ 2.28 mls/hr 04/05/17 20:45 04/08/17 10:45 Diprivan - IVPB 27.36 mls/hr TITR SEN Administration Protocol 5 MCG/KG/MIN Piperacillin/Tazobactam/Dextrose 50 mls @ 100 mls/hr 04/07/17 10:00 04/08/17 11 :00 Zosyn 2.25gm Ivpb (Premix) IVPB 100 mls/hr BID SEN Administration Protocol Levetiracetam 500 mg 04/02/17 13:45 04/08/17 10:42 Keppra Injection - IVPB 500 mg BID SEN Administration Morphine Sulfate 2 mg 03/30/17 12:56 Morphine Sulfate IVPUSH Q4H PRN PAIN Ondansetron HCl 4 mg 03/30/17 12:56 Zofran Injection IVPUSH Q6H PRN NAUSEA Pantoprazole Sodium 40 mg 03/30/17 13:00 04/08/17 10:42 Protonix Iv IVPUSH 40 mg DAILY SEN Administration Phenytoin Sodium 200 mg 04/01/17 16:15 04/08/17 12:37 Dilantin Injection - IVPB 200 mg Q8H-IV SEN Administration Scopolamine HBr 1 patch 04/04/17 22:00 04/07/17 22:12 Transderm-Scop - TD 1 patch Q72H SEN Administration Thiamine HCl 200 mg 04/01/17 22:00 04/08/17 05:54 Vitamin B1 Injection - IVPB 200 mg TID SEN Administration ASSESSMENT/PLAN: This is a 31 year old M with hx diabetes, alcohol abuse and depression. He was brought to the ED s/p PEA activity, cardiac arrest. CPR was started and pt was intubated in the field. He was transferred to the ICU for continued management. NEURO #anoxic brain injury s/p cardiac arrest -pupils reactive, pt sedated on propofol, on vent -Followed by Dr. Vogel -EEG report: abnormal, nonspecific changes, but non eliptiform. May be 2/2 metabolic, degenerative, or vasc changes PULM -weaning trials to 60% FiO2, decrease PEEP- see how tolerates -F/u CXR tomorrow AM -F/u ABG RENAL #ATN s/p cardiac arrest -oliguric -for HD tomorrow -BUN/Cr still poor, 49/6.9 -F/u CMP -Continue to f/u UO, creatinine CARDIO -pt no longer in shock -Currently off pressors: -Levo stopped on 04/04/17 -Dopa stopped on 04/05/17 ID -received Vanco, zosyn yesterday 04/07/17 -F/u blood cx, urine cx GI -AST, ALT trending down (2/2 ischemic injury) -Pt for NG tube today -F/u CMP F/E/N -Will monitor electrolytes -To start on Nepro for diet PROPHYLAXIS -DVT: 5000 U SQ TID, SCD's DISPOSITION continued management in ICU as pt is unstable, dependent on vent Visit type - Emergency Visit Emergency Visit: No - New Patient This patient is new to me today: No - Critical Care Critical Care patient: Yes Total Critical Care Time (in minutes): 42 Critical Care Statement: The care of this patient involved high complexity decision making to prevent further life threatening deterioration of the patient 's condition and/or to evaluate & treat vital organ system(s) failure or risk of failure.
--- NOTE | 2017-04-08 15:09 | PN ---
Progress Note, Physician Chief Complaint: intubated sedated unresponsive - Current Medication List Current Medications: Active Medications Propofol (Diprivan -) 100 mls @ 2.28 mls/hr IVPB TITR SEN; 5 MCG/KG/MIN PRN Reason: Protocol Last Admin: 04/08/17 14:45 Dose: 27.36 mls/hr Piperacillin/Tazobactam/Dextrose (Zosyn 2.25gm Ivpb (Premix)) 50 mls @ 100 mls/ hr IVPB BID SEN PRN Reason: Protocol Last Admin: 04/08/17 11:00 Dose: 100 mls/hr Levetiracetam (Keppra Injection -) 500 mg IVPB BID [facility] Last Admin: 04/08/17 10:42 Dose: 500 mg Morphine Sulfate (Morphine Sulfate) 2 mg IVPUSH Q4H PRN PRN Reason: PAIN Ondansetron HCl (Zofran Injection) 4 mg IVPUSH Q6H PRN PRN Reason: NAUSEA Pantoprazole Sodium (Protonix Iv) 40 mg IVPUSH DAILY [facility] Last Admin: 04/08/17 10:42 Dose: 40 mg Phenytoin Sodium (Dilantin Injection -) 200 mg IVPB Q8H-IV [facility] Last Admin: 04/08/17 12:37 Dose: 200 mg Scopolamine HBr (Transderm-Scop -) 1 patch TD Q72H [facility] Last Admin: 04/07/17 22:12 Dose: 1 patch Thiamine HCl (Vitamin B1 Injection -) 200 mg IVPB TID [facility] Last Admin: 04/08/17 14:36 Dose: 200 mg - Objective Vital Signs: Vital Signs Temperature 99.3 F 04/08/17 10:00 Pulse Rate 88 04/08/17 12:00 Respiratory Rate 25 H 04/08/17 14:00 Blood Pressure 125/69 04/08/17 12:00 O2 Sat by Pulse Oximetry (%) 100 04/08/17 09:29 Constitutional: Yes: Severe Distress Eyes: Yes: Other HENT: Yes: Other Neck: Yes: Other Cardiovascular: Yes: Regular Rate and Rhythm Respiratory: Yes: Intubated, Mechanically Ventilated Gastrointestinal: Yes: WNL Genitourinary: Yes: Bhatti Present Musculoskeletal: Yes: Other Edema: Yes Edema: LLE: 1+, RLE: 1+ Peripheral Pulses WNL: Yes Integumentary: Yes: Other Wound/Incision: Yes: Clean/Dry Neurological: Yes: Unresponsive ...Motor Strength: LLE, RLE Psychiatric: Yes: Other Labs: CBC, BMP 04/08/17 05:30 04/08/17 05:30 INR, PTT INR 1.23 (0.82-1.09) H D 04/06/17 16:00 Problem List - Problems (1) Alcohol intoxication Code(s): F10.929 - ALCOHOL USE, UNSPECIFIED WITH INTOXICATION, UNSPECIFIED (2) Altered mental status Code(s): R41.82 - ALTERED MENTAL STATUS, UNSPECIFIED Qualifiers: Altered mental status type: unspecified Qualified Code(s): R41.82 - Altered mental status, unspecified; R41.82 - Altered mental status, unspecified (3) Cardiac arrest Code(s): I46.9 - CARDIAC ARREST, CAUSE UNSPECIFIED (4) Pneumonitis due to food and vomit Code(s): J69.0 - PNEUMONITIS DUE TO INHALATION OF FOOD AND VOMIT (5) Seizure Code(s): R56.9 - UNSPECIFIED CONVULSIONS (6) Sepsis Code(s): A41.9 - SEPSIS, UNSPECIFIED ORGANISM Qualifiers: Sepsis type: sepsis due to unspecified organism Qualified Code(s): A41.9 - Sepsis, unspecified organism; A41.9 - Sepsis, unspecified organism; A41.9 - Sepsis, unspecified organism (7) Anoxia Code(s): R09.02 - HYPOXEMIA Assessment/Plan MOST LIKELY ANOXIC ENCEPHALOPATHY NEUROLOGY EVAL APPRECIATED NO ACUTE INTERVENTIONS AT THIS TIME POOR OVERALL QUALITY OF LIFE/RECOVERY PALLIATIVE CARE TEAM NOTIFIED TO DISCUSS ADVANCED DIRECTIVES FROM THE FAMILY. I SPOKE TO PATIENT'S MOM (MS WATERS), AND THE PATIENTS SIGNIFICANT OTHER/PARTNER AND THEIR GOALS ARE MIXED AT THIS TIME. WE WILL AWAIT FOR A COLLABORATED FAMILY DECISION ON GOALS AND DIRECTIVES AND PROCEED THIS WEEK TO TRACHEOSTOMY/GTUBE IF THIS IS THEIR DECISION. SPOKE WITH REVEREND HEALY FROM [facility] TO VIANEY ANTOINE FRIDAY, I ALSO SPOKE WITH DR CAMP FROM NEUROLOGY TO DEFINE NEUROLOGICAL STATUS.
--- NOTE | 2017-04-08 15:20 | ETH ---
Ethics Committee Report: Ethics consult requested 04/08/17 for patient Bryon Butt to determine appropriate goals of care. Plan is to hold the consult on 04/10/17 iin the morning, time to be determined according to consult team availability.
--- NOTE | 2017-04-08 15:25 | PN ---
Progress Note, Physician History of Present Illness: Pt seen and examined at bedside. He remains in the ICU. Pt remains intubated. - Current Medication List Current Medications: Active Medications Propofol (Diprivan -) 100 mls @ 2.28 mls/hr IVPB TITR SEN; 5 MCG/KG/MIN PRN Reason: Protocol Last Admin: 04/08/17 14:45 Dose: 27.36 mls/hr Piperacillin/Tazobactam/Dextrose (Zosyn 2.25gm Ivpb (Premix)) 50 mls @ 100 mls/ hr IVPB BID SEN PRN Reason: Protocol Last Admin: 04/08/17 11:00 Dose: 100 mls/hr Levetiracetam (Keppra Injection -) 500 mg IVPB BID [facility] Last Admin: 04/08/17 10:42 Dose: 500 mg Morphine Sulfate (Morphine Sulfate) 2 mg IVPUSH Q4H PRN PRN Reason: PAIN Ondansetron HCl (Zofran Injection) 4 mg IVPUSH Q6H PRN PRN Reason: NAUSEA Pantoprazole Sodium (Protonix Iv) 40 mg IVPUSH DAILY [facility] Last Admin: 04/08/17 10:42 Dose: 40 mg Phenytoin Sodium (Dilantin Injection -) 200 mg IVPB Q8H-IV [facility] Last Admin: 04/08/17 12:37 Dose: 200 mg Scopolamine HBr (Transderm-Scop -) 1 patch TD Q72H [facility] Last Admin: 04/07/17 22:12 Dose: 1 patch Thiamine HCl (Vitamin B1 Injection -) 200 mg IVPB TID [facility] Last Admin: 04/08/17 14:36 Dose: 200 mg - Objective Vital Signs: Vital Signs Temperature 99.0 F 04/08/17 14:00 Pulse Rate 92 H 04/08/17 14:00 Respiratory Rate 25 H 04/08/17 14:00 Blood Pressure 127/68 04/08/17 14:00 O2 Sat by Pulse Oximetry (%) 100 04/08/17 09:29 Constitutional: Yes: Calm Eyes: Yes: Conjunctiva Clear HENT: Yes: Atraumatic Neck: Yes: Supple Cardiovascular: Yes: S1, S2 Respiratory: Yes: Mechanically Ventilated Gastrointestinal: Yes: Soft Genitourinary: Yes: Bhatti Present, Oliguria Musculoskeletal: Yes: Muscle Weakness Edema: Yes Edema: LUE: Trace, RUE: Trace, LLE: Trace, RLE: Trace Integumentary: Yes: Tattoos Neurological: Yes: Lethargy Labs: CBC, BMP 04/08/17 05:30 04/08/17 05:30 INR, PTT INR 1.23 (0.82-1.09) H D 04/06/17 16:00 - ....Imaging Chest X-ray: Report Reviewed Problem List - Problems (1) Alcohol intoxication Code(s): F10.929 - ALCOHOL USE, UNSPECIFIED WITH INTOXICATION, UNSPECIFIED (2) Cardiac arrest Code(s): I46.9 - CARDIAC ARREST, CAUSE UNSPECIFIED (3) Seizure Code(s): R56.9 - UNSPECIFIED CONVULSIONS (4) Transaminitis Code(s): R74.0 - NONSPEC ELEV OF LEVELS OF TRANSAMNS & LACTIC ACID DEHYDRGNSE (5) Rhabdomyolysis Code(s): M62.82 - RHABDOMYOLYSIS (6) ESTELA (acute kidney injury) Code(s): N17.9 - ACUTE KIDNEY FAILURE, UNSPECIFIED Assessment/Plan Current Medications Generic Name Dose Route Start Last Admin Trade Name Freq PRN Reason Stop Dose Admin Propofol 100 mls @ 2.28 mls/hr 04/05/17 20:45 04/08/17 14:45 Diprivan - IVPB 27.36 mls/hr TITR SEN Administration Protocol 5 MCG/KG/MIN Piperacillin/Tazobactam/Dextrose 50 mls @ 100 mls/hr 04/07/17 10:00 04/08/17 11 :00 Zosyn 2.25gm Ivpb (Premix) IVPB 100 mls/hr BID SEN Administration Protocol Levetiracetam 500 mg 04/02/17 13:45 04/08/17 10:42 Keppra Injection - IVPB 500 mg BID SEN Administration Morphine Sulfate 2 mg 03/30/17 12:56 Morphine Sulfate IVPUSH Q4H PRN PAIN Ondansetron HCl 4 mg 03/30/17 12:56 Zofran Injection IVPUSH Q6H PRN NAUSEA Pantoprazole Sodium 40 mg 03/30/17 13:00 04/08/17 10:42 Protonix Iv IVPUSH 40 mg DAILY SEN Administration Phenytoin Sodium 200 mg 04/01/17 16:15 04/08/17 12:37 Dilantin Injection - IVPB 200 mg Q8H-IV SEN Administration Scopolamine HBr 1 patch 04/04/17 22:00 04/07/17 22:12 Transderm-Scop - TD 1 patch Q72H SEN Administration Thiamine HCl 200 mg 04/01/17 22:00 04/08/17 14:36 Vitamin B1 Injection - IVPB 200 mg TID SEN Administration Laboratory Tests 04/01/17 04/08/17 13:00 05:30 Creatine Kinase 7386 H 323 H Laboratory Tests 04/08/17 05:30 Magnesium 2.3 Impression 1. cardiac arrest 2. respiratory failure 3. ESTELA 4. hyperkalemia resolved 5. multi-drug abuse 6. rhabdo 7. seizure 8. hypokalemia resolved 9. pleural effusions Plan - labs reviewed - repeat bmp in am - will evaluate for HD tomorrow - pt will need access for HD, will likely have shiley placed once ready - chart reviewed - family meeting for GOC - vent support - cont to monitor urine output for signs of renal recovery - cpk level is improved - discussed with ICU team - will follow Dr Solis
--- NOTE | 2017-04-08 16:30 | PN ---
Progress Note (short form) - Note Progress Note: NG tube placed at 60 at the nares. Air entry heard in epigastric region. Pt stable. CXR ordered to confirm placement.
[2017-04-08] MEDS: MIDAZOLAM 100 MG in SODIUM CHLORIDE 100 ML IVPB SCH (17:07)
--- NOTE | 2017-04-08 18:34 | PN ---
Progress Note (short form) - Note Progress Note: NEUROLOGY FOLLOW-UP: Events reviewed. Patient examined. Discussed with RN and Residents. Pt was tapered off MS and propofol over the weekend and was said to be moving his right side > left. He was reintubated due to biting down on his ET. This was not felt to be a seizure and no other seizure activity was noted. Labs show hepatocellular function continuing to normalize. Dialyzed yesterday with plans for HD again tomorrow. EXAM: Sedated on propofol and MS. ++Spontaneous respirations (spont rate > 30/min). No visual response to pain but increased pulse and RR seem to follow sternal pressure and digital pressure. [id number] ++ EOM's to Doll's head Corneals +/+ ++Gag to suctioning No limb mov'ts or withdrawal. IMP: Severe B/L cerebral dysfunction with improvement in Brainstem function since last exam Remains sedated No seizures on levetiracetam and diphenylhydantoin. Suggest: Continue current regimen and supportive care. Would slowly attempt reduction in sedation again Prognosis remains guarded but patient clearly exhibited higher level of function off propofol according to reports. Thank you very much, Elmo Vogel MD
[2017-04-09] MEDS: levETIRAcetam 500 MG/5 ML INJECTION VIAL IVPB SCH ×3 (00:10→22:13)
[2017-04-09] MEDS: THIAMINE HCL 200 MG/2 ML VIAL IVPB SCH ×4 (00:11→22:14)
[2017-04-09] MEDS: PHENYTOIN SODIUM 100 MG/2 ML VIAL IVPB SCH ×3 (01:18→17:43)
[2017-04-09] MEDS: ACETAMINOPHEN 325 MG TABLET (FP) PO PRN ×2 (02:14→15:32)
[2017-04-09] MEDS ORDERED: SODIUM CHLORIDE 500 ML IV ONE (02:15)
[2017-04-09] MEDS ORDERED: NOREPINEPHRINE BITARTRATE 4 MG/4 ML ML IV ONE ×2 (05:28→20:53)
[2017-04-09] MEDS: NOREPINEPHRINE BITARTRATE 8,000 MCG in DEXTROSE 5%-WATER - 492 ML IV SCH (05:30)
[2017-04-09 07:28] LABS: ALBUMIN 1.9 g/dl (3.4-5.0); ALK PHOS 114 U/L (45-117); ANION GAP 18 (8-16); BILIRUBIN,TOTAL 0.9 mg/dL (0.2-1.0); CO2 19 mmol/L (21-32); GLUCOSE,RANDOM 201 mg/dL (74-106)
[2017-04-09 08:03] LABS: ARTERIAL BLD GAS O2 SATURATION 96.6 % (90-98.9); ARTERIAL BLOOD GAS BASE EXCESS -11.7 meq/l (-2-2); ARTERIAL BLOOD GAS HCO3 15.9 meq/L (22-26); ARTERIAL BLOOD GAS PO2 99.6 mmHg (80-100); ARTERIAL BLOOD GAS pH 7.16 (7.35-7.45)
[2017-04-09 08:05] LABS: ALLENS TEST POSITIVE; ART PUNCT SITE RIGHT RADIAL; LPM/O2% 100; PT. ON O2? YES; TYPE OF O2 MEC VENT
[2017-04-09 08:06] LABS: MECH. VENT. ESPRIT; VENT RATE 12; VT/PRESS 500
[2017-04-09] MEDS: PROPOFOL 100 ML IVPB SCH ×3 (09:19→22:13)
--- NOTE | 2017-04-09 09:20 | PN ---
Physical Exam: SUBJECTIVE: Patient seen and examined at bedside. 24 hr events -as per nurse, pt desat into high 70's when turned -new NGT placed yesterday by CCU evening team -pt started on levophed 8 mcg/min yesterday d/t MAP <60 -pt febrile overnight, tmax 102.5F Today -pt oliguric -resting, on vent A/C RR 12, TV 500, Fi02 100%, PEEP changed from 7-9 since pt desat into high 70s -pt on propofol, versed, levophed OBJECTIVE: Vital Signs Period Temp Pulse Resp BP Sys/[place] Pulse Ox Last 24 Hr 99.0 F-102.5 F 83-94 20-27 78-127/45-69 92-100 GENERAL: The patient is sedated and vented, in no acute distress HEAD: Normal with no signs of trauma. EYES: PERRL, sclera anicteric, conjunctiva clear. NECK: Trachea midline, supple. LUNGS: decreased breath sounds appreciated HEART: Regular rate and rhythm, S1, S2 without murmur, rub or gallop. ABDOMEN: Soft, nontender, nondistended, normoactive bowel sounds, no guarding, no rebound EXTREMITIES: 2+ posterior tibial pulses, without edema NEUROLOGICAL: difficult to assess as pt sedated; poor prognosis Laboratory Results - last 24 hr 04/08/17 04/08/17 04/09/17 05:30 05:30 07:13 Puncture Site Right radial ABG pH 7.16 L* D ABG pCO2 at Pt Temp 46.3 H D ABG pO2 at Pt Temp 99.6 ABG HCO3 15.9 L ABG O2 Sat (Measured) 96.6 ABG O2 Content 10.8 L ABG Base Excess -11.7 L* Phillip Test Positive O2 Delivery Device Mec vent Oxygen Flow Rate 100 Vent Mode A/c Vent Rate 12 Mechanical Rate Esprit PEEP 7.0 Pressure Support Vent 500 Sodium 142 Potassium 4.4 Chloride 104 Carbon Dioxide 23 D Anion Gap 15 BUN 49 H Creatinine 6.9 H Random Glucose 94 Calcium 7.4 L Phosphorus 7.9 H D Magnesium 2.3 Creatine Kinase 323 H Creatine Kinase Index 0.5 CK-MB (CK-2) 1.674 Random Vancomycin 04/09/17 07:20 Puncture Site ABG pH ABG pCO2 at Pt Temp ABG pO2 at Pt Temp ABG HCO3 ABG O2 Sat (Measured) ABG O2 Content ABG Base Excess Phillip Test O2 Delivery Device Oxygen Flow Rate Vent Mode Vent Rate Mechanical Rate PEEP Pressure Support Vent Sodium Potassium Chloride Carbon Dioxide Anion Gap BUN Creatinine Random Glucose Calcium Phosphorus Magnesium Creatine Kinase Creatine Kinase Index CK-MB (CK-2) Random Vancomycin 19.255 Active Medications Generic Name Dose Route Start Last Admin Trade Name Freq PRN Reason Stop Dose Admin Acetaminophen 650 mg 04/09/17 00:27 04/09/17 02:14 Tylenol - PO 650 mg Q6H PRN Administration FEVER OR PAIN Propofol 100 mls @ 2.28 mls/hr 04/05/17 20:45 04/08/17 14:45 Diprivan - IVPB 60 mcg/kg/min TITR SEN 27.36 mls/hr Protocol Administration 5 MCG/KG/MIN Piperacillin/Tazobactam/Dextrose 50 mls @ 100 mls/hr 04/07/17 10:00 04/08/17 11:00 Zosyn 2.25gm Ivpb (Premix) IVPB 100 mls/hr BID SEN Administration Protocol Midazolam HCl 100 mg/ Sodium 100 mls @ 8 mls/hr 04/08/17 17:00 04/08/17 17:07 Chloride IVPB 8 mg/hr TITR SEN 8 mls/hr Protocol Administration 8 MG/HR Norepinephrine Bitartrate 8, 500 mls @ 15 mls/hr 04/09/17 05:30 000 mcg/ Dextrose IV TITR SEN Protocol 4 MCG/MIN Levetiracetam 500 mg 04/02/17 13:45 04/09/17 00:10 Keppra Injection - IVPB 500 mg BID SEN Administration Ondansetron HCl 4 mg 03/30/17 12:56 Zofran Injection IVPUSH Q6H PRN NAUSEA Pantoprazole Sodium 40 mg 03/30/17 13:00 04/08/17 10:42 Protonix Iv IVPUSH 40 mg DAILY SEN Administration Phenytoin Sodium 200 mg 04/01/17 16:15 04/09/17 01:18 Dilantin Injection - IVPB 200 mg Q8H-IV [facility]EN Administration Scopolamine HBr 1 patch 04/04/17 22:00 04/07/17 22:12 Transderm-Scop - TD 1 patch Q72H SEN Administration Thiamine HCl 200 mg 04/01/17 22:00 04/09/17 00:11 Vitamin B1 Injection - IVPB 200 mg TID SEN Administration ASSESSMENT/PLAN: This is a 31 year old M with hx diabetes, alcohol abuse and depression. He was brought to the ED s/p PEA activity, cardiac arrest. CPR was started and pt was intubated in the field. He was transferred to the ICU for continued management. NEURO #anoxic brain injury s/p cardiac arrest -pupils reactive, pt sedated on propofol, on vent -sedation vacation as tolerated -Followed by Dr. Vogel -EEG report: abnormal, nonspecific changes, but non eliptiform. May be 2/2 metabolic, degenerative, or vasc changes PULM -ET tube advanced, 02 sat improved -will attempt weaning trials, once pt saturation is stable -F/u CXR tomorrow AM -F/u ABG RENAL #ATN s/p cardiac arrest -oliguric -for possible HD today and new Shiley -consent received from partner -F/u CMP -Continue to f/u UO, creatinine CARDIO -pt in shock, maintain MAP>65 - d/t decreased MAP, on levophed 8 mcg/min ID -received Vanco, zosyn 04/07/17 -urine cx, blood cx - -however pt recultured (blood, urine) today - 04/09/17 since febrile-102.5F -sputum cx : yeast like organism (04/06/17) GI -pt has new NGT placed yesterday (04/08/17) -F/u CMP F/E/N -Will monitor electrolytes -To start on Nepro for diet PROPHYLAXIS -DVT: 5000 U SQ TID, SCD's DISPOSITION continued management in ICU as pt is unstable, dependent on vent Visit type - Emergency Visit Emergency Visit: No - New Patient This patient is new to me today: No - Critical Care Critical Care patient: Yes Total Critical Care Time (in minutes): 42 Critical Care Statement: The care of this patient involved high complexity decision making to prevent further life threatening deterioration of the patient 's condition and/or to evaluate & treat vital organ system(s) failure or risk of failure.
[2017-04-09 09:42] LABS: MCH 31.7 pg (25.7-33.7); MCHC 36.2 g/dl (32.0-35.9); MEAN CELL VOLUME 87.6 fl (80-96); MEAN PLT VOLUME 8.9 fl (7.5-11.1); PLATELET COUNT 196 K/MM3 (134-434); RDW 15.9 % (11.9-15.9); WHITE BLOOD COUNT 29.6 K/mm3 (4.0-10.0)
[2017-04-09] MEDS ORDERED: PT OWN MED DRAWER 7, Y5N ONE ×2 (09:43→22:09)
[2017-04-09 09:47] LABS: MAGNESIUM 2.7 mg/dL (1.8-2.4); SGOT/AST 150 U/L (15-37); TOT PROT 5.7 g/dl (6.4-8.2)
[2017-04-09 09:54] LABS: CALCIUM 6.6 mg/dL (8.5-10.1)
[2017-04-09] MEDS: PIPERACILLIN/TAZOB 2.25 GM 50 ML IVPB SCH (10:30)
[2017-04-09] MEDS: PANTOPRAZOLE SODIUM 40 MG VIAL IVPUSH SCH (10:32)
[2017-04-09] MEDS ORDERED: INSULIN REGULAR HUMAN 100 UNITS/ML *VIAL IVPUSH ONE ×2 (10:47→18:30)
[2017-04-09] MEDS ORDERED: ALBUTEROL SO4 0.083% IH SOL 2.5 MG/3 ML VIAL.NEB. NEB SCH (11:00)
[2017-04-09] MEDS ORDERED: CALCIUM GLUCONATE 10% - 1,000 MG/10 ML VIAL IVPUSH ONE ×2 (11:05→18:30)
[2017-04-09] MEDS ORDERED: DEXTROSE 50%-WATER - 25 GM/50 ML VIAL IVPUSH ONE ×2 (11:05→18:32)
[2017-04-09] MEDS ORDERED: DEXTROSE 50%-WATER 25 GM/50 ML DISP.SYRIN ONE ×2 (11:29→18:32)
[2017-04-09] MEDS ORDERED: INSULIN REGULAR HUMAN 100 UNITS/ML *VIAL ONE (11:30)
--- NOTE | 2017-04-09 11:46 | PN ---
Progress Note, Physician History of Present Illness: Pt seen and examined at bedside. He remains in the ICU. Pt remains intubated. - Current Medication List Current Medications: Active Medications Acetaminophen (Tylenol -) 650 mg PO Q6H PRN PRN Reason: FEVER OR PAIN Last Admin: 04/09/17 02:14 Dose: 650 mg Albuterol Sulfate (Ventolin 0.083% Nebulizer Soln -) 1 amp NEB Q15M SEN Stop: 04/09/17 11:46 Propofol (Diprivan -) 100 mls @ 2.28 mls/hr IVPB TITR SEN; 5 MCG/KG/MIN PRN Reason: Protocol Last Admin: 04/09/17 09:19 Dose: 60 mcg/kg/min, 27.36 mls/hr Piperacillin/Tazobactam/Dextrose (Zosyn 2.25gm Ivpb (Premix)) 50 mls @ 100 mls/ hr IVPB BID SEN PRN Reason: Protocol Last Admin: 04/09/17 10:30 Dose: 100 mls/hr Midazolam HCl 100 mg/ Sodium (Chloride) 100 mls @ 8 mls/hr IVPB TITR SEN; 8 MG/ HR PRN Reason: Protocol Last Admin: 04/08/17 17:07 Dose: 8 mg/hr, 8 mls/hr Norepinephrine Bitartrate 8, (000 mcg/ Dextrose) 500 mls @ 15 mls/hr IV TITR SEN; 4 MCG/MIN PRN Reason: Protocol Last Admin: 04/09/17 05:30 Dose: 4 mcg/min, 15 mls/hr Levetiracetam (Keppra Injection -) 500 mg IVPB BID [facility] Last Admin: 04/09/17 10:28 Dose: 500 mg Ondansetron HCl (Zofran Injection) 4 mg IVPUSH Q6H PRN PRN Reason: NAUSEA Pantoprazole Sodium (Protonix Iv) 40 mg IVPUSH DAILY [facility] Last Admin: 04/09/17 10:32 Dose: 40 mg Phenytoin Sodium (Dilantin Injection -) 200 mg IVPB Q8H-IV [facility] Last Admin: 04/09/17 10:05 Dose: 200 mg Scopolamine HBr (Transderm-Scop -) 1 patch TD Q72H [facility] Last Admin: 04/07/17 22:12 Dose: 1 patch Thiamine HCl (Vitamin B1 Injection -) 200 mg IVPB TID [facility] Last Admin: 04/09/17 10:33 Dose: Not Given - Objective Vital Signs: Vital Signs Temperature 97.4 F L 04/09/17 10:00 Pulse Rate 84 04/09/17 10:31 Respiratory Rate 24 04/09/17 10:00 Blood Pressure 92/58 04/09/17 10:00 O2 Sat by Pulse Oximetry (%) 92 L 04/09/17 10:31 Constitutional: Yes: Calm Eyes: Yes: Conjunctiva Clear Neck: Yes: Supple Cardiovascular: Yes: S1, S2 Respiratory: Yes: Mechanically Ventilated Gastrointestinal: Yes: Soft Genitourinary: Yes: Bhatti Present, Incontinence Musculoskeletal: Yes: Muscle Weakness Edema: Yes Edema: LUE: Trace, RUE: Trace, LLE: Trace, RLE: Trace Integumentary: Yes: Tattoos Neurological: Yes: Lethargy Labs: CBC, BMP 04/09/17 07:20 04/09/17 07:20 INR, PTT INR 1.23 (0.82-1.09) H D 04/06/17 16:00 - ....Imaging Chest X-ray: Report Reviewed Problem List - Problems (1) Alcohol intoxication Code(s): F10.929 - ALCOHOL USE, UNSPECIFIED WITH INTOXICATION, UNSPECIFIED (2) Cardiac arrest Code(s): I46.9 - CARDIAC ARREST, CAUSE UNSPECIFIED (3) Seizure Code(s): R56.9 - UNSPECIFIED CONVULSIONS (4) Transaminitis Code(s): R74.0 - NONSPEC ELEV OF LEVELS OF TRANSAMNS & LACTIC ACID DEHYDRGNSE (5) ESTELA (acute kidney injury) Code(s): N17.9 - ACUTE KIDNEY FAILURE, UNSPECIFIED (6) Rhabdomyolysis Code(s): M62.82 - RHABDOMYOLYSIS Assessment/Plan Current Medications Generic Name Dose Route Start Last Admin Trade Name Freq PRN Reason Stop Dose Admin Acetaminophen 650 mg 04/09/17 00:27 04/09/17 02:14 Tylenol - PO 650 mg Q6H PRN Administration FEVER OR PAIN Albuterol Sulfate 1 amp 04/09/17 11:00 Ventolin 0.083% Nebulizer Soln - NEB 04/09/17 11:46 Q15M SEN Propofol 100 mls @ 2.28 mls/hr 04/05/17 20:45 04/09/17 09:19 Diprivan - IVPB 60 mcg/kg/min TITR SEN 27.36 mls/hr Protocol Administration 5 MCG/KG/MIN Piperacillin/Tazobactam/Dextrose 50 mls @ 100 mls/hr 04/07/17 10:00 04/09/17 10:30 Zosyn 2.25gm Ivpb (Premix) IVPB 100 mls/hr BID SEN Administration Protocol Midazolam HCl 100 mg/ Sodium 100 mls @ 8 mls/hr 04/08/17 17:00 04/08/17 17:07 Chloride IVPB 8 mg/hr TITR SEN 8 mls/hr Protocol Administration 8 MG/HR Norepinephrine Bitartrate 8, 500 mls @ 15 mls/hr 04/09/17 05:30 04/09/17 05: 30 000 mcg/ Dextrose IV 4 mcg/min TITR SEN 15 mls/hr Protocol Administration 4 MCG/MIN Levetiracetam 500 mg 04/02/17 13:45 04/09/17 10:28 Keppra Injection - IVPB 500 mg BID SEN Administration Ondansetron HCl 4 mg 03/30/17 12:56 Zofran Injection IVPUSH Q6H PRN NAUSEA Pantoprazole Sodium 40 mg 03/30/17 13:00 04/09/17 10:32 Protonix Iv IVPUSH 40 mg DAILY SEN Administration Phenytoin Sodium 200 mg 04/01/17 16:15 04/09/17 10:05 Dilantin Injection - IVPB 200 mg Q8H-IV SEN Administration Scopolamine HBr 1 patch 04/04/17 22:00 04/07/17 22:12 Transderm-Scop - TD 1 patch Q72H SEN Administration Thiamine HCl 200 mg 04/01/17 22:00 04/09/17 10:33 Vitamin B1 Injection - IVPB Not Given TID SEN Impression 1. cardiac arrest 2. respiratory failure 3. ESTELA 4. hyperkalemia 5. multi-drug abuse 6. rhabdo 7. seizure 8. hypokalemia resolved 9. pleural effusions Plan - pt is getting another shiley today - HD today in ICU at bedside - cont vent support - monitor potassium levels - will treat potassium medically for now - discussed with ICU team - family have not agreed to GOC - cont to monitor urine output for signs of renal recovery - will follow Dr Solis
--- NOTE | 2017-04-09 11:52 | PN ---
Teaching Attending Note Name of Resident: Caroline Duggan ATTENDING PHYSICIAN STATEMENT I saw and evaluated the patient. I reviewed the resident's note and discussed the case with the resident. I agree with the resident's findings and plan as documented. SUBJECTIVE: Pt seen and examined in the ICU. Remains intubated, sedated. Started on levophed gtt overnight due to hypotension. Vented on volume assist control now on 100% FiO2 and PEEP 9. Remains oliguric. OBJECTIVE: Last Vital Signs Temp Pulse Resp BP Pulse Ox 97.4 F L 84 24 92/58 92 L 04/09/17 10:00 04/09/17 10:31 04/09/17 10:00 04/09/17 10:00 04/09/17 10:31 Intake & Output 04/06/17 04/07/17 04/08/17 04/09/17 23:59 23:59 23:59 23:59 Intake Total 1419 1076 824.8 Output Total 160 100 100 Balance 1259 976 724.8 Weight 161 lb 9.581 oz 157 lb 10.088 oz Gen: intubated, sedated Heart: RRR Lung: scattered rhonchi Abd: softly distended, +ascites Ext: + edema CBC, BMP 04/09/17 07:20 04/09/17 07:20 Active Medications Acetaminophen (Tylenol -) 650 mg PO Q6H PRN PRN Reason: FEVER OR PAIN Last Admin: 04/09/17 02:14 Dose: 650 mg Propofol (Diprivan -) 100 mls @ 2.28 mls/hr IVPB TITR SEN; 5 MCG/KG/MIN PRN Reason: Protocol Last Admin: 04/09/17 09:19 Dose: 60 mcg/kg/min, 27.36 mls/hr Piperacillin/Tazobactam/Dextrose (Zosyn 2.25gm Ivpb (Premix)) 50 mls @ 100 mls/ hr IVPB BID SEN PRN Reason: Protocol Last Admin: 04/09/17 10:30 Dose: 100 mls/hr Midazolam HCl 100 mg/ Sodium (Chloride) 100 mls @ 8 mls/hr IVPB TITR SEN; 8 MG/ HR PRN Reason: Protocol Last Admin: 04/08/17 17:07 Dose: 8 mg/hr, 8 mls/hr Norepinephrine Bitartrate 8, (000 mcg/ Dextrose) 500 mls @ 15 mls/hr IV TITR SNE; 4 MCG/MIN PRN Reason: Protocol Last Admin: 04/09/17 05:30 Dose: 4 mcg/min, 15 mls/hr Levetiracetam (Keppra Injection -) 500 mg IVPB BID [facility] Last Admin: 04/09/17 10:28 Dose: 500 mg Ondansetron HCl (Zofran Injection) 4 mg IVPUSH Q6H PRN PRN Reason: NAUSEA Pantoprazole Sodium (Protonix Iv) 40 mg IVPUSH DAILY [facility] Last Admin: 04/09/17 10:32 Dose: 40 mg Phenytoin Sodium (Dilantin Injection -) 200 mg IVPB Q8H-IV [facility]EN Last Admin: 04/09/17 10:05 Dose: 200 mg Scopolamine HBr (Transderm-Scop -) 1 patch TD Q72H [facility] Last Admin: 04/07/17 22:12 Dose: 1 patch Thiamine HCl (Vitamin B1 Injection -) 200 mg IVPB TID [facility] Last Admin: 04/09/17 10:33 Dose: Not Given ASSESSMENT AND PLAN: s/p Cardiopulmonary Arrest Acute Hypoxic Respiratory Failure Pneumonia Septic Shock improving Multiorgan Failure Acute Kidney Injury requiring HD Hyperkalemia Elevated LFTs likely ischemic injury trending down +Troponins Rhabdomyolysis Seizures Likely Anoxic Encephalopathy - continue antibiotics - continue antiepileptics - will place temporary HD catheter - HD per renal - monitor urine output, creatinine - daily sedation vacations to assess mental status if possible - enteral feeds - not a candidate for weaning at this time - DVT/GI prophylaxis - continue discussions regarding goals of care, will likely need tracheostomy if they wish to continue aggressive treatment - will need ethics input as there are disagreements in goals of care - discussed with fiance at bedside - continue ICU monitoring - poor overall prognosis for meaningful recovery critical care time spent in reviewing chart, evaluating plan and formulating plan 40 min
[2017-04-09 12:39] LABS: METAMYELOCYTE 1 % (0-2); MYELOCYTE 2 % (0-2); REACTIVE LYMPHOCYTES 1 % (0-80); TOTAL CELLS COUNTED 100
[2017-04-09] MEDS ORDERED: LIDOCAINE HCL 1%, 10 MG/ML (20ML VIAL) ONE (13:29)
--- NOTE | 2017-04-09 14:46 | PROC ---
<Jaylene Wilder - Last Filed: 04/09/17 14:45> Central Line Insertion Indication: Other (dialysis) Consent on Chart: Yes Anesthesia: 1% Lidocaine Sterile Technique: Yes Ultrasound Guided Assistance: Yes Position: Left Femoral <Fahad Jacome MD - Last Filed: 04/09/17 15:31> Procedure Note Procedure: I supervised and was present during the entire procedure. Fahad Jacome MD
[2017-04-09] MEDS: ALBUTEROL SO4 0.083% IH SOL 2.5 MG/3 ML VIAL.NEB. NEB SCH ×7 (15:06→19:30)
[2017-04-09] MEDS ORDERED: CEFEPIME HCL 2 GM VIAL (RESTRICTED TO ID) IVPB ONE (15:50)
[2017-04-09] MEDS ORDERED: FLUCONAZOLE 200 MG/D5W 100 ML IVPB SCH (16:00)
--- NOTE | 2017-04-09 16:02 | PN ---
Progress Note (short form) - Note Progress Note: s/p code remains intubated now with fevers overnight and hypotension started on levophed, cultures sent new HD catheter placed today rectal tube Vital Signs Period Temp Pulse Resp BP Sys/Keating Pulse Ox Last 24 Hr 97.4 F-102.5 F 68-113 18-27 78-123/42-61 92-95 orally intubated cor-rrr lungs decreased bs at bases abd soft +rectal tube +rosenthal +scrotal edema ext no edema CBC, BMP 04/09/17 07:20 04/09/17 07:20 Laboratory Tests 04/09/17 07:20 Random Vancomycin 19.255 Microbiology 04/06/17 09:45 Blood - Peripheral Venous Blood Culture - Preliminary NO GROWTH OBTAINED AFTER 48 HOURS, INCUBATION TO CONTINUE FOR 3 DAYS. 04/06/17 08:15 Blood - Peripheral Venous Blood Culture - Preliminary NO GROWTH OBTAINED AFTER 48 HOURS, INCUBATION TO CONTINUE FOR 3 DAYS. 04/06/17 09:45 Sputum - Endotrachea Suction/Ventilator Gram Stain - Final 04/06/17 09:45 Sputum - Endotrachea Suction/Ventilator Sputum Culture - Preliminary Yeast Like Organism 04/06/17 09:45 Urine - Urine Rosenthal Urine Culture - Final NO GROWTH OBTAINED on zosyn a/p doing poorly fevers hypotension- vanco on board, cxray unchanged, blood cultures sent, will add cdiff vanco by levels, cefepime and flagyl, diflucan s/p code-back on pressors seizures post code- on anticonvulsants respiratory failure renal failure-line change today overall prognosis is poor over 35 minutes spent in the care of this critically ill ICU patient Problem List - Problems (1) Alcohol intoxication Code(s): F10.929 - ALCOHOL USE, UNSPECIFIED WITH INTOXICATION, UNSPECIFIED (2) Cardiac arrest Code(s): I46.9 - CARDIAC ARREST, CAUSE UNSPECIFIED (3) Pneumonitis due to food and vomit Code(s): J69.0 - PNEUMONITIS DUE TO INHALATION OF FOOD AND VOMIT
[2017-04-09] MEDS ORDERED: CEFEPIME 2 GM in DEXTROSE 5%-WATER - 100 ML IVPB ONE (16:15)
--- NOTE | 2017-04-09 16:22 | PN ---
Progress Note, Physician Chief Complaint: FAMILY HAS DECIDED ON STARTING DIALYSIS FOR THE PATIENT. STILL INTUBATED ON VENT SUPPORT - Current Medication List Current Medications: Active Medications Acetaminophen (Tylenol -) 650 mg PO Q6H PRN PRN Reason: FEVER OR PAIN Last Admin: 04/09/17 15:32 Dose: 650 mg Propofol (Diprivan -) 100 mls @ 2.28 mls/hr IVPB TITR SEN; 5 MCG/KG/MIN PRN Reason: Protocol Last Titration: 04/09/17 15:09 Dose: 0 mcg/kg/min, 0 mls/hr Midazolam HCl 100 mg/ Sodium (Chloride) 100 mls @ 8 mls/hr IVPB TITR SEN; 8 MG/ HR PRN Reason: Protocol Last Titration: 04/09/17 15:10 Dose: 0 mg/hr, 0 mls/hr Norepinephrine Bitartrate 8, (000 mcg/ Dextrose) 500 mls @ 15 mls/hr IV TITR SEN; 4 MCG/MIN PRN Reason: Protocol Last Admin: 04/09/17 05:30 Dose: 4 mcg/min, 15 mls/hr Metronidazole (Flagyl 500mg Premixed Ivpb -) 500 mg in 100 mls @ 100 mls/hr IVPB BID SEN Fluconazole (Diflucan 200 Mg/D5w Premixed Ivpb -) 100 mls @ 100 mls/hr IVPB DAILY SEN Cefepime HCl 2 gm/ Dextrose 100 mls @ 200 mls/hr IVPB ONCE ONE Stop: 04/09/17 16:44 Levetiracetam (Keppra Injection -) 500 mg IVPB BID REPLACED BY [facility] Last Admin: 04/09/17 10:28 Dose: 500 mg Pantoprazole Sodium (Protonix Iv) 40 mg IVPUSH DAILY REPLACED BY [facility] Last Admin: 04/09/17 10:32 Dose: 40 mg Phenytoin Sodium (Dilantin Injection -) 200 mg IVPB Q8H-IV SEN Last Admin: 04/09/17 10:05 Dose: 200 mg Scopolamine HBr (Transderm-Scop -) 1 patch TD Q72H SEN Last Admin: 04/07/17 22:12 Dose: 1 patch Thiamine HCl (Vitamin B1 Injection -) 200 mg IVPB TID REPLACED BY [facility] Last Admin: 04/09/17 15:57 Dose: 200 mg - Objective Vital Signs: Vital Signs Temperature 101.4 F H 04/09/17 14:00 Pulse Rate 79 04/09/17 14:00 Respiratory Rate 24 04/09/17 14:00 Blood Pressure 93/42 04/09/17 14:00 O2 Sat by Pulse Oximetry (%) 92 L 04/09/17 10:31 Constitutional: Yes: Severe Distress Eyes: Yes: Other HENT: Yes: Other Cardiovascular: Yes: Other Respiratory: Yes: Intubated, Mechanically Ventilated Gastrointestinal: Yes: WNL Genitourinary: Yes: Bhatti Present Edema: Yes Peripheral Pulses WNL: Yes Integumentary: Yes: WNL Wound/Incision: Yes: Clean/Dry Neurological: Yes: Unresponsive ...Motor Strength: LLE, RLE Psychiatric: Yes: Other Labs: CBC, BMP 04/09/17 07:20 04/09/17 07:20 INR, PTT INR 1.23 (0.82-1.09) H D 04/06/17 16:00 Problem List - Problems (1) Altered mental status Code(s): R41.82 - ALTERED MENTAL STATUS, UNSPECIFIED Qualifiers: Altered mental status type: unspecified Qualified Code(s): R41.82 - Altered mental status, unspecified (2) Alcohol intoxication Code(s): F10.929 - ALCOHOL USE, UNSPECIFIED WITH INTOXICATION, UNSPECIFIED (3) Cardiac arrest Code(s): I46.9 - CARDIAC ARREST, CAUSE UNSPECIFIED (4) Seizure Code(s): R56.9 - UNSPECIFIED CONVULSIONS (5) Pneumonitis due to food and vomit Code(s): J69.0 - PNEUMONITIS DUE TO INHALATION OF FOOD AND VOMIT (6) Sepsis Code(s): A41.9 - SEPSIS, UNSPECIFIED ORGANISM Qualifiers: Sepsis type: sepsis due to unspecified organism Qualified Code(s): A41.9 - Sepsis, unspecified organism (7) Anoxia Code(s): R09.02 - HYPOXEMIA Assessment/Plan HD PER FAMILY ANNAMARIATAMMY TO BE INSERTED FOR ACCESS NEUROLOGY EVAL FOR DOCUMENTATION FOR ETHICS MEETING IN AM RESP SUPPORT ON VENT/INTUBATED NOT ABLE TO WEAN OFF FAMILY NOW WANT FULL CODE RESPONSE, PATIENT IS NOT DNR.
[2017-04-09] MEDS ORDERED: SODIUM BICARBONATE 8.4% 50 MEQ/50 ML DISP.SYRIN IVPUSH ONE ×2 (18:29→18:33)
[2017-04-09 19:04] LABS: ARTERIAL BLD GAS O2 SATURATION 79.2 % (90-98.9); ARTERIAL BLOOD GAS HCO3 15.9 meq/L (22-26); ARTERIAL BLOOD GAS PO2 62.1 mmHg (80-100)
[2017-04-09 19:05] LABS: ALLENS TEST POSITIVE; ART PUNCT SITE LEFT RADIAL; LPM/O2% 100%; MECH. VENT. YES; PT. ON O2? YES; TYPE OF O2 MEC VENT; VT/PRESS 500
[2017-04-09 19:06] LABS: VENT RATE 12
[2017-04-09 19:07] LABS: ARTERIAL BLOOD GAS pH 7.02 (7.35-7.45)
[2017-04-09 19:08] LABS: ARTERIAL BLOOD GAS BASE EXCESS -14.3 meq/l (-2-2)
--- NOTE | 2017-04-09 19:38 | PN ---
Progress Note (short form) - Note Progress Note: NEUROLOGY FOLLOW-UP: Events reviewed and discussed with Rev. Andres today. Now being dialyzed. Still on Propofol, midazolam. ++ spontaneous respirations. Mid-position, sluggishly reactive pupils. No corneals today but EOM's present. Severe B/L cerebral dysfunction. Cannot fully assess cerebral function while anesthetized. Try to slowly taper sedation and allow breathing trial though ET. Thank you very much, Elmo Vogel MD
[2017-04-09 19:50] LABS: ANION GAP 20 (8-16); CO2 17 mmol/L (21-32); GLUCOSE,RANDOM 293 mg/dL (74-106)
[2017-04-09 20:04] LABS: CALCIUM 6.7 mg/dL (8.5-10.1); CREATININE 10.1 mg/dL (0.7-1.3)
--- NOTE | 2017-04-09 21:42 | PN ---
Progress Note (short form) - Note Progress Note: Pt had K of 6.4 this am. This evening, pt's cardiac rhythm changed on the monitor. EKG was performed. Cardiology was consulted. Rhythm on EKG had intermittent supraventricular tachyarrhythmia non flutter, non afib and intermittently irregular. Nephrology was also called. Pt was given Ca gluconate , Ins, D50, 2 amps of bicarb and rhythm normalized. Repeat EKG was also reviewed by cardiology. Pt received hemodialysis. Pre HD K was 7.7. Dialysis ongoing at this time. Will follow post HD labs.
[2017-04-09] MEDS: MIDAZOLAM 100 MG in SODIUM CHLORIDE 100 ML IVPB SCH (22:13)
[2017-04-09] MEDS: METRONIDAZOLE 500 MG PREMIXED 500 MG/100 ML MG IVPB SCH (22:13)
[2017-04-09 23:29] LABS: ARTERIAL BLD GAS O2 SATURATION 99.1 % (90-98.9); ARTERIAL BLOOD GAS HCO3 25.8 meq/L (22-26); ARTERIAL BLOOD GAS pH 7.38 (7.35-7.45)
[2017-04-09 23:31] LABS: ALLENS TEST POSITIVE; ART PUNCT SITE RIGHT RADIAL; PT. ON O2? YES
[2017-04-09 23:32] LABS: LPM/O2% 100%; MECH. VENT. YES; TYPE OF O2 VENT; VENT RATE 20; VT/PRESS 500
[2017-04-10 01:15] LABS: ALBUMIN 2.2 g/dl (3.4-5.0); ANION GAP 15 (8-16); BILIRUBIN,TOTAL 1.6 mg/dL (0.2-1.0); CALCIUM 6.5 mg/dL (8.5-10.1); CO2 26 mmol/L (21-32); CREATININE 6.3 mg/dL (0.7-1.3)
[2017-04-10 01:29] LABS: ALK PHOS 135 U/L (45-117)
[2017-04-10] MEDS: NOREPINEPHRINE BITARTRATE 8,000 MCG in DEXTROSE 5%-WATER - 492 ML IV SCH (01:53)
[2017-04-10] MEDS: PHENYTOIN SODIUM 100 MG/2 ML VIAL IVPB SCH (02:00)
[2017-04-10 03:00] LABS: GLUCOSE,RANDOM 275 mg/dL (74-106)
[2017-04-10 03:01] LABS: SGOT/AST 6898 U/L (15-37); TOT PROT 6.8 g/dl (6.4-8.2)
[2017-04-10 03:02] LABS: SGPT/ALT 2378 U/L (12-78)
[2017-04-10] MEDS: THIAMINE HCL 200 MG/2 ML VIAL IVPB SCH (06:59)
[2017-04-10 07:29] LABS: ANION GAP 16 (8-16); CO2 25 mmol/L (21-32); GLUCOSE,RANDOM 266 mg/dL (74-106)
[2017-04-10] MEDS ORDERED: CALCIUM GLUCONATE 10% - 1,000 MG/10 ML VIAL IVPUSH ONE (07:46)
[2017-04-10 07:52] LABS: PHOSPHOROUS 8.3 mg/dL (2.5-4.9)
[2017-04-10 08:33] LABS: CALCIUM 6.4 mg/dL (8.5-10.1); MAGNESIUM 2.4 mg/dL (1.8-2.4)
[2017-04-10] MEDS ORDERED: CEFEPIME HCL 1 GM VIAL (RESTRICTED TO ID) IVPB SCH (10:00)
[2017-04-10] MEDS ORDERED: CEFEPIME 1 GM in DEXTROSE 5%-WATER - 100 ML IVPB SCH (10:00)
--- NOTE | 2017-04-10 10:01 | PN ---
Physical Exam: SUBJECTIVE: Patient seen and examined at bedside. 24 hr events -Afebrile overnight -EKG yesterday evening revealed ST changes- Dr. Solis called. Pt was given Ca gluconate, Ins, D50, 2 amps of bicarb and rhythm normalized -dialysis completed -levophed increased to 16 mcg/min Today -intubated, vented : AC 20 RR/TV 500/ Fi02 60/PEEP 7 -Pt pronounced at 12:24pm after reintubation, and rounds of CPR, chest physio performed OBJECTIVE: Vital Signs Period Temp Pulse Resp BP Sys/[place] Pulse Ox Last 24 Hr 97.4 F-101.4 F 46-113 14-26 45-180/30-97 92-96 GENERAL: The patient is intubated and vented EYES: fixed and dilated pupils NECK: Trachea midline LUNGS: breath sounds not appreciated HEART: heart sounds absent EXTREMITIES: absent pulses in dorsalis pedis, radial arteries NEUROLOGICAL: no response to verbal stimuli Laboratory Results - last 24 hr 04/07/17 04/09/17 04/09/17 07:00 07:20 07:20 WBC 29.6 H D RBC 2.79 L Hgb 8.9 L Hct 24.5 L MCV 87.6 MCH 31.7 MCHC 36.2 H RDW 15.9 Plt Count 196 D MPV 8.9 Total Counted 100 Neutrophils % No Result Required. Neutrophils % (Manual) 60 Band Neuts % (Manual) 22 H D Lymphocytes % No Result Required. Lymphocytes % (Manual) 7 L D Monocytes % (Manual) 6 Myelocytes % (Man) 2 Anticoagulation Therapy Puncture Site ABG pH ABG pCO2 at Pt Temp ABG pO2 at Pt Temp ABG HCO3 ABG O2 Sat (Measured) ABG O2 Content ABG Base Excess Phillip Test O2 Delivery Device Oxygen Flow Rate Vent Mode Vent Rate Mechanical Rate PEEP Pressure Support Vent Sodium 139 Potassium 6.4 H* D Chloride 102 Carbon Dioxide 19 L Anion Gap 18 H BUN 72 H D Creatinine 9.0 H* D Creat Clearance w eGFR 6.82 Random Glucose 201 H D Calcium 6.6 L* Phosphorus Y Magnesium 2.7 H Total Bilirubin 0.9 D AST 150 H D ALT Y Alkaline Phosphatase 114 D Total Protein 5.7 L Albumin 1.9 L Random Vancomycin Phenytoin Blood Type A POSITIVE Antibody Screen Negative Crossmatch See Detail 04/09/17 04/09/17 04/09/17 16:45 18:30 18:50 WBC RBC Hgb Hct MCV MCH MCHC RDW Plt Count MPV Total Counted Neutrophils % Neutrophils % (Manual) Band Neuts % (Manual) Lymphocytes % Lymphocytes % (Manual) Monocytes % (Manual) Myelocytes % (Man) Anticoagulation Therapy Y Puncture Site Left radial ABG pH 7.02 L* ABG pCO2 at Pt Temp 65.3 H* D ABG pO2 at Pt Temp 62.1 L D ABG HCO3 15.9 L ABG O2 Sat (Measured) 79.2 L ABG O2 Content 8.3 L* ABG Base Excess -14.3 L* Phillip Test Positive O2 Delivery Device Mec vent Oxygen Flow Rate 100% Vent Mode Ac Vent Rate 12 Mechanical Rate Yes PEEP 7.0 Pressure Support Vent 500 Sodium 135 L Potassium 7.7 H* D Chloride 98 Carbon Dioxide 17 L Anion Gap 20 H BUN 87 H D Creatinine 10.1 H* Creat Clearance w eGFR Random Glucose 293 H D Calcium 6.7 L* Phosphorus Magnesium Total Bilirubin AST ALT Alkaline Phosphatase Total Protein Albumin Random Vancomycin Phenytoin 22.6 H D Blood Type Antibody Screen Crossmatch 04/09/17 04/10/17 04/10/17 23:20 00:30 06:10 WBC RBC Hgb Hct MCV MCH MCHC RDW Plt Count MPV Total Counted Neutrophils % Neutrophils % (Manual) Band Neuts % (Manual) Lymphocytes % Lymphocytes % (Manual) Monocytes % (Manual) Myelocytes % (Man) Anticoagulation Therapy Y Puncture Site Right radial ABG pH 7.38 D ABG pCO2 at Pt Temp 44.3 D ABG pO2 at Pt Temp 141.0 H D ABG HCO3 25.8 ABG O2 Sat (Measured) 99.1 H ABG O2 Content 14.1 L ABG Base Excess 1.0 Phillip Test Positive O2 Delivery Device Vent Oxygen Flow Rate 100% Vent Mode A/c Vent Rate 20 Mechanical Rate Yes PEEP 7.0 Pressure Support Vent 500 Sodium 139 Potassium 4.8 D Chloride 98 Carbon Dioxide 26 D Anion Gap 15 BUN 52 H D Creatinine 6.3 H D Creat Clearance w eGFR 10.29 Random Glucose 275 H Calcium 6.5 L* Phosphorus Magnesium Total Bilirubin 1.6 H D AST 6898 H ALT 2378 H D Alkaline Phosphatase 135 H Total Protein 6.8 Albumin 2.2 L Random Vancomycin 13.214 Phenytoin Blood Type Antibody Screen Crossmatch 04/10/17 06:10 WBC RBC Hgb Hct MCV MCH MCHC RDW Plt Count MPV Total Counted Neutrophils % Neutrophils % (Manual) Band Neuts % (Manual) Lymphocytes % Lymphocytes % (Manual) Monocytes % (Manual) Myelocytes % (Man) Anticoagulation Therapy Puncture Site ABG pH ABG pCO2 at Pt Temp ABG pO2 at Pt Temp ABG HCO3 ABG O2 Sat (Measured) ABG O2 Content ABG Base Excess Phillip Test O2 Delivery Device Oxygen Flow Rate Vent Mode Vent Rate Mechanical Rate PEEP Pressure Support Vent Sodium 139 Potassium 5.2 H Chloride 98 Carbon Dioxide 25 Anion Gap 16 BUN 61 H Creatinine 7.0 H Creat Clearance w eGFR Random Glucose 266 H Calcium 6.4 L* Phosphorus 8.3 H Magnesium 2.4 Total Bilirubin AST ALT Alkaline Phosphatase Total Protein Albumin Random Vancomycin Phenytoin Blood Type Antibody Screen Crossmatch Active Medications Generic Name Dose Route Start Last Admin Trade Name Freq PRN Reason Stop Dose Admin Acetaminophen 650 mg 04/09/17 00:27 04/09/17 15:32 Tylenol - PO 650 mg Q6H PRN Administration FEVER OR PAIN Propofol 100 mls @ 2.28 mls/hr 04/05/17 20:45 04/09/17 22:13 Diprivan - IVPB Not Given TITR SNE Protocol 5 MCG/KG/MIN Midazolam HCl 100 mg/ Sodium 100 mls @ 8 mls/hr 04/08/17 17:00 04/10/17 01:00 Chloride IVPB 1 mg/hr TITR SEN 1 mls/hr Protocol Titration 8 MG/HR Norepinephrine Bitartrate 8, 500 mls @ 15 mls/hr 04/09/17 05:30 04/10/17 06: 53 000 mcg/ Dextrose IV 5 mcg/min TITR SEN 18.75 mls/hr Protocol Titration 4 MCG/MIN Metronidazole 500 mg in 100 mls @ 100 mls/hr 04/09/17 22:00 04/09/17 22:13 Flagyl 500mg Premixed Ivpb - IVPB 100 mls/hr BID SEN Administration Fluconazole 100 mls @ 100 mls/hr 04/09/17 16:00 04/09/17 17:41 Diflucan 200 Mg/D5w Premixed Ivpb - IVPB 100 mls/hr DAILY SEN Administration Cefepime HCl 1 gm/ Dextrose 100 mls @ 200 mls/hr 04/10/17 10:00 IVPB DAILY SEN Levetiracetam 500 mg 04/02/17 13:45 04/09/17 22:13 Keppra Injection - IVPB 500 mg BID SEN Administration Pantoprazole Sodium 40 mg 03/30/17 13:00 04/09/17 10:32 Protonix Iv IVPUSH 40 mg DAILY SEN Administration Phenytoin Sodium 200 mg 04/01/17 16:15 04/10/17 02:00 Dilantin Injection - IVPB 200 mg Q8H-IV SEN Administration Scopolamine HBr 1 patch 04/04/17 22:00 04/07/17 22:12 Transderm-Scop - TD 1 patch Q72H SEN Administration Thiamine HCl 200 mg 04/01/17 22:00 04/10/17 06:59 Vitamin B1 Injection - IVPB 200 mg TID SEN Administration ASSESSMENT/PLAN: This is a 31 year old M with hx diabetes, alcohol abuse and depression. He was brought to the ED s/p PEA activity, cardiac arrest. CPR was started and pt was intubated in the field. He was transferred to the ICU for continued management. This morning during rounds pt desaturated into the 70's. Pt reintubated by anesthesia but remained severely hypoxic, going as low as 02 sat of 40. Stat CXR showing complete opacification of left hemithorax, bedside ultrasound performed showed atelectasis. Vigorous treatment was underwent. Pt became pulseless and underwent rounds of CPR. He was also given epinephrine. Repeat CXR revealed improvement in re-expanding left lung on CXR but he still remained hypoxic to 60s. Condition and poor prognosis explained to multiple family members in meeting, agreed on DNR. Shortly after family meeting, pt became bradycardic. At 12:24pm, I was called in to see pt as he had asystole. On exam, patient did not respond to verbal or physical stimuli. Absent heart or breath sounds were appreciated. Absent peripheral pulses. Pupils were fixed and dilated. Pt was pronounced at 12 :24pm. Visit type - Emergency Visit Emergency Visit: No - New Patient This patient is new to me today: No - Critical Care Critical Care patient: Yes Total Critical Care Time (in minutes): 42 Critical Care Statement: The care of this patient involved high complexity decision making to prevent further life threatening deterioration of the patient 's condition and/or to evaluate & treat vital organ system(s) failure or risk of failure.
[2017-04-10 10:23] LABS: ARTERIAL BLOOD GAS PO2 81.4 mmHg (80-100); ARTERIAL BLOOD GAS pH 7.34 (7.35-7.45)
[2017-04-10 10:24] LABS: ALLENS TEST POSITIVE; ARTERIAL BLD GAS O2 SATURATION 95.1 % (90-98.9); ARTERIAL BLOOD GAS BASE EXCESS -3.7 meq/l (-2-2); ARTERIAL BLOOD GAS HCO3 21.2 meq/L (22-26)
[2017-04-10 10:25] LABS: ART PUNCT SITE LEFT RADIAL; LPM/O2% 60; PT. ON O2? YES; TYPE OF O2 VENT
[2017-04-10 10:26] LABS: MECH. VENT. YES; VT/PRESS 500
[2017-04-10 10:28] LABS: VENT RATE 20
[2017-04-10 10:35] VITALS: TEMP 99.7
--- NOTE | 2017-04-10 10:47 | PN ---
Progress Note (short form) - Note Progress Note: Anesthesiology: Called to re-intubate this 31y/o male with anoxic brain injury s/p cardiac arrest. Pt. was intubated under direct laryngoscopy using #7.5 endotracheal tube. Tube position confirmed and secured. Resuscitave measures continuing.
[2017-04-10] MEDS ORDERED: VECURONIUM BROMIDE 10 MG VIAL ONE (10:52)
[2017-04-10] MEDS ORDERED: ALBUTEROL SO4 2.5/IPRATROPIUM 0.5 INH SOL 3 ML VIAL.NEB. NEB ONE (11:03)
[2017-04-10] MEDS ORDERED: ACETYLCYSTEINE 20% 200MG/ML 4 ML VIAL *FOR ORAL / INH USE ONLY ONE (11:04)
[2017-04-10] MEDS ORDERED: ALBUTEROL SO4 0.083% IH SOL 2.5 MG/3 ML VIAL.NEB. NEB ONE ×3 (11:04→11:18)
[2017-04-10] MEDS: ACETYLCYSTEINE 20% 200MG/ML 30 ML VIAL *FOR ORAL / INH USE ONLY NEB ONE ×2 (11:10→11:57)
[2017-04-10] MEDS ORDERED: ACETYLCYSTEINE 20% 200MG/ML 30 ML VIAL *FOR ORAL / INH USE ONLY NEB ONE (11:18)
[2017-04-10] MEDS: PANTOPRAZOLE SODIUM 40 MG VIAL IVPUSH SCH (11:53)
[2017-04-10] MEDS: METRONIDAZOLE 500 MG PREMIXED 500 MG/100 ML MG IVPB SCH (11:54)
[2017-04-10] MEDS ORDERED: VECURONIUM BROMIDE 50 MG VIAL IVPUSH ONE (12:15)
--- NOTE | 2017-04-10 13:10 | PN ---
Teaching Attending Note Name of Resident: Caroline Duggan ATTENDING PHYSICIAN STATEMENT I saw and evaluated the patient. I reviewed the resident's note and discussed the case with the resident. I agree with the resident's findings and plan as documented. SUBJECTIVE: Pt seen and examined in the ICU. This morning during rounds pt desaturated acutely with low tidal volumes. Pt reintubated by anesthesia but remained severely hypoxic. Stat CXR showing complete opacification of left hemithorax, bedside ultrasound performed showing atelectasis without evidence of fluid. Chest PT, pulmonary toilet, recruitment maneuvers performed with improvement in re-expanding left lung on CXR but remained hypoxic to 60s. During events, pt became bradycardic and pulseless x 2 requiring ACLS. See code sheet for further details. Condition and poor prognosis explained to multiple family members in meeting, agreed on DNR. Shortly after family meeting, pt became bradycardic with subsequent asystole. Time of pronounced at 12:24PM. OBJECTIVE: Last Vital Signs Temp Pulse Resp BP Pulse Ox 99.7 F H 75 20 100/55 96 04/10/17 10:00 04/10/17 10:00 04/10/17 11:42 04/10/17 10:00 04/10/17 09:30 Intake & Output 04/07/17 04/08/17 04/09/17 04/10/17 23:59 23:59 23:59 23:59 Intake Total 1419 1076 824.8 Output Total 160 100 100 Balance 1259 976 724.8 Weight 161 lb 9.581 oz 157 lb 10.088 oz 161 lb 9.581 oz Gen: intubated, unresponsive Heart: RRR Lung: decreased breath sounds left Abd: soft, nontender Ext: + edema CBC, BMP 04/09/17 07:20 04/10/17 06:10 Active Medications Acetaminophen (Tylenol -) 650 mg PO Q6H PRN PRN Reason: FEVER OR PAIN Last Admin: 04/09/17 15:32 Dose: 650 mg Acetylcysteine (Mucomyst 20 Oral / Inh Use Only*) 20 mg NEB ONCE ONE Stop: 04/10/17 11:10 Last Admin: 04/10/17 11:10 Dose: 20 mg Acetylcysteine (Mucomyst 20 Oral / Inh Use Only*) 20 mg NEB ONCE ONE Stop: 04/10/17 11:19 Albuterol Sulfate (Ventolin 0.083% Nebulizer Soln -) 1 amp NEB ONCE ONE Stop: 04/10/17 11:10 Last Admin: 04/10/17 11:10 Dose: 1 amp Albuterol Sulfate (Ventolin 0.083% Nebulizer Soln -) 1 amp NEB ONCE ONE Stop: 04/10/17 11:19 Albuterol/Ipratropium (Duoneb -) 1 amp NEB ONCE ONE Stop: 04/10/17 11:04 Propofol (Diprivan -) 100 mls @ 2.28 mls/hr IVPB TITR SEN; 5 MCG/KG/MIN PRN Reason: Protocol Last Admin: 04/09/17 22:13 Dose: Not Given Midazolam HCl 100 mg/ Sodium (Chloride) 100 mls @ 8 mls/hr IVPB TITR SEN; 8 MG/ HR PRN Reason: Protocol Last Titration: 04/10/17 01:00 Dose: 1 mg/hr, 1 mls/hr Norepinephrine Bitartrate 8, (000 mcg/ Dextrose) 500 mls @ 15 mls/hr IV TITR SEN; 4 MCG/MIN PRN Reason: Protocol Last Titration: 04/10/17 06:53 Dose: 5 mcg/min, 18.75 mls/hr Metronidazole (Flagyl 500mg Premixed Ivpb -) 500 mg in 100 mls @ 100 mls/hr IVPB BID [facility] Last Admin: 04/10/17 11:54 Dose: 100 mls/hr Fluconazole (Diflucan 200 Mg/D5w Premixed Ivpb -) 100 mls @ 100 mls/hr IVPB DAILY [facility] Last Admin: 04/09/17 17:41 Dose: 100 mls/hr Cefepime HCl 1 gm/ Dextrose 100 mls @ 200 mls/hr IVPB DAILY [facility] Levetiracetam (Keppra Injection -) 500 mg IVPB BID [facility] Last Admin: 04/09/17 22:13 Dose: 500 mg Pantoprazole Sodium (Protonix Iv) 40 mg IVPUSH DAILY [facility] Last Admin: 04/10/17 11:53 Dose: 40 mg Phenytoin Sodium (Dilantin Injection -) 200 mg IVPB Q8H-IV SEN Last Admin: 04/10/17 02:00 Dose: 200 mg Scopolamine HBr (Transderm-Scop -) 1 patch TD Q72H [facility] Last Admin: 04/07/17 22:12 Dose: 1 patch Thiamine HCl (Vitamin B1 Injection -) 200 mg IVPB TID [facility] Last Admin: 04/10/17 06:59 Dose: 200 mg Vecuronium [place] (Vecuronium [place]) 5 mg IVPUSH ONCE ONE Stop: 04/10/17 12:16 ASSESSMENT AND PLAN: s/p Cardiopulmonary Arrest Acute Hypoxic Respiratory Failure Pneumonia Atelectasis Septic Shock improving Multiorgan Failure Acute Kidney Injury requiring HD Hyperkalemia Elevated LFTs likely ischemic injury trending down +Troponins Rhabdomyolysis Seizures Likely Anoxic Encephalopathy - events from this AM documented above, pt at 12:24PM critical care time spent in reviewing chart, evaluating patient and formulating plan not including procedures or CPR 120 min
--- NOTE | 2017-04-10 14:02 | ETH ---
Ethics Committee Report: Ethics Consult Committee, scheduled for 10 AM April 10, was about to begin, when the patient, 31 year-old Bryon Jacinto, began to experience more difficulty. Consult was postponed and then cancelled when Bryon at 12: 24 PM, April 10, 2017. Some members of the consult team met with the family in the ICU waiting room as the medical team attempted to resuscitate the patient several times. Dr. Destin Turk spoke to the assembled family members (Melly Johnson [Bryon's modestae and mother of his 6 year-old daughter] her mother Josefina, her father, Ken, and her sister, Samuel; and Bryon's mother, Latosha Garcia, his father, Sr. Bryon , and his sister, Perfecto) after several arrests and resuscitations had occurred. He invited family members who wished to be present with staff working on Bryon to do so. Several did. A little later, Dr. Jacome spoke to the family about what was happening with the patient and explained that he would not be able to return to his former quality of life. Knowing that Bryon did not want that, Melly decided to make Bryon a DNR and to have him weaned from the respirator, with agreement by all other family present. Almost immediately, Bryon's heart began a downward turn, and he shortly afterwards, with all family members having the opportunity to see him before and after his . Although the ethics consult was not held in its usual form, it did bring together family members from both sides of the family and provided them a forum that proved helpful, and hopefully healing, as they moved toward "getting on the same page" together. Originally present at the meeting: Zeinab Juarez RN, Risk Management; Jennifer Matos RN, investment banking analyst; Isabel Silva,[place]; Elvia Coyle RN, Palliative Care: and Arely Redding RN, Nursing Administration. With the family and staff in ICU waiting to join the consult on 5W: Rev. Jose Fernandez, Spiritual Care; Cate Wright, Patient Advocate, Administration. Available by telephone to the consult: Elmo Vogel, Neurology. Respectfully submitted, RevLucian Andres, PhD [facility] Ethics Consult Chair
[2017-04-10 14:18] VITALS: BP 82/42; PULSE 100
--- NOTE | 2017-04-10 16:33 | EKG ---
Test Reason : Blood Pressure : / mmHG Vent. Rate : 087 BPM Atrial Rate : 087 BPM P-R Int : 162 ms QRS Dur : 110 ms QT Int : 344 ms P-R-T Axes : 070 059 050 degrees QTc Int : 413 ms POOR DATA QUALITY, INTERPRETATION MAY BE ADVERSELY AFFECTED NORMAL SINUS RHYTHM NORMAL ECG WHEN COMPARED WITH ECG OF 09-APR-2017 18:20, SINUS RHYTHM HAS REPLACED ATRIAL FIBRILLATION QUESTIONABLE CHANGE IN QRS DURATION CRITERIA FOR ANTEROSEPTAL INFARCT ARE NO LONGER PRESENT Confirmed by ELIZABETH FAJARDO MD ([id number]) on 04/10/2017 4:32:56 PM Referred By: Confirmed By:ELIZABETH FAJARDO MD
--- NOTE | 2017-04-10 16:35 | EKG ---
Test Reason : Blood Pressure : / mmHG Vent. Rate : 091 BPM Atrial Rate : 043 BPM P-R Int : 000 ms QRS Dur : 092 ms QT Int : 384 ms P-R-T Axes : 000 -05 108 degrees QTc Int : 472 ms ATRIAL FIBRILLATION LOW VOLTAGE QRS ANTEROSEPTAL INFARCT , POSSIBLY ACUTE ACUTE NH / STEMI ABNORMAL ECG WHEN COMPARED WITH ECG OF 30-MAR-2017 10:25, SIGNIFICANT CHANGES HAVE OCCURRED Confirmed by ELIZABETH FAJARDO MD ([id number]) on 04/10/2017 4:34:53 PM Referred By: Confirmed By:ELIZABETH FAJARDO MD
--- NOTE | 2017-04-10 20:26 | DS ---
Physical Examination Vital Signs: Vital Signs Temperature 99.7 F H 04/10/17 10:00 Pulse Rate 100 H 04/10/17 12:00 Respiratory Rate 20 04/10/17 12:00 Blood Pressure 82/42 04/10/17 12:00 O2 Sat by Pulse Oximetry (%) 96 04/10/17 09:30 Findings/Remarks: patient now dnr per family long discussion for 30 minutes with ethics committe. muliple episoded cardiac arrest today cpr and code 99 called patient re-intubated and medications for resuccitation given for over 1 hour Constitutional: Yes: Severe Distress Cardiovascular: Yes: Bradycardia Respiratory: Yes: Intubated, Mechanically Ventilated, Poor Air Entry Renal/: Yes: Bhatti Present Labs: CBC, BMP 04/09/17 07:20 04/10/17 06:10 Discharge Summary Reason For Visit: UNCONSCIOUS - Instructions Referrals: Jose Alberto Bocanegra MD, MD [Primary Care Provider] - Disposition: - Home Medications Comprehensive Discharge Medication List: Ambulatory Orders NK [No Known Home Medication] 11/20/14
== END 2017-04-10 12:29 | disposition expired | DRG 720 ==
LOC: JER 09:20 → JERBED 10:05 → JICU 12:15 → JERBED 12:25 → JICU 13:20
PROVIDERS: ADMIT Family Medicine; ATTEND Family Medicine
PROC: 0BH17EZ Insertion of Endotracheal Airway into Trachea, Via Natural or Artificial Opening (ICD-10-PCS; principal; 2017-03-30)
PROC: 5A1955Z Respiratory Ventilation, Greater than 96 Consecutive Hours (ICD-10-PCS; 2017-03-30)
PROC: 05HM33Z Insertion of Infusion Device into Right Internal Jugular Vein, Percutaneous Approach (ICD-10-PCS; 2017-03-30)
PROC: 5A12012 Performance of Cardiac Output, Single, Manual (ICD-10-PCS; 2017-03-30)
PROC: 06HM33Z Insertion of Infusion Device into Right Femoral Vein, Percutaneous Approach (ICD-10-PCS; 2017-04-04)
PROC: 5A1D70Z Performance of Urinary Filtration, Intermittent, Less than 6 Hours Per Day (ICD-10-PCS; 2017-04-04)
PROC: 0B21XFZ Change Tracheostomy Device in Trachea, External Approach (ICD-10-PCS; 2017-04-05)
PROC: 0CH Mouth and Throat, Insertion (ICD-10-PCS; 2017-04-07)
PROC: 0D9670Z Drainage of Stomach with Drainage Device, Via Natural or Artificial Opening (ICD-10-PCS; 2017-04-08)
PROC: 06HN33Z Insertion of Infusion Device into Left Femoral Vein, Percutaneous Approach (ICD-10-PCS; 2017-04-09)
PROC: 0BH17EZ Insertion of Endotracheal Airway into Trachea, Via Natural or Artificial Opening (ICD-10-PCS; 2017-04-10)
PROC: 5A12012 Performance of Cardiac Output, Single, Manual (ICD-10-PCS; 2017-04-10)
DX: A41.89 Other specified sepsis (principal); R65.21 Severe sepsis with septic shock; I46.9 Cardiac arrest, cause unspecified; J69.0 Pneumonitis due to inhalation of food and vomit; Y90.6 Blood alcohol level of 120-199 mg/100 ml; K76.7 Hepatorenal syndrome; J96.01 Acute respiratory failure with hypoxia; F32.9 Major depressive disorder, single episode, unspecified; G93.1 Anoxic brain damage, not elsewhere classified; R40.20 Unspecified coma; R50.9 Fever, unspecified; N28.9 Disorder of kidney and ureter, unspecified; F17.210 Nicotine dependence, cigarettes, uncomplicated; R00.0 Tachycardia, unspecified; F10.929 Alcohol use, unspecified with intoxication, unspecified; E87.2 Acidosis; E11.649 Type 2 diabetes mellitus with hypoglycemia without coma; F19.10 Other psychoactive substance abuse, uncomplicated; E87.5 Hyperkalemia; N17.0 Acute kidney failure with tubular necrosis; E87.6 Hypokalemia; M62.82 Rhabdomyolysis; E83.51 Hypocalcemia; J90 Pleural effusion, not elsewhere classified; R74.0 Nonspecific elevation of levels of transaminase and lactic acid dehydrogenase [LDH]; G40.801 Other epilepsy, not intractable, with status epilepticus; R18.8 Other ascites; E83.42 Hypomagnesemia; K13.79 Other lesions of oral mucosa; G93.49 Other encephalopathy; R79.89 Other specified abnormal findings of blood chemistry; J95.09 Other tracheostomy complication; S01.512A Laceration without foreign body of oral cavity, initial encounter; X58.XXXA Exposure to other specified factors, initial encounter; Y93.89 Activity, other specified; Y92.238 Other place in hospital as the place of occurrence of the external cause; D68.8 Other specified coagulation defects; R00.1 Bradycardia, unspecified
CPT/HCPCS: 31500; 36415; 36430; 36600; 70450-TC; 71010-TC; 74000-TC; 76705-TC; 80048; 80053; 80185; 80307; 81003; 82140; 82375; 82550; 82553; 82803; 83050; 83520; 83605; 83735; 84100; 84484; 85025; 85027; 85610; 85730; 86038; 86256; 86704; 86706; 86708; 86803; 86850; 86900; 86901; 86922; 87040; 87070; 87086; 87186; 87205; 87324; 87340; 87449; 93005; 93010; 93306-TC; 93976; 94002; 94640; 95816; 99285-25; G0480; J1644; P9058